=== PATIENT | female | born 1970 | race Caucasian/White ===

== ENCOUNTER → 2018-02-14 11:34 | Outpatient (POV) | payer MEDICAID, SELFPAY | PROVIDERS: Visit Provider Dentist | DX: Z00.00 Encounter for general adult medical examination without abnormal findings (principal) ==

== ENCOUNTER → 2018-12-02 14:27 | Outpatient (CLI) | payer MEDICAID, SELFPAY ==
--- NOTE | 2018-12-02 14:38 | XR_ITS ---
XR knee RT 3V HISTORY: ITS.REASON: BUZZ KNEE PAIN ORDERING PHYSICIAN: Giselle Hawkins MD PATIENT AGE: 48 years COMPARISON: None FINDINGS: No fracture or dislocation. No lytic or blastic change. Normal mineralization. No significant arthritic changes evident. No other significant findings IMPRESSION: Negative right Knee
--- NOTE | 2018-12-02 14:38 | XR_ITS ---
XR knee LT 3V HISTORY: ITS.REASON: BUZZ KNEE PAIN ORDERING PHYSICIAN: Giselle Hawkins MD PATIENT AGE: 48 years COMPARISON: None FINDINGS: No fracture or dislocation. No lytic change. Normal mineralization. No significant arthritic changes evident. There is focal cortical thickening involving the distal shaft of the femur laterally. No overlying periosteal reaction or soft tissue calcification. This area measures approximately 2.3 x 0.8 cm. IMPRESSION: 1. No acute finding. 2. Focal cortical thickening of the distal femur laterally. This has a benign appearance. Recommend 3 month follow-up to confirm short-term stability
== END ==
PROVIDERS: PCP Family Medicine; Visit Provider Emergency Medicine
DX: M25.561 Pain in right knee (principal); M25.562 Pain in left knee
CPT/HCPCS: 73562

== ENCOUNTER → 2019-03-11 14:16 | Outpatient (CLI) | payer MEDICAID, SELFPAY ==
--- NOTE | 2019-03-11 14:25 | MR_ITS ---
MR knee RT wo con HISTORY: ITS.REASON: RIGHT ANTERIOR KNEE PAIN ORDERING PHYSICIAN: Giselle Bucio MD PATIENT AGE: 48 years Comparison: 12/02/2018 TECHNIQUE: Standard multiplanar multiecho sequences are performed without contrast. FINDINGS: The cruciate ligaments, collateral ligaments, patellar tendon, quadriceps tendon, and menisci have an unremarkable appearance. There is a small cluster of cysts along the anterior aspect of the knee joint measuring 2.1 x 1.8 cm. The largest cyst is approximately 9 mm. Within the central aspect of the lateral tibial plateau at the lateral tibial spine region there is a defect within the bony cortex of the proximal tibia with some increased T2 signal in this area and may represent developing subchondral cyst. There is minimal irregularity of the patellar cartilage posteriorly with increased T2 signal and some minimal increased T2 signal in the posterior patella laterally consistent with mild chondromalacia patella. IMPRESSION: 1. No evidence of internal derangement 2. Mild chondromalacia patella. 3. Cluster of small cysts in the anterior aspect of the knee joint suggesting prior sinus with increased T2 signal along the proximal tibia at the interspinous region which may represent subchondral cystic changes developing. Follow-up suggested to confirm stability
== END ==
PROVIDERS: PCP Emergency Medicine; Visit Provider Emergency Medicine
DX: M25.561 Pain in right knee (principal)
CPT/HCPCS: 73721

== ENCOUNTER → 2019-08-04 09:45 | Outpatient (CLI) | payer MEDICAID, SELFPAY ==
--- NOTE | 2019-08-04 09:57 | US_ITS ---
PROCEDURE: US BREAST RT COMPLETE CLINICAL INDICATION: AXILLA MASS COMPARISON: BB US BREAST-BUZZ from 09/10/2014 FINDINGS: No cyst or mass evident in the right axillary region. IMPRESSION: Negative ultrasound of the right axilla. Consider CT for more thorough evaluation if clinically desired Dictated by: Robinson Salinas MD 08/15/2019 17:39 Electronically signed by Robinson Salinas MD in [place] 08/15/2019 17:39
--- NOTE | 2019-08-04 09:57 | US_ITS ---
PROCEDURE: US BREAST LT COMPLETE CLINICAL INDICATION: AXILLA MASS COMPARISON: DMDB DIG MAMM-DX BUZZ from 09/10/2014 US BREAST RT COMPLETE from 08/04/2019 FINDINGS: Ultrasound performed of the left breast including a palpable area in the axilla. The axillary region has an unremarkable appearance aside from a few small nodes. At 12 o'clock near the nipple there is an oval isoechoic area measuring 13 x 6 mm. This is nonspecific and may be due to underlying fibroglandular tissue. Recommend bilateral mammogram for further evaluation. Negative ultrasound does not exclude the possibility of malignancy. CT of the axilla may be of further value. IMPRESSION: Small nodes in the axilla. There is a questionable isoechoic nodule at 12 o'clock. Consider mammography for further evaluation. Also consider CT for possible adenopathy if that is a clinical concern Dictated by: Robinson Salinas MD 08/15/2019 17:42 Electronically signed by Robinson Salinas MD in [place] 08/15/2019 17:42
== END ==
PROVIDERS: PCP Family Medicine; Visit Provider Physician Assistant
DX: R22.33 Localized swelling, mass and lump, upper limb, bilateral (principal)
CPT/HCPCS: 76641

== ENCOUNTER → 2019-09-26 14:53 | Outpatient (CLI) | payer OTHER, SELFPAY ==
--- NOTE | 2019-09-26 15:01 | MM_ITS ---
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 There are scattered asymmetry is which appear to compress out is fibroglandular tissue. No malignant appearing mass or malignant-appearing microcalcification is evident. There is an asymmetric density in the deep medial aspect of the right breast not significantly changed. There is a lobular density in the inferior aspect of the right breast probably related overlying fibroglandular tissue. Asymmetric area of density noted in the inferior left breast which may also be due to overlying fibroglandular tissue with no sonographic correlate. IMPRESSION: BI-RAD Category: 3 Probably Benign Finding Short Term Follow-up FOLLOW-UP: 6M 6Month Follow-up (A letter has been sent to the patient regarding results of the study.) Dictated by: Robinson Salinas MD 10/01/2019 09:57 Electronically signed by Robinson Salinas MD in [place] 10/01/2019 09:57
== END ==
PROVIDERS: PCP Physician Assistant; Visit Provider Physician Assistant
DX: R22.33 Localized swelling, mass and lump, upper limb, bilateral (principal)
CPT/HCPCS: 77066

== ENCOUNTER → 2019-10-03 13:30 | Outpatient (CLI) | payer OTHER, SELFPAY ==
--- NOTE | 2019-10-03 13:33 | CA_ITS ---
APPROVED REPORT Architectural Draftsman: Tiffany Ritchie RVT Laterality: Bilateral Study Quality: Good Indications: TRANSIENT VISION LOSS OF LEFT EYE X 1 MONTH Risk Factors Hypertension: Smoking Doppler Spectral Velocity Analysis ECA (R) 75.80/13.50 cm/s ECA (L) 56.50/12.70 cm/s dICA (R) 71.50/35.80 cm/s dICA (L) 81.70/41.80 cm/s [place]wood (R) 197.30/69.60 cm/s [place] (L) 76.40/29.30 cm/s pICA (R) 476.90/206.40 cm/s pICA (L) 56.90/27.50 cm/s dCCA (R) 66.40/22.00 cm/s dCCA (L) 90.30/43.60 cm/s pCCA (R) 66.70/18.00 cm/s pCCA (L) 85.10/28.00 cm/s Vert (R) 55.00/23.90 cm/s Vert (L) 73.70/34.50 cm/s ICA/CCA 7.18 ICA/CCA 0.90 Findings Study suggests 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 Stuudy suggests normal left internal cartoid artery, no stenosis visualized. Antegrade flow seen bilateral vertebral arteries. Complex nodule seen right thyroid. 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 Critical Notification Critical Value: Yes Physician Notified Date: 10/03/2019 Time: 14:35 Physician Name: Dr Bucio Electronically signed by : Robinson Salinas MD 10/08/2019 16:18:02
--- NOTE | 2019-10-03 13:33 | CA_ITS ---
APPROVED REPORT EXAM: Comprehensive 2D, Doppler, and color-flow Echocardiogram Eligibility Specialist: Tiffany Ritchie RVT Ht: 5 ft 5 in Wt: 137lbs BSA: 1.68 BP: 110/67 mmHg Indications: Vision loss left eye Hypertension,Smoker,Prior ablation r/t arrhythmia 2D Dimensions LVOT 1.79 cm (M/F) 1.5-2.5 M-Mode Dimensions RVDd 1.75 cm (0.9-2.6) LA Diam 2.80 cm (1.9-4.0) LVDd 3.86 cm (3.5-5.7) Ao Diam 1.90 cm (2.0-3.7) LVDs 2.43 cm (3.5-5.7) AV Cusp 1.60 cm (1.5-2.6) IVSd 0.93 cm (0.6-1.1) PWd 1.25 cm (0.6-1.1) EF (Teich) 67.70% FS 37.00% EDV (Teich) 64.30 mL ESV (Teich) 20.80 mL LV Diastology E/A Ratio 1.20 Mitral Valve MV A Velocity 47.00 (40-130 cm/s) Left Ventricle Left atrium is normal size, left ventricle is normal size, there is no concentric left ventricular hypertrophy, visually estimated ejection fraction 55% with no regional wall motion abnormality. Diastolic parameters are within normal range. Right Ventricle Right atrium and right ventricular normal size and contractility. Aortic Valve Aortic valve is grossly normal, there is no aortic stenosis or aortic insufficiency. Mitral Valve Mitral valve is grossly normal, there is no mitral stenosis, there is mild mitral regurgitation. Tricuspid Valve Tricuspid valve is grossly normal, there is mild tricuspid regurgitation, tricuspid regurgitation jet velocity is inadequate for calculation of the right ventricular systolic pressure. Pulmonic Valve Pulmonic valve is poorly visualized. Great Vessels Aortic root is normal size. Pericardium No significant pericardial effusion noted. Conclusion 1. Normal left ventricular size, preserved left ventricular systolic function, visually estimated ejection fraction 55% with no regional wall motion abnormality, diastolic parameters are within normal range. 2. Mild mitral and tricuspid regurgitation. 3. No significant pericardial effusion noted. Electronically signed by : Garry Rosen, 10/05/2019 11:07:37
== END ==
PROVIDERS: PCP Physician Assistant; Visit Provider Physician Assistant
DX: H53.122 Transient visual loss, left eye (principal)
CPT/HCPCS: 93306; 93880

== ENCOUNTER → 2020-06-14 12:34 | Outpatient (CLI) | payer OTHER, SELFPAY ==
[2020-06-14 13:31] LABS: Basophils # 0.1 K/mm3 (0-0.2); Basophils % 0.5 % (0.1-2.0); Eosinophils # 0.3 K/mm3 (0.0-0.4); Eosinophils % 2.7 % (0.1-12.0); Hematocrit 43.4 % (37.0-47.0); Hemoglobin 15.3 g/dL (12.2-16.2); Lymphocytes # 3.9 K/mm3 (0.7-4.5); Lymphocytes % 33.5 % (10-50); Mean Corpuscular HGB Conc 35.3 g/dL (31.8-35.4); Mean Corpuscular Hemoglobin 33.2 pg (27.0-31.2); Mean Platelet Volume 7.9 fl (7.4-10.4); Monocytes # 0.3 K/mm3 (0.1-1.0); Monocytes % 2.9 % (1.7-9.3); Neutrophils % 60.4 % (37.0-80.0); Platelet Count 176 K/mm3 (142-424); Red Blood Count 4.61 M/mm3 (4.20-5.40); Red Cell Distribution Width 12.8 % (11.5-17.5); White Blood Count 11.5 K/mm3 (4.8-10.8)
== END ==
PROVIDERS: PCP Family Medicine; Referring Provider Nurse Practitioner Family; Visit Provider Nurse Practitioner Family
DX: Z03.818 Encounter for observation for suspected exposure to other biological agents ruled out (principal)
CPT/HCPCS: 36415; 85025; U0003

== ENCOUNTER 2020-06-21 14:11 | Emergency (ER) | payer OTHER, SELFPAY ==
[2020-06-21 14:30] LABS: Apearance,Urine Clear (Clear); Color,Urine Yellow (Yellow)
[2020-06-21 14:31] LABS: Protein,Urine Negative (Negative); Specific Gravity, Urine >= 1.030 (1.005-1.030)
[2020-06-21 14:32] LABS: Blood, Urine Negative (Negative); Glucose,Urine (UA) Negative (Negative); Ketones,Urine Negative (Negative)
[2020-06-21 14:33] LABS: Bilirubin,Urine 2+ (Negative); UTC Leukocyte Esterase,Urine Negative (Negative); UTC Nitrate,Urine Negative (Negative); Urobilinogen,Urine 1 EU/dl (0.2)
[2020-06-21 14:43] VITALS: BP 139/81; PULSE 75; RESP 14; TEMP 36.8; O2SAT 96; BMI 20.5
--- NOTE | 2020-06-21 14:50 | HMH.EDUTC ---
[facility] [place]ression: Burning with urination Disposition: Home, Self-Care Condition on Discharge: Good Additional Instructions: Make sure that you are drinking plenty of fluids to help flush kidneys out Watch for worsening of symptoms and return if no improvement or immediately if any worsening of symptoms Follow up with Family Doctor if no improvement or any worsening of symptoms Straight to ER if any life threatening symptoms Referrals: Odilon Alejandro MD [Primary Care Provider] - As needed Forms: Work/School Release Time of Disposition: 14:56 Medical Decision Making - Pb Inquiry Pt receiving controlled substance: No Pb was queried for this patient: No Vital Signs: 06/21/20 14:43 Temperature 98.3 F Temperature Source Oral Pulse Rate [Right Brachial] 75 Respiratory Rate 14 Blood Pressure [Right Arm] 139/81 Blood Pressure Mean [Right Arm] 100 Blood Pressure Source [Right Arm] Automatic Cuff Blood Pressure Position [Right Arm] Sitting 02 Sat by Pulse Oximetry 96 Oxygen Delivery Method Room Air - Lab Data Lab results reviewed: Yes: I reviewed the patient's lab results. [facility] [place] - General Stated complaint: urinating often and aiken Time Seen by Provider: 06/21/20 14:50 Mode of Arrival: Ambulatory Source of Information: Patient Limitations: No Limitations Description of Symptoms (Recalled from Triage Doc. by RN): PATIENT C/O POSSIBLE UTI HEENT Symptoms (Recalled from RN notes): No Resp Symptoms (Recalled from RN notes): No Skin Symptoms (Recalled from RN notes): No MS Symptoms (Recalled from RN notes): No Functional Status (Recalled from RN notes): WNL - History of Present Illness Provider Complaint: Patient states that she came in to get checked to see if she may have a UTI States that she has been having periods of feeling like she is urinating more than normal with burning at times Denies fever denies chills States that she feels like she is urinating more than normal and having some burning at times - Related Data Home Medications Medication Instructions Recorded Confirmed Topiramate 50 mg PO DAILY 11/01/19 06/21/20 atenoloL [Atenolol 25mg Tab] 25 mg PO DAILY 11/01/19 06/21/20 Allergies Allergy/AdvReac Type Severity Reaction Status Date / Time codeine [CODEINE] Allergy Mild Verified 04/07/19 11:09 morphine [MORPHINE] Allergy Mild Verified 04/07/19 11:09 sumatriptan [SUMATRIPTAN] Allergy Mild Verified 04/07/19 11:09 - Worker's Comp Is this a Worker's Comp case?: No [facility] History - Hepatitis A Screen Drug use history?: No High risk sexual behaviors?: No History of sexually transmitted infection?: No Currently employed?: No Childcare worker?: No Do you have indoor plumbing?: Yes Do you have electricity?: Yes Attestation statement:: This patient has been screened for Hepatitis A risk factors. I have reviewed the patient's past medical history: Yes Medical History: Reports:: Arrhythmia, Hypertension, Migraine Denies:: Cancer, Diabetes Mellitus Type 1, Diabetes Mellitus Type 2, MRSA Other Surgeries: Yes: Cholecystectomy, Other Amputation: No Fractures: No - Social History Smoking Status: Current every day smoker Tobacco Type: cigarettes # Packs/Day (cigarettes): 1 Alcohol Intake: never Occupational Status: other ROS Obtained: Yes All systems reviewed & no additional complaints, Yes Systems reviewed as appropriate & no additional complaints - Genitourinary Female Genitourinary: Reports urinary frequency, Reports urinary urgency, Reports other (Reports burning at times over the last couple of days with urination) Physical Exam - General General appearance: alert, in no apparent distress - Respiratory Respiratory exam: Present: normal lung sounds bilaterally. Absent: respiratory distress - Cardiovascular Cardiovascular exam: Present: regular rate, normal rhythm. Absent: JVD - Abdominal Exam Abdominal exam: Present: soft, normal
[2020-06-21 14:58] VITALS: BP 139/81; PULSE 75; RESP 14; TEMP 36.8; O2SAT 96
== END 2020-06-21 15:00 | disposition home or self-care (01) ==
PROVIDERS: Emergency Provider Nurse Practitioner; PCP Family Medicine
DX: R30.0 Dysuria (principal); I10 Essential (primary) hypertension; G43.709 Chronic migraine without aura, not intractable, without status migrainosus; Z88.5 Allergy status to narcotic agent; Z79.899 Other long term (current) drug therapy
CPT/HCPCS: 81003; 99201

== ENCOUNTER 2020-11-10 18:10 | Emergency (ER) | payer OTHER, SELFPAY ==
[2020-11-10 18:10] VITALS: BP 121/72; PULSE 76; RESP 16; TEMP 36.4; O2SAT 100; BMI 20.1
[2020-11-10 18:36] LABS: Apearance,Urine Slightly Cloudy (Clear); Color,Urine Yellow (Yellow)
[2020-11-10 18:37] LABS: Bilirubin,Urine Negative (Negative); Blood, Urine Negative (Negative); Glucose,Urine (UA) Negative (Negative); Ketones,Urine Negative (Negative); Protein,Urine Negative (Negative); UTC Leukocyte Esterase,Urine Negative (Negative); UTC Nitrate,Urine Negative (Negative); Urobilinogen,Urine 0.2 EU/dl (0.2)
--- NOTE | 2020-11-10 18:45 | HMH.EDUTC ---
[facility] [place] Clinical Impression: RLQ abdominal pain Disposition: Home, Self-Care Condition on Discharge: Good Instructions: DI for Acute Abdominal Pain Additional Instructions: call pcp for follow up and testing Prescriptions: Dicyclomine HCl [Bentyl 10mg capsule] 10 mg PO TID #21 cap Transmission Status: Received by [id number] Referrals: Odilon Alejandro MD [Primary Care Provider] - Medical Decision Making - Medical Records Medical records reviewed: No: I reviewed the patient's medical records. - Pb Inquiry Pt receiving controlled substance: No Vital Signs: 11/10/20 18:10 11/10/20 19:00 11/10/20 19:30 Temperature 97.5 F L 97.7 F Temperature Source Oral Oral Pulse Rate Pulse Rate [Right] 76 70 60 Respiratory Rate 16 17 17 Blood Pressure Blood Pressure [Right Arm] 121/72 128/82 123/74 Blood Pressure Mean [Right Arm] 88 97 90 Blood Pressure Source Blood Pressure Source [Right Arm] Automatic Cuff Automatic Cuff Blood Pressure Position Blood Pressure Position [Right Arm] Supine Supine 02 Sat by Pulse Oximetry 100 100 99 Oxygen Delivery Method Room Air Room Air 11/10/20 20:44 Temperature 98.1 F Temperature Source Oral Pulse Rate 61 Pulse Rate [Right] Respiratory Rate 16 Blood Pressure 116/77 Blood Pressure [Right Arm] Blood Pressure Mean [Right Arm] Blood Pressure Source Automatic Cuff Blood Pressure Source [Right Arm] Blood Pressure Position Sitting Blood Pressure Position [Right Arm] 02 Sat by Pulse Oximetry Oxygen Delivery Method Room Air - Lab Data Lab results reviewed: Yes: I reviewed the patient's lab results. Lab Results 11/10/20 18:35: Urine Color Yellow, Urine Appearance Slightly cloudy, Urine pH 7.0, Ur Specific [place] 1.020, Urine Protein Negative, Urine Glucose (UA) Negative, Urine Ketones Negative, Urine Blood Negative, Urine Nitrate Negative, Urine Bilirubin Negative, Urine Urobilinogen 0.2, Ur Leukocyte Esterase Negative 11/10/20 19:20: WBC 11.4 H, RBC 4.25, Hgb 13.6, Hct 39.9, MCV 93.8, MCH 31.9 H, MCHC 34.0, RDW 15.0, Plt Count 259, MPV 11.1 H, Neut % (Auto) 51.7, Lymph % (Auto) 39.4, [place] % (Auto) 3.6, Eos % (Auto) 2.4, Baso % (Auto) 2.9 H, Neut # (Auto) 5.9, Lymph # (Auto) 4.5, [place] # (Auto) 0.4, Eos # (Auto) 0.3, Baso # (Auto) 0.3 H 11/10/20 19:20: Sodium 142, Potassium 3.8, Chloride 112 H, Carbon Dioxide 24, Anion Gap 9.8, BUN 23 H, Creatinine 1.00, Estimated Creat Clear 58, Estimated GFR 58 L, Est GFR ( Amer) 71, Glucose 91, Calcium 9.4, Total Bilirubin 0.4, AST 28, ALT 17, Alkaline Phosphatase 46, Total Protein 6.9, Albumin 4.0, Globulin 2.9, Albumin/Globulin Ratio 1.4 11/10/20 19:20: ESR 15 11/10/20 19:20: C-Reactive Protein < 0.3, Amylase 51, Lipase 178, Procalcitonin 0.043 11/10/20 19:20: SARS-CoV-2 IgG Ab (Rapid) Negative, SARS-CoV-2 IgM Ab (Rapid) Negative 11/10/20 19:20: TSH 1.12, Thyroxine (T4) 6.7 Result diagrams: 11/10/20 19:20 11/10/20 19:20 Orders (Tests/Meds): ED MEDICATIONS Discontinued Medications Generic Name Dose Route Start Last Admin Trade Name Freq PRN Reason Stop Dose Admin Dicyclomine HCl 10 mg 11/10/20 20:31 11/10/20 20:34 Dicyclomine 10mg Capsule PO 11/10/20 20:32 10 mg ONCE ONE Administration Sodium Chloride 1,000 mls @ 999 mls/hr 11/10/20 19:00 11/10/20 19:37 Sod Chlor 0.9% 1000ml Bag IV 11/10/20 20:00 999 mls/hr .Q1H1M JORDAN Administration Iopamidol 70 ml 11/10/20 20:01 11/10/20 20:02 Iopamidol-370 (76%);100ml Bottle IV 11/10/20 20:02 70 ml ONCE ONE Administration Ketorolac Tromethamine 30 mg 11/10/20 19:40 11/10/20 19:42 Ketorolac 30mg/Ml Vial IV 11/10/20 19:41 30 mg ONCE ONE Administration Ondansetron HCl 4 mg 11/10/20 19:00 11/10/20 19:36 Ondansetron 4mg/2ml Vial IV 11/10/20 19:01 4 mg ONCE ONE Administration Sodium Chloride 10 ml 11/10/20 20:01 11/10/20 20:02 Sodium Chloride 0.9% 10ml Syr (Rad Only) IV 11/10/20
--- NOTE | 2020-11-10 18:59 | CT_ITS ---
PROCEDURE: CT ABDOMEN PELVIS W CON CLINICAL INDICATION: RLQ pain Right lower quadrant pain with nausea COMPARISON: No exams were available for comparison TECHNIQUE: IV Contrast: 75ML Isovue 370 Oral Contrast None Axial images obtained with sagittal and coronal reformats. All CT scans at the facility use one or more dose reduction, viz: automated exposure control, ma/kV adjustment per patient size (including targeted exams where dose is matched to indication, i.e. head), or iterative reconstruction technique. FINDINGS: LOWER THORAX: No acute finding ABDOMEN & PELVIS: Prior cholecystectomy. The liver, spleen, adrenal glands, and pancreas have an unremarkable appearance. No renal or ureteral calculi. No hydronephrosis. No intestinal obstruction or free air. No evidence of appendicitis Prior hysterectomy. There is a small sclerotic focus involving the right ilium in the super acetabular region which may be due to small bone island. IMPRESSION: No acute finding Dictated by: Robinson Salinas MD 11/11/2020 09:15 Robinson Salinas MD in [place] 11/11/2020 09:15
[2020-11-10 19:00] VITALS: BP 114/80; BP 128/82; PULSE 70; PULSE 72; RESP 16; RESP 17; TEMP 36.5; O2SAT 100; BMI 20.1
--- NOTE | 2020-11-10 19:10 | HMH.EDGENADL ---
ED Disposition Clinical Impression: RLQ abdominal pain Disposition: Still a Patient Condition on Discharge: Fair Referrals: Odilon Alejandro MD [Primary Care Provider] - - Critical Care Critical Care Time: No Attestation: On 11/10/20, the high probability of a clinically significant, sudden or life threatening deterioration of the following system(s) required my full and direct attention, intervention and personal management. The time I documented below is in addition to time spent performing reported procedures but includes the following listed in this critical care notation. Medical Decision Making - Medical Records Medical records reviewed: Yes: I reviewed the patient's medical records. - Pb Inquiry Pt receiving controlled substance: No Vital Signs: 11/10/20 18:10 11/10/20 19:00 11/10/20 19:30 Temperature 97.5 F L 97.7 F Temperature Source Oral Oral Pulse Rate [Right] 76 70 60 Respiratory Rate 16 17 17 Blood Pressure [Right Arm] 121/72 128/82 123/74 Blood Pressure Mean [Right Arm] 88 97 90 Blood Pressure Source [Right Arm] Automatic Cuff Automatic Cuff Blood Pressure Position [Right Arm] Supine Supine 02 Sat by Pulse Oximetry 100 100 99 Oxygen Delivery Method Room Air Room Air - Lab Data Lab Results 11/10/20 18:35: Urine Color Yellow, Urine Appearance Slightly cloudy, Urine pH 7.0, Ur Specific [place] 1.020, Urine Protein Negative, Urine Glucose (UA) Negative, Urine Ketones Negative, Urine Blood Negative, Urine Nitrate Negative, Urine Bilirubin Negative, Urine Urobilinogen 0.2, Ur Leukocyte Esterase Negative 11/10/20 19:20: WBC 11.4 H, RBC 4.25, Hgb 13.6, Hct 39.9, MCV 93.8, MCH 31.9 H, MCHC 34.0, RDW 15.0, Plt Count 259, MPV 11.1 H, Neut % (Auto) 51.7, Lymph % (Auto) 39.4, [place] % (Auto) 3.6, Eos % (Auto) 2.4, Baso % (Auto) 2.9 H, Neut # (Auto) 5.9, Lymph # (Auto) 4.5, [place] # (Auto) 0.4, Eos # (Auto) 0.3, Baso # (Auto) 0.3 H 11/10/20 19:20: Sodium 142, Potassium 3.8, Chloride 112 H, Carbon Dioxide 24, Anion Gap 9.8, BUN 23 H, Creatinine 1.00, Estimated Creat Clear 58, Estimated GFR 58 L, Est GFR ( Amer) 71, Glucose 91, Calcium 9.4, Total Bilirubin 0.4, AST 28, ALT 17, Alkaline Phosphatase 46, Total Protein 6.9, Albumin 4.0, Globulin 2.9, Albumin/Globulin Ratio 1.4 11/10/20 19:20: C-Reactive Protein < 0.3, Amylase 51, Lipase 178 Result diagrams: 11/10/20 19:20 11/10/20 19:20 Orders (Tests/Meds): ED MEDICATIONS Generic Name Dose Route Start Last Admin Trade Name Freq PRN Reason Stop Dose Admin Sodium Chloride 1,000 mls @ 999 mls/hr 11/10/20 19:00 11/10/20 19:37 Sod Chlor 0.9% 1000ml Bag IV 11/10/20 20:00 999 mls/hr .Q1H1M JORDAN Administration Discontinued Medications Generic Name Dose Route Start Last Admin Trade Name Freq PRN Reason Stop Dose Admin Iopamidol 70 ml 11/10/20 20:01 11/10/20 20:02 Iopamidol-370 (76%);100ml Bottle IV 11/10/20 20:02 70 ml ONCE ONE Administration Ketorolac Tromethamine 30 mg 11/10/20 19:40 11/10/20 19:42 Ketorolac 30mg/Ml Vial IV 11/10/20 19:41 30 mg ONCE ONE Administration Ondansetron HCl 4 mg 11/10/20 19:00 11/10/20 19:36 Ondansetron 4mg/2ml Vial IV 11/10/20 19:01 4 mg ONCE ONE Administration Sodium Chloride 10 ml 11/10/20 20:01 11/10/20 20:02 Sodium Chloride 0.9% 10ml Syr (Rad Only) IV 11/10/20 20:02 10 ml ONCE ONE Administration ORDERS Category Date Time Status CT abdomen pelvis w con Stat Cat Scan 11/10/20 18:59 Taken Amylase Stat Lab 11/10/20 19:20 Results C-Reactive Protein Stat Lab 11/10/20 19:20 Results Covid-19 IgG/IgM ([facility]) Stat Lab 01/06/21 19:20 Received Erythrocyte Sedimentation Rate Stat Lab 11/10/20 19:20 Received Lipase Stat Lab 11/10/20 19:20 Results Procalcitonin Stat Lab 11/10/20 19:20 Results Urinalysis and Microscopic Stat Lab 11/10/20 19:31 Ordered Medical Decision Narrative: In summary this is a 50-year-old female presenting to the em
[2020-11-10 19:30] VITALS: BP 123/74; PULSE 60; RESP 17; O2SAT 99
[2020-11-10 19:36] LABS: Basophils # 0.3 K/mm3 (0-0.2); Basophils % 2.9 % (0.1-2.0); Eosinophils # 0.3 K/mm3 (0.0-0.4); Eosinophils % 2.4 % (0.1-12.0); Hematocrit 39.9 % (37.0-47.0); Hemoglobin 13.6 g/dL (12.2-16.2); Lymphocytes # 4.5 K/mm3 (0.7-4.5); Lymphocytes % 39.4 % (10-50); Mean Corpuscular Hemoglobin 31.9 pg (27.0-31.2); Mean Corpuscular Volume 93.8 fl (81-99); Mean Platelet Volume 11.1 fl (7.4-10.4); Monocytes # 0.4 K/mm3 (0.1-1.0); Monocytes % 3.6 % (1.7-9.3); Neutrophils # 5.9 K/mm3 (1.8-7.8); Neutrophils % 51.7 % (37.0-80.0); Platelet Count 259 K/mm3 (142-424); Red Blood Count 4.25 M/mm3 (4.20-5.40); White Blood Count 11.4 K/mm3 (4.8-10.8)
[2020-11-10 19:46] LABS: Amylase 51 U/L (30-110); Lipase 178 U/L (23-300)
[2020-11-10 19:47] LABS: Alanine Aminotransferase 17 U/L (12-78); Albumin/Globulin Ratio 1.4 (1.1-1.8); Alkaline Phosphatase 46 U/L (38-126); Anion Gap 9.8 mEq/L (5-15); Aspartate Amino Transferase 28 U/L (14-36); Bilirubin,Total 0.4 mg/dl (0.2-1.3); Blood Urea Nitrogen 23 mg/dl (7-17); Calcium 9.4 mg/dl (8.4-10.2); Carbon Dioxide 24 mmol/L (22.0-30.0); Chloride 112 mmol/L (98-107); Creatinine Clearance Estimated 58 mL/min (50-200); Estimated Glomerular Filt Rate 58 ml/min (>60); GFR (African American) 71 ML/MIN (>60); Globulin 2.9 g/dL (1.3-3.2); Glucose 91 mg/dl (74-100); Potassium 3.8 mmoL/L (3.5-5.1); Sodium 142 mmol/L (136-145); Total Protein,Serum 6.9 g/dl (6.3-8.2)
[2020-11-10 19:54] LABS: C-Reactive Protein < 0.3 mg/L (0-4)
[2020-11-10 20:06] LABS: Procalcitonin 0.043 ng/mL (0.0-2.0)
[2020-11-10 20:12] LABS: Coronavirus 19 IgG Antibody Negative (Negative); Coronavirus 19 IgM Antibody Negative (Negative)
[2020-11-10 20:17] LABS: Erythrocyte Sedimentation Rate 15 mm/hr (0-30)
[2020-11-10 20:44] VITALS: BP 116/77; PULSE 61; RESP 16; TEMP 36.7; O2SAT 100
[2020-11-10 21:04] LABS: T4 (Thyroxine) 6.7 ug/dl (5.53-11.0)
[2020-11-10 21:17] LABS: Thyroid Stimulating Hormone 1.12 uIU/mL (0.465-4.68)
== END 2020-11-10 20:45 | disposition home or self-care (01) ==
LOC: UTC 18:14 → ER 18:54
PROVIDERS: Emergency Medicine; Nurse Practitioner Family; Emergency Provider Emergency Medicine; PCP Family Medicine
DX: R10.31 Right lower quadrant pain (principal); I10 Essential (primary) hypertension; G43.709 Chronic migraine without aura, not intractable, without status migrainosus; Z01.84 Encounter for antibody response examination; Z88.5 Allergy status to narcotic agent; Z79.899 Other long term (current) drug therapy; Z90.49 Acquired absence of other specified parts of digestive tract; Z90.710 Acquired absence of both cervix and uterus
CPT/HCPCS: 74177; 80053; 81003; 82150; 83690; 84145; 84436; 84443; 85025; 85651; 86140; 86328; 96365; 96375; 99283; J2405; Q9967

== ENCOUNTER 2020-11-12 15:40 | Emergency (ER) | payer OTHER, SELFPAY ==
[2020-11-12 15:42] VITALS: BP 125/88; PULSE 67; RESP 16; TEMP 36.6; O2SAT 98; BMI 20.7
--- NOTE | 2020-11-12 15:48 | HMH.EDGENADL ---
ED Disposition Clinical Impression: Right sided abdominal pain Disposition: Home, Self-Care Condition on Discharge: Good Additional Instructions: Please continue using ice, ibuprofen with food, and heating pads on affected area. Use muscle relaxer for muscle spasms. Do not operate heavy machinery or drink alcohol while taking this medicine. Please follow-up with your doctor within several days for recheck. If any changes prior to that time including change in quality/character pain, fever/chills, intractable nausea/vomiting, other GI symptoms, generalized malaise, or any other questions/concerns please immediately report back to our emergency department for a recheck. Prescriptions: Cyclobenzaprine HCl [Cyclobenzaprine 5mg Tab*] 5 mg PO BIDP PRN #12 tab PRN Reason: Muscle Spasm Transmission Status: Pending to [facility] Referrals: Odilon Alejandro MD [Primary Care Provider] - - Critical Care Critical Care Time: No Attestation: On 11/12/20, the high probability of a clinically significant, sudden or life threatening deterioration of the following system(s) required my full and direct attention, intervention and personal management. The time I documented below is in addition to time spent performing reported procedures but includes the following listed in this critical care notation. Medical Decision Making - Medical Records Medical records reviewed: Yes: I reviewed the patient's medical records. - Pb Inquiry Pt receiving controlled substance: No Vital Signs: 11/12/20 15:42 Temperature 98 F Temperature Source Oral Pulse Rate [Radial] 67 Respiratory Rate 16 Blood Pressure [Right Arm] 125/88 Blood Pressure Mean [Right Arm] 100 Blood Pressure Position [Right Arm] Sitting 02 Sat by Pulse Oximetry 98 Oxygen Delivery Method Room Air - Lab Data Lab Results 11/12/20 17:09: WBC 10.8, RBC 4.22, Hgb 13.5, Hct 41.0, MCV 97.1, MCH 32.0 H, MCHC 33.0, RDW 13.4, Plt Count 273, MPV 7.8, Neut % (Auto) 53.2, Lymph % (Auto) 41.8, [place] % (Auto) 3.2, Eos % (Auto) 1.3, Baso % (Auto) 0.4, Neut # (Auto) 5.8, Lymph # (Auto) 4.5, [place] # (Auto) 0.4, Eos # (Auto) 0.2, Baso # (Auto) 0.0 11/12/20 17:09: Sodium 142, Potassium 3.6, Chloride 112 H, Carbon Dioxide 23, Anion Gap 10.6, BUN 13 D, Creatinine 1.10 H, Estimated Creat Clear 54, Estimated GFR 52 L, Est GFR ( Amer) 63, Glucose 82, Calcium 9.7, Total Bilirubin 0.4, AST 29, ALT 22 D, Alkaline Phosphatase 68, Total Protein 7.7, Albumin 4.6, Globulin 3.1, Albumin/Globulin Ratio 1.5 11/12/20 17:09: C-Reactive Protein 0.4 D 11/12/20 18:15: Urine Color Yellow, Urine Appearance Clear, Urine pH 6.5, Ur Specific [place] 1.010, Urine Protein Negative, Urine Glucose (UA) Negative, Urine Ketones Negative, Urine Blood Negative, Urine Nitrate Negative, Urine Bilirubin Negative, Urine Urobilinogen 0.2, Ur Leukocyte Esterase Negative, Ur Squamous Epith Cells 10-20 Result diagrams: 11/12/20 17:09 11/12/20 17:09 Orders (Tests/Meds): ED MEDICATIONS Discontinued Medications Generic Name Dose Route Start Last Admin Trade Name Freq PRN Reason Stop Dose Admin Lactated Ringer's 1,000 mls @ 999 mls/hr 11/12/20 16:15 11/12/20 16:48 Lactated Ringer's 1000 Ml Bag IV 11/12/20 17:15 999 mls/hr .Q1H1M JORDAN Administration Ibuprofen 600 mg 11/12/20 18:24 11/12/20 18:26 Ibuprofen 600 Mg Tablet PO 11/12/20 18:25 600 mg ONCE ONE Administration Medical Decision Narrative: Patient 50-year-old female presenting with right flank/upper quadrant abdominal pain. At this time, I did review her chart and she did have a CT done 2 days ago which was relatively unremarkable. She no longer has a gallbladder. Her pancreas was not inflamed. Also full lab work-up was unremarkable at that time. Patient's PCP concern due to still unclear etiology of her pain so redirected back to the ER for possible advanced imaging repeat. At this time, repeat lab work will be init
[2020-11-12 17:16] LABS: Basophils % 0.4 % (0.1-2.0); Eosinophils # 0.2 K/mm3 (0.0-0.4); Eosinophils % 1.3 % (0.1-12.0); Hemoglobin 13.5 g/dL (12.2-16.2); Lymphocytes # 4.5 K/mm3 (0.7-4.5); Lymphocytes % 41.8 % (10-50); Mean Corpuscular Volume 97.1 fl (81-99); Mean Platelet Volume 7.8 fl (7.4-10.4); Monocytes # 0.4 K/mm3 (0.1-1.0); Monocytes % 3.2 % (1.7-9.3); Neutrophils # 5.8 K/mm3 (1.8-7.8); Neutrophils % 53.2 % (37.0-80.0); Platelet Count 273 K/mm3 (142-424); Red Blood Count 4.22 M/mm3 (4.20-5.40); Red Cell Distribution Width 13.4 % (11.5-17.5); White Blood Count 10.8 K/mm3 (4.8-10.8)
[2020-11-12 17:26] LABS: Alanine Aminotransferase 22 U/L (12-78); Albumin Level 4.6 g/dl (3.5-5.0); Albumin/Globulin Ratio 1.5 (1.1-1.8); Alkaline Phosphatase 68 U/L (38-126); Anion Gap 10.6 mEq/L (5-15); Aspartate Amino Transferase 29 U/L (14-36); Bilirubin,Total 0.4 mg/dl (0.2-1.3); Blood Urea Nitrogen 13 mg/dl (7-17); Calcium 9.7 mg/dl (8.4-10.2); Carbon Dioxide 23 mmol/L (22.0-30.0); Chloride 112 mmol/L (98-107); Creatinine Clearance Estimated 54 mL/min (50-200); Estimated Glomerular Filt Rate 52 ml/min (>60); GFR (African American) 63 ML/MIN (>60); Globulin 3.1 g/dL (1.3-3.2); Glucose 82 mg/dl (74-100); Potassium 3.6 mmoL/L (3.5-5.1); Sodium 142 mmol/L (136-145); Total Protein,Serum 7.7 g/dl (6.3-8.2)
[2020-11-12 18:07] LABS: C-Reactive Protein 0.4 mg/L (0-4)
[2020-11-12 18:28] LABS: Microscopic, Urine URINE MICROSCOPIC (MICROSCOPIC)
[2020-11-12 18:30] LABS: Appearance,Urine CLEAR (Clear); Bilirubin,Urine Negative (Negative); Blood, Urine Negative (Negative); Color,Urine YELLOW (Yellow); Glucose,Urine (UA) Negative (Negative); Ketones,Urine Negative (Negative); Leukocyte Esterase,Urine Negative (Negative); Nitrate,Urine Negative (Negative); PH,Urine 6.5 (5.0-8.5); Protein,Urine Negative (Negative); Urobilinogen,Urine 0.2 EU/dl (0.2)
[2020-11-12 18:49] VITALS: BP 133/74; PULSE 74; RESP 16; TEMP 36.6; O2SAT 98
== END 2020-11-12 18:51 | disposition home or self-care (01) ==
PROVIDERS: Emergency Provider Emergency Medicine; PCP Family Medicine
DX: R10.11 Right upper quadrant pain (principal); R10.31 Right lower quadrant pain; I10 Essential (primary) hypertension; Z79.899 Other long term (current) drug therapy; G43.709 Chronic migraine without aura, not intractable, without status migrainosus
CPT/HCPCS: 80053; 81001; 85025; 86140; 96365; 99282

== ENCOUNTER 2021-08-25 03:58 | Emergency (ER) | payer OTHER, SELFPAY ==
[2021-08-25 04:00] VITALS: BP 162/91; PULSE 94; RESP 16; TEMP 36.4; O2SAT 99; BMI 21.2
--- NOTE | 2021-08-25 04:12 | XR_ITS ---
PROCEDURE INFORMATION: Exam: XR Lumbosacral Spine Exam date and time: 08/25/2021 4:12 AM Age: 51 years old Clinical indication: Low back pain; Patient HX: Lower back pain after moving PT at work; Additional info: A/o TECHNIQUE: Imaging protocol: XR of the lumbosacral spine. Views: 4 or 5 views. COMPARISON: CT ABDOMEN PELVIS W CON 11/10/2020 7:55 PM FINDINGS: Bones/joints: No acute fracture. Normal alignment. Soft tissues: Unremarkable. Intraperitoneal space: Surgical clips within RIGHT upper quadrant. IMPRESSION: No fracture. If back pain persists, consider MRI for further evaluation.
--- NOTE | 2021-08-25 05:15 | PC.NURSE ---
radiology contacting [facility] for update on xr reports. Thereis a high volume and not in line to read yet.
--- NOTE | 2021-08-25 05:43 | PC.NURSE ---
updated pt on poc. gave warm blanket to act as a heating pads to lower back. Pt refuses ice at this time at she is stiff. 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 Contacted radiology for [facility] update. They are still not reading films yet. Will continue to chat with them periodically.
--- NOTE | 2021-08-25 05:52 | HMH.EDBACK ---
ED Disposition Clinical Impression: Lumbar radiculopathy Disposition: Home, Self-Care Condition on Discharge: Fair Instructions: DI for Back Pain With Sciatica Additional Instructions: call pcp for follow up Prescriptions: Cyclobenzaprine HCl [Flexeril 10mg tablet] 10 mg PO BID PRN 5 Days #10 tab PRN Reason: Muscle Spasm Transmission Status: Pending to [facility] # predniSONE [Prednisone 20mg Tab] 20 mg PO BID #10 tab Transmission Status: Pending to [facility] # Ketorolac Tromethamine [Toradol 10mg tablet] 10 mg PO Q6HP PRN #10 tab MDD 40mg/day PRN Reason: Moderate To Severe Pain Transmission Status: Pending to [facility] # Referrals: Odilon Alejandro MD [Primary Care Provider] - - Critical Care Critical Care Time: No Attestation: On 08/25/21, the high probability of a clinically significant, sudden or life threatening deterioration of the following system(s) required my full and direct attention, intervention and personal management. The time I documented below is in addition to time spent performing reported procedures but includes the following listed in this critical care notation. Medical Decision Making - Medical Records Medical records reviewed: Yes: I reviewed the patient's medical records. - Pb Inquiry Pt receiving controlled substance: No Vital Signs: 08/25/21 04:00 Temperature 97.5 F L Temperature Source Oral Pulse Rate [Right] 94 H Respiratory Rate 16 Blood Pressure [Right Arm] 162/91 H Blood Pressure Mean [Right Arm] 114 02 Sat by Pulse Oximetry 99 - Lab Data Lab results reviewed: Yes: I reviewed the patient's lab results. Orders (Tests/Meds): ED MEDICATIONS Discontinued Medications Generic Name Dose Route Start Last Admin Trade Name Freq PRN Reason Stop Dose Admin Ketorolac Tromethamine 60 mg 08/25/21 04:13 08/25/21 04:44 Ketorolac 60mg/2ml Vial IM 08/25/21 04:14 60 mg ONCE ONE Administration Methylprednisolone Sodium Succinate 60 mg 08/25/21 04:13 08/25/21 04:19 Methylprednisolone Sod Succ 125mg Vial IM 08/25/21 04:14 Not Given ONCE ONE Methylprednisolone Sodium Succinate 125 mg 08/25/21 04:19 08/25/21 04:44 Methylprednisolone Sod Succ 125mg Vial IV 08/25/21 04:20 125 mg ONCE ONE Administration - Radiology Data #1 Image(s): L-Spine Image Reviewed: Yes I have reviewed radiologist's interpretation Preliminary Findings: No Fracture Seen Medical Decision Narrative: has lumbar radicular pain in context acute lifting - neg plain xrays but will need follow up and treatment - workman comp forms completed Back Pain HPI - General Chief Complaint: Back Pain/Injury Stated Complaint: WC Injury to lower back and down right leg Time Seen by Provider: 08/25/21 05:30 Mode of Arrival: Ambulatory Source of Information: Patient, Medical Record Limitations: No Limitations Description of Symptoms (Recalled from ER Triage Doc. 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 pt c/o lumbar pain radiating down rt leg - History of Present Illness HPI Narrative: pt with acute lifting injury with back pain with rad to rt lower leg - no cauda equina sx and no prev back injury MD Complaint: back injury Onset (ago): hour(s) Duration: constant Similar Symptoms Previously: No Location: lumbar spine Severity: moderate Quality: sharp Radiation: right leg Relieving factors: none Exacerbating factors: movement Context: while lifting Associated symptoms: denies other symptoms - Related Data Home Medications Medication Instructions Recorded Confirmed Topiramate 50 mg PO DAILY 11/01/19 11/10/20 atenoloL [Atenolol 25mg Tab] 25 mg PO DAILY 11/01/19 11/10/20 aspirin 81 mg tablet,delayed 81 mg PO DAILY 09/03/20 11/10/20 release atorvastatin 20 mg tablet 20 mg PO DAILY 09/03/20 11/10/20 clopidogrel 75 mg tablet 75 mg PO DAILY 09/03/20 11/10/20 p
[2021-08-25 06:16] VITALS: BP 134/85; PULSE 80; RESP 16; TEMP 36.4; O2SAT 99
== END 2021-08-25 06:17 | disposition home or self-care (01) ==
PROVIDERS: Emergency Provider Emergency Medicine; PCP Family Medicine
DX: M54.16 Radiculopathy, lumbar region (principal); X50.0XXA Overexertion from strenuous movement or load, initial encounter; Y93.F2 Activity, caregiving, lifting; Y92.69 Other specified industrial and construction area as the place of occurrence of the external cause; Y99.0 Civilian activity done for income or pay
CPT/HCPCS: 72110; 96372; 99282

== ENCOUNTER 2021-09-13 11:51 | Emergency (ER) | payer OTHER, SELFPAY ==
[2021-09-13 11:52] VITALS: BP 144/91; PULSE 78; RESP 21; TEMP 37; O2SAT 99; BMI 21.6
[2021-09-13 12:47] LABS: Adenovirus,PCR Not Detected (NotDetected); Bordetella Pertussis Not Detected (NotDetected); Chlamydophila Pneumoniae, PCR Not Detected (NotDetected); Coronavirus 19, PCR Not Detected (NotDetected); Coronavirus 229E Not Detected (NotDetected); Coronavirus NL63 Not Detected (NotDetected); Coronavirus OC43 Not Detected (NotDetected); Coronovirus HKU1,PCR Not Detected (NotDetected); Human Metapneumovirus Not Detected (NotDetected); Influenza A, PCR Not Detected (NotDetected); Influenza AH1, 2009 Not Detected (NotDetected); Influenza AH1, PCR Not Detected (NotDetected); Influenza AH3,PCR Not Detected (NotDetected); Influenza B, PCR Not Detected (NotDetected); Mycoplasma Pneumoniae, PCR Not Detected (NotDetected); Parainfluenza 1, PCR Not Detected (NotDetected); Parainfluenza 2, PCR Not Detected (NotDetected); Parainfluenza 3, PCR Not Detected (NotDetected); Parainfluenza 4, PCR Not Detected (NotDetected); Respiratory Syncytial Virus Not Detected (NotDetected); Rhinovirus/Enterovirus Not Detected (NotDetected)
--- NOTE | 2021-09-13 12:50 | HMH.EDUTC ---
[facility] [place] Disposition Clinical Impression: Bronchitis Sinusitis Qualifiers: Sinusitis location: unspecified location Chronicity: unspecified Qualified Code(s): J32.9 - Chronic sinusitis, unspecified Disposition: Home, Self-Care Condition on Discharge: Good Instructions: Sinusitis, DI for Sinusitis, Acute Bronchitis, DI for Acute Bronchitis Additional Instructions: ? Start antibiotic today. Be sure to complete entire prescription even if feeling better ? Monitor temp. Tylenol every 4 hours as needed and / or ibuprofen every 6 hours as needed ( As long as your primary care physician has told you that it ok to take both. For fever/aches/pains ER if no less than 101 despite Tylenol or Motrin ? Humidifier/vaporizer or hot steamy shower *Tessalon Perles will not cause drowsiness but use at bedtime to help stop cough so that you may get some rest. *Start steroid today. Helps with inflammation therefore, cough and wheezing. Follow directions on the package. Reviewed side effects. Patient reports taking them before. Follow up IMMEDIATELY for new or worsening of symptoms OR no noticeable improvement over the next 48-72 hours. 911 immediately for any life threatening symptoms such as chest pain or difficulty breathing Prescriptions: Benzonatate [Benzonatate 100mg cap] 100 mg PO TID PRN #15 cap PRN Reason: Cough Transmission Status: [facility] predniSONE [Deltasone 10mg tablet] 10 mg PO BID 5 Days #10 tab Transmission Status: [facility] Cefdinir [Omnicef 300mg Capsule] 300 mg PO BID #20 cap Transmission Status: [facility] Referrals: Odilon Alejandro MD [Primary Care Provider] - As needed Time of Disposition: 13:45 Medical Decision Making - Pb Inquiry Pt receiving controlled substance: No Pb was queried for this patient: No Vital Signs: 09/13/21 11:52 Temperature 98.6 F Temperature Source Oral Pulse Rate [Left Radial] 78 Respiratory Rate 21 Blood Pressure [Right Arm] 144/91 H Blood Pressure Mean [Right Arm] 108 Blood Pressure Source [Right Arm] Automatic Cuff Blood Pressure Position [Right Arm] Sitting 02 Sat by Pulse Oximetry 99 Oxygen Delivery Method Room Air - Lab Data Lab results reviewed: Yes: I reviewed the patient's lab results. Lab Results 09/13/21 13:06: Strep Scn Rapid Clinic Negative Orders (Tests/Meds): ORDERS Category Date Time Status Full Resp Panel w/COVID ([facility]) Routine Lab 09/13/21 12:40 Received Strep Screen Confirmation Stat Micro 09/13/21 13:06 [facility] - General Stated complaint: covid symptoms since 1103 Time Seen by Provider: 09/13/21 12:50 Mode of Arrival: Ambulatory Source of Information: Patient Limitations: No Limitations Description of Symptoms (Recalled from Triage Doc. by RN): c/o cough, fever, runny nose and body aches for one week HEENT Symptoms (Recalled from RN notes): Yes Resp Symptoms (Recalled from RN notes): Yes (cough) Skin Symptoms (Recalled from RN notes): No MS Symptoms (Recalled from RN notes): No Functional Status (Recalled from RN notes): na - History of Present Illness Provider Complaint: Patient states that she hasnt felt well for close to a week having body aches, chills, fever, sinus congestion and pressure along with coughing up mucous at times States that she was tested for COVID on Sunday and it was negative States that she has continued to feel worse so she came in to get checked - Related Data Home Medications Medication Instructions Recorded Confirmed Topiramate 50 mg PO DAILY 11/01/19 09/13/21 atenoloL [Atenolol 25mg Tab] 25 mg PO DAILY 11/01/19 09/13/21 aspirin 81 mg tablet,delayed 81 mg PO DAILY 09/03/20 09/13/21 release atorvastatin 20 mg tablet 20 mg PO DAILY 09/03/20 09/13/21 clopidogrel 75 mg tablet 75 mg PO DAILY 09/03/20 09/13/21 promethazine 12.5 mg tablet 12.5 mg PO Q6H PRN 09/03/20 09/13/21 Previous Rx's Medication Instruct
[2021-09-13 13:07] LABS: UTC Strep Screen (Rapid) Negative (Negative)
[2021-09-13 13:57] VITALS: BP 144/91; PULSE 78; RESP 21; TEMP 37; O2SAT 99
== END 2021-09-13 14:01 | disposition home or self-care (01) ==
PROVIDERS: Emergency Provider Nurse Practitioner; PCP Family Medicine
DX: J32.9 Chronic sinusitis, unspecified (principal); I10 Essential (primary) hypertension
CPT/HCPCS: 87581; 87632; 87798; 87880; 99203; C9803; G0463; U0003; U0005

== ENCOUNTER → 2021-11-14 12:05 | Outpatient (CLI) | payer OTHER, SELFPAY ==
[2021-11-14 12:33] LABS: Adenovirus,PCR Not Detected (NotDetected); Bordetella Pertussis Not Detected (NotDetected); Chlamydophila Pneumoniae, PCR Not Detected (NotDetected); Coronavirus 19, PCR Not Detected (NotDetected); Coronavirus 229E Not Detected (NotDetected); Coronavirus NL63 Not Detected (NotDetected); Coronavirus OC43 Not Detected (NotDetected); Coronovirus HKU1,PCR Not Detected (NotDetected); Influenza A, PCR Not Detected (NotDetected); Influenza AH1, 2009 Not Detected (NotDetected); Influenza AH1, PCR Not Detected (NotDetected); Influenza AH3,PCR Not Detected (NotDetected); Influenza B, PCR Not Detected (NotDetected); Mycoplasma Pneumoniae, PCR Not Detected (NotDetected); Parainfluenza 1, PCR Not Detected (NotDetected); Parainfluenza 2, PCR Not Detected (NotDetected); Parainfluenza 3, PCR Not Detected (NotDetected); Parainfluenza 4, PCR Not Detected (NotDetected); Respiratory Syncytial Virus Not Detected (NotDetected); Rhinovirus/Enterovirus Not Detected (NotDetected)
[2021-11-14 12:41] LABS: Basophils # 0.1 K/mm3 (0-0.2); Basophils % 1.1 % (0.1-2.0); Eosinophils # 0.3 K/mm3 (0.0-0.4); Eosinophils % 2.7 % (0.1-12.0); Hematocrit 47.1 % (37.0-47.0); Hemoglobin 15.4 g/dL (12.2-16.2); Lymphocytes # 4.1 K/mm3 (0.7-4.5); Mean Corpuscular HGB Conc 32.7 g/dL (31.8-35.4); Mean Corpuscular Hemoglobin 32.9 pg (27.0-31.2); Mean Corpuscular Volume 100.7 fl (81-99); Mean Platelet Volume 8.5 fl (7.4-10.4); Monocytes # 0.5 K/mm3 (0.1-1.0); Monocytes % 4.4 % (1.7-9.3); Neutrophils # 6.3 K/mm3 (1.8-7.8); Neutrophils % 55.9 % (37.0-80.0); Platelet Count 224 K/mm3 (142-424); Red Blood Count 4.68 M/mm3 (4.20-5.40); White Blood Count 11.3 K/mm3 (4.8-10.8)
[2021-11-14 21:26] LABS: Human Metapneumovirus Detected (NotDetected)
== END ==
PROVIDERS: PCP Family Medicine; Visit Provider Nurse Practitioner Family
DX: Z20.822 Contact with and (suspected) exposure to COVID-19 (principal); B97.81 Human metapneumovirus as the cause of diseases classified elsewhere
CPT/HCPCS: 36415; 85025; 87581; 87632; 87798; C9803; U0003; U0005

== ENCOUNTER → 2022-01-17 10:14 | Outpatient (CLI) | payer OTHER, SELFPAY ==
--- NOTE | 2022-01-17 10:21 | US_ITS ---
FINAL REPORT CLINICAL HISTORY: LT UPPER ARM ST MASS-- palp area FINDINGS: ULTRASOUND LEFT UPPER EXTREMITY, NONVASCULAR LIMITED Sonographic images of the soft tissues of the left upper extremity were obtained. There is a heterogeneous appearing mass in the upper arm measuring 1.7 x 1.1 x 0.7 cm. The mass appearance is nonspecific and appears centered in the subcutaneous tissues. IMPRESSION: Nonspecific mass in the upper arm, complex fluid collection versus neoplasm. Reviewed, Interpreted and Dictated by Ricardo Delacruz III, MD Transcribed by Bruna Corona Authenticated by Ricardo Delacruz III, MD on 01/17/2022 01:41:25 PM [facility]
== END ==
PROVIDERS: PCP Family Medicine; Visit Provider Physician Assistant
DX: R22.32 Localized swelling, mass and lump, left upper limb (principal)
CPT/HCPCS: 76882

== ENCOUNTER → 2022-02-07 08:31 | Outpatient (CLI) | payer OTHER, SELFPAY ==
--- NOTE | 2022-02-07 08:38 | MR_ITS ---
FINAL REPORT CLINICAL HISTORY: rule out sarcoma. found lump e5mceuh ago. put marker on spot. 12ml prohance given. FINDINGS: Multiplanar MR imaging of the left shoulder was performed without and with contrast. The tendons of the rotator cuff are intact without evidence of rotator cuff tear. There is mild a.c. joint arthrosis. A small amount fluid is seen in the subacromial/subdeltoid bursa. The glenoid labrum is intact. The long head of the biceps tendon is intact. No significant glenohumeral joint effusion is seen. There is no evidence of fracture or dislocation. The musculature is intact. There is a 12 mm focus of abnormal signal in the anterior subcutaneous tissues beneath the level of the marker. This focus shows contrast enhancement which is nonspecific. Findings are favored to represent localized inflammation over neoplasm. IMPRESSION: Abnormal signal at the area of interest which is nonspecific but favored to represent localized inflammation over neoplasm. Reviewed, Interpreted and Dictated by Ricardo Delacruz III, MD Transcribed by Ange Gray Authenticated by Ricardo Delacruz III, MD on 02/07/2022 11:29:53 AM [facility]
== END ==
PROVIDERS: PCP Family Medicine; Visit Provider Surgery
DX: C49.9 Malignant neoplasm of connective and soft tissue, unspecified (principal); M25.512 Pain in left shoulder
CPT/HCPCS: 73223; A9576

== ENCOUNTER → 2022-02-18 06:10 | Outpatient (CLI) | payer OTHER, SELFPAY | PROVIDERS: PCP Family Medicine; Visit Provider Surgery | DX: Z01.812 Encounter for preprocedural laboratory examination (principal); Z11.52 Encounter for screening for COVID-19 | CPT/HCPCS: C9803; U0003; U0005 ==

== ENCOUNTER 2022-02-20 06:08 | Day surgery (SDC) | payer OTHER, SELFPAY ==
[2022-02-17 15:54] VITALS: BMI 21.6
[2022-02-20 06:25] VITALS: BP 145/85; PULSE 74; RESP 18; TEMP 36.2; O2SAT 100
[2022-02-20 06:47] LABS: Basophils # 0.2 K/mm3 (0-0.2); Basophils % 1.6 % (0.1-2.0); Eosinophils # 0.3 K/mm3 (0.0-0.4); Eosinophils % 2.7 % (0.1-12.0); Hematocrit 44.7 % (37.0-47.0); Hemoglobin 14.7 g/dL (12.2-16.2); Mean Corpuscular HGB Conc 32.9 g/dL (31.8-35.4); Mean Corpuscular Hemoglobin 32.6 pg (27.0-31.2); Mean Corpuscular Volume 99.1 fl (81-99); Mean Platelet Volume 8.5 fl (7.4-10.4); Monocytes # 0.4 K/mm3 (0.1-1.0); Monocytes % 3.9 % (1.7-9.3); Neutrophils # 5.6 K/mm3 (1.8-7.8); Neutrophils % 53.8 % (37.0-80.0); Platelet Count 251 K/mm3 (142-424); Red Blood Count 4.51 M/mm3 (4.20-5.40); Red Cell Distribution Width 13.3 % (11.5-17.5); White Blood Count 10.4 K/mm3 (4.8-10.8)
[2022-02-20 06:57] LABS: Chloride 111 mmol/L (98-107); Potassium 3.6 mmoL/L (3.5-5.1); Sodium 141 mmol/L (136-145)
[2022-02-20 07:00] LABS: Anion Gap 9.6 mEq/L (5-15); Blood Urea Nitrogen 20 mg/dl (7-17); Calcium 8.8 mg/dl (8.4-10.2); Carbon Dioxide 24 mmol/L (22.0-30.0); Creatinine Clearance Estimated 68 mL/min (50-200); Estimated Glomerular Filt Rate 66 ml/min (>60); GFR (African American) 80 ML/MIN (>60); Glucose 78 mg/dl (74-100)
--- NOTE | 2022-02-20 07:08 | HMH.ANESCL ---
[facility] Anesthesia Checklist - Patient Identification Patient Identification: Arm Band - Structural Data Admitted From: Home Planned Operative Procedure/s: Excision of arm lesion Consent for Planned Operative Procedure(s) Verified: Yes - NPO Status Verified Time NPO: 00:00 - Additional verifications Anesthesia Reactions: Yes (NAUSEA) Hx Blood Transfusions: No Blood Transfusion Reaction: No - Airway Assessment C-Spine Mobility Assessed: Yes TMJ Mobility Assessed: No Dentition: Edentulous - Neurological Assessment Level of Consciousness: Awake Hx Seizures: No Numbness or tingling in extremities: No - Anesthesia Plan Anesthesia Risk discussed: Yes Anesthesia Plan: Verified ASA Class: II Anesthesia Type: MAC [facility] History I have reviewed the patient's past medical history: Yes Medical History: Reports:: Cancer (basal cell carcinoma), Cerebrovascular Accident, Hypertension, Migraine Denies:: Diabetes Mellitus Type 1, Diabetes Mellitus Type 2, MRSA, Seizures *Have you ever received a pneumonia vaccine?: No *Have you received a flu vaccine this season?: Yes Other Medical History: Denies: Blood Transfusion Reaction Anesthesia experience/problems:: None Other Surgeries: Yes: Cholecystectomy, Colonoscopy, Other Amputation: No Fractures: No - *Social History Last grade of school completed: Advanced degree Smoking Status: Current every day smoker Tobacco Type: cigarettes # Packs/Day (cigarettes): 1 Alcohol Intake: never Substance Use Type: denies use *Occupational Status:: employed Housing: house Household Members: none *Travel in the last 8 weeks: None Family Hx:: No significant family history
[2022-02-20 08:16] VITALS: BP 92/65; PULSE 88; RESP 16; TEMP 36.1; O2SAT 96
--- NOTE | 2022-02-20 08:18 | HMH.OPNOTE ---
Date of procedure: 02/20/22 Pre-op Diagnosis:: Left upper extremity mass/lesion Post-op Diagnosis:: Same Procedure performed:: Excision of left upper subcutaneous extremity mass/lesion (excisional length 2.0 cm) with intermediate complex closure Surgeon:: Ricardo D eLuna MD FULFILLMENT REPRESENTATIVE:: Cristal Redding Anesthesia: MAC, local Estimated blood loss (mL): 2 Clinical Note:: Patient presents for excision of left upper extremity lesion. She is a pleasant 51-year-old female referred by Angela Gonzalez for mass and left upper arm.? She states that she noticed a nodule on the proximal left upper extremity several weeks ago.? She denies any pain.? She underwent ultrasound of the area which reveals heterogeneous appearing mass measuring 1.7 cm.? This is nonspecific.? Based on the ultrasound it states this could be complex fluid collection versus neoplasm. The tissues of the left upper extremity near the brachial deltoid junction. Given the inconclusive nature of the ultrasound and unusual presentation I ordered an MRI. This reveals abnormal signal at the area of interest which is nonspecific but favored to represent localized inflammation over neoplasm. Of note, she is on Plavix. She had only discontinued this 48 hours prior to surgery. The options were discussed with her. It was explained to her that she could have some additional bleeding and bruising due to the short duration of stopping the Plavix. She wished to proceed. Operative findings:: Subcutaneous nodule, with possibly fat necrosis Operative note:: Patient was taken the operating room. She was positioned supine position. Adequate intravenous sedation was achieved. The area was prepped and draped in the standard surgical fashion. Local anesthetic was infiltrated. Longitudinal approximately 2 cm incision was made. Dissection was carried down through superficial subcutaneous tissues using electrocautery. There was a firm nodule in subcutaneous tissues which was somewhat ill-defined. This was likely consistent with fat necrosis. With careful meticulous sharp dissection was dissected free from the surrounding subcutaneous tissues and sent off as a specimen. Hemostasis was achieved with electrocautery. Subdermal tissues were closed with interrupted 3-0 Vicryl. Skin was closed with 4-0 Monocryl in a subcuticular fashion. Steri-Strips and dressings were applied. Condition: stable Disposition: PACU Specimens:: Left upper extremity lesion Complications:: None immediately apparent
[2022-02-20 08:30] VITALS: BP 108/45; PULSE 87; RESP 18; TEMP 36.1; O2SAT 96
[2022-02-20 08:48] VITALS: BP 103/68; PULSE 80; RESP 18; TEMP 36.1; O2SAT 98
== END 2022-02-20 08:48 | disposition home or self-care (01) ==
LOC: OR 06:11
PROVIDERS: PCP Family Medicine; Visit Provider Surgery
PROC: (CPT 11402; principal; 2022-02-20 07:30)
DX: R22.32 Localized swelling, mass and lump, left upper limb (principal); Z85.828 Personal history of other malignant neoplasm of skin; I10 Essential (primary) hypertension; G43.909 Migraine, unspecified, not intractable, without status migrainosus; Z86.73 Personal history of transient ischemic attack (TIA), and cerebral infarction without residual deficits; Z72.0 Tobacco use
CPT/HCPCS: 11402; 12031; 80048; 85025; 96374

== ENCOUNTER → 2022-03-31 11:20 | Outpatient (CLI) | payer OTHER, SELFPAY ==
--- NOTE | 2022-03-31 11:24 | XR_ITS ---
FINAL REPORT CLINICAL HISTORY: RIGHT HIP PAIN FINDINGS: An AP view of the pelvis and a frog leg views of the right hip were obtained. There is no prior exam for comparison. There is no acute fracture or dislocation. There is a subchondral lucency in the right femoral head could represent a subchondral cyst. There is mild degenerative disease bilaterally. Remaining osseous pelvis is within normal limits. Soft tissues are within normal limits. IMPRESSION: No acute osseous abnormality of the right hip. Mild degenerative disease. If pain persists, consider MR. Reviewed, Interpreted and Dictated by Marita Jerome MD Transcribed by Alonso Byers Authenticated by Marita Jerome MD on 03/31/2022 12:55:[address] [facility]
== END ==
PROVIDERS: PCP Family Medicine; Visit Provider Family Medicine
DX: M25.551 Pain in right hip (principal)
CPT/HCPCS: 73502

== ENCOUNTER 2022-04-29 14:03 | Emergency (ER) | payer OTHER, SELFPAY ==
[2022-04-29 14:10] VITALS: BP 134/113; PULSE 89; RESP 18; TEMP 36.9; O2SAT 95; BMI 21.8
--- NOTE | 2022-04-29 14:27 | HMH.EDUTC ---
[facility] [place] Disposition Clinical Impression: Sinusitis Qualifiers: Sinusitis location: maxillary Chronicity: acute Recurrence: non-recurrent Qualified Code(s): J01.00 - Acute maxillary sinusitis, unspecified Disposition: Home, Self-Care Condition on Discharge: Good Instructions: DI for Sinusitis Additional Instructions: Start antibiotic patient to take as ordered for a full length of time even if you feel better. Sinus infections do not get better overnight. It may take 2-3 days to notice much improvement so be sure to use conservative measures as discussed for symptoms. Flonase 1 spray each nostril daily to help with nasal congestion, sinus and ear pressure/information Increase fluids Humidifier/vaporizer as needed Tylenol and ibuprofen as needed for fever or pain. If symptoms do not improve or get worse return or be seen in the ER Follow-up with primary care this week Prescriptions: predniSONE [Prednisone 20mg Tab] 20 mg PO BID #10 tab Transmission Status: Pending to [facility] Azithromycin [Zithromax 250mg tab] 250 mg PO DIRECTED #6 tab Transmission Status: Pending to [facility] Referrals: Odilon Alejandro MD [Primary Care Provider] - Time of Disposition: 14:30 Medical Decision Making - Pb Inquiry Pt receiving controlled substance: No Vital Signs: 04/29/22 14:10 Temperature 98.4 F Temperature Source Oral Pulse Rate [Right Brachial] 89 Respiratory Rate 18 Blood Pressure [Right Arm] 134/113 H Blood Pressure Mean [Right Arm] 120 Blood Pressure Source [Right Arm] Automatic Cuff Blood Pressure Position [Right Arm] Sitting 02 Sat by Pulse Oximetry 95 Oxygen Delivery Method Room Air [facility] [place] HPI - General Chief complaint: Urgent Treatment Center Stated complaint: headache,drainage Time Seen by Provider: 04/29/22 14:27 Mode of Arrival: Ambulatory Source of Information: Patient Limitations: No Limitations Description of Symptoms (Recalled from Triage Doc. by RN): PATIENT C/O COUGH, LOW-GRADE FEVER, AND HEADACHE X 2 DAYS HEENT Symptoms (Recalled from RN notes): Yes Resp Symptoms (Recalled from RN notes): Yes Skin Symptoms (Recalled from RN notes): No MS Symptoms (Recalled from RN notes): No Functional Status (Recalled from RN notes): WNL - History of Present Illness Provider Complaint: 51 yr old female presents for sinus pressure, dark green nasal congestion,murillo and horseness for 3 days. pt states she tested positive for covid 2 weeks ago. - Related Data Home Medications Medication Instructions Recorded Confirmed Topiramate 50 mg PO DAILY 11/01/19 02/20/22 atenoloL [Atenolol 25mg Tab] 25 mg PO DAILY 11/01/19 02/20/22 atorvastatin 20 mg tablet 20 mg PO DAILY 09/03/20 02/20/22 clopidogrel 75 mg tablet 75 mg PO DAILY 09/03/20 02/20/22 hydroxyzine HCl 25 mg tablet 25 mg PO QIDP PRN tab 01/31/22 02/20/22 ropinirole 0.25 mg tablet 0.25 mg PO DAILY tab 01/31/22 02/20/22 Dihydroergotamine Mesylate 1 ml NS [id number] PRN 02/17/22 02/20/22 Previous Rx's Medication Instructions Recorded Azithromycin [Zithromax 250mg 250 mg PO DIRECTED #6 tab 04/29/22 tab] predniSONE [Prednisone 20mg 20 mg PO BID #10 tab 04/29/22 Tab] Allergies Allergy/AdvReac Type Severity Reaction Status Date / Time codeine [CODEINE] Allergy Mild Verified 02/20/22 06:21 morphine [MORPHINE] Allergy Mild Verified 02/20/22 06:21 sumatriptan [SUMATRIPTAN] Allergy Mild Verified 02/20/22 06:21 - Worker's Comp Is this a Worker's Comp case?: No [facility] History - Hepatitis A Screen Attestation statement:: This patient has been screened for Hepatitis A risk factors. I have reviewed the patient's past medical history: Yes Medical History: Reports:: Arrhythmia, Cancer (basal cell carcinoma), Cerebrovascular Accident, Hypertension, Migraine Denies:: Diabetes Mellitus Type 1, Diabetes Mellitus Type 2, MRSA, Seizures Other Medical History: Denies: Blood Transfusion Reaction Other
[2022-04-29 14:29] VITALS: BP 134/113; PULSE 89; RESP 18; TEMP 36.9; O2SAT 95
== END 2022-04-29 14:34 | disposition home or self-care (01) ==
PROVIDERS: Emergency Provider Nurse Practitioner Family; PCP Family Medicine
DX: J01.00 Acute maxillary sinusitis, unspecified (principal); F17.210 Nicotine dependence, cigarettes, uncomplicated; Z86.16 Personal history of COVID-19
CPT/HCPCS: 99212; G0463

== ENCOUNTER 2022-05-01 06:23 | Emergency (ER) | payer OTHER, SELFPAY ==
[2022-05-01 06:25] VITALS: BP 151/99; PULSE 75; RESP 17; TEMP 36.9; O2SAT 97; BMI 21.1
--- NOTE | 2022-05-01 06:28 | XR_ITS ---
FINAL REPORT CLINICAL HISTORY: work injury, ulneral sided wrist/hand pain. FINDINGS: RIGHT WRIST Three views demonstrate no acute fracture or dislocation. The visualized joint spaces are normally aligned. There is a chronic calcification distal to the ulnar styloid process. IMPRESSION: No acute bony abnormality. Reviewed, Interpreted and Dictated by Ricardo Delacruz III, MD Transcribed by Alonso Byers Authenticated and [facility]
--- NOTE | 2022-05-01 06:28 | XR_ITS ---
FINAL REPORT CLINICAL HISTORY: work injury, ulnar sided wrist/hand pain. FINDINGS: 3 views of the right hand were obtained. There is no acute fracture or dislocation. The joint spaces are intact. There is no soft tissue abnormality. IMPRESSION: No acute process. Reviewed, Interpreted and Dictated by Ricardo Delacruz III, MD Transcribed by Alonso Byers Authenticated and [facility]
[2022-05-01 06:30] VITALS: BMI 28.3
--- NOTE | 2022-05-01 07:24 | HMH.EDUPEXT ---
ED Disposition Clinical Impression: Hand sprain Qualifiers: Encounter type: initial encounter Laterality: right Qualified Code(s): S63.91XA - Sprain of unspecified part of right wrist and hand, initial encounter Disposition: Home, Self-Care Condition on Discharge: Good Instructions: DI for Hand Injury Additional Instructions: ice and advil and tyenol and see pcp as needed Referrals: Odilon Alejandro MD [Primary Care Provider] - - Critical Care Critical Care Time: No Attestation: On 05/01/22, the high probability of a clinically significant, sudden or life threatening deterioration of the following system(s) required my full and direct attention, intervention and personal management. The time I documented below is in addition to time spent performing reported procedures but includes the following listed in this critical care notation. Medical Decision Making - Medical Records Medical records reviewed: Yes: I reviewed the patient's medical records. - Pb Inquiry Pt receiving controlled substance: No Vital Signs: 05/01/22 06:25 05/01/22 07:30 Temperature 98.4 F Temperature Source Oral Pulse Rate 67 Pulse Rate [Right] 75 Respiratory Rate 17 16 Blood Pressure 163/94 H Blood Pressure [Right Arm] 151/99 H Blood Pressure Mean 117 Blood Pressure Mean [Right Arm] 116 Blood Pressure Source [Right Arm] Automatic Cuff 02 Sat by Pulse Oximetry 97 99 Oxygen Delivery Method Room Air Room Air - Radiology Data #1 Image(s): Wrist, Hand Image Reviewed: Yes I have reviewed radiologist's interpretation Preliminary Findings: No Fracture Seen Medical Decision Narrative: acute hyperextension injury rt hand with neg xrays - workman comp forms completed Upper Extremity HPI - General Chief Complaint: Extremity Injury, Upper Stated Complaint: Right hand pain WC 0545 Time Seen by Provider: 05/01/22 06:45 Mode of Arrival: Family Vehicle Source of Information: Patient, Medical Record Limitations: No Limitations Description of Symptoms (Recalled from ER Triage Doc. by RN): Pt reports while at work a combative pt grabbed her R hand, squeezed it and pulled her fingers backwards. Pt reports pain to R hand and pain increases moving last 3 fingers. 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 - History of Present Illness HPI narrative: acute injury to rt hand at work complaint: injury to: right, wrist, hand Onset (ago): hour(s) Other Extremity Injury: Right: hand, wrist Handedness: right Place: work Severity: moderate Context: injury Associated symptoms: denies other symptoms - Related Data Home Medications Medication Instructions Recorded Confirmed Topiramate 50 mg PO DAILY 11/01/19 05/01/22 atenoloL [Atenolol 25mg Tab] 25 mg PO DAILY 11/01/19 05/01/22 atorvastatin 20 mg tablet 20 mg PO DAILY 09/03/20 05/01/22 clopidogrel 75 mg tablet 75 mg PO DAILY 09/03/20 05/01/22 hydroxyzine HCl 25 mg tablet 25 mg PO QIDP PRN tab 01/31/22 05/01/22 ropinirole 0.25 mg tablet 0.25 mg PO DAILY tab 01/31/22 05/01/22 Dihydroergotamine Mesylate 1 ml NS [id number] PRN 02/17/22 05/01/22 Allergies Allergy/AdvReac Type Severity Reaction Status Date / Time sumatriptan [SUMATRIPTAN] Allergy Mild Verified 02/20/22 06:21 codeine [CODEINE] AdvReac Mild Nausea Verified 05/01/22 06:33 morphine [MORPHINE] AdvReac Mild Nausea Verified 05/01/22 06:33 [facility] History - Hepatitis A Screen Attestation statement:: This patient has been screened for Hepatitis A risk factors. I have reviewed the patient's past medical history: Yes Medical History: Reports:: Arrhythmia, Cancer (basal cell carcinoma), Cerebrovascular Accident, Hypertension, Migraine Denies:: Diabetes Mellitus Type 1, Diabetes Mellitus Type 2, MRSA, Seizures Other Medical History: Denies: Blood Transfusion Reaction Other Surgeries: Yes: Cholecystectomy, Colonoscopy, Other Amputation: No Fractures: No - Social History Smoking Status: Current every day smoke
[2022-05-01 07:30] VITALS: BP 163/94; PULSE 67; RESP 16; O2SAT 99
--- NOTE | 2022-05-01 07:32 | PC.NURSE ---
checked on pt at this time, pt sitting up in bed, updated pt on POC-waiting on xray reading. States no needs at this time. Will continue to monitor
--- NOTE | 2022-05-01 07:40 | PC.NURSE ---
SURENDRA MANSFIELD at
[2022-05-01 08:04] VITALS: BP 141/84; PULSE 63; RESP 16; TEMP 36.9; O2SAT 97
== END 2022-05-01 08:05 | disposition home or self-care (01) ==
PROVIDERS: Emergency Provider Emergency Medicine; PCP Family Medicine
DX: S63.91XA Sprain of unspecified part of right wrist and hand, initial encounter (principal); Y33.XXXA Other specified events, undetermined intent, initial encounter; Y99.0 Civilian activity done for income or pay; Z88.5 Allergy status to narcotic agent; Z88.8 Allergy status to other drugs, medicaments and biological substances; I49.9 Cardiac arrhythmia, unspecified; I10 Essential (primary) hypertension; G43.909 Migraine, unspecified, not intractable, without status migrainosus; Z86.73 Personal history of transient ischemic attack (TIA), and cerebral infarction without residual deficits; Z85.828 Personal history of other malignant neoplasm of skin; Z72.0 Tobacco use
CPT/HCPCS: 73110; 73130; 80305; 99283

== ENCOUNTER → 2022-07-03 08:02 | Outpatient (CLI) | payer OTHER, SELFPAY ==
--- NOTE | 2022-07-03 08:07 | MR_ITS ---
FINAL REPORT CLINICAL HISTORY: RIGHT HIP PAIN. PAIN FOR 10-11 MONTHS. NO INJURY OR TRAUMA. PAINFUL TO WALK. FINDINGS: Multiplanar MR imaging of the right hip was performed without contrast. There are mild degenerative changes bilaterally. There is no evidence of fracture or dislocation. There is no evidence of avascular necrosis. No bony mass is identified. No labral tear is identified. No significant joint effusion is seen. There is mild soft tissue edema adjacent to the greater trochanters that may represent mild greater trochanteric bursitis. There is a small tear at the origin of the left hamstring tendons. The musculature is intact. No soft tissue mass or cyst is identified. Note is made of a large amount of retained stool in the rectum. IMPRESSION: Small tear at the origin of the left hamstring tendons. Mild soft tissue edema adjacent to the greater trochanters may represent mild bilateral greater trochanteric bursitis. Mild degenerative change. Reviewed, Interpreted and Dictated by Ricardo Delacruz III, MD Transcribed by Alonso Byers Authenticated and [facility]
== END ==
PROVIDERS: PCP Family Medicine; Visit Provider Physician Assistant
DX: M25.551 Pain in right hip (principal)
CPT/HCPCS: 73721

== ENCOUNTER 2022-08-19 09:58 | Emergency (ER) | payer OTHER, SELFPAY ==
[2022-08-19 10:10] VITALS: BP 135/91; PULSE 75; RESP 18; TEMP 36.4; O2SAT 100
--- NOTE | 2022-08-19 10:33 | EXP.UTC ---
Discharge Plan Disposition Patient Disposition: Home, Self-Care Condition: Good Prescriptions Prescriptions: New ondansetron 4 mg tablet,disintegrating 4 mg PO Q8H PRN (Reason: nausea and vomiting) Qty: 10 0RF No Action clopidogrel 75 mg tablet 75 mg PO DAILY atorvastatin 20 mg tablet 20 mg PO DAILY atenolol 25 tablet 25 mg PO DAILY pantoprazole 40 mg tablet,delayed release (DR/EC) 40 mg PO DAILY Label Comments: TAKE 1 TABLET BY MOUTH ONCE DAILY Ubrelvy 50 mg Tablet 50 mg PO DAILY Referrals Follow up/Referrals: Odilon Alejandro MD [Primary Care Provider] - See instructions Activity Restrictions/Add. Instructions Additional Instructions/Restrictions: Go home and try to sleep off remainder of migraine headache Return if needed Straight to ER if worse headache of your life Follow up with your Family Doctor as scheduled Clinical Impressions Clinical Impression: Migraine Discharge ED Provider: Chelle Tolliver [facility] [place] HPI General Stated complaint: vomiting, CONLEY Mode of Arrival: Ambulatory Source of Information: Patient Limitations: No Limitations Time Seen by Provider: 08/19/22 10:34 Description of Symptoms (Recalled from Triage Doc. by RN): PATIENT C/O HEADACHE, VOMITING AND STIFF NECK X 1 WEEK. SHE REPORTS A RECENTLY WEIGHT LOSS OF 17 POUNDS WITHIN LAST FEW WEEKS. SHE IS CURRENTLY SEEING PCP FOR THESE SYMPTOMS HEENT Symptoms (Recalled from RN notes): Yes Resp Symptoms (Recalled from RN notes): No Skin Symptoms (Recalled from RN notes): No MS Symptoms (Recalled from RN notes): No Functional Status (Recalled from RN notes): WNL History of Present Illness Provider Complaint: Patient states that she has history of migraine headaches and she sometimes has to come in and get a shot for it States that this is like her symptoms of headache,N/v and neck tightness that she has with her migraines States that she seen PCP yesterday for migraine treatment and that she had lost 17lbs States that PCP prescribed her Ubrelvy and did some lab tests but they are not back yet and she sees him next week to discuss the results but today she is here because the Ubrelvy didnt help with her headache so she came in to get a shot Related Data Home Medications Medication Instructions Recorded Confirmed atenolol 25 mg tablet 25 mg PO DAILY Hypertension 11/01/19 08/19/22 atorvastatin 20 mg tablet 20 mg PO DAILY Cholesterol 09/03/20 08/19/22 clopidogrel 75 mg tablet 75 mg PO DAILY platelett 09/03/20 08/19/22 pantoprazole 40 mg tablet,delayed 40 mg PO DAILY GERD 08/19/22 08/19/22 release ubrogepant 50 mg tablet (Ubrelvy) 50 mg PO DAILY Headache 08/19/22 08/19/22 Previous Rx's Medication Instructions Recorded ondansetron 4 mg disintegrating 4 mg PO Q8H PRN nausea and 08/19/22 tablet vomiting #10 tabs Allergies Allergy/AdvReac Type Severity Reaction Status Date / Time sumatriptan [SUMATRIPTAN] Allergy Mild Verified 07/21/22 11:16 codeine [CODEINE] AdvReac Mild Nausea Verified 07/21/22 11:16 morphine [MORPHINE] AdvReac Mild Nausea Verified 07/21/22 11:16 Worker's Comp Is this a Worker's Comp case?: No PFSH PFSH Medical History (Updated 08/19/22 @ 10:43 by Chelle Tolliver APRN) Anxiety Cancer History of stroke Hyperlipidemia Hypertension Migraine Surgical History (Updated 08/19/22 @ 10:20 by Sandra Salas RN) History of cholecystectomy History of hysterectomy Social History (Updated 08/19/22 @ 10:20 by Sandra Salas RN) Smoking Status: Current every day smoker tobacco type: cigarettes packs per day: 1 alcohol intake: never substance use type: denies use current occupational status: employed Travel in the last 8 weeks: None household members: none housing: house number of children: 3 current occupation: [employer] ROS Obtained: Yes All systems reviewed & no additional complaints except as documented and Yes Systems reviewed as appr
[2022-08-19 10:44] VITALS: BP 135/91; PULSE 75; RESP 18; TEMP 36.4; O2SAT 100
== END 2022-08-19 11:00 | disposition home or self-care (01) ==
PROVIDERS: Emergency Provider Nurse Practitioner; PCP Family Medicine
DX: G43.909 Migraine, unspecified, not intractable, without status migrainosus (principal)
CPT/HCPCS: 96372; 99212; G0463

== ENCOUNTER 2022-10-02 18:34 | Emergency (ER) | payer OTHER, SELFPAY ==
--- NOTE | 2022-10-02 18:19 | ECG_ITS ---
APPROVED REPORT Exam: Resting ECG HR:67 bpm ECG Measurements Heart Rate 67 AXES TN 154 P 150 QRSd 75 QRS 48 QT 392 T 136 QTc 408 Conclusion ECTOPIC ATRIAL RHYTHM LEFT ATRIAL ENLARGEMENT [-0.15mV P-WAVE IN V1/V2] ABNORMAL ECG UNCONFIRMED REPORT Electronically signed by : Gunnar Amador MD 10/02/2022 21:07:09
[2022-10-02 18:34] VITALS: BP 133/85; PULSE 88; RESP 16; TEMP 37.2; O2SAT 98; BMI 18.8
[2022-10-02 18:56] VITALS: BMI 18.8
--- NOTE | 2022-10-02 18:58 | XR_ITS ---
PROCEDURE INFORMATION: Exam: XR Chest Exam date and time: 10/02/2022 6:57 PM Age: 52 years old Clinical indication: Sternal or substernal pain; Additional info: Chest pain TECHNIQUE: Imaging protocol: Radiologic exam of the chest. Views: 2 views. COMPARISON: CR CXR2V XR chest 2V 10/09/2018 8:54 AM FINDINGS: Lungs: The lungs appear clear. No focal areas of consolidation. Pleural spaces: No pleural effusions or appreciable adenopathy. Negative for pneumothorax. Heart/Mediastinum: Cardiac silhouette and pulmonary vasculature are within range of normal. Bones/joints: There is no evidence of acute fracture. Surgical clips are seen within the right lower neck region. Surgical clips in the right upper quadrant indicate cholecystectomy. IMPRESSION: Negative for an acute cardiopulmonary abnormality.
[2022-10-02 19:18] LABS: Chloride 111 mmol/L (98-107); Potassium 4.4 mmoL/L (3.5-5.1); Sodium 142 mmol/L (136-145)
[2022-10-02 19:21] LABS: Anion Gap 11.4 mEq/L (5-15); Blood Urea Nitrogen 15 mg/dl (7-17); Carbon Dioxide 24 mmol/L (22.0-30.0); Creatinine Clearance Estimated 66 mL/min (50-200); Estimated Glomerular Filt Rate 75 ml/min (>60); GFR (African American) 91 ML/MIN (>60); Glucose 80 mg/dl (74-100)
[2022-10-02 19:30] LABS: Basophils # 0.1 K/mm3 (0-0.2); Basophils % 1.1 % (0.1-2.0); Eosinophils # 0.4 K/mm3 (0.0-0.4); Eosinophils % 3.3 % (0.1-12.0); Hematocrit 44.8 % (37.0-47.0); Hemoglobin 14.4 g/dL (12.2-16.2); Lymphocytes % 37.7 % (10-50); Mean Corpuscular HGB Conc 32.1 g/dL (31.8-35.4); Mean Corpuscular Hemoglobin 32.8 pg (27.0-31.2); Mean Corpuscular Volume 102.3 fl (81-99); Mean Platelet Volume 8.9 fl (7.4-10.4); Monocytes # 0.5 K/mm3 (0.1-1.0); Monocytes % 4.6 % (1.7-9.3); Neutrophils # 5.7 K/mm3 (1.8-7.8); Neutrophils % 53.2 % (37.0-80.0); Platelet Count 255 K/mm3 (142-424); Red Blood Count 4.38 M/mm3 (4.20-5.40); Red Cell Distribution Width 12.9 % (11.5-17.5); White Blood Count 10.7 K/mm3 (4.8-10.8)
[2022-10-02 19:34] LABS: Troponin I < 0.01 ng/ml (0.00-0.034)
--- NOTE | 2022-10-02 21:02 | HMH.EDCP ---
Discharge Plan Disposition Patient Disposition: Home, Self-Care Prescriptions Prescriptions: New dicyclomine 10 mg capsule 10 mg PO TID Qty: 20 0RF No Action clopidogrel 75 mg tablet 75 mg PO DAILY atorvastatin 20 mg tablet 20 mg PO DAILY atenolol 25 tablet 25 mg PO DAILY pantoprazole 40 mg tablet,delayed release (DR/EC) 40 mg PO DAILY Label Comments: TAKE 1 TABLET BY MOUTH ONCE DAILY Ubrelvy 50 mg Tablet 50 mg PO DAILY ondansetron 4 mg tablet,disintegrating 4 mg PO Q8H PRN (Reason: nausea and vomiting) Qty: 10 0RF Referrals Follow up/Referrals: Provider,Referral, MD [Primary Care Provider] - See instructions Clinical Impressions Clinical Impression: Right sided abdominal pain, Atypical chest pain, Dysfunction of sphincter of Oddi Stand Alone Forms Stand Alone Forms: Work/School Release Instructions Patient Instructions: DI for Atypical Chest Pain Discharge ED Provider: Marques Akers Chest Pain HPI General Chief Complaint: Chest Pain Stated Complaint: chest pain Time Seen by Provider: 10/02/22 20:20 Mode of Arrival: Ambulatory Source of Information: Patient and Medical Record Limitations: No Limitations Description of Symptoms (Recalled from ER Triage Doc. by RN): pt advises around 2/3am she started having dull chest pain while she was at work , pt advises she went home and laid down around 6am and when she got up she was still having some dull pain. Denies any radiation or SOA History of Present Illness HPI narrative: pt with lower chest /epigastric pain which started last pm - MD complaint: chest pain Onset (ago): hour(s) Duration: constant Activity at onset: light activity Pain location: epigastric Severity: moderate Quality: dull Pain radiation: none Risk Factors for CAD: Family Hx of CAD and Smoking Treatments prior to or on arrival for Cardiac Chest Pain: none LYNNETTE Score for Non-Stemi Age of Patient: 50-59 years old Heart Rate: 50-69 bpm Systolic Blood Pressure: 140-159 mmHg Serum Creatinine: 0.80-1.19 mg/dl CHF Killip Class: I-No CHF Other Risk Factors: None Non-Stemi Risk Score: 75 Related Data Home Medications Medication Instructions Recorded Confirmed atenolol 25 mg tablet 25 mg PO DAILY Hypertension 11/01/19 08/19/22 atorvastatin 20 mg tablet 20 mg PO DAILY Cholesterol 09/03/20 08/19/22 clopidogrel 75 mg tablet 75 mg PO DAILY platelett 09/03/20 08/19/22 pantoprazole 40 mg tablet,delayed 40 mg PO DAILY GERD 08/19/22 08/19/22 release ubrogepant 50 mg tablet (Ubrelvy) 50 mg PO DAILY Headache 08/19/22 08/19/22 Previous Rx's Medication Instructions Recorded ondansetron 4 mg disintegrating 4 mg PO Q8H PRN nausea and 08/19/22 tablet vomiting #10 tabs dicyclomine 10 mg capsule 10 mg PO TID #20 caps 10/02/22 Allergies Allergy/AdvReac Type Severity Reaction Status Date / Time sumatriptan [SUMATRIPTAN] Allergy Mild Verified 07/21/22 11:16 codeine [CODEINE] AdvReac Mild Nausea Verified 07/21/22 11:16 morphine [MORPHINE] AdvReac Mild Nausea Verified 07/21/22 11:16 PFSH PFSH Medical History (Updated 10/02/22 @ 21:50 by Marques Akers MD) Anxiety Cancer History of stroke Hyperlipidemia Hypertension Migraine Surgical History (Updated 08/19/22 @ 10:20 by Sandra Salas RN) History of cholecystectomy History of hysterectomy Social History (Updated 08/19/22 @ 10:20 by Sandra Salas RN) Smoking Status: Current every day smoker tobacco type: cigarettes packs per day: 1 alcohol intake: never substance use type: denies use current occupational status: employed Travel in the last 8 weeks: None household members: none housing: house number of children: 3 current occupation: [employer] ROS Obtained: Yes All systems reviewed & no additional complaints except as documented Physical Exam General General appearance: alert Head Head exam: normocephalic Eye Eye exam: Present P
[2022-10-02 21:25] LABS: Amylase 63 U/L (30-110); Lipase 171 U/L (23-300)
[2022-10-02 21:59] VITALS: BP 129/74; PULSE 81; RESP 16; TEMP 37.2; O2SAT 98
== END 2022-10-02 22:00 | disposition home or self-care (01) ==
PROVIDERS: Emergency Medicine; Emergency Provider Emergency Medicine
DX: R07.89 Other chest pain (principal); K83.4 Spasm of sphincter of Oddi; R10.84 Generalized abdominal pain; Z86.73 Personal history of transient ischemic attack (TIA), and cerebral infarction without residual deficits; Z85.9 Personal history of malignant neoplasm, unspecified; Z79.899 Other long term (current) drug therapy; Z88.5 Allergy status to narcotic agent; I10 Essential (primary) hypertension; E78.5 Hyperlipidemia, unspecified; G43.909 Migraine, unspecified, not intractable, without status migrainosus; F41.9 Anxiety disorder, unspecified; Z72.0 Tobacco use
CPT/HCPCS: 71046; 80048; 82150; 83690; 84484; 85025; 93005; 96374; 96375; 99284

== ENCOUNTER 2022-11-22 16:33 | Emergency (ER) | payer OTHER, SELFPAY ==
[2022-11-22 16:45] VITALS: BP 133/78; PULSE 94; RESP 20; TEMP 36.8; O2SAT 99; BMI 19.1
--- NOTE | 2022-11-22 16:59 | EXP.UTC ---
Discharge Plan Disposition Patient Disposition: Home, Self-Care Condition: Good Prescriptions Prescriptions: New azithromycin [Zithromax] 250 mg tablet 250 mg PO UD DOSE PK Qty: 6 0RF Rx Instructions: Take two (2) tablets today, then one (1) tablet days #2 thru #5 benzonatate [benzonatate] 100 mg capsule 100 mg PO TIDP PRN (Reason: Cough) Qty: 30 0RF No Action atenolol 25 tablet 25 mg PO DAILY Referrals Follow up/Referrals: Odilon Alejandro MD [Primary Care Provider] - See instructions Activity Restrictions/Add. Instructions Additional Instructions/Restrictions: Drink plenty of fluids. Take tylenol or ibuprofen for pain or fever. Take the medications as directed. Follow up with your regular doctor. GO TO THE ER FOR ANY WORSENING SYMPTOMS Clinical Impressions Clinical Impression: Acute viral syndrome, Sinusitis Stand Alone Forms Stand Alone Forms: Work/School Release Instructions Patient Instructions: DI for Viral Syndrome Discharge ED Provider: Parag Qiu [facility] General Stated complaint: sore throat, cough, CONLEY Mode of Arrival: Ambulatory Source of Information: Patient Limitations: No Limitations Time Seen by Provider: 11/22/22 16:59 Description of Symptoms (Recalled from Triage Doc. by RN): sore throat, coughing, CONLEY, fever, and runn nose. Pt stated that she had COVID 3wks ago. HEENT Symptoms (Recalled from RN notes): Yes Resp Symptoms (Recalled from RN notes): No Skin Symptoms (Recalled from RN notes): No MS Symptoms (Recalled from RN notes): No Functional Status (Recalled from RN notes): n/a History of Present Illness Provider Complaint: She states that for the past 2 days she has had worsening sinus congestion, chills, body aches and malaise. She had covid-19 3 weeks ago. She states that she got completely better from that before her current symptoms began. Related Data Home Medications Medication Instructions Recorded Confirmed atenolol 25 mg tablet 25 mg PO DAILY Hypertension 11/01/19 11/22/22 Previous Rx's Medication Instructions Recorded azithromycin 250 mg tablet 250 mg PO UD DOSE PK #6 tabs 11/22/22 (Zithromax) benzonatate 100 mg capsule 100 mg PO TIDP PRN Cough #30 caps 11/22/22 Allergies Allergy/AdvReac Type Severity Reaction Status Date / Time sumatriptan [SUMATRIPTAN] Allergy Mild Verified 11/22/22 16:50 codeine [CODEINE] AdvReac Mild Nausea Verified 11/22/22 16:50 morphine [MORPHINE] AdvReac Mild Nausea Verified 11/22/22 16:50 Worker's Comp Is this a Worker's Comp case?: No [facility] Disclaimer: The information contained in this section may have been updated after the patient was seen, as this information can be updated by other users. Medical History Anxiety Cancer History of stroke Hyperlipidemia Hypertension Migraine Surgical History History of cholecystectomy History of hysterectomy Social History Smoking Status: Current every day smoker tobacco type: cigarettes packs per day: 1 alcohol intake: never substance use type: denies use current occupational status: employed Travel in the last 8 weeks: None household members: none housing: house number of children: 3 current occupation: [employer] ROS Obtained: Yes All systems reviewed & no additional complaints except as documented Constitutional Constitutional: Reports poor appetite Eyes Eyes: Reports system reviewed and no additional complaints, except as documented ENT Ears, Nose, Mouth, and Throat: Reports as per HPI Cardiovascular Cardiovascular: Reports system reviewed and no additional complaints, except as documented and Denies chest pain Respiratory Respiratory: Denies shortness of breath, Denies chest congestion, Reports cough, Denies stridor and Denies wheezing Gastrointestin
[2022-11-22 17:03] LABS: UTC Strep Screen (Rapid) Negative (Negative)
[2022-11-22 17:15] LABS: UTC Influenza A Antigen Negative (Negative); UTC Influenza B Antigen Negative (Negative)
[2022-11-22 17:30] VITALS: BP 133/78; PULSE 94; RESP 20; TEMP 36.8; O2SAT 99
[2022-11-22 17:43] LABS: Adenovirus,PCR Not Detected (NotDetected); Bordetella Pertussis Not Detected (NotDetected); Chlamydophila Pneumoniae, PCR Not Detected (NotDetected); Coronavirus 229E Not Detected (NotDetected); Coronavirus NL63 Not Detected (NotDetected); Coronavirus OC43 Not Detected (NotDetected); Coronovirus HKU1,PCR Not Detected (NotDetected); Human Metapneumovirus Not Detected (NotDetected); Influenza A, PCR Not Detected (NotDetected); Influenza AH1, 2009 Not Detected (NotDetected); Influenza AH1, PCR Not Detected (NotDetected); Influenza AH3,PCR Not Detected (NotDetected); Influenza B, PCR Not Detected (NotDetected); Mycoplasma Pneumoniae, PCR Not Detected (NotDetected); Parainfluenza 1, PCR Not Detected (NotDetected); Parainfluenza 2, PCR Not Detected (NotDetected); Parainfluenza 3, PCR Not Detected (NotDetected); Parainfluenza 4, PCR Not Detected (NotDetected); Respiratory Syncytial Virus Not Detected (NotDetected); Rhinovirus/Enterovirus Not Detected (NotDetected)
[2022-11-22 19:44] LABS: Coronavirus 19, PCR Detected (NotDetected)
== END 2022-11-22 17:30 | disposition home or self-care (01) ==
PROVIDERS: Emergency Provider Nurse Practitioner Family; PCP Family Medicine
DX: U07.1 COVID-19 (principal); J32.9 Chronic sinusitis, unspecified
CPT/HCPCS: 87581; 87632; 87798; 87804; 87880; 99212; 99213; C9803; G0463; U0003; U0005

== ENCOUNTER 2022-12-21 15:47 | Emergency (ER) | payer OTHER, SELFPAY ==
--- NOTE | 2022-12-21 15:59 | XR_ITS ---
PROCEDURE INFORMATION: Exam: XR Chest Exam date and time: 12/21/2022 4:15 PM Age: 52 years old Clinical indication: Shortness of breath; Additional info: SOB TECHNIQUE: Imaging protocol: Radiologic exam of the chest. Views: 2 views. Total images: 2 COMPARISON: CR XR CHEST 2V 10/02/2022 6:57 PM FINDINGS: Lungs: Unremarkable. No consolidation. Pleural spaces: Unremarkable. No pleural effusion. No pneumothorax. Heart/Mediastinum: Unremarkable. No cardiomegaly. Bones/joints: Unremarkable. IMPRESSION: No acute findings.
--- NOTE | 2022-12-21 15:59 | EXP.UTC ---
Discharge Plan Disposition Patient Disposition: Home, Self-Care Condition: Good Prescriptions Prescriptions: New prednisone 10 mg tablet 10 mg PO DIRECTED 9 Days Qty: 21 0RF Rx Instructions: Take 4 tablets daily for 3 days, then take 2 tablets daily for 3 days, then take 1 tablet daily for 3 days, then stop. benzonatate [benzonatate] 100 mg capsule 100 mg PO TIDP PRN (Reason: Cough) Qty: 30 0RF amoxicillin-pot clavulanate 875-125 mg Tablet 1 tab PO Q12H Qty: 20 0RF No Action atenolol 25 tablet 25 mg PO DAILY azithromycin [Zithromax] 250 mg tablet 250 mg PO UD DOSE PK Qty: 6 0RF Rx Instructions: Take two (2) tablets today, then one (1) tablet days #2 thru #5 benzonatate [benzonatate] 100 mg capsule 100 mg PO TIDP PRN (Reason: Cough) Qty: 30 0RF Referrals Follow up/Referrals: Odilon Alejandro MD [Primary Care Provider] - See instructions Activity Restrictions/Add. Instructions Additional Instructions/Restrictions: Drink plenty of fluids. Take tylenol or ibuprofen for pain or fever. Take the medications as directed. Follow up with your regular doctor. GO TO THE ER FOR ANY WORSENING SYMPTOMS Don't start the oral steroids until tomorrow, since you had the shot here today. Clinical Impressions Clinical Impression: Bronchitis Stand Alone Forms Stand Alone Forms: Work/School Release Instructions Patient Instructions: DI for Acute Bronchitis, Ceftriaxone Injection, Methylprednisolone Injection Discharge ED Provider: Parag Qiu [facility] General Stated complaint: cough, drainage SOA Time Seen by Provider: 12/21/22 15:59 History of Present Illness Provider Complaint: She states that for the past 3 weeks she has had sinus and chest congestion. She was treated with antibiotics and steroids when her symptoms first began. She states that she did get some better then, but after finishing the medication her symptoms returned. Related Data Home Medications Medication Instructions Recorded Confirmed atenolol 25 mg tablet 25 mg PO DAILY Hypertension 11/01/19 11/22/22 Previous Rx's Medication Instructions Recorded azithromycin 250 mg tablet 250 mg PO UD DOSE PK #6 tabs 11/22/22 (Zithromax) benzonatate 100 mg capsule 100 mg PO TIDP PRN Cough #30 caps 11/22/22 amoxicillin 875 mg-potassium 1 tab PO Q12H #20 tabs 12/21/22 clavulanate 125 mg tablet benzonatate 100 mg capsule 100 mg PO TIDP PRN Cough #30 caps 12/21/22 prednisone 10 mg tablet 10 mg PO DIRECTED 9 days #21 12/21/22 tabs Allergies Allergy/AdvReac Type Severity Reaction Status Date / Time sumatriptan [SUMATRIPTAN] Allergy Mild Verified 11/22/22 16:50 codeine [CODEINE] AdvReac Mild Nausea Verified 11/22/22 16:50 morphine [MORPHINE] AdvReac Mild Nausea Verified 11/22/22 16:50 PFSH PFSH Disclaimer: The information contained in this section may have been updated after the patient was seen, as this information can be updated by other users. Medical History Anxiety Cancer History of stroke Hyperlipidemia Hypertension Migraine Surgical History History of cholecystectomy History of hysterectomy Social History Smoking Status: Current every day smoker tobacco type: cigarettes packs per day: 1 alcohol intake: never substance use type: denies use current occupational status: employed Travel in the last 8 weeks: None household members: none housing: house number of children: 3 current occupation: [employer] ROS Obtained: Yes All systems reviewed & no additional complaints except as documented Constitutional Constitutional: Reports poor appetite Eyes Eyes: Reports system reviewed and no additional complaints, except as documented ENT Ears, Nose, Mouth, and Throat: Reports as per HPI Car
[2022-12-21 16:28] VITALS: BP 125/77; PULSE 61; RESP 20; TEMP 37.1; O2SAT 97; BMI 18.1
[2022-12-21 17:31] VITALS: BP 125/77; PULSE 61; RESP 18; TEMP 37.1; O2SAT 97
== END 2022-12-21 17:39 | disposition home or self-care (01) ==
PROVIDERS: Emergency Provider Nurse Practitioner Family; PCP Family Medicine
DX: J40 Bronchitis, not specified as acute or chronic (principal)
CPT/HCPCS: 71046; 96372; 99212; 99213; G0463; J0696

== ENCOUNTER 2023-03-24 17:22 | Emergency (ER) | payer OTHER, SELFPAY ==
[2023-03-24 17:39] VITALS: BP 125/90; PULSE 83; RESP 16; TEMP 36.9; O2SAT 99; BMI 19.1
--- NOTE | 2023-03-24 17:52 | EXP.UTC ---
Discharge Plan Disposition Patient Disposition: Home, Self-Care Condition: Good Prescriptions Prescriptions: New promethazine 25 mg tablet 25 mg PO TID PRN (Reason: nausea and vomiting) Qty: 10 0RF No Action dihydroergotamine 0.5 mg/pump act. (4 mg/mL) spray,non-aerosol 0.5 mg INTRANASAL NEEDED PRN (Reason: migraines) atenolol 25 mg tablet 25 mg PO DAILY Label Comments: TAKE 1 TABLET BY MOUTH ONCE DAILY hydroxyzine HCl 25 mg tablet 25 mg PO DAILY Referrals Follow up/Referrals: Odilon Alejandro MD [Primary Care Provider] - See instructions Clinical Impressions Clinical Impression: Migraine Qualifiers: Migraine type: unspecified Stand Alone Forms Stand Alone Forms: Work/School Release Instructions Patient Instructions: Migraine -- Adult Discharge ED Provider: Melissa Jacobs [facility] General Stated complaint: headache,vomiting Mode of Arrival: Ambulatory Source of Information: Patient Limitations: No Limitations Time Seen by Provider: 03/24/23 17:51 Description of Symptoms (Recalled from Triage Doc. 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 She states that she has taken her migraine nasal spray twice without any relief and is out of her phenergan. Related Data Home Medications Medication Instructions Recorded Confirmed atenolol 25 mg tablet 25 mg PO DAILY Hypertension 03/24/23 03/24/23 dihydroergotamine 0.5 mg/pump act. 0.5 mg intranasal NEEDED PRN 03/24/23 03/24/23 (4 mg/mL) nasal spray migraines hydroxyzine HCl 25 mg tablet 25 mg PO DAILY Anxiety 03/24/23 03/24/23 Previous Rx's Medication Instructions Recorded promethazine 25 mg tablet 25 mg PO TID PRN nausea and 03/24/23 vomiting #10 tabs Allergies Allergy/AdvReac Type Severity Reaction Status Date / Time sumatriptan [SUMATRIPTAN] Allergy Mild Verified 11/22/22 16:50 codeine [CODEINE] AdvReac Mild Nausea Verified 11/22/22 16:50 morphine [MORPHINE] AdvReac Mild Nausea Verified 11/22/22 16:50 Worker's Comp Is this a Worker's Comp case?: No Is this an H Worker's Comp?: No Is this a [place] Worker's Comp?: No [facility] Disclaimer: The information contained in this section may have been updated after the patient was seen, as this information can be updated by other users. Medical History Anxiety Cancer History of stroke Hyperlipidemia Hypertension Migraine Surgical History History of cholecystectomy History of hysterectomy Social History Smoking Status: Current every day smoker tobacco type: cigarettes packs per day: 1 alcohol intake: never substance use type: denies use current occupational status: employed Travel in the last 8 weeks: None household members: none housing: house number of children: 3 current occupation: [employer] ROS Obtained: Yes All systems reviewed & no additional complaints except as documented Constitutional Constitutional: Reports system reviewed and no additional complaints, except as documented, Reports headache(s) and Reports malaise Eyes Eyes: Reports system reviewed and no additional complaints, except as documented ENT Ears, Nose, Mouth, and Throat: Reports system reviewed and no additional complaints, except as documented and Reports headache(s) Cardiovascular Cardiovascular: Reports
[2023-03-24 18:15] VITALS: BP 123/85; PULSE 80; RESP 16; TEMP 36.8; O2SAT 100
--- NOTE | 2023-03-29 12:25 | PC.NURSE ---
Have been unable to reach patient about a HST. Left voicemails on her phone.
== END 2023-03-24 18:22 | disposition home or self-care (01) ==
PROVIDERS: Emergency Provider Nurse Practitioner Family; PCP Family Medicine
DX: G43.909 Migraine, unspecified, not intractable, without status migrainosus (principal); F17.210 Nicotine dependence, cigarettes, uncomplicated; I10 Essential (primary) hypertension; E78.5 Hyperlipidemia, unspecified; F41.9 Anxiety disorder, unspecified
CPT/HCPCS: 90471; 96372; 99212; 99214; G0463

== ENCOUNTER 2023-04-07 10:34 | Emergency (ER) | payer OTHER, SELFPAY ==
[2023-04-07 10:35] VITALS: BP 132/77; PULSE 81; RESP 18; TEMP 37.1; O2SAT 100; BMI 18.9
--- NOTE | 2023-04-07 11:07 | EXP.UTC ---
Discharge Plan Disposition Patient Disposition: Home, Self-Care Condition: Good Prescriptions Prescriptions: New ciprofloxacin HCl 0.3 % drops See Rx Instructions .ROUTE .COMPLEX Qty: 5 0RF Rx Instructions: put 1 drp in right eye every 2hr x2days; then 4 times/day x5days No Action dihydroergotamine 0.5 mg/pump act. (4 mg/mL) spray,non-aerosol 0.5 mg INTRANASAL NEEDED PRN (Reason: migraines) atenolol 25 mg tablet 25 mg PO DAILY Label Comments: TAKE 1 TABLET BY MOUTH ONCE DAILY hydroxyzine HCl 25 mg tablet 25 mg PO DAILY promethazine 25 mg tablet 25 mg PO TID PRN (Reason: nausea and vomiting) Qty: 10 0RF Referrals Follow up/Referrals: Odilon Alejandro MD [Primary Care Provider] - See instructions Activity Restrictions/Add. Instructions Additional Instructions/Restrictions: Use the eye drops as directed. Strict hand washing in the house hold, because conjunctivitis is very contagious. Follow up with your regular doctor. GO TO THE ER FOR ANY WORSENING SYMPTOMS OR CONCERNS Clinical Impressions Clinical Impression: Conjunctivitis of right eye Instructions Patient Instructions: How to Instill Eye Drops Discharge ED Provider: Parag Qiu [facility] General Stated complaint: eye matting together had shot in it yesterday Mode of Arrival: Ambulatory Source of Information: Patient Limitations: No Limitations Time Seen by Provider: 04/07/23 11:06 Description of Symptoms (Recalled from Triage Doc. by RN): Patient states she woke up this morning with right eye matting this morning. HEENT Symptoms (Recalled from RN notes): Yes Resp Symptoms (Recalled from RN notes): No Skin Symptoms (Recalled from RN notes): No MS Symptoms (Recalled from RN notes): No Functional Status (Recalled from RN notes): wnl History of Present Illness Provider Complaint: Patient states she woke up this morning with right eye matting this morning. Related Data Home Medications Medication Instructions Recorded Confirmed atenolol 25 mg tablet 25 mg PO DAILY Hypertension 03/24/23 03/24/23 dihydroergotamine 0.5 mg/pump act. 0.5 mg intranasal NEEDED PRN 03/24/23 03/24/23 (4 mg/mL) nasal spray migraines hydroxyzine HCl 25 mg tablet 25 mg PO DAILY Anxiety 03/24/23 03/24/23 Previous Rx's Medication Instructions Recorded promethazine 25 mg tablet 25 mg PO TID PRN nausea and 03/24/23 vomiting #10 tabs ciprofloxacin HCl 0.3 % eye drops See Rx Instructions ophthalmic 04/07/23 (eye) .COMPLEX #5 mL Allergies Allergy/AdvReac Type Severity Reaction Status Date / Time sumatriptan [SUMATRIPTAN] Allergy Mild Verified 11/22/22 16:50 codeine [CODEINE] AdvReac Mild Nausea Verified 11/22/22 16:50 morphine [MORPHINE] AdvReac Mild Nausea Verified 11/22/22 16:50 Worker's Comp Is this a Worker's Comp case?: No [facility] Disclaimer: The information contained in this section may have been updated after the patient was seen, as this information can be updated by other users. Medical History Anxiety Cancer History of stroke Hyperlipidemia Hypertension Migraine Surgical History History of cholecystectomy History of hysterectomy Social History Smoking Status: Current every day smoker tobacco type: cigarettes packs per day: 1 alcohol intake: never substance use type: denies use current occupational status: employed Travel in the last 8 weeks: None household members: none housing: house number of children: 3 current occupation: [employer] ROS Obtained: Yes All systems reviewed & no additional complaints except as documented Constitutional Constitutional: Denies chills and Denies fever(s) Eyes Eyes: Denies blurry vision, Denies change in vision and Reports eye discharge ENT Ears, Nose, Mouth, and Throat
[2023-04-07 11:32] VITALS: BP 132/77; PULSE 81; RESP 18; TEMP 37.1; O2SAT 100
== END 2023-04-07 11:32 | disposition home or self-care (01) ==
PROVIDERS: Emergency Provider Nurse Practitioner Family; PCP Family Medicine
DX: H10.31 Unspecified acute conjunctivitis, right eye (principal); F17.210 Nicotine dependence, cigarettes, uncomplicated; I10 Essential (primary) hypertension; E78.5 Hyperlipidemia, unspecified; F41.9 Anxiety disorder, unspecified
CPT/HCPCS: 99212; 99214; G0463

== ENCOUNTER → 2023-04-11 06:48 | Outpatient (CLI) | payer OTHER, SELFPAY | PROVIDERS: PCP Family Medicine; Visit Provider Physician Assistant | DX: G47.30 Sleep apnea, unspecified (principal); R06.83 Snoring; H31.8 Other specified disorders of choroid; I10 Essential (primary) hypertension; Z01.01 Encounter for examination of eyes and vision with abnormal findings | CPT/HCPCS: G0399 ==

== ENCOUNTER 2023-05-11 14:00 | Emergency (ER) | payer OTHER, SELFPAY ==
[2023-05-11] VITALS (10 sets, daily range): BP systolic 126–154; BP diastolic 82–98; PULSE 60–68; RESP 18–20; TEMP 36.8; O2SAT 96–100; BMI 18.8
--- NOTE | 2023-05-11 14:06 | ECG_ITS ---
APPROVED REPORT Exam: Resting ECG HR:63 bpm ECG Measurements Heart Rate 63 AXES SC 120 P 75 QRSd 74 QRS 28 QT 409 T 59 QTc 417 Conclusion SINUS RHYTHM NORMAL ECG UNCONFIRMED REPORT Electronically signed by : Gunnar Amador MD 05/12/2023 09:54:46
--- NOTE | 2023-05-11 14:17 | XR_ITS ---
FINAL REPORT CLINICAL HISTORY: SOA COMPARISON: 12/21/2022 FINDINGS: A single portable view of the chest was obtained. The heart size and pulmonary vascularity are within normal limits. The mediastinum is within normal limits. No acute pulmonary abnormality is identified. The bony thorax is intact. IMPRESSION: No active cardiopulmonary disease. Reviewed, Interpreted and Dictated by Ricardo Delacruz III, MD Transcribed by Bruna Corona Authenticated and [facility]
[2023-05-11 14:39] LABS: Alanine Aminotransferase 18 U/L (12-78); Albumin Level 4.4 g/dl (3.5-5.0); Albumin/Globulin Ratio 1.5 (1.1-1.8); Alkaline Phosphatase 68 U/L (38-126); Anion Gap 10.1 mEq/L (5-15); Aspartate Amino Transferase 27 U/L (14-36); Bilirubin,Total 0.5 mg/dl (0.2-1.3); Blood Urea Nitrogen 13 mg/dl (7-17); Calcium 9.4 mg/dl (8.4-10.2); Carbon Dioxide 26 mmol/L (22.0-30.0); Chloride 108 mmol/L (98-107); Creatinine Clearance Estimated 58 mL/min (50-200); Estimated Glomerular Filt Rate 65 ml/min (>60); GFR (African American) 79 ML/MIN (>60); Globulin 2.9 g/dL (1.3-3.2); Glucose 92 mg/dl (74-100); Potassium 4.1 mmoL/L (3.5-5.1); Sodium 140 mmol/L (136-145); Total Protein,Serum 7.3 g/dl (6.3-8.2)
[2023-05-11 14:42] LABS: Basophils # 0.1 K/mm3 (0-0.2); Basophils % 0.5 % (0.1-2.0); Eosinophils # 0.3 K/mm3 (0.0-0.4); Eosinophils % 2.9 % (0.1-12.0); Hematocrit 50.2 % (37.0-47.0); Hemoglobin 16.6 g/dL (12.2-16.2); Lymphocytes # 3.7 K/mm3 (0.7-4.5); Lymphocytes % 35.2 % (10-50); Mean Corpuscular HGB Conc 33.1 g/dL (31.8-35.4); Mean Corpuscular Hemoglobin 31.5 pg (27.0-31.2); Mean Corpuscular Volume 95.3 fl (81-99); Mean Platelet Volume 8.4 fl (7.4-10.4); Monocytes # 0.4 K/mm3 (0.1-1.0); Monocytes % 3.9 % (1.7-9.3); Neutrophils % 57.5 % (37.0-80.0); Platelet Count 278 K/mm3 (142-424); Red Blood Count 5.27 M/mm3 (4.20-5.40); Red Cell Distribution Width 12.6 % (11.5-17.5); White Blood Count 10.5 K/mm3 (4.8-10.8)
[2023-05-11 14:52] LABS: Troponin I < 0.01 ng/ml (0.00-0.034)
--- NOTE | 2023-05-11 15:21 | HMH.EDSOB ---
Discharge Plan Disposition Patient Disposition: Home, Self-Care Prescriptions Prescriptions: New albuterol sulfate [ProAir HFA] 90 mcg/actuation HFA aerosol inhaler 2 inh inhalation Q4H PRN (Reason: shortness of breath or wheezing) Qty: 6.7 0RF No Action dihydroergotamine 0.5 mg/pump act. (4 mg/mL) spray,non-aerosol 0.5 mg INTRANASAL NEEDED PRN (Reason: migraines) atenolol 25 mg tablet 25 mg PO DAILY Patient Comments: TAKE 1 TABLET BY MOUTH ONCE DAILY hydroxyzine HCl 25 mg tablet 25 mg PO DAILY Referrals Follow up/Referrals: Odilon Alejandro MD [Primary Care Provider] - See instructions Clinical Impressions Clinical Impression: Acute bronchospasm Discharge ED Provider: Cade Donaldson Resp/SOB HPI General Chief Complaint: Shortness of Breath/Dyspnea Stated Complaint: phy ref, soa Time Seen by Provider: 05/11/23 15:20 Mode of Arrival: Ambulatory Source of Information: Patient Limitations: No Limitations Description of Symptoms (Recalled from ER Triage Doc. by RN): pt to ed c/o soa with exertion. pt states on sunday she had a sudden pain under her right breast, adjusted positions with no relief. pt states since then she has had increased soa. pt denies any hx of spontanous pneumothorax. History of Present Illness 53-year-old white female presenting with shortness of breath and tachypnea. This began about 2 days ago sudden onset she has been tachypneic since no previous history of similar symptoms. She is down to about 6 cigarettes a day smoking she has in the past had a TIA and for that she does take Plavix. She has allergies to codeine morphine and sumatriptan and Related Data Home Medications Medication Instructions Recorded Confirmed atenolol 25 mg tablet 25 mg PO DAILY Hypertension 03/24/23 05/11/23 dihydroergotamine 0.5 mg/pump act. 0.5 mg intranasal NEEDED PRN 03/24/23 05/11/23 (4 mg/mL) nasal spray migraines hydroxyzine HCl 25 mg tablet 25 mg PO DAILY Anxiety 03/24/23 05/11/23 Previous Rx's Medication Instructions Recorded albuterol sulfate 90 mcg/actuation 2 inh inhalation Q4H PRN shortness 07/07/23 aerosol inhaler (ProAir HFA) of breath or wheezing #6.7 grams Allergies Allergy/AdvReac Type Severity Reaction Status Date / Time sumatriptan [SUMATRIPTAN] Allergy Mild Verified 11/22/22 16:50 codeine [CODEINE] AdvReac Mild Nausea Verified 11/22/22 16:50 morphine [MORPHINE] AdvReac Mild Nausea Verified 11/22/22 16:50 PFSH PFS Disclaimer: The information contained in this section may have been updated after the patient was seen, as this information can be updated by other users. Medical History Anxiety Cancer History of stroke Hyperlipidemia Hypertension Migraine Surgical History History of cholecystectomy History of hysterectomy Social History Smoking Status: Never smoker alcohol intake: never substance use type: denies use current occupational status: employed Travel in the last 8 weeks: None household members: none housing: house number of children: 3 current occupation: [employer] ROS Obtained: Yes Systems reviewed as appropriate & no additional complaints except as documented Physical Exam General General appearance: alert and in no apparent distress Head Head exam: atraumatic and normocephalic Eye Eye exam: Present normal appearance and PERRL Neck Neck exam: Present normal inspection Chest Chest inspection: Present symmetric chest wall rise Respiratory Respiratory exam: Present normal lung sounds bilaterally and respiratory distress (Patient is tachypneic) Cardiovascular Cardiovascular exam: Present regular rate and normal rhythm Abdominal Exam Abdominal exam: Present soft; Absent tenderness Extremities Exam Extremities exam: Present norm
--- NOTE | 2023-05-11 15:28 | PC.NURSE ---
notified lab of new orders on pt.
[2023-05-11 15:52] LABS: D-Dimer 0.91 ug/mL (0.0-0.5)
--- NOTE | 2023-05-11 16:12 | CT_ITS ---
PROCEDURE INFORMATION: Exam: CTA Chest With Contrast Exam date and time: 05/11/2023 4:50 PM Age: 53 years old Clinical indication: Dyspnea; Additional info: Dyspnea and positive dimer TECHNIQUE: Imaging protocol: Computed tomographic angiography of the chest with contrast. Exam focused on the arteries. 3D rendering (Not supervised by radiologist): MIP and/or 3D reconstructed images were created by the technologist. Radiation optimization: All CT scans at this facility use at least one of these dose optimization techniques: automated exposure control; mA and/or kV adjustment per patient size (includes targeted exams where dose is matched to clinical indication); or iterative reconstruction. Contrast material: ISO 370; Contrast volume: 70 ml; Contrast route: INTRAVENOUS (IV); REPORTING DATA: Count of CT and Cardiac NM exams in prior 12 months: This patient has received 0 known CTs and 0 known cardiac nuclear medicine studies in the 12 months prior to the current study. COMPARISON: CR XR CHEST PORTABLE 05/11/2023 2:21 PM FINDINGS: Pulmonary arteries: Normal. No pulmonary emboli. Aorta: Mild atherosclerotic changes of the thoracic aorta without aneurysmal dilatation. Lungs: 5 mm left upper lobe calcified granuloma. Minimal dependent atelectasis. No focal airspace consolidation. Pleural spaces: Unremarkable. No pneumothorax. No pleural effusion. Heart: Unremarkable. No cardiomegaly. No pericardial effusion. Coronary arteries: Mild coronary artery calcifications. Lymph nodes: Partially calcified prevascular lymph nodes nonpathologic by size criteria. Gallbladder and bile ducts: Postsurgical changes of cholecystectomy. Spleen: Small splenic calcifications. Bones/joints: Mild degenerative changes of the spine. Soft tissues: Unremarkable. IMPRESSION: No acute pulmonary arterial embolism or other acute pulmonary findings.
== END 2023-05-11 19:03 | disposition home or self-care (01) ==
PROVIDERS: Emergency Provider Emergency Medicine; PCP Family Medicine
DX: J98.01 Acute bronchospasm (principal); R06.02 Shortness of breath; F41.9 Anxiety disorder, unspecified; E78.5 Hyperlipidemia, unspecified; I10 Essential (primary) hypertension; G43.909 Migraine, unspecified, not intractable, without status migrainosus; F17.210 Nicotine dependence, cigarettes, uncomplicated; Z86.73 Personal history of transient ischemic attack (TIA), and cerebral infarction without residual deficits
CPT/HCPCS: 71045; 71275; 80053; 84484; 85025; 85378; 93005; 99285; Q9967

== ENCOUNTER 2023-09-05 02:58 | Emergency (ER) | payer OTHER, SELFPAY ==
[2023-09-05 03:08] VITALS: BP 136/93; PULSE 94; RESP 20; TEMP 36.4; O2SAT 100; BMI 18.1
--- NOTE | 2023-09-05 03:34 | HMH.EDGENADL ---
Discharge Plan Disposition Patient Disposition: Home, Self-Care Prescriptions Prescriptions: New methocarbamol 750 mg tablet 1,500 mg PO TID 5 Days Qty: 30 0RF lidocaine 5 % adhesive patch,medicated 1 patch topical DAILY Qty: 15 0RF Rx Instructions: leave on most painful area for up to 12 hrs No Action losartan 50 mg tablet 100 mg PO DAILY Patient Comments: TAKE 1 TABLET BY MOUTH ONCE DAILY atenolol 25 mg tablet 25 mg PO DAILY Patient Comments: TAKE 1 TABLET BY MOUTH ONCE DAILY Referrals Follow up/Referrals: Jose Maurice, PT [Physical Therapist] - See instructions Odilon Alejandro MD [Primary Care Provider] - See instructions Activity Restrictions/Add. Instructions Additional Instructions/Restrictions: Call your family doctor to establish care for this visit to the emergency department and schedule follow-up within 48 hours to ensure improvement. If you have any worsening of your condition or any other concerning signs or symptoms, return to the emergency department or your primary care doctor for further evaluation. Take Tylenol 1000 mg every 6 hours (4 times daily) and ibuprofen 400 mg every 6 hours (4 times daily) as needed with food and water to prevent GI upset and kidney damage. Lidocaine patches sent to your pharmacy. Use these every 24 hours. Robaxin also sent, this may or may not help. Take as prescribed if it does continue to help. Clinical Impressions Clinical Impression: Strain of left rhomboid muscle Instructions Patient Instructions: DI for Low Back Pain Discharge ED Provider: Jono Lane General Adult HPI General Chief complaint: Back Pain/Injury Stated complaint: WC 09/04/23 2100 Upper back injury Time Seen by Provider: 09/05/23 03:10 Mode of Arrival: Ambulatory Limitations: No Limitations Description of Symptoms (Recalled from ER Triage Doc. by RN): pt ambulatory to ED. 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 Pt describes sharp pain on left shoulder blade into neck. History of Present Illness HPI narrative: 53-year-old female history of hypertension on atenolol and losartan presenting with left shoulder pain. 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 During this process, she pulled her left shoulder and has had moderate pain since. Made worse with any movement of the shoulder blade including shrugging, retraction, protraction. Also made worse with general movements of left shoulder. Patient does have range of motion in her left shoulder, but it is limited secondary to pain. No neurovascular deficits. No trauma to the area. No difficulty breathing, chest pain, nausea or vomiting. She took ibuprofen without relief. Related Data Home Medications Medication Instructions Recorded Confirmed atenolol 25 mg tablet 25 mg PO DAILY Hypertension 03/24/23 09/05/23 losartan 50 mg tablet 100 mg PO DAILY 06/07/23 09/05/23 Previous Rx's Medication Instructions Recorded lidocaine 5 % topical patch 1 patch topical DAILY #15 ea 09/05/23 methocarbamol 750 mg tablet 1,500 mg PO TID 5 days #30 tabs 09/05/23 Allergies Allergy/AdvReac Type Severity Reaction Status Date / Time sumatriptan [SUMATRIPTAN] Allergy Mild Verified 09/05/23 03:19 codeine [CODEINE] AdvReac Mild Nausea Verified 09/05/23 03:19 morphine [MORPHINE] AdvReac Mild Nausea Verified 09/05/23 03:19 [facility] Disclaimer: The information contained in this section may have been updated after the patient was seen, as this information can be updated by other users. Medical History Anxiety Cancer Chest pain Dyspnea History of stroke Hyperlipidemia Hypertension Migraine Tobacco use Surgical History (Updated 06/07/23 @ 16:25 by Nelly Alejandro RN) H/O endarterectomy
[2023-09-05 03:47] VITALS: BP 134/81; PULSE 89; RESP 20; TEMP 36.4; O2SAT 100
[2023-09-05 03:54] VITALS: BP 135/94; PULSE 83; RESP 14; TEMP 36.5; O2SAT 99
== END 2023-09-05 04:02 | disposition home or self-care (01) ==
PROVIDERS: Emergency Provider Emergency Medicine; PCP Family Medicine
DX: S29.012A Strain of muscle and tendon of back wall of thorax, initial encounter (principal); I10 Essential (primary) hypertension; E78.5 Hyperlipidemia, unspecified; F17.210 Nicotine dependence, cigarettes, uncomplicated; X50.0XXA Overexertion from strenuous movement or load, initial encounter
CPT/HCPCS: 99283

== ENCOUNTER 2024-03-20 16:59 | Emergency (ER) | payer OTHER, SELFPAY ==
[2024-03-20 17:50] VITALS: BP 167/102; PULSE 68; RESP 20; TEMP 37.1; O2SAT 98; BMI 18.8
--- NOTE | 2024-03-20 18:27 | ED_ITS ---
Discharge Plan Disposition Patient Disposition: Home, Self-Care Condition: Good Prescriptions Prescriptions: New azithromycin [Zithromax Z-Bubba] 250 mg tablet See Rx Instructions .ROUTE .COMPLEX 5 Days Qty: 6 0RF Rx Instructions: For 250 mg dose pack: take 500 mg today (day 1), then 250 mg for 4 days (days 2-5) benzonatate 100 mg capsule 100 mg PO TID PRN (Reason: cough) Qty: 30 0RF methylprednisolone [Medrol (Bubba)] 4 mg tablets,dose pack See Rx Instructions .Route .COMPLEX 6 Days Qty: 21 0RF Rx Instructions: taper pack; No Action losartan 50 mg tablet 100 mg PO DAILY Patient Comments: TAKE 1 TABLET BY MOUTH ONCE DAILY atenolol 25 mg tablet 25 mg PO DAILY Patient Comments: TAKE 1 TABLET BY MOUTH ONCE DAILY hydrochlorothiazide 25 mg Tablet 25 mg PO DAILY Referrals Follow up/Referrals: Odilon Alejandro MD [Primary Care Provider] - See instructions Activity Restrictions/Add. Instructions Additional Instructions/Restrictions: *Monitor Temp, Over the counter Motrin or Tylenol as directed/as needed Tylenol every 4 hours and Motrin every 6 hours (as long as your family doctor has told you that you can take it) for fever or pain. and straight to ER if unable to lower temp less than 101.0 after medication given *Warm salt water gargles may help to soothe the throat *Throat Lozenges? *Warm fluids like tea with honey may help to soothe the throat? *Sleep elevated *Humidifier/Vaporizer Follow up IMMEDIATELY for new or worsening symptoms or no Noticeable improvement over the next 48-72 hours. 911 for difficulty breathing or swallowing Clinical Impressions Clinical Impression: Pharyngitis Stand Alone Forms Stand Alone Forms: Work/School Release Instructions Patient Instructions: Cough, Sore Throat Discharge ED Provider: Chelle Tolliver [facility] [place] General Stated complaint: teresa, SOA, diff to speak Mode of Arrival: Ambulatory Source of Information: Patient Limitations: No Limitations Time Seen by Provider: 03/20/24 18:28 Description of Symptoms (Recalled from Triage Doc. by RN): PATIENT C/O LOSS OF VOICE, BODY ACHES, EAR ACHE AND FEVER X 3 DAYS HEENT Symptoms (Recalled from RN notes): Yes Resp Symptoms (Recalled from RN notes): No Skin Symptoms (Recalled from RN notes): No MS Symptoms (Recalled from RN notes): No Functional Status (Recalled from RN notes): WNL History of Present Illness Provider Complaint: Patient states that her throat has been sore and irritated, drainage in the back of her throat, loss of voice, congsetion and headache for the last few days States today she was still not feeling any better and could barely talk so she came in Related Data Home Medications Medication Instructions Recorded Confirmed atenolol 25 mg tablet 25 mg PO DAILY Hypertension 03/24/23 03/20/24 losartan 50 mg tablet 100 mg PO DAILY 06/07/23 03/20/24 hydrochlorothiazide 25 mg tablet 25 mg PO DAILY 03/20/24 03/20/24 Previous Rx's Medication Instructions Recorded azithromycin 250 mg tablet See Rx Instructions PO .COMPLEX 5 03/20/24 (Zithromax Z-Bubba) days #6 tabs benzonatate 100 mg capsule 100 mg PO TID PRN cough #30 caps 03/20/24 methylprednisolone 4 mg tablets in See Rx Instructions .Route 03/20/24 a dose pack (Medrol (Bubba)) .COMPLEX 6 days #21 tabs Allergies Allergy/AdvReac Type Severity Reaction Status Date / Time sumatriptan [SUMATRIPTAN] Allergy Mild Verified 09/05/23 03:19 codeine [CODEINE] AdvReac Mild Nausea Verified 09/05/23 03:19 morphine [MORPHINE] AdvReac Mild Nausea Verified 09/05/23 03:19 Worker's Comp Is this a Worker's Comp case?: No [facility] Disclaimer: The information contained in this section may have been updated after the patient was seen, as this information can be updated by other users. Medical History (Updated 03/20/24 @ 18:36 by Chelle Tolliver APRN) Tobacco use Dyspnea Chest pain Cancer Anxiety Migraine History of stroke Hyperlipidemia Hypertension Surgical History (Updated 06/07/23 @ 16:25 by Nelly Alejandro, MARIA C) H/O endarterectomy History of hysterectomy History of cholecystectomy Social History Smoking Status: Current every day smoker tobacco type: cigarettes packs per d ay: 1 alcohol intake: never substance use type: denies use current occupational status: employed Travel in the last 8 weeks: None household members: none housing: house number of children: 3 current occupation: [employer] ROS Obtained: Yes All systems reviewed & no additional complaints except as documented and Yes Systems reviewed as appropriate & no additional complaints except as documented Constitutional Constitutional: Reports system reviewed and no additional complaints, except as documented, Reports as per HPI, Reports body ache, Reports fever(s) and Reports headache(s) ENT Ears, Nose, Mouth, and Throat: Reports system reviewed and no additional complaints, except as documented, Reports as per HPI, Reports headache(s), Reports nasal congestion and Reports sore throat Cardiovascular Cardiovascular: Reports system reviewed and no additional complaints, except as documented and Reports as per HPI Respiratory Respiratory: Reports system reviewed and no additional complaints, except as documented, Reports as per HPI, Reports chest congestion and Reports cough Gastrointestinal Gastrointestingal: Reports system reviewed and no additional complaints, except as documented and as per HPI Neurologic Neurologic: Reports headache(s) Physical Exam General General appearance: alert and in no apparent distress ENT ENT exam: Present mucous membranes moist Expanded ENT Exam Comment: Pharyngeal erythema noted with PND Respiratory Respiratory exam: Present normal lung sounds bilaterally; Absent respiratory distress or wheezes Cardiovascular Cardiovascular exam: Present regular rate, normal rhythm and normal heart sounds Neurological Exam Neurological exam: Present alert, oriented X3 and normal gait Medical Decision Making Pb Inquiry Pt receiving controlled substance: No Pb was queried for this patient: No Vital Signs: 03/20/24 17:50 Temperature 98.7 F Temperature Source Oral Pulse Rate [Left Brachial] 68 Respiratory Rate 20 Blood Pressure [Left Arm] 167/102 H Blood Pressure Mean [Left Arm] 123 Blood Pressure Source [Left Arm] Automatic Cuff Blood Pressure Position [Left Arm] Sitting 02 Sat by Pulse Oximetry 98 Oxygen Delivery Method Room Air
[2024-03-20 18:33] VITALS: BP 167/102; PULSE 68; RESP 20; TEMP 37.1; O2SAT 98
== END 2024-03-20 18:40 | disposition home or self-care (01) ==
PROVIDERS: Emergency Provider Nurse Practitioner; PCP Family Medicine
DX: J02.9 Acute pharyngitis, unspecified (principal); R51.9 Headache, unspecified; R09.81 Nasal congestion; R09.82 Postnasal drip
CPT/HCPCS: 99212; 99214; G0463

== ENCOUNTER 2024-05-15 14:21 | Emergency (ER) | payer OTHER, SELFPAY ==
[2024-05-15 14:35] VITALS: BP 199/117; PULSE 76; RESP 20; TEMP 36.4; O2SAT 99; BMI 19.1
--- NOTE | 2024-05-15 15:11 | ED_ITS ---
Discharge Plan Disposition Patient Disposition: Home, Self-Care Condition: Good Prescriptions Prescriptions: New methocarbamol 500 mg tablet 500 mg PO TID PRN (Reason: muscle spasm) Qty: 15 0RF etodolac 200 mg capsule 200 mg PO Q8H PRN (Reason: pain) Qty: 20 0RF No Action losartan 50 mg tablet 100 mg PO DAILY Patient Comments: TAKE 1 TABLET BY MOUTH ONCE DAILY atenolol 25 mg tablet 25 mg PO DAILY Patient Comments: TAKE 1 TABLET BY MOUTH ONCE DAILY Referrals Follow up/Referrals: Odilon Alejandro MD [Primary Care Provider] - See instructions Activity Restrictions/Add. Instructions Additional Instructions/Restrictions: Over the counter Biofreeze may help with muscle soreness and aching Take medication as prescribed Follow up with your Family Doctor if no improvement or any worsening of symptoms *Not additional anti-inflammatory like Ibuprofen, motrin, aleve, advil with the Etodolac. You can still take Tylenol every 4 hours as needed if you need something else for pain *Ice 20 minutes every 2 hours for the first 48 hours after the initial injury followed by moist heat every 20 minutes 3-4 times a day to affected area *Muscle relaxer every 8 hours as needed for muscle spasms but remember, it WILL cause drowsiness You cannot take it and drive, operate machinery or care for small children. *Keep this area active, no movement leads to more stiffness, However take it easy and avoid heavy lifting pushing or pulling *Follow up with you family doctor if no improvement for further treatment Clinical Impressions Clinical Impression: Acute low back pain with sciatica Qualifiers: Back pain laterality: right Sciatica laterality: sciatica of right side Q ualified Code(s): M54.41 - Lumbago with sciatica, right side Stand Alone Forms Stand Alone Forms: Work/School Release Instructions Patient Instructions: DI for Low Back Pain, Methocarbamol, Etodolac Discharge ED Provider: Chelle Tolliver [facility] General Stated complaint: pain in lower back Mode of Arrival: Ambulatory Source of Information: Patient Limitations: No Limitations Time Seen by Provider: 05/15/24 15:12 Description of Symptoms (Recalled from Triage Doc. by RN): PATIENT C/O LOWER BACK PAIN SINCE YESTERDAY. SHE THINKS SHE PULLED A MUSCLE WHILE MOWING THE YARD HEENT Symptoms (Recalled from RN notes): No Resp Symptoms (Recalled from RN notes): No Skin Symptoms (Recalled from RN notes): No MS Symptoms (Recalled from RN notes): Yes Functional Status (Recalled from RN notes): WNL History of Present Illness Provider Complaint: Patient states that yesterday she was pull starting her mower and felt something pull in her right lower back States that pain in her right buttock area and into her right upper leg States that she didnt fall or anything and feels like she may have pulled something Related Data Home Medications Medication Instructions Recorded Confirmed atenolol 25 mg tablet 25 mg PO DAILY Hypertension 03/24/23 05/15/24 losartan 50 mg tablet 100 mg PO DAILY 06/07/23 05/15/24 Previous Rx's Medication Instructions Recorded etodolac 200 mg capsule 200 mg PO Q8H PRN pain #20 caps 05/15/24 methocarbamol 500 mg tablet 500 mg PO TID PRN muscle spasm #15 05/15/24 tabs Allergies Allergy/AdvReac Type Severity Reaction Status Date / Time sumatriptan [SUMATRIPTAN] Allergy Mild Verified 09/05/23 03:19 codeine [CODEINE] AdvReac Mild Vomiting Verified 05/15/24 14:45 morphine [MORPHINE] AdvReac Mild Chest Pain Verified 05/15/24 14:45 Worker's Comp Is this a Worker's Comp case?: No [facility] Disclaimer: The information contained in this section may have been updated after the patient was seen, as this information can be updated by other users. Medical History (Updated 05/15/24 @ 15:22 by Chelle Tolliver APRN) Tobacco use Dyspnea Chest pain Cancer Anxiety Migraine History of stroke Hyperlipidemia Hypertension Surgical History (Updated 06/07/23 @ 16:25 by Nelly Alejandro RN) H/O endarterectomy History of hysterectomy History of cholecystectomy Social History Smoking Status: Current every day smoker tobacco type: cigarettes packs per day: 1 alcohol intake: never substance use type: denies use current occupational status: employed Travel in the last 8 weeks: None household members: none housing: house number of children: 3 current occupation: [employer] ROS Obtained: Yes All systems reviewed & no additional complaints except as documented and Yes Systems reviewed as appropriate & no additional complaints except as documented Constitutional Constitutional: Reports system reviewed and no additional complaints, except as documented and Reports as per HPI ENT Ears, Nose, Mouth, and Throat: Reports system reviewed and no additional complaints, except as documented and Reports as per HPI Cardiovascular Cardiovascular: Reports system reviewed and no additional complaints, except as documented and Reports as per HPI Respiratory Respiratory: Reports system reviewed and no additional complaints, except as documented and Reports as per HPI Gastrointestinal Gastrointestingal: Reports system reviewed and no additional complaints, except as documented and as per HPI Genitourinary Female Genitourinary: Reports system reviewed and no additional complaints, except as documented and Reports as per HPI Musculoskeletal Musculoskeletal: Reports system reviewed and no additional complaints, except as documented, Reports as per HPI, Reports back pain and Reports other (pain in right lower back into buttock and upper leg worse with movement) Physical Exam General General appearance: alert and in no apparent distress ENT ENT exam: Present mucous membranes moist Respiratory Respiratory exam: Present normal lung sounds bilaterally; Absent respiratory distress or wheezes Cardiovascular Cardiovascular exam: Present regular rate, normal rhythm and normal heart sounds Abdominal Exam Abdominal exam: Present soft and normal bowel sounds; Absent distention or tenderness Back Exam Back exam: Present tenderness and sciatic notch tenderness (L) Back 1 view image: 2 1. reports pain/tenderness in right lower back into right buttock area and upper leg like that seen with sciatica Denies loss of control of bowel or bladder Neurological Exam Neurological exam: Present alert, oriented X3 and normal gait Medical Decision Making Pb Inquiry Pt receiving controlled substance: No Pb was queried for this patient: No Vital Signs: 05/15/24 14:35 Temperature 97.6 F Temperature Source Oral Pulse Rate [Left Brachial] 76 Respiratory Rate 20 Blood Pressure [Left Arm] 199/117 H Blood Pressure Mean [Left Arm] 144 Blood Pressure Source [Left Arm] Automatic Cuff Blood Pressure Position [Left Arm] Sitting 02 Sat by Pulse Oximetry 99 Oxygen Delivery Method Room Air Medical Decision Narrative: Discussed xray and patient declined Reports took Ibuprofen approx 2 hours before arrival
[2024-05-15] MEDS: METHYLPREDNISOLONE SOD SUCC 125MG VIAL 125 MG IM (15:21)
[2024-05-15 15:22] VITALS: BP 119/117; PULSE 76; RESP 20; TEMP 36.4; O2SAT 99
== END 2024-05-15 15:35 | disposition home or self-care (01) ==
PROVIDERS: Emergency Provider Nurse Practitioner; PCP Family Medicine
DX: M54.41 Lumbago with sciatica, right side (principal)
CPT/HCPCS: 96372; 99212; 99214; G0463; J2919

== ENCOUNTER 2024-10-14 07:57 | Outpatient (CLI) | payer OTHER, SELFPAY ==
--- NOTE | 2024-10-14 08:01 | MM_ITS ---
PROCEDURE INFORMATION: Exam: MG Bilateral Screening 3D Mammography Exam date and time: 10/14/2024 7:51 AM Age: 54 years old Clinical indication: Screening examination TECHNIQUE: Imaging protocol: Bilateral Screening tomosynthesis and 2D mammography including computer-aided detection (CAD) when performed. COMPARISON: 1. MG MM DIG MAMM BI DX W/CAD 09/26/2019 3:17 PM 2. MG DMDB DIG MAMM-DX BUZZ 09/10/2014 1:23 PM FINDINGS: MAMMOGRAPHY: Breast composition: There are scattered areas of fibroglandular density. Mass: None. Architectural distortion: None. Calcifications: No suspicious calcifications. Asymmetric density: None. Skin thickening: None. Axillary adenopathy: None. IMPRESSION: No mammographic evidence of malignancy. Annual screening is recommended unless otherwise clinically indicated. ASSESSMENT: BI-RADS Category 1: Negative.
== END 2024-10-14 23:59 | disposition home or self-care (01) ==
LOC: RAD 07:58
PROVIDERS: PCP Nurse Practitioner Family; Visit Provider Nurse Practitioner Family
DX: Z12.31 Encounter for screening mammogram for malignant neoplasm of breast (principal)
CPT/HCPCS: 77063; 77067

== ENCOUNTER 2025-04-23 09:22 | Outpatient (CLI) | payer SELFPAY ==
--- OUTSIDE RECORDS SUMMARY | 2024-09-23 05:45 | XMS_ITS ---
Author Organization [facility] Address [address] [facility] [address] [place] [id number] Care Team Providers Care Bender Machine Operator Name Role Phone Sil Alejandro Primary Care Provider [phone] WhiteMakenzieElena Unavailable [phone] Allergies Allergen (clinical drug ingredient) Drug/Non Drug [...] 08:59:51 AM Interpretation:K+ 3.2 Performing Lab: Notes/Report: CLIA: [id number] Miki Fong MD, Logging Operations Inspector [address] [place] [address] [address] Coelho C, [place] [address] Test performed by [employer] Sodium 143 135-145 mmol/L Potassium 3.2 3.5-5.3 [...] 148 Performing Lab: Notes/Report: Test performed by [employer] [address] [place] [address] [address], [place] [address] Miki Fong MD, Logging Operations Inspector CLIA: [id number] Cholesterol 238 <200 mg/dL Triglycerides 125 <150 [...] Interpretation:Normal Performing Lab: Notes/Report: Test performed by [facility], [address] , [address], [place] [address] Miki Fong MD, Logging Operations Inspector CLIA: [id number] TSH 1.47 0.43-5.25 mU/L Mammogram Reviewed date:11/04/2024 09:20:58 AM Interpretation:Negative Performing Lab: Notes/Report: Negative REASON FOR VISIT possible bronchitis and refills Medications Medication SIG (Take, Route, Frequency, Duration) Notes Start Date End Date Status Estradiol 0.5 MG 1 tab(s) orally once a day for 90 Active Atorvastatin Calcium 20 MG 1 tab(s) oral ly once a day for 90 days Active Plavix 75 MG 1 tab(s) orally once a day for 90 days Active Migranal 4 MG/ML 1 spray(s) intranasa lly every 15 minutes Active Aspirin 81 MG 1 tab(s) orally once a day for 30 day(s) Active Atenolol 25 MG 1 tab(s) orally once a day for 90 days Active Losartan Potassium 50 MG 1 tablet Orally Once a day for 90 days Active Zithromax Z-Bubba 250 MG 2 pills first day then one daily for 4 days orally as directed for 5 days 09/23/2024 Active hydroCHLOROthiazide 12.5 MG 1 tablet in the morning Orally Once a day for 90 days Active Vital Signs Blood pressure systolic 136 mm Hg 11/19/20 24 Blood pressure diastolic 76 mm Hg 024 Heart Rate 86 /min 09/23/2024 Height 64 in 09/23/2024 Weight 114.0 lbs 09/23/2024 BMI 19.57 kg/m2 09/23/2024 Encounters Encounter Location Date Provider Diagnosis [facility] [address] [facility] [address] [place] [id number] 09/23/2024 Elena White URI (upper respirato ry [...] 0.5 MG 1 tab(s) orally once a day for 90 Atorvastatin Calcium 20 MG 1 tab(s) oral ly once a day for 90 days Plavix 75 MG 1 tab(s) orally once a day for 90 days Migranal 4 MG/ML 1 spray(s) intranasa lly every 15 minutes Atenolol 25 MG 1 tab(s) orally once a day for 90 days Losartan Potassium 50 MG 1 tablet Orally Once a day for 90 days Zithromax Z-Bubba 250 MG 2 pills first day then one daily for 4 days orally as directed for 5 days 09/23/2024 hydroCHLOROthiazide 12.5 MG 1 tablet in the morning Orally Once a day for 90 days Treatment Notes Assessment Notes URI [...] st results, Reason: Progress Notes * JEAN BADILLODOB: [birth year] (54 yo F)Acc No.[id number]:09/23/2024 Progress Notes Patient: JEAN FALK Provider: IVON Martines :1970 A ge:54 Y S ex:Female Date:09/23/2024 Address:[address] [place] [address] Pcp:Sil Alejandro Subjective: * Chief Complaints: * [...] medications.? * ROS: D ERMATOLOGY: no R maddi. n o H gaston. G ASTROENTEROLOGY: Nausea [...] ER and had a CT scan 05-07-10, [facility] ER- Headache 03/16/2011, [facility] ER- Headache 04/24/2011, [facility] Er--blood clot 06-16-11, [facility] ER-fell down steps 1.1.12, [facility] ER- Headache and numbness 09-15-12, [facility] ER-overdose 12/31/13, [facility] chest pain - to 03-16-14, [facility] ER- spained ankle 05-17-2015, [facility] ER-back pain after cough 05/28/15, [facility] ER - Ear Infection 02/06/16, [facility] ER - Short of breath 10/09/18, [facility] ER - Abdominal Pain 11/11/20. [...] reconciled with the patient * Allergies: C odeine: makes her sick at stomach, Imitrex, Morphine: chest pain. Objective: * Vitals: W t:114.0, Temp:98.2, BP:136/76, HR:86, O2 Sat:100% on RA, Nurse:[facility], Ht: 64, BMI:19.57. * Examination: G eneral Examination: General Appearance: NAD appears healthy alert pleasant; hoarse. HEENT: sclera and conjunctiva clear, PERRLA, TM's normal, translucent. Oral cavity: mucosa moist and WNL no erythema. Neck: supple no lymphadenopathy. Heart: RRR. Lungs: CTAB A&P. Neurologic Exam: alert and oriented Intact. Extremities: no leg edema. Assessment: * Assessment: 1. [...] cancer screening - Z12.11 1 1. B duct cancer screening - Z12.39 1 2. T [...] T riglycerides 125 <150 - mg/dL * Elena White 09/30/2024 8:59:21 AM > , See encounter [...] , Provider reviewed results while patient in office.Elena White 09/24/2024 7:38:35 AM > ?LAB: Glycohemoglobin A1c (in house) (Collection Date & Time - 09/23/2024)? 4.9%* Value Reference Range g lycohemoglobin 4.9% 5 - 6.5 % * Celestina Naylor 09/23/2024 10:4 3:34 AM > , Provider reviewed results while patient in office.Elena White 09/25/2024 2:20:09 PM > 8.?Diabetes mellitus screening?LAB: Glycohemoglobin A1c (in house) (Collection Date & Time - 09/23/2024)? 4.9%* Value Reference Range g lycohemoglobin 4.9% 5 - 6.5 % * Celestina Naylor 09/23/2024 10:4 3:34 AM > , Provider reviewed results while patient in office.Elena White 09/25/2024 2:20:09 PM > 9.?Thyroid disorder screen?LAB: [...] by Creatinine 72 >59 - mL/min/1.73m2 * Makenzie Whiteharine 09/30/2024 8:45:07 AM > , See encounter note ?LAB: P-TSH (Collection Date & Time - 09/23/2024 09:20 AM)?Normal* Value Reference Range T SH 1.47 0.43-5.25 - mU/L * Makenzie Whiteharine 09/26/2024 12:06:07 PM > no answer when phonedHMakenzie adanharine 09/29/2024 8:50:12 AM > , See encounter note 10.?Colon cancer screening?Imaging: colonoscopy* ChristopherElena 09/23/2024 10:18:44 AM > last colonoscopy 2009 with polyps; please schedule with Danita Tracy 09/23/2024 10:34:08 AM > printed and sent to Dr. Mendosa officeTaylorDanita 12/26/2024 9:33:39 AM > Dr. Mendosa office has left 3 voicemails for patient and patient will not return call 11.?Breast cancer screening?Imaging: Mammogram (Performed Date - 10/14/2024)?Negative* Elena White 09/23/2024 10:19:51 AM > needs annualTaylDanita maier 09/23/2024 10:49:59 AM > faxed to [facility] Elena Miller 10/17/2024 9:00:00 AM > please notify pt of neg Luz Maria Lemus 10/23/2024 2:46:00 PM > mailbox is Luz Maria Sotelo 11/04/2024 9:20:25 AM > Left message informing pt 12.?Tobacco abuse counseling? Notes: discussed smoking cessation??13.?Tobacco abuse disorder?Imaging: CT SCAN : CHEST, LUNG CANCER SCREENING LOW DOSE* Elena White 09/23/2024 10:22:18 AM > HX tobacco usageTaDanita boyce 09/23/2024 11:15:14 AM > faxed preauth form to [employer]; awaiting decisionTaylDanita maier 10/01/2024 9:46:03 AM > will not have decision until 12/4/2024Marino Cesarnn 10/08/2024 8:38:30 AM > faxed addt paperwork to Niru NAVARRO with pack historyMarino Cesarnn 10/10/2024 10:05:38 AM > auth denied; sent TE to Marci White * Procedure Codes: 9 4760 [place], [address] CBC WITH AUTO DIFF, 35885 VENIPUNCT, ROUTINE*, 66654 CAPILLARY BLOOD DRAW, 76076 GLYCATED HEMOGLOBIN TEST, Modifiers: QW * Follow Up: w ill notify of test results * Billing Information: * Visit Code: 99416 Office Visit, Est Pt., Level 4. * Procedure Codes: [address] [place]. [address] CBC WITH AUTO DIFF. 33437 VENIPUNCT, ROUTINE*. 83031 CAPILLARY BLOOD DRAW. 54290 GLYCATED HEMOGLOBIN TEST. Modifiers: QW * Electronic signature of Rocio White , HOLA on 04/27/2025 at 09:32 AM EDT Sign off status: Pending * Provider: IVON Martines Date: 1 11/23/2023 Generated for Jacky solares/Marisela/eTransmitting on: 0 04/27/2025 09:32 AM EDT History and Physical Notes * HPI (History [...]
--- OUTSIDE RECORDS SUMMARY | 2024-12-02 06:45 | XMS_ITS ---
Author Organization [facility] Address [address] [place] [id number] Care Team Providers Care Equities Analyst Name Role Phone Sil Alejandro Primary Care Provider Elena White Unavailable [phone] Allergies Allergen (clinical drug ingredient) Drug/Non Drug [...] 4 TIMES DAILY NEEDED FOR ANXIETY ATTACKS for 30 Active Cyclobenzaprine HCl 5 MG 1 tablet at bed time as needed Orally q8h prn 12/02/2024 Active Medrol 4 MG as directed orally daily for 6 days 12/02/2024 Active Zithromax Z-Bubba 250 MG 2 pills first day then one daily for 4 days orally as directed for 5 days 12/02/2024 Active Dihydroergotamine Mesylate 4 MG/ML USE 1 SPRAY(S) IN THE NOSE EVERY 15 MINUTES DIRECTED for 30 Active hydroCHLOROthiazide 12.5 MG 1 tablet in the morning Orally Once a day for 90 days Active Losartan Potassium 50 MG 1 tablet Orally Once a day for 90 days Active Atenolol 25 MG 1 tab(s) orally once a day for 90 days Active Potassium Chloride ER 10 MEQ 1 tablet wi th food Orally Once a day for 90 day(s) 09/30/2024 Active Plavix 75 MG 1 tab(s) orally once a day for 90 days Active Aspirin 81 MG 1 tab(s) orally once a day for 30 day(s) Active Atorvastatin Calcium 20 MG 1 tab(s) oral ly once a day for 90 days Active Estradiol 0.5 MG 1 tab(s) orally once a day for 90 Active Benzonatate 200 MG 1 capsule as needed Orally Three times a day prn 12/02/2024 Active Problems Problem Type SNOMED Code ICD Code Onset Dates Problem Status W/U Status Risk Notes Problem Back pain of lumbar region with sciatica (M54.40) Active confirmed Vital Signs Blood pressure systolic 110 mm Hg 12/02/19 25 Blood pressure diastolic 70 mm Hg 025 Heart Rate 63 /min 12/02/2024 Height 64 in 12/02/2024 Weight 109.4 lbs 12/02/2024 BMI 18.78 kg/m2 12/02/2024 Encounters Encounter Location Date Provider Diagnosis [facility] [address] [facility] [address] [place] [address], [place] [id number] 12/02/2024 Elena White Back pain of lumbar [...] Medrol 4 MG as directed orally d aily for 6 days 12/02/2024 Zithromax Z-Bubba 250 MG 2 pills first day then one daily for 4 days orally as directed for 5 days 12/02/2024 Benzonatate 200 MG 1 [...] Reason: Progress Notes * JEAN TINSLEYDOB: [birth year] (54 yo F)Acc No.[id number]:12/02/2024 Progress Notes Patient: JEAN FALK Provider: IVON Martines :1970 A ge:54 Y S ex:Female Date:12/02/2024 Address:[address] [place] [address] Pcp:Sil Alejandro Subjective: * Chief Complaints: * [...] 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 * Hospitalization/Major Diagno stic Procedure: [facility] 05-07-10, [facility] ER- Headache 03/16/2011, [facility] ER- Headache 04/24/2011, [facility] Er--blood clot 06-16-11, [facility] ER-fell down steps 1.1.12, [facility] ER- Headache and numbness 09-15-12, [facility] ER-overdose 12/31/13, [facility] chest pain - to 03-16-14, [facility] ER- spained ankle 05-17-2015, [facility] ER-back pain after cough 05/28/15, [facility] ER - Ear Infection 02/06/16, [facility] ER - Short of breath 10/09/18, [facility] ER - Abdominal Pain 11/11/20. * Family [...] Appearance: NAD, alert; appears not to feel well.? Eyes: sclera and conjunctiva clear. Ears: auditory canals normal bilaterally, tympanic membranes normal bilaterally. Nose : nares patent. Sinuses : non tender bilaterally. Oral cavity : no erythema or exudate seen on pharynx.? Neck : supple, no cervical lymphadenopathy. Heart : RRR. Lungs: CTAB A&P. L ower back: Inspection: normal curvature of spine, significant muscle spasm. Palpation: paraspinal spasm on the right. Gait: slow and careful. Range of motion: minimnal due to discomfort. ? Assessment: * Assessment: 1. B ack pain [...] * Procedure Codes: [address] [place], [address] CAPILLARY BLOOD DRAW, 83315 CBC WITH AUTO DIFF * Follow Up: p rn * Billing Information: * Visit Code: 23944 Office Visit, Est Pt., Level 4. * Procedure Codes: [address] [place]. [address] CAPILLARY BLOOD DRAW. 36265 CBC WITH AUTO DIFF. * Electronic signature of Rocio White APRN on 04/27/2025 at 09:33 AM EDT Sign off status: Pending * Provider: IVON Martines Date: 0 12/02/2024 Generated for Jacky solares/Marisela/eTransmitting on: 0 04/27/2025 09:33 AM EDT History and Physical Notes * HPI (History of Present Illness) Category Sub-Category Detail Notes Category Not es ENT/respiratory sore throat Pt complains of a cough and congestion in her chest. Pt sts her symptoms started Sunday morning. 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
--- OUTSIDE RECORDS SUMMARY | 2025-04-27 09:33 | XMS_ITS | Encounter Summary ---
Author Organization [email or web address] Address [address] [place] [address] Care Team Providers Care Consulting Practice Director Name Role Phone Unavailable Primary Care Provider Unavailabl e Encounter Details Date Type Department Care Team (Late st Contact Info) Description 10/23/2019 Transcribed Document [facility] [place] Family Medicine [address] [place] [address] ProviderBrianda MD [address] [place] [address] Social History Tobacco Use Types [...] - Historical ProviderMD - 10/23/2019 12:38 PM BUCKLE STRAP DRUM OPERATOR Nursing Discharge Summary Entered On: 10/23/2019 12:39 [...] 10/23/2019 12:38 EST Electronically signed by Krishan [facility] Conversion Level Vial Inspector Cerner at 02/21/2023 9:37 PM CDT documented in this encounter Plan of Treatment Not on file documented as of this encounter Visit Diagnoses Not on filedocumented in this encounter
--- OUTSIDE RECORDS SUMMARY | 2025-04-27 09:33 | XMS_ITS | Encounter Summary ---
Author Organization [facility] [employer] Address [address] [place] [address] Care Team Providers Care Regional Forester Name Role Phone Unavailable Primary Care Provider Unavailabl e Encounter Details Date Type Department Care Team (Late st Contact Info) Description 10/23/2019 Transcribed Document [facility] [place] Family Medicine [address] [place] [address] ProviderBrianda MD [address] [place] [address] Social History Tobacco Use Types [...] - Historical ProviderMD - 10/23/2019 5:00 AM CHORAL TEACHER Chart Check - Review Order Profile Entered [...]
--- OUTSIDE RECORDS SUMMARY | 2025-04-27 09:33 | XMS_ITS | Encounter Summary ---
Author Organization [employer] Address [address] [place] [address] Care Team Providers Care Physician Primary Care Sports Medicine Name Role Phone Unavailable Primary Care Provider Unavailabl e Encounter Details Date Type Department Care Team (Late st Contact Info) Description 10/20/2019 Transcribed Document [facility] [place] Family Medicine [address] [place] [address] ProviderBrianda MD [address] [place] [address] Social History Tobacco Use Types [...] - Historical ProviderMD - 10/20/2019 1:04 PM SUPERVISOR ROLLER PRINTING PAT Adult Entered On: 10/20/2019 13:04 EST [...] Source : Measured Height Entry Format : [place] Height, Feet : 0 ft(Converted to: 0 cm, 0 Inch) Height, Inches : 65 Inch(Converted to: 5 ft 5 Inch, 165.10 cm) Clinical Height : 165.1 cm Weight Source : Standing scale Weight Entry Format : [place] Clinical Dosing Weight : 59.8 kg Weight, Pounds : 131 lb Weight, Ounces : 9 oz Body Surface Area (BSA) : 1.66 m2 Body Mass Index : 21.9 kg/m2 [place] Body Weight : 57 kg GLADYS OGDEN [...] GLADYS OGDEN RN - 10/20/2019 13:10 EST [place] Suicide Severity Rating Scale (C-SSRS) CSSRS Past [...] 10/20/2019 13:10 EST General Info Support Person/Patient Slice Cutting Machine Operator Helper : Yes Support Person/Pt Rep Name : Chiqui Coronado Support Person/Pt Rep Contact Information : Want Family/Rep/Phys Notified of Admit : No Emergency Contact #1 : Chiqui Nevesmirobert Emergency Contact #1 Emergency Contact #1 Relationship : daughter Emergency Contact #2 : n Emergency Contact #2 Phone Number : n Emergency Contact #2 Relationship : n Information Obtained From : Patient Primary Language : Nigerien Preferred Communication Mode : Verbal Communication Barrier [...] 10/20/2019 13:04 EST Electronically signed by Krishan [facility] Conversion Open Pit Quarry Supervisor Cerner at 02/21/2023 9:28 PM CDT documented in this encounter Plan of Treatment Not on file documented as of this encounter Visit Diagnoses Not on filedocumented in this encounter
--- OUTSIDE RECORDS SUMMARY | 2025-04-27 09:33 | XMS_ITS | Encounter Summary ---
Author Organization [employer] Address [address] [place] [address] Care Team Providers Care Packing And Final Assembly Supervisor Name Role Phone Unavailable Primary Care Provider Unavailabl e Encounter Details Date Type Department Care Team (Late st Contact Info) Description 10/23/2019 Transcribed Document [facility] [place] Family Medicine [facility] [place] [address] ProviderBrianda MD [address] [place] [address] Social History Tobacco Use Types [...] - Historical ProviderMD - 10/23/2019 2:25 PM DEPARTMENTAL BUYER Patient: JEAN TINSLEY Age: 49 Years Sex: [...] Daily dihydroergotamine 4 mg/mL nasal spray 1 [place], PRN, Nasal, Q15Min hydroCHLOROthiazide 12.5 mg oral tablet 12.5 mg = 1 Tab, Oral, Daily hydrOXYzine hydrochloride 25 mg oral tablet 25 mg = 1 Tab, PRN, Oral, QID [place] 7.5 mg-325 mg oral tablet 1 Tab, [...]
--- OUTSIDE RECORDS SUMMARY | 2025-04-27 09:33 | XMS_ITS | Encounter Summary ---
Author Organization [employer] Address [address] [place] [address] Care Team Providers Care System Specialist Name Role Phone Unavailable Primary Care Provider Unavailabl e Encounter Details Date Type Department Care Team (Late st Contact Info) Description 10/23/2019 Transcribed Document [facility] [place] [address] [place] [address] ProviderBrianda MD [address] [place] [address] Social History Tobacco Use Types [...] - Historical ProviderMD - 10/23/2019 2:00 AM FINANCIAL RECRUITER Paraprofessional Aide Teacher Details Entered On: 10/23/2019 4:29 EST Performed [...] SUJEY COREA RN - 10/23/2019 4:29 EST documented in this encounter Plan of Treatment Not on file documented as of this encounter Visit Diagnoses Not on filedocumented in this encounter
--- OUTSIDE RECORDS SUMMARY | 2025-04-27 09:33 | XMS_ITS | Encounter Summary ---
Author Organization [employer] Address [address] [place] [address] Care Team Providers Care Stemmer Machine Name Role Phone Unavailable Primary Care Provider Unavailabl e Encounter Details Date Type Department Care Team (Late st Contact Info) Description 10/23/2019 Transcribed Document [facility] [place] Medicine [address] [place] [address] ProviderBrianda MD [address] [place] [address] Social History Tobacco Use Types [...] - Historical ProviderMD - 10/23/2019 9:20 AM WINDMILL TECHNICIAN Patient: JEAN BADILLO Age: 49 Years Sex: [...] Daily dihydroergotamine 4 mg/mL nasal spray, 1 [place], Nasal, Q15Min, PRN hydroCHLOROthiazide 12.5 mg oral tablet, 12.5 mg= 1 Tab, Oral, Daily hydrOXYzine hydrochloride 25 mg oral tablet, 25 mg= 1 Tab, Oral, QID, PRN [place] 7.5 mg-325 mg oral tablet, 1 Tab, [...] 8.3 mg/dL Low Electronically signed by Interface, [facility] Conversion Pharmacy Helper Cerner at 02/21/2023 9:35 PM CDT documented in this encounter Plan of Treatment Not on file documented as of this encounter Visit Diagnoses Not on filedocumented in this encounter
--- OUTSIDE RECORDS SUMMARY | 2025-04-27 09:33 | XMS_ITS | Encounter Summary ---
Author Organization [employer] iatives Address [address] [place] [address] Care Team Providers Care Coal Pipeline Operator Name Role Phone Unavailable Primary Care Provider Unavailabl e Encounter Details Date Type Department Care Team (Late st Contact Info) Description 10/23/2019 Transcribed Document [facility] [place] Family Medicine [address] [place] [address] ProviderBrianda MD [address] [place] [address] Social History Tobacco Use Types [...] - Brianda ProviderMD - 10/23/2019 12:10 PM AGENCY OPERATOR [facility] [place] [address] MAHI TINSLEY :1970 Visit Time:10/22/2019 Your [...] EST Where: [address] [place] [address]- Business (1) Follow Up with IAM Bocanegra When Within 2 to 3 days Comments Call for follow up appointment Where: [place], [place] [phone] Medications What How Much When Instructions Next Dose atenolol (atenolol 25 mg oral tablet) 1 Tablet(s) Oral Every Day atorvastatin (atorvastatin 20 mg oral tablet) 1 Tablet(s) Oral At Bedtime tonight clopidogrel (clopidogrel 75 mg oral tablet) 1 Tablet(s) Oral Every Day conjugated estrogens (Premarin 0.45 mg oral tablet) 1 Tablet(s) Oral Every Day dihydroergotamine (dihydroergotamine 4 mg/ mL nasal spray) 1 Marion(s) Nasal Interval Every 15 Minutes as needed [...] Follow these instructions at home: ??? Take uzum-vfc-xwjloed and prescription medicines only as told by [...] warning stroke (transient ischemic attack). ??? Take peji-ezj-rnbhoox and prescription medicines only as told by [...] 04/22/2014 Elsevier Interactive Patient Education ?? 2019 [employer] Carotid Endarterectomy, Care After This sheet [...] and water are not available, use hand sand miller. ? Change your dressing as told by [...] you can take showers. Medicines ??? Take yfqw-uot-heqadqb and prescription medicines only as told by [...] 09/10/2017 Elsevier Interactive Patient Education ?? 2019 [employer] Emergency Awareness and Preventative Care STROKE [...] Assistance with quitting is available by contacting 1-026-FRSQNOW. This is a free resource providing counseling, support, and referral. Or you may contact your personal physician. [place] Suicide Prevention Lifeline: The National Suicide Prevention [...] range between ( 0.0 and 7.0 ) [place] #: 0.41 K/uL -- Normal range between ( 0.16 and 1.00 ) Eos #: 0.27 x10(3)/uL -- Normal range between ( 0.00 and 0.80 ) [place] %: 3.9 % -- Normal range between [...] was given the opportunity to ask questions. Patient/Visual Specialist Name: Patient/Visual Specialist Signature: Relationship to Patient: Clinician/Hospital Visual Specialist Signature: Date: Electronically signed by Interface, [facility] Conversion Project Landscape Architect Marian at 02/21/2023 9:27 PM CDT documented in this encounter Plan of Treatment Not on file documented as of this encounter Visit Diagnoses Not on filedocumented in this encounter
--- OUTSIDE RECORDS SUMMARY | 2025-04-27 09:33 | XMS_ITS | Encounter Summary ---
Author Organization [employer] i[employer] Address [address] [place] [address] Care Team Providers Care Principal Solutions Architect Name Role Phone Unavailable Primary Care Provider Unavailabl e Encounter Details Date Type Department Care Team (Late st Contact Info) Description 10/23/2019 Transcribed Document [facility] [place] Family Medicine [address] [place] [address] ProviderBrianda MD [address] [place] [address] Social History Tobacco Use Types [...] - Historical ProviderMD - 10/23/2019 9:38 AM OIL BURNER SERVICER AND INSTALLER UM Authorization Entered On: 10/23/2019 9:39 EST Performed On: 10/23/2019 9:38 EST by MIN MCMAHON Rn-Utilization Review Primary Insurance Authorization Authorization and Policy Numbers : Insurance 1 Health Plan: [facility] Policy Number: [id number] Authorization Number: Insurance Primary Name : [facility] Policy Number: [id number] Authorization Status-Primary : Awaiting callback Authorized Service Begin Date-Primary : 10/22/2019 EST Authorization Comments-Primary : Inpt Procedure Precert approved for [id number]; submitted clinicals for Inpt admission auth. Historical Authorization Comments-Primary : No Authorization Comments Found MIN MCMAHON Rn-Utilization Review - 10/23/2019 9:38 EST documented in this encounter Plan of Treatment Not on file documented as of this encounter Visit Diagnoses Not on filedocumented in this encounter
--- OUTSIDE RECORDS SUMMARY | 2025-04-27 09:33 | XMS_ITS | Encounter Summary ---
Author Organization [employer] Address [address] [place] [address] Care Team Providers Care Croze Cutter Helper Name Role Phone Unavailable Primary Care Provider Unavailabl e Encounter Details Date Type Department Care Team (Late st Contact Info) Description 10/23/2019 Transcribed Document [facility] [place] Family Medicine [address] [place] [address] ProviderBrianda MD [address] [place] [address] Social History Tobacco Use Types [...] - Brianda ProviderMD - 10/23/2019 11:58 AM CHANNEL WORKER Stroke/Warfarin Instructions Entered On: 10/23/2019 11:58 EST [...] Ricardo Tran RN - 10/23/2019 11:58 EST documented in this encounter Plan of Treatment Not on file documented as of this encounter Visit Diagnoses Not on filedocumented in this encounter
--- OUTSIDE RECORDS SUMMARY | 2025-04-27 09:33 | XMS_ITS | Encounter Summary ---
Author Organization [employer] i[employer] Address [address] [place] [address] Care Team Providers Care Labor Custodian Name Role Phone Unavailable Primary Care Provider Unavailabl e Encounter Details Date Type Department Care Team (Late st Contact Info) Description 10/23/2019 Transcribed Document [facility] [place] Family Medicine [address] [place] [address] ProviderBrianda MD [address] [place] [address] Social History Tobacco Use Types [...] - Historical ProviderMD - 10/23/2019 12:43 PM CELL BIOLOGIST UM Authorization Entered On: 10/23/2019 12:43 EST Performed On: 10/23/2019 12:43 EST by Nasreen Mathew, Tank Worker Primary Insurance Authorization Authorization and Policy Numbers : Insurance 1 Health Plan: [facility] Policy Number: [id number] Authorization Number: Insurance Primary Name : [facility] Policy Number: [id number] Authorization Status-Primary : Awaiting callback Auth/Referral Contact Name-Primary : [place] Authorized Service Begin Date-Primary : 10/22/2019 EST Authorization Comments-Primary : Discharge date and summary faxed. Historical Authorization Comments-Primary : Comment 1: Inpt Procedure Precert approved for [id number]; submitted clinicals for Inpt admission auth. (MIN MCMAHON, Rn-Utilization Review 10/23/2019 09:38) Nasreen Mathew, Tank Worker - 10/23/2019 12:43 EST Electronically signed by [facility], [facility] Conversion Waterproofer Cerner at 02/21/2023 9:43 PM CDT documented in this encounter Plan of Treatment Not on file documented as of this encounter Visit Diagnoses Not on filedocumented in this encounter
--- OUTSIDE RECORDS SUMMARY | 2025-04-27 09:33 | XMS_ITS | Encounter Summary ---
Author Organization [employer] Address [address] [place] [address] Care Team Providers Care Bonding Supervisor Name Role Phone Unavailable Primary Care Provider Unavailabl e Encounter Details Date Type Department Care Team (Late st Contact Info) Description 10/23/2019 Transcribed Document [facility] [place] Family Medicine [address] [place] [address] ProviderBrianda MD [address] [place] [address] Social History Tobacco Use Types [...] - Historical ProviderMD - 10/23/2019 9:15 AM NARROW FABRIC LOOM FIXER UM Authorization Entered On: 10/23/2019 9:15 EST Performed On: 10/23/2019 9:15 EST by MIN MCMAHON Rn-Utilization Review Primary Insurance Authorization Authorization and Policy Numbers : Insurance 1 Health Plan: [facility] Policy Number: [id number] Authorization Number: Insurance Primary Name : [facility] Policy Number: [id number] Historical Authorization Comments-Primary : No Authorization Comments Found MIN MCMAHON Rn-Utilization Review - 10/23/2019 9:15 EST Electronically signed by Krishan [facility] Conversion Ferry Terminal Supervisor Cerner at 02/21/2023 9:30 PM CDT documented in this encounter Plan of Treatment Not on file documented as of this encounter Visit Diagnoses Not on filedocumented in this encounter
--- OUTSIDE RECORDS SUMMARY | 2025-04-27 09:33 | XMS_ITS | Encounter Summary ---
Author Organization [employer] Address [address] [place] [address] Care Team Providers Care Batcher Operator Name Role Phone Unavailable Primary Care Provider Unavailabl e Encounter Details Date Type Department Care Team (Late st Contact Info) Description 10/23/2019 Transcribed Document [facility] [place] [address] [place] [address] ProviderBrianda MD [address] [place] [address] Social History Tobacco Use Types [...] - Historical ProviderMD - 10/23/2019 9:48 AM CARE ASST Initial Discharge Planning Entered On: 10/23/2019 9:52 EST Performed On: 10/23/2019 9:48 EST by BRENNAN DOVE Rn-Rubber Block Layer Initial Assessment I Previously Documented Living Environment : No qualifying data available. BRENNAN DOVE Rn-Rubber Block Layer - 10/23/2019 13:34 EST Living Situation : [...] Listed? : Yes Medical Durable Power of Office Analyst Name : None Legal Guardian : No Is Guardianship Needed : No DOVE, BRENNAN, Rn-Rubber Block Layer - 10/23/2019 9:48 EST Initial Assessment II Sensory and Motor Deficits : None Current Home Treatments and Equipment : None BRENNAN DOVE Rn-Rubber Block Layer - 10/23/2019 9:48 EST Discharge Needs I Anticipated Discharge Date : 10/23/2019 EST Anticipated Discharge To, CM : Home with family care Current Home Treatment/Equipment : Current Home Treatment/Equipment No qualifying data available. Post Acute/Home Treatments : None Documentation Status Complete : Yes BRENNAN DOVE Rn-Rubber Block Layer - 10/23/2019 9:48 EST Discharge Needs II Professional Skilled Services : Professional Skilled Services No qualifying data available. Needs Assistance with Transportation : No Discharge Options Discussed with Patient : Discharge transportation, DME, Home Health BRENNAN DOVE Rn-Rubber Block Layer - 10/23/2019 9:48 EST Narrative Note Narrative [...] to appt with Vascular surgeon. BRENNAN DOVE Rn-Rubber Block Layer - 10/23/2019 13:34 EST documented in this encounter Plan of Treatment Not on file documented as of this encounter Visit Diagnoses Not on filedocumented in this encounter
--- OUTSIDE RECORDS SUMMARY | 2025-04-27 09:33 | XMS_ITS | Encounter Summary ---
Author Organization [employer] Address [address] [place] [address] Care Team Providers Care Junior Estimator Name Role Phone Unavailable Primary Care Provider Unavailabl e Encounter Details Date Type Department Care Team (Late st Contact Info) Description 10/20/2019 Transcribed Document [facility] [place] Medicine [address] [place] [address] ProviderBrianda MD [address] [place] [address] Social History Tobacco Use Types [...] - Historical ProviderMD - 10/20/2019 1:15 PM DEVELOPMENT ENG Education-Smoking Cessation Entered On: 10/23/2019 4:28 EST [...] Tobacco Cues : Verbalizes understanding Activities to [place] With Smoking Urges : Verbalizes understanding Basic [...]
--- OUTSIDE RECORDS SUMMARY | 2025-04-27 09:33 | XMS_ITS | Encounter Summary ---
Author Organization [employer] Address [address] [place] [address] Care Team Providers Care Drier Operator Name Role Phone Unavailable Primary Care Provider Unavailabl e Encounter Details Date Type Department Care Team (Late st Contact Info) Description 10/23/2019 Transcribed Document [facility] Family Medicine [address] [place] [address] ProviderBrianda MD [address] [place] [address] Social History Tobacco Use Types [...] - Historical ProviderMD - 10/23/2019 5:05 AM SENIOR MEDICAL TRANSCRIPTIONIST Education-Wound Care Entered On: 10/23/2019 6:43 EST Performed On: 10/23/2019 5:05 EST by SUJEY COREA RN Teaching/Learning Assessment Barriers To Learning : None evident Individuals Taught : Patient Readiness to Learn : Cooperative Highest Level of Education : High school Readiness to Learn : Explanation SUJEY COREA RN - 10/23/2019 6:43 EST Electronically signed by Shira Nickerson Conversion Tool Maintenance Technician Cerner at 02/21/2023 9:42 PM CDT documented in this encounter Plan of Treatment Not on file documented as of this encounter Visit Diagnoses Not on filedocumented in this encounter
--- OUTSIDE RECORDS SUMMARY | 2025-04-27 09:34 | XMS_ITS | Encounter Summary ---
Author Organization [employer] iatives Address [address] [place] [address] Care Team Providers Care Vibrating Screed Operator Name Role Phone Unavailable Primary Care Provider Unavailabl e Encounter Details Date Type Department Care Team (Late st Contact Info) Description 10/22/2019 Transcribed Document [facility] [place] [facility] [place] [address] ProviderBrianda MD [address] [place] [address] Social History Tobacco Use Types [...] - Historical ProviderMD - 10/22/2019 9:52 AM REORDERING CLERK Patient: JEAN TINSLEY Age: 49 years Sex: [...] Refill(s) dihydroergotamine 4 mg/mL nasal spray: 1 Kellogg, Nasal, Q15Min, PRN: as needed for migraine [...] Daily dihydroergotamine 4 mg/mL nasal spray 1 Kellogg, PRN, Nasal, Q15Min hydroCHLOROthiazide 12.5 mg, Oral, [...] list: All Problems Migraine / SNOMED CT 30695403 / Confirmed Irregular heart beat / SNOMED CT 088322634 / Confirmed High blood pressure / SNOMED CT 81068384 / Confirmed Right-sided carotid artery disease / SNOMED CT 8044625822 / Confirmed >70% blockage Deep vein thrombosis (bilateral legs) / SNOMED CT 5693531141 / Confirmed At risk for sleep apnea / IMO 59596621 / Confirmed, Active Problems (6) At risk for sleep apnea Deep vein thrombosis (bilateral legs) High blood pressure Irregular heart beat Migraine Right-sided carotid artery disease Histories Past Medical History: Resolved Peptic ulcer disease (hx of) (9135339426): Onset in 2013 at 44 years. Resolved. [...] of motion, Normal strength. Integumentary: Warm, Dry, [place]. Neurologic: Alert, Oriented. Psychiatric: Cooperative, Appropriate mood & affect. Review / Management Results review: No qualifying data available. Impression and Plan Condition: Stable. documented in this encounter Plan of Treatment Not on file documented as of this encounter Visit Diagnoses Not on filedocumented in this encounter
--- OUTSIDE RECORDS SUMMARY | 2025-04-27 09:34 | XMS_ITS | Encounter Summary ---
Author Organization [employer] Address [address] [place] [address] Care Team Providers Care Electromechanic Name Role Phone Unavailable Primary Care Provider Unavailabl e Encounter Details Date Type Department Care Team (Late st Contact Info) Description 10/24/2019 Transcribed Document [facility] [place] Family Medicine [address] [place] [address] ProviderBrianda MD [address] [place] [address] Social History Tobacco Use Types [...] - Historical ProviderMD - 10/24/2019 9:41 AM DISTILLERY WORKER GENERAL UM Authorization Entered On: 10/24/2019 9:41 EST Performed On: 10/24/2019 9:41 EST by LINDA FITCH RN Primary Insurance Authorization Authorization and Policy Numbers : Insurance 1 Health Plan: [facility] Policy Number: [id number] Authorization Number: Insurance Primary Name : [facility] Policy Number: [id number] Authorization Status-Primary : Admit approved Auth/Referral Contact Name-Primary : [place] Reference Number-Primary : [id number] Number of Days Authorized-Primary : 0 Day(s) Authorized Service Begin Date-Primary : 10/22/2019 EST Authorized Service End Date-Primary : 10/22/2019 EST Authorization Comments-Primary : Per VM from Abby with [facility] approved IP. Historical Authorization Comments-Primary : Comment 1: Discharge date and summary faxed. (Nasreen Mathew, Radial Arm Saw Operator 10/23/2019 12:43) Comment 2: Inpt Procedure Precert approved for [id number]; submitted clinicals for Inpt admission auth. (MIN MCMAHON, Rn-Utilization Review 10/23/2019 09:38) LINDA FITCH RN - 10/24/2019 9:41 EST Electronically signed by Krishan [facility] Conversion Behavioral Health Rn Cerner at 02/21/2023 9:42 PM CDT documented in this encounter Plan of Treatment Not on file documented as of this encounter Visit Diagnoses Not on filedocumented in this encounter
--- OUTSIDE RECORDS SUMMARY | 2025-04-27 09:34 | XMS_ITS | Encounter Summary ---
Author Organization [email or web address] Address [address] [place] [address] Care Team Providers Care Wind Tunnel Engineer Name Role Phone Unavailable Primary Care Provider Unavailabl e Encounter Details Date Type Department Care Team (Late st Contact Info) Description 10/22/2019 Transcribed Document [facility] [place] Family Medicine [address] [place] [address] ProviderBrianda MD [address] [place] [address] Social History Tobacco Use Types [...] - Historical ProviderMD - 10/22/2019 2:29 PM TEMPLATE CUTTER Pain Assessment Entered On: 10/23/2019 3:43 EST [...] the text rendition version of the form. documented in this encounter Plan of Treatment Not on file documented as of this encounter Visit Diagnoses Not on filedocumented in this encounter
--- OUTSIDE RECORDS SUMMARY | 2025-04-27 09:34 | XMS_ITS | Encounter Summary ---
Author Organization [employer] Address [address] [place] [address] Care Team Providers Care Piping Manager Name Role Phone Unavailable Primary Care Provider Unavailabl e Encounter Details Date Type Department Care Team (Late st Contact Info) Description 10/22/2019 Transcribed Document [facility] [place] [address] [place] [address] ProviderBrianda MD [address] [place] [address] Social History Tobacco Use Types [...] - Historical Provider, - 10/22/2019 2:26 PM TROUT FARMER Admission History, Adult Entered On: 10/22/2019 16:42 [...] 10/22/2019 16:37 EST General Info Support Person/Patient Concaver : Yes Support Person/Pt Rep Name : Chiqui Garciakimberly Support Person/Pt Rep Contact Information : Want Family/Rep/Phys Notified of Admit : No Emergency Contact #1 : Chiqui Colmire Emergency Contact #1 Emergency Contact #1 Relationship : daughter Emergency Contact #2 : n Emergency Contact #2 Phone Number : n Emergency Contact #2 Relationship : n Information Obtained From : Patient Primary Language : Fijian Preferred Communication Mode : Verbal Communication Barrier [...] Scale Risk Level : 25-45 Medium Risk [place] Fall Interventions : Assistive devices within reach, [...] Source : Measured Height Entry Format : [place] Height, Feet : 0 ft(Converted to: 0 cm, 0 Inch) Height, Inches : 65 Inch(Converted to: 5 ft 5 Inch, 165.10 cm) Clinical Height : 165.1 cm Weight Source : Standing scale Weight Entry Format : [place] Clinical Dosing Weight : 59.8 kg Weight, Pounds : 131 lb Weight, Ounces : 9 oz Body Surface Area (BSA) : 1.66 m2 Body Mass Index : 21.9 kg/m2 [place] Body Weight : 57 kg Nina Martínez [...] Nina Martínez RN - 10/22/2019 16:[address] Suicide Severity Rating Scale (C-SSRS) CSSRS Past [...] and Belongings : No personal items Nina Martíenz RN - 10/22/2019 16:37 EST documented in this encounter Plan of Treatment Not on file documented as of this encounter Visit Diagnoses Not on filedocumented in this encounter
--- OUTSIDE RECORDS SUMMARY | 2025-04-27 09:34 | XMS_ITS | Referral Summary ---
Author Organization [employer] Address [address] [place] [address] Care Team Providers Care Paper Cone Machine Operator Name Role Phone Unavailable Primary Care [...]
--- OUTSIDE RECORDS SUMMARY | 2025-04-27 09:34 | XMS_ITS | Encounter Summary ---
Author Organization [employer] Address [address] [place] [address] Care Team Providers Care Office Machine Servicer Apprentice Name Role Phone Unavailable Primary Care Provider Unavailabl e Encounter Details Date Type Department Care Team (Late st Contact Info) Description 11/02/2019 Transcribed Document [facility] [place] [facility] [place] [address] ProviderBrianda MD [address] [place] [address] Social History Tobacco Use Types [...] - Historical ProviderMD - 11/02/2019 5:23 PM LABEL CUTTER HISTORY AND PHYSICAL UPDATE Update Required: The [...]
--- OUTSIDE RECORDS SUMMARY | 2025-04-27 09:34 | XMS_ITS | Encounter Summary ---
Author Organization [employer] Address [address] [place] [address] Care Team Providers Care Test Lab Technician Name Role Phone Unavailable Primary Care Provider Unavailabl e Encounter Details Date Type Department Care Team (Late st Contact Info) Description 10/22/2019 Transcribed Document [facility] [place] [address] [place] [address] ProviderBrianda MD [address] [place] [address] Social History Tobacco Use Types [...] - Brianda ProviderMD - 10/22/2019 1:01 PM METAL ROLLING MILL OPERATOR [facility]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 Name: JEAN BADILLOE /Sex: 1970 Female Med Rec #: [id number] Physician: BREE AGEE MD Financial #: [id number] Pt. Type: I Room/Bed: [facility] Admit/Disch: 10/22/19 14:28:00 - Institution: [facility] IntraOp Case Attendance Entry 1 Entry 2 Entry 3 Case Attendee BREE AGEE MD [place], Hazel, Fara Israel ST Role Performed Surgeon/Proceduralist, Mellowing Machine Operator, First Scrub, First First Time In 10/22/19 [...] BORGES, FERN MANSFIELD-ANS Role Performed Physician assistant professor of anthropology SEMICONDUCTOR PACKAGES PLATEMAKER/Nurse Prosthetic Assistant Anesthesiologist of Record Time In 10/22/19 12:22:00 [...] Attendee Teresa Hidalgo, KORI KRAUSE Role Performed Mellowing Machine Operator, [employer] Counterperson Time In 10/22/19 13:30:00 10/22/19 13:51:00 Time Out 10/22/19 13:47:00 10/22/19 14:04:00 Procedure Carotid Artery Carotid Artery Endarterectomy(Right) Endarterectomy(Right) Other Attendee BREAK RELIEF Superficial Wound Closed By: Last Modified By: Radha Coe RN [place], Hazel, MARIA C 10/22/19 14:32:52 10/22/19 14:32:52 [facility] IntraOp Case Attendance Audit 10/22/19 14:32:52 Supervisor Painting: LAFAVEHM Modifier: LAFAVEHM 1 <+> Time Out [...] <*> Procedure Carotid Artery Endarterectomy(Right) 10/22/19 14:04:52 Supervisor Painting: LAFAVEHM Modifier: LAFAVEHM 8 <+> Time Out 8 <*> Procedure Carotid Artery Endarterectomy(Right) 10/22/19 13:51:56 Supervisor Painting: LAFAVEHM Modifier: LAFAVEHM <+> 8 Case Attendee <+> 8 Role Performed <+> 8 Time In <+> 8 Procedure 10/22/19 13:47:21 Supervisor Painting: LAFAVEHM Modifier: LAFAVEHM 7 <+> Time Out 7 <*> Procedure Carotid Artery Endarterectomy(Right) 10/22/19 13:30:47 Supervisor Painting: LAFAVEHM Modifier: LAFAVEHM <+> 7 Case Attendee <+> 7 Role Performed <+> 7 Time In <+> 7 Procedure <+> 7 Other Attendee 10/22/19 13:18:51 Supervisor Painting: LAFAVEHM Modifier: LAFAVEHM 1 <*> Procedure Carotid Artery Endarterectomy(Right) 2 <+> Time In 2 <*> Procedure Carotid Artery Endarterectomy(Right) 3 <+> Time In 3 <*> Procedure Carotid Artery Endarterectomy(Right) 4 <+> Time In 4 <*> Procedure Carotid Artery Endarterectomy(Right) 5 <+> Time In 5 <*> Procedure Carotid Artery Endarterectomy(Right) 6 <+> Time In 6 <*> Procedure Carotid Artery Endarterectomy(Right) [facility] IntraOp Case Times Entry 1 Patient In Room Time 10/22/19 12:22:00 Out Room Time 10/22/19 14:32:00 Anesthesia Start Time 10/22/19 12:22:00 Stop Time 10/22/19 14:32:00 Surgery / Procedure Times Start Time 10/22/19 13:01:00 Stop Time 10/22/19 14:19:00 Last Modified By: Radha Coe RN 10/22/19 14:32:46 [facility] IntraOp Case Times Audit 10/22/19 14:32:46 Supervisor Painting: LAFAVEHM Modifier: LAFAVEHM <+> 1 Out Room Time <+> 1 Stop Time 10/22/19 14:20:42 Supervisor Painting: LAFAVEHM Modifier: LAFAVEHM <+> 1 Stop Time [facility] IntraOp Cautery Entry 1 ESU Identification Cautery Type Monopolar ESU ID Number [id number] ID Type Hospital Number Cautery Settings Cut Setting 30 Coag Setting 30 ESU Grounding Pad Ground Pad Type Adult Grounding Pad Site Left thigh Grounding Pad Radha Coe, RN Applied By Grounding Pad Site Intact, Warm, Dry Skin Condition Before Cautery Grounding Pad Site Unchanged Skin Condition After Cautery Last Modified By: Radha Coe, MARIA C 10/22/19 13:07:29 [facility] IntraOp Communication Entry 1 Entry 2 Entry 3 Communication To Family/Significant other Family/Significant other Family/Significant other Comment Communication By Radha Coe, Radha Erwin, RN Radha Coe, MARIA C Date and Time 10/22/19 13:04:00 10/22/19 13:58:00 10/22/19 14:14:00 Last Modified By: Radha Coe, Radha Erwin, RN Radha Coe, MARIA C 10/22/19 13:07:40 10/22/19 14:02:26 10/22/19 14:19:23 [facility] IntraOp Communication Audit 10/22/19 14:19:23 Supervisor Painting: LAFAVEMONTEZ Modifier: LAFAVEHM <+> 3 Communication By <+> 3 Date and Time <+> 3 Communication To 10/22/19 14:02:26 Supervisor Painting: LAFAVEHM Modifier: LAFAVEHM <+> 2 Communication By <+> 2 Date and Time <+> 2 Communication To [facility] IntraOp Counts Verification Entry 1 [...] [place], Hazel, RN 10/22/19 13:08:03 10/22/19 14:11:31 [facility] IntraOp Counts Verification Audit 10/22/19 14:11:31 Supervisor Painting: KAI Modifier: KAI 2 <*> Procedure Carotid Artery Endarterectomy(Right) 2 <+> Count Performed By (Scrub) 2 <+> Count Performed By (RN) [facility] IntraOp Counts Final Entry 1 Procedure Carotid Artery Endarterectomy(Right) Final Count Info Count Type Sponge, Sharps, Miscellaneous Counts Verification Skin Closure/end of Sequence procedure Count Results Correct, surgeon notified Counts Performed By Count Performed By Fara Campos ST (Scrub) Count Performed By Radha Coe RN (RN) Last Modified By: Radha Coe RN 10/22/19 14:14:44 [facility] IntraOp Counts Final Audit 10/22/19 14:14:44 Supervisor Painting: KAI Modifier: LAFAVEHM 1 <*> Procedure Carotid Artery Endarterectomy(Right) 1 <+> Count Performed By (Scrub) 1 <+> Count Performed By (RN) [facility] IntraOp Cultures and Spec Summary Entry 1 Cultrures and Specimens Specimen Ordered: Yes Test(s) Routine/Path-Lab Requested/Final Disposition Last Modified By: Radha Coe RN 10/22/19 13:08:30 [facility] IntraOp Departure from OR Entry 1 Integumentary Assessment Transfer/Handoff Transfer to PACU Phase I Handoff Method Bedside/Face to face, Phone call, Online nursing summary Post-op Transport Bed (including Via specialty) Patient Transport SUZANNE RICK Accompanied by FERN QUACH WILSON, ANNIE, PA Transfer/Handoff ICU BED REQUESTED Comments Last Modified By: Radha Coe RN 10/22/19 13:52:29 [facility] IntraOp Departure from OR Audit 10/22/19 13:52:29 Supervisor Painting: LAFAVEMONTEZ Modifier: LAFAVEHM <+> 1 Post-op Transport Via [facility] IntraOp Dressing and Packing Entry 1 Type Dressing Location NECK (OPERATIVE SIDE) Wound Dressing Item Skin Closure Glue Applied By DEE RAMESH PA Last Modified By: Radha Coe RN 10/22/19 14:19:37 [facility] IntraOp Dressing and Packing Audit 10/22/19 14:19:37 Supervisor Painting: KAI Modifier: LAFAVEHM 1 <*> Wound Dressing Item Steristrip, Occlusive dressing 1 <-> Other Comments coverderm [facility] IntraOp Fire Risk Assessment Entry [...] Modified By: Radha Coe RN 10/22/19 13:08:51 [facility] IntraOp General Case Grade Foreman 1 Case Information OR OR [facility] Case Level 1 Room Verified Yes Wound Class I - Clean Specialty SN Anesthesia Anesthesia Type General ASA Class 3 Diagnosis Preop Diagnosis RIGHT CAROTID STENOSIS Postop Same As Preop No Postop Diagnosis SEE MD POST OP NOTES Last Modified By: Radha Coe RN 10/22/19 13:09:21 [facility] IntraOp Implant Log Entry 1 Type Tissue Implant (Biologic) Implant Log Implant [facility] BIOLOGIC Identification [id number] Description Implant Quantity 1 Implant Site RIGHT CAROTID Implant [facility] Identification Rn Charge Name: Implant [id number] Identification Catalog Number Implant Size .8CM X 8CM Implant Expiration 04/01/25 Date Tissue Implant Graft Prep Per Yes Rn Charge Instructions: Rn Charge Yes Paperwork Completed Last Modified By: Radha Coe RN 10/22/19 13:21:16 [facility] IntraOp Intraoperative Assessment Entry 1 Valid History / Yes Physical in Chart Preoperative Yes Checklist Reviewed/Evaluated Allergies Reviewed Yes Patient is Latex No Sensitive Isolation Not applicable Precautions Noted Level of WDL Consciousness (WDL = Alert, Oriented to Person, Place, and Time) Skin Assessment No Verified Present Upon IVs Arrival to OR Last Modified By: Radha Coe RN 10/22/19 13:09:33 [facility] IntraOp Intraoperative Equipment Entry 1 Type Monitoring Equipment Equipment Jessica Suction System Intraop Monitoring Antiembolic Devices Antiembolic Devices Sequential compression device, knee high Antiembolic Device Bilateral Location Antiembolic Device [id number] ID Number Antiembolic Device SCD'S ON AND WORKING Setting PRIOR TO INDUCTION Scopes Photo/Video Documentation Last Modified By: Radha Coe RN 10/22/19 13:10:11 [facility] IntraOp Medication Admin Entry 1 Entry 2 Entry 3 Medication/Irrigant [id number] UNITS Marcaine 0.25% w/ lidocaine 1% 50ml vial 1ML/.9%NaCl 100ML epinephrine 1:200,000 - [id number] 30ml vial - [id number] Combo Med List Time Administered Route of [...] 14:07:18 Entry 4 Medication/Irrigant HEMOSTAT SURGICEL SNOW [id number] Combo Med List Time Administered Route of TOPICAL Administration Dose Dose 1 Unit of Measure pkt Volume Administered By BREE AGEE MD Procedure Irrigation Irrigant Volume In Irrigant Volume Out Last Modified By: Radha Coe RN 10/22/19 14:07:18 [facility] IntraOp Medication Admin Audit 10/22/19 14:07:18 Supervisor Painting: KAI Modifier: LAFAVEHM <+> 2 Medication/Irrigant <+> 2 Route of Administration <+> 2 Administered By <+> 2 Dose <+> 2 Unit of Measure <+> 3 Medication/Irrigant <+> 3 Route of Administration <+> 3 Administered By <+> 3 Dose <+> 3 Unit of Measure <+> 4 Medication/Irrigant <+> 4 Route of Administration <+> 4 Administered By <+> 4 Dose <+> 4 Unit of Measure [facility] IntraOp Patient Positioning Entry 1 [...] Modified By: Radha Coe RN 10/22/19 13:18:08 [facility] IntraOp Sign In Entry 1 [...] Modified By: Radha Coe RN 10/22/19 13:18:47 [facility] IntraOp Sign Out Entry 1 [...] Modified By: Radha Coe RN 10/22/19 14:32:38 [facility] IntraOp Sign Out Audit 10/22/19 14:32:38 Supervisor Painting: LAFAVEHM Modifier: LAFAVEHM <+> 1 RN Sign Out Signature Date/Time [facility] IntraOp Skin Prep Entry 1 Procedure Carotid Artery Endarterectomy(Right) Prescribed Yes Pre-Surgical Prep Completed Prep Area CHIN THROUGH CHEST INCLUDE RIGHT SHOULDER Intraop Prep Integumentary WDL Assessment WDL Prep Agents Chloraprep Prep by Radha Coe RN Hair Removal Methods No hair removal performed Last Modified By: Radha Coe RN 10/22/19 13:19:30 [facility] IntraOp Surgical Procedures Entry 1 Procedure Carotid Artery Endarterectomy Modifiers Right Additional (RT CAROTID Procedure ENDARTERECTOMY WITH Description INTRA OP ULTRA SOUND Primary Procedure Yes Primary Surgeon BREE AGEE MD Start 10/22/19 13:01:00 Stop 10/22/19 14:19:00 Anesthesia Type General Specialty SN Vascular Wound Class I - Clean Last Modified By: Radha Coe RN 10/22/19 14:20:47 [facility] IntraOp Surgical Procedures Audit 10/22/19 14:20:47 Supervisor Painting: LAFAVEHM Modifier: LAFAVEHM 1 <*> Procedure Carotid Artery Endarterectomy 1 <+> Stop 10/22/19 13:52:13 Supervisor Painting: LAFAVEHM Modifier: LAFAVEHM 1 <*> Procedure Carotid Artery Endarterectomy 1 <*> Additional Procedure Description (RT CAROTID ENDARTERECTOMY) [facility] IntraOp Temp Regulation Devices Entry 1 Temp Regulation Temperature Forced Air Warming Regulation Device device Temperature 63376 Regulation Device Serial/Unit Number Temperature Lower body Regulation Site Temperature Device SET AND MONITORED BY Setting ANESTHESIA Temperature VON SUZANNE RUELAS Regulation Device FERN QUACH Applied by Last Modified By: Radha Coe RN 10/22/19 13:20:15 [facility] IntraOP Time Out Entry 1 [...] Modified By: Radha Coe RN 10/22/19 13:06:08 [facility] IntraOp X-Ray and Images Entry 1 X-Ray/Imaging Type Ultrasound Fluoroscopy Type Other Site OPSITE English Professor Name IQBALKORI PARRY Last Modified By: Radha Coe RN 10/22/19 14:03:06 Case Comments <None> Finalized By: JEFF SNOW Document Signatures Signed By: Radha Coe RN 10/22/19 14:33 JEFF SNOW 10/23/19 11:00 Unfinalized History Date/Time Username Reason for Unfinalizing Freetext Reason for Unfinalizing 10/23/19 10:59 WATTSDR Correct Billing Electronically signed by Krishan [facility] Conversion Health And Fitness Professor Cerner at 02/21/2023 9:41 PM CDT documented in this encounter Plan of Treatment Not on file documented as of this encounter Visit Diagnoses Not on filedocumented in this encounter
--- OUTSIDE RECORDS SUMMARY | 2025-04-27 09:34 | XMS_ITS | Encounter Summary ---
Author Organization [employer] Address [address] [place] [address] Care Team Providers Care Construction Inspector Name Role Phone Unavailable Primary Care Provider Unavailabl e Encounter Details Date Type Department Care Team (Late st Contact Info) Description 10/23/2019 Transcribed Document [facility] [place] [address] [place] [address] ProviderBrianda MD [address] [place] [address] Social History Tobacco Use Types [...] - Historical ProviderMD - 10/23/2019 1:37 PM CLINICAL RESEARCH COORDINATOR Final Discharge Planning Entered On: 10/23/2019 13:37 EST Performed On: 10/23/2019 13:37 EST by BRENNAN DOVE Rn-Police Sergeant Final Discharge Planning Discharge Arrangements : Patient Post-Acute Information Patient Name: MAHI BADILLO Gender: Female : [birth year] Age: 49 Years No Post-Acute Placement(s) Listed No Post-Acute Service(s) Listed No Curaspan Referral(s) Listed Discharge To Care Management : Home/Residential/Intermediate or Self Care -01 BRENNAN DOVE Rn-Police Sergeant - 10/23/2019 13:37 EST Final Narrative Note Final Narrative Note : Pt d/c home with transport by her father. DOVE, BRENNAN, Rn-Police Sergeant - 10/23/2019 13:37 EST Electronically signed by Krishan, [facility] Conversion Senior Hardware Design Engineer Cerner at 02/21/2023 9:43 PM CDT documented in this encounter Plan of Treatment Not on file documented as of this encounter Visit Diagnoses Not on filedocumented in this encounter
--- OUTSIDE RECORDS SUMMARY | 2025-04-27 09:34 | XMS_ITS | Clinical Summary ---
Author Organization [employer] Address [address] [place] [address] Care Team Providers Care Corporate Sales Representative Name Role Phone Unavailable Primary Care Provider [...]
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
--- OUTSIDE RECORDS SUMMARY | 2025-04-27 09:34 | XMS_ITS | Encounter Summary ---
Author Organization [employer] Address [address] [place] [address] Care Team Providers Care Fire Technology Instructor Name Role Phone Unavailable Primary Care Provider Unavailabl e Encounter Details Date Type Department Care Team (Late st Contact Info) Description 10/22/2019 Transcribed Document [facility] [place] Family Medicine [address] [place] [address] ProviderBrianda MD [address] [place] [address] Social History Tobacco Use Types [...] - Brianda ProviderMD - 10/22/2019 1:01 PM PAYROLL TECHNICIAN [facility] Main OR PACU Summary Primary Physician: BREE AGEE MD Finalized Date/Time: 10/22/19 16:06:36 Pt. Name: MAHI TINSLEY LAURENCE BrayB./Sex: 1970 Female Med Rec #: [id number] Physician: BREE AGEE MD Financial #: [id number] Pt. Type: I Room/Bed: [facility]/ Admit/Disch: 10/22/19 14:28:00 - Institution: [facility] Main OR PACU I Case Times Entry 1 In PACU I 10/22/19 14:32:00 Ready for PACU 10/22/19 15:05:00 Discharge Discharge from PACU 10/22/19 16:04:00 I Last Modified By: Renu Douglas RN 10/22/19 16:05:11 [facility] Main OR PACU I Case Times Audit 10/22/19 16:05:11 Occasional Caregiver: [id number] Modifier: [id number] <+> 1 Discharge from PACU I [facility] Main OR PACU Acuity Entry 1 Start Time 10/22/19 15:05:00 Stop Time 10/22/19 16:04:00 Acuity Level [facility] PACU Acuity I Last Modified By: Renu Douglas RN 10/22/19 16:06:30 Finalized By: Renu Douglas RN Document Signatures Signed By: Renu Douglas RN 10/22/19 16:06 Electronically signed by Krishan [facility] Conversion Power Transformer Assembler Cerner at 02/21/2023 9:29 PM CDT documented in this encounter Plan of Treatment Not on file documented as of this encounter Visit Diagnoses Not on filedocumented in this encounter
--- OUTSIDE RECORDS SUMMARY | 2025-04-27 09:34 | XMS_ITS | Encounter Summary ---
Author Organization [employer] Address [address] [place] [address] Care Team Providers Care Sulfur Chloride Operator Name Role Phone Unavailable Primary Care Provider Unavailabl e Encounter Details Date Type Department Care Team (Late st Contact Info) Description 10/22/2019 Transcribed Document [facility] Family Medicine [address] [place] [address] ProviderBrianda MD [address] [place] [address] Social History Tobacco Use Types [...] - Brianda ProviderMD - 10/22/2019 11:45 AM FUR FINISHER TAILOR [facility] Main OR Preop Summary Primary Physician: BREE AGEE MD Finalized Date/Time: 10/22/19 12:21:47 Pt. Name: MAHI TINSLEY LAURENCE BrayB./Sex: 1970 Female Med Rec #: [id number] Physician: BREE AGEE MD Financial #: [id number] Pt. Type: P Room/Bed: / Admit/Disch: 10/17/19 12:00:00 - Institution: [facility] PreOp Case Times Entry 1 In Preop 10/22/19 09:15:00 Ready for Holding n/a Room Patient Ready for 10/22/19 10:45:00 Surgery Patient Out of Preop 10/22/19 12:20:00 Patient Out of n/a Holding Room Last Modified By: ALO CARRERA RN 10/22/19 12:21:46 Finalized By: ALO CARRERA RN Document Signatures Signed By: ALO CARRERA RN 10/22/19 12:21 Electronically signed by Krishan [facility] Conversion Derivatives Trader Cerner at 02/21/2023 9:24 PM CDT documented in this encounter Plan of Treatment Not on file documented as of this encounter Visit Diagnoses Not on filedocumented in this encounter
--- OUTSIDE RECORDS SUMMARY | 2025-04-27 09:34 | XMS_ITS | Encounter Summary ---
Author Organization [employer] Address [address] [place] [address] Care Team Providers Care Permanent Mold Supervisor Name Role Phone Unavailable Primary Care Provider Unavailabl e Encounter Details Date Type Department Care Team (Late st Contact Info) Description 10/22/2019 Transcribed Document [facility] [place] Family Medicine [facility] [place] [address] ProviderBrianda MD [address] [place] [address] Social History Tobacco Use Types [...] - Brianda ProviderMD - 10/22/2019 2:33 PM STEAM CLEANER Patient: JEAN TINSLEY Age: 49 years Sex: Female : 1970 Associated Diagnoses: None Author: BREE LEMUS MD VASCULAR SURGERY OPERATIVE REPORT DATE OF PROCEDURE: October 22, 2019 PRE-OP DIAGNOSIS: Symptomatic right internal carotid artery stenosis POST-OP DIAGNOSIS: Symptomatic right internal carotid artery stenosis PROCEDURE: 1. Right carotid endarterectomy with bovine patch angioplasty 2. Completion intraoperative duplex SURGEON: Dr. Bree Lemus M.D. HEALTH ECONOMIST: Erika Mejia PA-C ANESTHESIA: Gen. anesthesia EBL: [...]
--- OUTSIDE RECORDS SUMMARY | 2025-04-27 09:34 | XMS_ITS | Encounter Summary ---
Author Organization [employer] Address [address] [place] [address] Care Team Providers Care Senior Electrical Engineer Name Role Phone Unavailable Primary Care Provider Unavailabl e Encounter Details Date Type Department Care Team (Late st Contact Info) Description 10/23/2019 Transcribed Document [facility] [place] [address] [place] [address] ProviderBrianda MD [address] [place] [address] Social History Tobacco Use Types [...] - Brianda ProviderMD - 10/23/2019 12:07 PM ENTRY LEVEL AUTOMOTIVE TECHNICIAN [facility] [place] [address] MAHI TINSLEY :1970 Visit Time:10/22/2019 Your [...] EST Where: [address] [place] [address]- Business (1) Follow Up with IAM Bocanegra When Within 2 to 3 days Comments Call for follow up appointment Where: [place], [place] [phone] Medications What How Much When Instructions Next Dose atenolol (atenolol 25 mg oral tablet) 1 Tablet(s) Oral Every Day atorvastatin (atorvastatin 20 mg oral tablet) 1 Tablet(s) Oral At Bedtime clopidogrel (clopidogrel 75 mg oral tablet) 1 Tablet(s) Oral Every Day conjugated estrogens (Premarin 0.45 mg oral tablet) 1 Tablet(s) Oral Every Day dihydroergotamine (dihydroergotamine 4 mg/ mL nasal spray) 1 Dresser(s) Nasal Interval Every 15 Minutes as needed [...] Follow these instructions at home: ??? Take lpqu-qui-omvhslm and prescription medicines only as told by [...] warning stroke (transient ischemic attack). ??? Take fiel-qrm-qjntigq and prescription medicines only as told by your doctor. ??? Keep all follow-up visits as told by your doctor. This is important. This information is not intended to replace advice given to you by your health care provider. Make sure you discuss any questions you have with your health care provider. Document Released: 10/08/2013 Document Revised: 01/18/2018 Document Reviewed: 04/22/2014 ElseView[employer] Interactive Patient Education ?? 2019 Elsevier Inc. [...] and water are not available, use hand foreign service officer. ? Change your dressing as told by [...] you can take showers. Medicines ??? Take tmsh-gqi-yttflyb and prescription medicines only as told by [...] 05/11/2006 Document Revised: 09/10/2017 Document Reviewed: 09/10/2017 ElseView[employer]le Interactive Patient Education ?? 2019 [employer] Inc. Emergency Awareness and Preventative Care STROKE [...] Assistance with quitting is available by contacting 9-684-MUJWNOW. This is a free resource providing counseling, support, and referral. Or you may contact your personal physician. [place] Suicide Prevention Lifeline: The National Suicide Prevention [...] range between ( 0.0 and 7.0 ) Dickens #: 0.41 K/uL -- Normal range between ( 0.16 and 1.00 ) Eos #: 0.27 x10(3)/uL -- Normal range between ( 0.00 and 0.80 ) Dickens %: 3.9 % -- Normal range between [...] was given the opportunity to ask questions. Patient/Retrieval Specialist Name: Patient/Retrieval Specialist Signature: Relationship to Patient: Clinician/Hospital Retrieval Specialist Signature: Date: Electronically signed by Krishan, [facility] Conversion Boiling House Hand Marian at 02/21/2023 9:45 PM CDT documented in this encounter Plan of Treatment Not on file documented as of this encounter Visit Diagnoses Not on filedocumented in this encounter
--- OUTSIDE RECORDS SUMMARY | 2025-04-27 09:34 | XMS_ITS | Encounter Summary ---
Author Organization [employer] Address [address] [place] [address] Care Team Providers Care Welfare Supervisor Name Role Phone Unavailable Primary Care Provider Unavailabl e Encounter Details Date Type Department Care Team (Late st Contact Info) Description 10/23/2019 Transcribed Document [facility] [place] [address] [place] [address] ProviderBrianda MD [address] [place] [address] Social History Tobacco Use Types [...] - Brianda ProviderMD - 10/23/2019 11:57 AM MANAGER TECHNICAL TRAINING Patient Education Materials Follows: Carotid Artery Disease [...] Follow these instructions at home: ??? Take dckt-lpp-kebtnbx and prescription medicines only as told by [...] warning stroke (transient ischemic attack). ??? Take fvxc-fof-iemunyo and prescription medicines only as told by your doctor. ??? Keep all follow-up visits as told by your doctor. This is important. This information is not intended to replace advice given to you by your health care provider. Make sure you discuss any questions you have with your health care provider. Document Released: 10/08/2013 Document Revised: 01/18/2018 Document Reviewed: 04/22/2014 [employer] Company Interactive Patient Education ? 2019 [employer] Inc. Surgery Carotid Endarterectomy, Care After This [...] and water are not available, use hand alum operator. ? Change your dressing as told [...] you can take showers. Medicines ??? Take aqsa-hqn-snjjcwt and prescription medicines only as told by [...] 09/10/2017 Elsevier Interactive Patient Education ? 2019 [employer] Inc[employer] documented in this encounter Plan of Treatment Not on file documented as of this encounter Visit Diagnoses Not on filedocumented in this encounter
--- OUTSIDE RECORDS SUMMARY | 2025-04-27 09:34 | XMS_ITS | Encounter Summary ---
Author Organization [employer] Address [address] [place] [address] Care Team Providers Care Clinical Training Specialist Name Role Phone Unavailable Primary Care Provider Unavailabl e Encounter Details Date Type Department Care Team (Late st Contact Info) Description 10/22/2019 Transcribed Document [facility] [place] [facility] [place] [address] ProviderBrianda MD [address] [place] [address] Social History Tobacco Use Types [...] - Brianda ProviderMD - 10/22/2019 9:55 AM COMMERCIAL PARTS PROFESSIONAL Procedural Documentation Entered On: 10/22/2019 10:00 EST [...] Anesthesiologist Procedure Case Attendee Role 2 : refrigeration tech Case Attendee 2 : ALO CARRERA RN Procedure Case Attendee Role 3 : refrigeration tech Case Attendee 3 : JERAMY STILL RN [...]
== END 2025-04-23 23:59 | disposition home or self-care (01) ==
LOC: LAB.DROPOF 04-27 09:23
PROVIDERS: PCP Nurse Practitioner Family; Visit Provider Student in an Organized Health Care Education/Training Program
DX: N39.0 Urinary tract infection, site not specified (principal)
CPT/HCPCS: 87086

== ENCOUNTER 2025-04-24 21:28 | Observation (INO) | payer SELFPAY ==
--- NOTE | 2025-04-24 21:37 | CT_ITS ---
PROCEDURE INFORMATION: Exam: CT Abdomen And Pelvis With Contrast Exam date and time: 04/24/2025 10:54 PM Age: 54 years old Clinical indication: Abdominal pain; Additional info: R sided pain / R CVA TECHNIQUE: Imaging protocol: Computed tomography of the abdomen and pelvis with contrast. Radiation optimization: All CT scans at this facility use at least one of these dose optimization techniques: automated exposure control; mA and/or kV adjustment per patient size (includes targeted exams where dose is matched to clinical indication); or iterative reconstruction. Contrast material: ISOVUE; Contrast volume: 75 ml; Contrast route: IV; COMPARISON: CT ABDOMEN PELVIS W CON 11/10/2020 7:55 PM FINDINGS: Liver: No mass. Gallbladder and biliary ducts: Surgically absent gallbladder. Stable mild probable post cholecystectomy biliary ductal dilatation. Pancreas: Normal. No ductal dilation. Spleen: Normal. No splenomegaly. Adrenal glands: Normal. No mass. Kidneys and ureters: Right perinephric fat stranding. No nephroureterolithiasis. No hydroureter. Too small to characterize hypodensities in both kidneys likely representing cysts. Stomach and bowel: Nonobstructive pattern. Appendix: No evidence of appendicitis. Intraperitoneal space: Unremarkable. No free air. No significant fluid collection. Vasculature: Atherosclerotic calcification of aortoiliac arteries without aneurysm. Lymph nodes: Unremarkable. No enlarged lymph nodes. Urinary bladder: Unremarkable as visualized. Reproductive: Unremarkable as visualized. Bones/joints: Unremarkable. No acute fracture. Soft tissues: Unremarkable. IMPRESSION: Mild right pyelonephritis without abscess. COMMENTS: Consistent with the [employer]'s Incidental Findings Committee white paper (J Am Nadia Radiol 2018): Any incidental renal lesion less than 1 cm or classified as too small to characterize, or any incidental cystic renal lesion characterized as simple-appearing, is likely benign. No follow-up imaging is recommended for these lesions per consensus recommendations based on imaging criteria.
[2025-04-24 21:38] VITALS: BP 197/121; PULSE 127; RESP 16; TEMP 37.5; O2SAT 98; BMI 23.0
--- NOTE | 2025-04-24 21:40 | HMH.EDGENADL ---
Discharge Plan Disposition Patient Disposition: Admitted Condition: Good Clinical Impressions Clinical Impression: Pyelonephritis, Sepsis Discharge ED Provider: Ceasar Simms General Adult HPI <Najma García APRN - Last Filed: 04/24/25 22:00> General Chief complaint: Abdominal Pain Stated complaint: Poss kidney stone rt side or poss uti, fever Time Seen by Provider: 04/24/25 21:45 History of Present Illness HPI narrative: patient is a 54-year-old female PMHx HTN (losartan) who presents to the ED with complaints of right sided CVA tenderness, diagnosed with UTI last night urgent care. Patient states over the past several days she has had dysuria, right flank pain, right lower quadrant abdominal pain associated with fever and chills. Related Data Home Medications ?Medication ?Instructions ?Recorded ?Confirmed atenolol 25 mg tablet 25 mg PO DAILY Hypertension 03/24/23 04/25/25 losartan 50 mg tablet 50 mg PO DAILY 06/07/23 04/25/25 atorvastatin 40 mg tablet 40 mg PO DAILY 04/25/25 04/25/25 estradiol 0.5 mg tablet 0.5 mg PO DAILY 04/25/25 04/25/25 Allergies Allergy/AdvReac Type Severity Reaction Status Date / Time sumatriptan (SUMATRIPTAN) Allergy Mild Hives Verified 04/23/25 18:30 codeine (CODEINE) AdvReac Mild Vomiting Verified 04/23/25 18:30 morphine (MORPHINE) AdvReac Mild Chest Pain Verified 04/23/25 18:30 PFSH <Najma García APRN - Last Filed: 04/24/25 22:00> PFS Disclaimer: The information contained in this section may have been updated after the patient was seen, as this information can be updated by other users. Medical History (Updated 04/25/25 @ 02:23 by Ceasar Simms MD) Skin cancer Tobacco use Dyspnea Chest pain Anxiety Migraine History of stroke Hyperlipidemia Hypertension Surgical History H/O endarterectomy History of hysterectomy History of cholecystectomy Social History Smoking Status: Current some day smoker tobacco type: cigarettes packs per day: 1 alcohol intake: never substance use type: denies use current occupational status: employed Travel in the last 8 weeks?: None household members: none housing: house number of children: 3 current occupation: [employer] Have you lived/traveled outside [place] in past 30 days?: No Contact w/someone who lives/traveled outside US past 30 days?: No Exposure to someone with infectious disease in past 14 days?: No Do you have a fever (greater than 100.4 F or 38 C)?: No Have you tested positive for COVID-19?: No Exposed to someone with COVID-19 in past 14 days?: No Do you have a sore throat?: No Do you have a cough?: No Do you have any weakness?: No Do you have any diarrhea?: No Are you experiencing any unusual bleeding?: No Do you have any muscle aches/pain?: No Do you have any abdominal pain?: No Are you experiencing loss of taste or smell?: No Other Medical History Have you received the Flu Vaccine for this season: Yes Have you received the Pneumonia Vaccine: No <Najma García APRN - Last Filed: 04/24/25 22:00> ROS Obtained: Yes Systems reviewed as appropriate & no additional complaints except as documented Physical Exam <Najma García APRN - Last Filed: 04/24/25 22:00> General General appearance: alert and in no apparent distress Head Head exam: atraumatic and normocephalic Eye Eye exam: Present normal appearance and PERRL ENT ENT exam: Present normal exam Neck Neck exam: Present normal inspection Chest Chest inspection: Present normal inspection and symmetric chest wall rise; Absent tenderness Respiratory Respiratory exam: Present normal lung sounds bilaterally Cardiovascular Cardiovascular exam: Present tachycardia Abdominal Exam Abdominal exam: Present soft, tenderness (r side) and normal bowel sounds Extremities Exam Extremities exam: Present normal inspection and full ROM Back Exam Back exam: Present normal inspection, full ROM and CVA tenderness (R) Neurological Exam Neurological exam: Present alert and oriented X3 Psychiatric Psychiatric exam: Present normal affect and normal mood Skin Skin exam: Present warm and dry Medical Decision Making <Najma García APRN - Last Filed: 04/24/25 22:00> Medical Records Screening: Per USPSTF and CDC recommendations, given the prevalence of disease in our region, it is our hospital?s policy to screen for HIV and viral Hepatitis for all patients aged 18 and over and those with ongoing risk factors. Pb Inquiry Pt receiving controlled substance: No Vital Signs: 04/24/25 21:38 04/24/25 22:31 04/24/25 23:00 Temperature 99.5 F Temperature Source Oral Pulse Rate 105 H 96 H Pulse Rate [Right Radial] 127 H Respiratory Rate 16 Blood Pressure 144/91 H Blood Pressure [Right Arm] 197/121 H Blood Pressure Mean 101 Blood Pressure Mean [Right Arm] 146 Blood Pressure Position Blood Pressure Position [Right Arm] Supine 02 Sat by Pulse Oximetry 98 98 95 Oxygen Delivery Method Room Air 04/24/25 23:51 04/25/25 00:00 04/25/25 00:30 Temperature 98.6 F Temperature Source Oral Pulse Rate 85 Pulse Rate [Right Radial] Respiratory Rate 16 Blood Pressure 127/88 133/80 125/78 Blood Pressure [Right Arm] Blood Pressure Mean 95 91 90 Blood Pressure Mean [Right Arm] Blood Pressure Position Blood Pressure Position [Right Arm] 02 Sat by Pulse Oximetry 97 Oxygen Delivery Method 04/25/25 00:31 04/25/25 00:50 Temperature 98.6 F Temperature Source Oral Pulse Rate 68 Pulse Rate [Right Radial] Respiratory Rate 16 Blood Pressure 125/78 Blood Pressure [Right Arm] Blood Pressure Mean Blood Pressure Mean [Right Arm] Blood Pressure Position Sitting Blood Pressure Position [Right Arm] 02 Sat by Pulse Oximetry Oxygen Delivery Method Room Air Room Air Lab Data Lab Results 04/24/25 22:15: WBC 12.1 H, RBC 4.09 L, Hgb 13.6, Hct 39.9, MCV 97.6, MCH 33.3 H, MCHC 34.1, RDW 12.3, Plt Count 219, MPV 9.2, Neut % (Auto) 80.7 H, Lymph % (Auto) 10.1, [place] % (Auto) 7.9, Eos % (Auto) 0.6, Baso % (Auto) 0.3, Neut # (Auto) 9.7 H, Lymph # (Auto) 1.2, [place] # (Auto) 1.0, Eos # (Auto) 0.1, Baso # (Auto) 0.0, Sodium 136, Potassium 3.6, Chloride 107, Carbon Dioxide 21 L, Anion Gap 11.6, BUN 14, Creatinine 0.90, Estimated Creat Clear 60, Estimated GFR 65, Est GFR ( Amer) 79, Glucose 79, Calcium 9.0, Total Bilirubin 0.7, AST 31, ALT 33, Alkaline Phosphatase 122, Total Protein 7.3, Albumin 3.8, Globulin 3.5 H, Albumin/Globulin Ratio 1.1, HCV Ab SAHRA w/Rflx PCR Qn Negative, HIV Ag/Ab Combo Qual Negative 04/24/25 23:20: Urine Color Yellow, Urine Appearance Cloudy, Urine pH 6.0, Ur Specific [place] 1.010, Urine Protein Trace, Urine Glucose (UA) Negative, Urine Ketones 2+, Urine Blood Negative, Urine Nitrate Negative, Urine Bilirubin 2+ A, Urine Urobilinogen 0.2, Ur Leukocyte Esterase Negative, Urine RBC None, Urine WBC 5-10, Ur Squamous Epith Cells 20-50, Urine Bacteria Trace 04/24/25 22:15 04/24/25 22:15 Orders (Tests/Meds): ED MEDICATIONS Generic Name Dose Route Start Last Admin Trade Name Freq PRN Reason Stop Dose Admin Acetaminophen 650 mg 04/24/25 23:59 Acetaminophen 325mg Tab PO 05/24/25 23:58 Q4HP PRN Fever or Mild Pain (1-3) Piperacillin Sod/Tazobactam 50 mls @ 100 mls/hr 04/25/25 08:00 Sod 3.375 gm/ Sodium Chloride IV 05/05/25 07:59 Q8H JORDAN Sodium Chloride 1,000 mls @ 75 mls/hr 04/24/25 23:45 04/25/25 01:37 Sod Chlor 0.9% 1000ml Bag IV 05/24/25 23:44 75 mls/hr .[id number] JORDAN Administration Ketorolac Tromethamine 30 mg 04/24/25 23:59 Ketorolac 30mg/Ml Vial IV 04/29/25 23:58 Q6HP PRN Moderate Pain (4-6) Potassium Chloride 40 meq 04/25/25 01:00 04/25/25 01:12 Potassium Chloride 20meq Tab PO 04/25/25 05:01 40 meq Q4H JORDAN Administration Sodium Chloride 10 ml 04/24/25 21:37 Sodium Chloride 0.9% 10ml Flush Syringe IV 05/24/25 21:36 NEEDED PRN Maintain IV Site Discontinued Medications Generic Name Dose Route Start Last Admin Trade Name Freq PRN Reason Stop Dose Admin Acetaminophen 1,000 mg 04/24/25 21:40 04/24/25 21:46 Acetaminophen 1,000mg/100ml Vial IV 04/24/25 21:41 1,000 mg ONCE ONE Administration Sodium Chloride 1,000 mls @ 999 mls/hr 04/24/25 21:37 04/24/25 21:46 Sod Chlor 0.9% 1000ml Bag IV 04/24/25 22:37 999 mls/hr .Q1H1M ONE Administration Ceftriaxone Sodium 1 gm/ 50 mls @ 100 mls/hr 04/24/25 21:40 04/24/25 22:21 Sodium Chloride IV 04/24/25 22:09 100 mls/hr Q24H ONE Administration Sodium Chloride 1,000 mls @ 999 mls/hr 04/24/25 23:14 04/24/25 23:35 Sod Chlor 0.9% 1000ml Bag IV 04/25/25 00:14 999 mls/hr .Q1H1M ONE Administration Piperacillin Sod/Tazobactam 100 mls @ 200 mls/hr 04/24/25 23:45 04/24/25 23:49 Sod 4.5 gm/ Sodium Chloride IV 04/25/25 00:14 200 mls/hr ONCE ONE Administration Iopamidol 75 ml 04/24/25 22:56 04/24/25 23:00 Iopamidol-370 (76%);100ml Bottle IV 04/24/25 22:57 75 ml ONCE ONE Administration Sodium Chloride 10 ml 04/24/25 22:56 04/24/25 23:00 Sodium Chloride 0.9% 10ml Syr (Rad Only) IV 04/24/25 22:57 10 ml ONCE ONE Administration ORDERS Category Date Time Status CT abdomen pelvis w con Stat Cat Scan 04/24/25 21:37 Completed Basic Metabolic Panel AMLAB Lab 04/25/25 06:00 Ordered CBC w/Auto Diff [Complete Blood Count Auto Diff] Stat Lab 04/24/25 22:15 Completed CMP [Comprehensive Metabolic Panel] Stat Lab 04/24/25 22:15 Completed Complete Blood Count Auto Diff AMLAB Lab 04/25/25 06:00 Ordered HIV Combo Stat Lab 04/24/25 22:15 Completed Hepatitis C Ab Qual. W/ RFX Stat Lab 04/24/25 22:15 Completed Magnesium AMLAB Lab 04/25/25 06:00 Ordered Urinalysis and Microscopic Stat Lab 04/24/25 23:20 Completed Blood Culture Stat Micro 04/24/25 22:15 Received Medical Decision Narrative: In summary, patient is a 54-year-old female PMHx HTN (losartan) who presents to the ED with complaints of right sided CVA tenderness, diagnosed with UTI last night urgent care. Patient states over the past several days she has had dysuria, right flank pain, right lower quadrant abdominal pain associated with fever and chills. 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 Patient states she is taking acetaminophen and ibuprofen [id number] with minimal relief, states it has helped control her fever which has been 101.7 max. Denies headache, posterior neck pain, chest pain, shortness of breath. Upon initial evaluation patient is alert, oriented and cooperative. She is tachycardic. Physical exam remarkable for CVA tenderness, right sided abdominal guarding. Last dose of acetaminophen was 1500 today. Differential diagnosis include pyelonephritis, renal calculi, UTI, sepsis, among others. Discussed with patient we will proceed with labs, blood culture and CT scan. Will symptomatically manage with IV Tylenol and begin Rocephin after blood cultures obtained. Care transferred to Dr. Marr pending workup <Chiqui Marr, DO - Last Filed: 04/24/25 23:15> Vital Signs: 04/24/25 21:38 04/24/25 22:31 04/24/25 23:00 Temperature 99.5 F Temperature Source Oral Pulse Rate 105 H 96 H Pulse Rate [Right Radial] 127 H Respiratory Rate 16 Blood Pressure 144/91 H Blood Pressure [Right Arm] 197/121 H Blood Pressure Mean 101 Blood Pressure Mean [Right Arm] 146 Blood Pressure Position Blood Pressure Position [Right Arm] Supine 02 Sat by Pulse Oximetry 98 98 95 Oxygen Delivery Method Room Air 04/24/25 23:51 04/25/25 00:00 04/25/25 00:30 Temperature 98.6 F Temperature Source Oral Pulse Rate 85 Pulse Rate [Right Radial] Respiratory Rate 16 Blood Pressure 127/88 133/80 125/78 Blood Pressure [Right Arm] Blood Pressure Mean 95 91 90 Blood Pressure Mean [Right Arm] Blood Pressure Position Blood Pressure Position [Right Arm] 02 Sat by Pulse Oximetry 97 Oxygen Delivery Method 04/25/25 00:31 04/25/25 00:50 Temperature 98.6 F Temperature Source Oral Pulse Rate 68 Pulse Rate [Right Radial] Respiratory Rate 16 Blood Pressure 125/78 Blood Pressure [Right Arm] Blood Pressure Mean Blood Pressure Mean [Right Arm] Blood Pressure Position Sitting Blood Pressure Position [Right Arm] 02 Sat by Pulse Oximetry Oxygen Delivery Method Room Air Room Air Lab Data Lab Results 04/24/25 22:15: WBC 12.1 H, RBC 4.09 L, Hgb 13.6, Hct 39.9, MCV 97.6, MCH 33.3 H, MCHC 34.1, RDW 12.3, Plt Count 219, MPV 9.2, Neut % (Auto) 80.7 H, Lymph % (Auto) 10.1, [place] % (Auto) 7.9, Eos % (Auto) 0.6, Baso % (Auto) 0.3, Neut # (Auto) 9.7 H, Lymph # (Auto) 1.2, [place] # (Auto) 1.0, Eos # (Auto) 0.1, Baso # (Auto) 0.0, Sodium 136, Potassium 3.6, Chloride 107, Carbon Dioxide 21 L, Anion Gap 11.6, BUN 14, Creatinine 0.90, Estimated Creat Clear 60, Estimated GFR 65, Est GFR ( Amer) 79, Glucose 79, Calcium 9.0, Total Bilirubin 0.7, AST 31, ALT 33, Alkaline Phosphatase 122, Total Protein 7.3, Albumin 3.8, Globulin 3.5 H, Albumin/Globulin Ratio 1.1, HCV Ab SAHRA w/Rflx PCR Qn Negative, HIV Ag/Ab Combo Qual Negative 04/24/25 23:20: Urine Color Yellow, Urine Appearance Cloudy, Urine pH 6.0, Ur Specific [place] 1.010, Urine Protein Trace, Urine Glucose (UA) Negative, Urine Ketones 2+, Urine Blood Negative, Urine Nitrate Negative, Urine Bilirubin 2+ A, Urine Urobilinogen 0.2, Ur Leukocyte Esterase Negative, Urine RBC None, Urine WBC 5-10, Ur Squamous Epith Cells 20-50, Urine Bacteria Trace Orders (Tests/Meds): ED MEDICATIONS Generic Name Dose Route Start Last Admin Trade Name Freq PRN Reason Stop Dose Admin Acetaminophen 650 mg 04/24/25 23:59 Acetaminophen 325mg Tab PO 05/24/25 23:58 Q4HP PRN Fever or Mild Pain (1-3) Piperacillin Sod/Tazobactam 50 mls @ 100 mls/hr 04/25/25 08:00 Sod 3.375 gm/ Sodium Chloride IV 05/05/25 07:59 Q8H JORDAN Sodium Chloride 1,000 mls @ 75 mls/hr 04/24/25 23:45 04/25/25 01:37 Sod Chlor 0.9% 1000ml Bag IV 05/24/25 23:44 75 mls/hr .[id number] JORDAN Administration Ketorolac Tromethamine 30 mg 04/24/25 23:59 Ketorolac 30mg/Ml Vial IV 04/29/25 23:58 Q6HP PRN Moderate Pain (4-6) Potassium Chloride 40 meq 04/25/25 01:00 04/25/25 01:12 Potassium Chloride 20meq Tab PO 04/25/25 05:01 40 meq Q4H JORDAN Administration Sodium Chloride 10 ml 04/24/25 21:37 Sodium Chloride 0.9% 10ml Flush Syringe IV 05/24/25 21:36 NEEDED PRN Maintain IV Site Discontinued Medications Generic Name Dose Route Start Last Admin Trade Name Katalina PRN Reason Stop Dose Admin Acetaminophen 1,000 mg 04/24/25 21:40 04/24/25 21:46 Acetaminophen 1,000mg/100ml Vial IV 04/24/25 21:41 1,000 mg ONCE ONE Administration Sodium Chloride 1,000 mls @ 999 mls/hr 04/24/25 21:37 04/24/25 21:46 Sod Chlor 0.9% 1000ml Bag IV 04/24/25 22:37 999 mls/hr .Q1H1M ONE Administration Ceftriaxone Sodium 1 gm/ 50 mls @ 100 mls/hr 04/24/25 21:40 04/24/25 22:21 Sodium Chloride IV 04/24/25 22:09 100 mls/hr Q24H ONE Administration Sodium Chloride 1,000 mls @ 999 mls/hr 04/24/25 23:14 04/24/25 23:35 Sod Chlor 0.9% 1000ml Bag IV 04/25/25 00:14 999 mls/hr .Q1H1M ONE Administration Piperacillin Sod/Tazobactam 100 mls @ 200 mls/hr 04/24/25 23:45 04/24/25 23:49 Sod 4.5 gm/ Sodium Chloride IV 04/25/25 00:14 200 mls/hr ONCE ONE Administration Iopamidol 75 ml 04/24/25 22:56 04/24/25 23:00 Iopamidol-370 (76%);100ml Bottle IV 04/24/25 22:57 75 ml ONCE ONE Administration Sodium Chloride 10 ml 04/24/25 22:56 04/24/25 23:00 Sodium Chloride 0.9% 10ml Syr (Rad Only) IV 04/24/25 22:57 10 ml ONCE ONE Administration ORDERS Category Date Time Status CT abdomen pelvis w con Stat Cat Scan 04/24/25 21:37 Completed Basic Metabolic Panel AMLAB Lab 04/25/25 06:00 Ordered CBC w/Auto Diff [Complete Blood Count Auto Diff] Stat Lab 04/24/25 22:15 Completed CMP [Comprehensive Metabolic Panel] Stat Lab 04/24/25 22:15 Completed Complete Blood Count Auto Diff AMLAB Lab 04/25/25 06:00 Ordered HIV Combo Stat Lab 04/24/25 22:15 Completed Hepatitis C Ab Qual. W/ RFX Stat Lab 04/24/25 22:15 Completed Magnesium AMLAB Lab 04/25/25 06:00 Ordered Urinalysis and Microscopic Stat Lab 04/24/25 23:20 Completed Blood Culture Stat Micro 04/24/25 22:15 Received Medical Decision Narrative: In summary, patient is a 54-year-old female PMHx HTN (losartan) who presents to the ED with complaints of right sided CVA tenderness, diagnosed with UTI last night urgent care. Patient states over the past several days she has had dysuria, right flank pain, right lower quadrant abdominal pain associated with fever and chills. 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 Patient states she is taking acetaminophen and ibuprofen [id number] with minimal relief, states it has helped control her fever which has been 101.7 max. Denies headache, posterior neck pain, chest pain, shortness of breath. Upon initial evaluation patient is alert, oriented and cooperative. She is tachycardic. Physical exam remarkable for CVA tenderness, right sided abdominal guarding. Last dose of acetaminophen was 1500 today. Differential diagnosis include pyelonephritis, renal calculi, UTI, sepsis, among others. Discussed with patient we will proceed with labs, blood culture and CT scan. Will symptomatically manage with IV Tylenol and begin Rocephin after blood cultures obtained. Care transferred to Dr. Marr pending workup DO Tejinder: I was consulted by the MELITA, and we discussed the complexity of the problems being addressed. I approved the treatment and management plan for this patient's care in the emergency department, thus performing a substantive portion of the medical decision making. CT scan read pending at time of signout to oncoming provider, Dr. Simms. Labs significant for leukocytosis. Chemistry reassuring with normal kidney function. Urinalysis pending as well. Patient was given equivalent of sepsis bolus for concern for sepsis without shock. She is also treated with IV antibiotics. Chiqui Marr DO <Ceasar Simms MD - Last Filed: 04/25/25 02:23> Vital Signs: 04/24/25 21:38 04/24/25 22:31 04/24/25 23:00 Temperature 99.5 F Temperature Source Oral Pulse Rate 105 H 96 H Pulse Rate [Right Radial] 127 H Respiratory Rate 16 Blood Pressure 144/91 H Blood Pressure [Right Arm] 197/121 H Blood Pressure Mean 101 Blood Pressure Mean [Right Arm] 146 Blood Pressure Position Blood Pressure Position [Right Arm] Supine 02 Sat by Pulse Oximetry 98 98 95 Oxygen Delivery Method Room Air 04/24/25 23:51 04/25/25 00:00 04/25/25 00:30 Temperature 98.6 F Temperature Source Oral Pulse Rate 85 Pulse Rate [Right Radial] Respiratory Rate 16 Blood Pressure 127/88 133/80 125/78 Blood Pressure [Right Arm] Blood Pressure Mean 95 91 90 Blood Pressure Mean [Right Arm] Blood Pressure Position Blood Pressure Position [Right Arm] 02 Sat by Pulse Oximetry 97 Oxygen Delivery Method 04/25/25 00:31 04/25/25 00:50 Temperature 98.6 F Temperature Source Oral Pulse Rate 68 Pulse Rate [Right Radial] Respiratory Rate 16 Blood Pressure 125/78 Blood Pressure [Right Arm] Blood Pressure Mean Blood Pressure Mean [Right Arm] Blood Pressure Position Sitting Blood Pressure Position [Right Arm] 02 Sat by Pulse Oximetry Oxygen Delivery Method Room Air Room Air Lab Data Lab Results 04/24/25 22:15: WBC 12.1 H, RBC 4.09 L, Hgb 13.6, Hct 39.9, MCV 97.6, MCH 33.3 H, MCHC 34.1, RDW 12.3, Plt Count 219, MPV 9.2, Neut % (Auto) 80.7 H, Lymph % (Auto) 10.1, [place] % (Auto) 7.9, Eos % (Auto) 0.6, Baso % (Auto) 0.3, Neut # (Auto) 9.7 H, Lymph # (Auto) 1.2, [place] # (Auto) 1.0, Eos # (Auto) 0.1, Baso # (Auto) 0.0, Sodium 136, Potassium 3.6, Chloride 107, Carbon Dioxide 21 L, Anion Gap 11.6, BUN 14, Creatinine 0.90, Estimated Creat Clear 60, Estimated GFR 65, Est GFR ( Amer) 79, Glucose 79, Calcium 9.0, Total Bilirubin 0.7, AST 31, ALT 33, Alkaline Phosphatase 122, Total Protein 7.3, Albumin 3.8, Globulin 3.5 H, Albumin/Globulin Ratio 1.1, HCV Ab SAHRA w/Rflx PCR Qn Negative, HIV Ag/Ab Combo Qual Negative 04/24/25 23:20: Urine Color Yellow, Urine Appearance Cloudy, Urine pH 6.0, Ur Specific [place] 1.010, Urine Protein Trace, Urine Glucose (UA) Negative, Urine Ketones 2+, Urine Blood Negative, Urine Nitrate Negative, Urine Bilirubin 2+ A, Urine Urobilinogen 0.2, Ur Leukocyte Esterase Negative, Urine RBC None, Urine WBC 5-10, Ur Squamous Epith Cells 20-50, Urine Bacteria Trace Orders (Tests/Meds): ED MEDICATIONS Generic Name Dose Route Start Last Admin Trade Name Freq PRN Reason Stop Dose Admin Acetaminophen 650 mg 04/24/25 23:59 Acetaminophen 325mg Tab PO 05/24/25 23:58 Q4HP PRN Fever or Mild Pain (1-3) Piperacillin Sod/Tazobactam 50 mls @ 100 mls/hr 04/25/25 08:00 Sod 3.375 gm/ Sodium Chloride IV 05/05/25 07:59 Q8H JORDAN Sodium Chloride 1,000 mls @ 75 mls/hr 04/24/25 23:45 04/25/25 01:37 Sod Chlor 0.9% 1000ml Bag IV 05/24/25 23:44 75 mls/hr .[id number] JORDAN Administration Ketorolac Tromethamine 30 mg 04/24/25 23:59 Ketorolac 30mg/Ml Vial IV 04/29/25 23:58 Q6HP PRN Moderate Pain (4-6) Potassium Chloride 40 meq 04/25/25 01:00 04/25/25 01:12 Potassium Chloride 20meq Tab PO 04/25/25 05:01 40 meq Q4H JORDAN Administration Sodium Chloride 10 ml 04/24/25 21:37 Sodium Chloride 0.9% 10ml Flush Syringe IV 05/24/25 21:36 NEEDED PRN Maintain IV Site Discontinued Medications Generic Name Dose Route Start Last Admin Trade Name Freq PRN Reason Stop Dose Admin Acetaminophen 1,000 mg 04/24/25 21:40 04/24/25 21:46 Acetaminophen 1,000mg/100ml Vial IV 04/24/25 21:41 1,000 mg ONCE ONE Administration Sodium Chloride 1,000 mls @ 999 mls/hr 04/24/25 21:37 04/24/25 21:46 Sod Chlor 0.9% 1000ml Bag IV 04/24/25 22:37 999 mls/hr .Q1H1M ONE Administration Ceftriaxone Sodium 1 gm/ 50 mls @ 100 mls/hr 04/24/25 21:40 04/24/25 22:21 Sodium Chloride IV 04/24/25 22:09 100 mls/hr Q24H ONE Administration Sodium Chloride 1,000 mls @ 999 mls/hr 04/24/25 23:14 04/24/25 23:35 Sod Chlor 0.9% 1000ml Bag IV 04/25/25 00:14 999 mls/hr .Q1H1M ONE Administration Piperacillin Sod/Tazobactam 100 mls @ 200 mls/hr 04/24/25 23:45 04/24/25 23:49 Sod 4.5 gm/ Sodium Chloride IV 04/25/25 00:14 200 mls/hr ONCE ONE Administration Iopamidol 75 ml 04/24/25 22:56 04/24/25 23:00 Iopamidol-370 (76%);100ml Bottle IV 04/24/25 22:57 75 ml ONCE ONE Administration Sodium Chloride 10 ml 04/24/25 22:56 04/24/25 23:00 Sodium Chloride 0.9% 10ml Syr (Rad Only) IV 04/24/25 22:57 10 ml ONCE ONE Administration ORDERS Category Date Time Status CT abdomen pelvis w con Stat Cat Scan 04/24/25 21:37 Completed Basic Metabolic Panel AMLAB Lab 04/25/25 06:00 Ordered CBC w/Auto Diff [Complete Blood Count Auto Diff] Stat Lab 04/24/25 22:15 Completed CMP [Comprehensive Metabolic Panel] Stat Lab 04/24/25 22:15 Completed Complete Blood Count Auto Diff AMLAB Lab 04/25/25 06:00 Ordered HIV Combo Stat Lab 04/24/25 22:15 Completed Hepatitis C Ab Qual. W/ RFX Stat Lab 04/24/25 22:15 Completed Magnesium AMLAB Lab 04/25/25 06:00 Ordered Urinalysis and Microscopic Stat Lab 04/24/25 23:20 Completed Blood Culture Stat Micro 04/24/25 22:15 Received Tissue Perfus/Sepsis Re-Eval Sepsis Re-Evaluation Performed: Yes Date Performed: 04/24/25 Time Performed: 23:00 Medical Decision Narrative: In summary, patient is a 54-year-old female PMHx HTN (losartan) who presents to the ED with complaints of right sided CVA tenderness, diagnosed with UTI last night urgent care. Patient states over the past several days she has had dysuria, right flank pain, right lower quadrant abdominal pain associated with fever and chills. 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 Patient states she is taking acetaminophen and ibuprofen [id number] with minimal relief, states it has helped control her fever which has been 101.7 max. Denies headache, posterior neck pain, chest pain, shortness of breath. Upon initial evaluation patient is alert, oriented and cooperative. She is tachycardic. Physical exam remarkable for CVA tenderness, right sided abdominal guarding. Last dose of acetaminophen was 1500 today. Differential diagnosis include pyelonephritis, renal calculi, UTI, sepsis, among others. Discussed with patient we will proceed with labs, blood culture and CT scan. Will symptomatically manage with IV Tylenol and begin Rocephin after blood cultures obtained. Care transferred to Dr. Marr pending workup DO Tejinder: I was consulted by the MELITA, and we discussed the complexity of the problems being addressed. I approved the treatment and management plan for this patient's care in the emergency department, thus performing a substantive portion of the medical decision making. CT scan read pending at time of signout to oncoming provider, Dr. Simms. Labs significant for leukocytosis. Chemistry reassuring with normal kidney function. Urinalysis pending as well. Patient was given equivalent of sepsis bolus for concern for sepsis without shock. She is also treated with IV antibiotics. DO Mendez Carey MD: I assumed care of the patient at the time of handoff from the prior provider. CT imaging shows no evidence of obstruction, does show pyelonephritis without abscess. Interactive discussion was had with patient regarding her presentation. Recommend admission for IV antibiotics given continued worsening despite ceftriaxone less than 24 hours ago. She is agreeable to plan. Interactive discussion was had with hospitalist on-call for admission. Was initiated on Zosyn for empiric coverage given worsening despite ceftriaxone yesterday. Critical Care <Najma García APRN - Last Filed: 04/24/25 22:00> Critical Care Time Critical Care Time: No
--- OUTSIDE RECORDS SUMMARY | 2025-04-24 21:41 | XMS_ITS | Encounter Summary ---
Author Organization [employer] Address [address] [place] [address] Care Team Providers Care Saw Setter Name Role Phone Unavailable Primary Care Provider Unavailabl e Encounter Details Date Type Department Care Team (Late st Contact Info) Description 10/23/2019 Transcribed Document [facility] [place] [facility] [place] [address] ProviderBrianda MD [address] [place] [address] Social History Tobacco Use Types Packs/Day Years Used Date Smoking Tobacco: Never Assessed Comments Unknown Sex and Gender Information Value Date Recorded Sex Assigned at Female 05/02/2022 8:38 PM CDT Legal Sex Female 8:38 PM CDT Gender Identity Female 05/02/2022 8:38 PM CDT Sexual Orientation Not on file documented as of this encounter Miscellaneous Notes * Cerner Conversion Note - Historical ProviderMD - 10/23/2019 2:25 PM TELEPHONE EXCHANGE OPERATOR Patient: JEAN TINSLEY Age: 49 Years Sex: Female : 1970 Admit Date 10/22/2019 14:28 Discharge Date 10/23/2019 12:35 Primary Care Provider Discharge Diagnosis Occlusion and stenosis of unspecified carotid artery 10/22/2019 I65.29 ICD-10-CM Procedures SN - Proc - Procedure: Carotid Artery Endarterectomy (10/22/19 14:20:47) PROCEDURE: 1. Right carotid endarterectomy with bovine patch angioplasty 2. Completion intraoperative duplex [1] FINDINGS: Soft friable plaque with signs of rupture. There was excellent backbleeding from the right distal ICA. There was no signs of flow-limiting dissection, or flap on completion intraoperative duplex. [2] Reason for Hospitalization INDICATION FOR PROCEDURE: Mrs. Tinsley is very pleasant 49-year-old female with history of smoking and hypertension who presents with right amaurosis fugax 2 months ago. Her ventral workup determined that she had a severe right ICA stenosis from a focal soft plaque and intracranial disease. I offered the patient right carotid endarterectomy for stroke risk reduction. I explained the risks the procedure including , myocardial infarction, pneumonia, bleeding, patch infection, wound infection, kidney injury, stroke and nerve injury. She understood the risks and agreed to proceed. [3] Hospital Course The patient was admitted electively for the above stated procedure. She tolerated the procedure well and was transferred to CTVU in stable condition. She had an uneventful post operative night. On the date of discharge the patient had no neurologic or any other complaints. She was deemed ready for discharge Vital Signs T: 36.9 ??C TMIN: 36.6 ??C TMAX: 36.9 ??C HR: 60(Monitored) RR: 29 BP: 111/67 BP: 92/80(Line) SpO2: 100% HT: 165.1 cm WT: 59.8 kg BMI: 21.9 Oxygen Settings (Last) Oxygen Therapy Mode: Room air (10/23/19 12:00:00) Oxygen Flow Rate: 2 Liter/Min (10/22/19 14:40:00) Physical Exam GEN: A&Ox3 CARD: RRR PULM: clear NECK: incision c/d/i, no hematoma, trachea is midline NEURO: CN II-XII intact, no deficit appreciated [4] Discharge Disposition Home Discharge Follow Up IAM Bocanegra - Within 2 to 3 days BREE AGEE - In 2 weeks 11/06/2019 Discharge Medications (10) Active atenolol 25 mg oral tablet 25 mg = 1 Tab, Oral, Daily atorvastatin 20 mg oral tablet 20 mg = 1 Tab, Oral, At Bedtime Chantix Starter Pack 0.5 mg-1 mg oral tablet 1 Tab, Oral, BID clopidogrel 75 mg oral tablet 75 mg = 1 Tab, Oral, Daily dihydroergotamine 4 mg/mL nasal spray 1 [place], PRN, Nasal, Q15Min hydroCHLOROthiazide 12.5 mg oral tablet 12.5 mg = 1 Tab, Oral, Daily hydrOXYzine hydrochloride 25 mg oral tablet 25 mg = 1 Tab, PRN, Oral, QID [place] 7.5 mg-325 mg oral tablet 1 Tab, PRN, Oral, Q4H Premarin 0.45 mg oral tablet 0.45 mg = 1 Tab, Oral, Daily topiramate 50 mg oral tablet 50 mg = 1 Tab, Oral, BID Condition on Discharge [employer] BELL RAMESH MD-ANS Current Diet Order Diet, Adult - Ordered -- Start: 10/22/19 18:07:00 EST, Cardiac Diet, Isolation: Standard Precautions Patient Discharge Summary Orders Discharge Activity: Discharge Activity: Activity as tolerated Diet: Discharge Diet: Resume usual diet as tolerated Wound/Incision Care Instructions: Keep operative site/wound clean and dry Showering/Bathing Instructions: May shower [1] Vascular Operative Report; BREE AGEE MD 10/22/2019 14:33 EST [2] Vascular Operative Report; BREE AGEE MD 10/22/2019 14:33 EST [3] Vascular Operative Report; BREE AGEE MD 10/22/2019 14:33 EST [4] Vascular Surgical Progress Note; JERROD FRAUSTO PA 10/23/2019 09:20 EST documented in this encounter Plan of Treatment Not on file documented as of this encounter Visit Diagnoses Not on filedocumented in this encounter
--- OUTSIDE RECORDS SUMMARY | 2025-04-24 21:41 | XMS_ITS | Encounter Summary ---
Author Organization [employer] Address [address] [place] [address] Care Team Providers Care Marketing Analyst Name Role Phone Unavailable Primary Care Provider Unavailabl e Encounter Details Date Type Department Care Team (Late st Contact Info) Description 10/22/2019 Transcribed Document [facility] [place] [facility] [place] [address] ProviderBrianda MD [address] [place] [address] Social History Tobacco Use Types Packs/Day Years Used Date Smoking Tobacco: Never Assessed Comments Unknown Sex and Gender Information Value Date Recorded Sex Assigned at Female 05/02/2022 8:38 PM CDT Legal Sex Female 8:38 PM CDT Gender Identity Female 05/02/2022 8:38 PM CDT Sexual Orientation Not on file documented as of this encounter Miscellaneous Notes * Cerner Conversion Note - Brianda ProviderMD - 10/22/2019 2:33 PM DEVIL TENDER Patient: JEAN TINSLEY Age: 49 years Sex: Female : 1970 Associated Diagnoses: None Author: BREE LEMUS MD VASCULAR SURGERY OPERATIVE REPORT DATE OF PROCEDURE: October 22, 2019 PRE-OP DIAGNOSIS: Symptomatic right internal carotid artery stenosis POST-OP DIAGNOSIS: Symptomatic right internal carotid artery stenosis PROCEDURE: 1. Right carotid endarterectomy with bovine patch angioplasty 2. Completion intraoperative duplex SURGEON: Dr. Bree Lemus M.D. RESISTANCE WELDING MACHINE OPERATOR: Erika Mejia PA-C ANESTHESIA: Gen. anesthesia EBL: 100 mL FLUIDS: 1 L crystalloid UOP: None SPECIMEN: Right carotid plaque COMPLICATIONS: None DISPOSITION: Stable to PACU INDICATION FOR PROCEDURE: Mrs. Tinsley is very [...] understood the risks and agreed to proceed. FINDINGS: Soft friable plaque with signs of rupture. There was excellent backbleeding from the right distal ICA. There was no signs of flow-limiting dissection, or flap on completion intraoperative duplex. DESCRIPTION OF PROCEDURE: The patient was brought to the operating room and placed supine on the operating room table. General anesthesia was induced and an arterial line was inserted. The patient's right neck was then prepped and draped in sterile fashion. Timeout was performed and antibiotics were given. The procedure was begun by first making a oblique incision along the right sternocleidomastoid muscle. The dissection was continued and the SCM was retracted laterally to expose the carotid sheath. Branches of the facial vein was then ligated using 2-0 silk suture ligature. The internal jugular vein was then retracted laterally to expose the common carotid artery which was controlled proximally. The vagus nerve was identified and preserved throughout this procedure. Dissection was continued superiorly and a lymph node bundle was then identified and retracted medially. The external carotid artery was identified and controlled. The internal carotid artery was then dissected out and control was achieved in the mid aspect. The hypoglossal nerve was identified at this point. The patient was then given systemic heparin. The common and external carotid arteries were then clamped. The right ICA was then clamped. A longitudinal arteriotomy was made from the distal common carotid artery to the proximal internal carotid artery. A Weber shunt was then inserted from the CCA to the ICA. It was first placed into the ICA, backbled, then into the CCA and clamped. There was a good doppler signal within the shunt. Endarterectomy was then performed to a good endpoint in the proximal ICA. The plaque was noted to be very soft, friable and ulcerated. The remaining surface was meticulously inspected for any debris which were removed. The Endpoint of the ICA was tacked with two interrupted prolene sutures. Patch angioplasty was then performed with a 0.8 x 8 cm bovine patch fashioned to length of the endarterectomy site. The anastomosis was completed with a running 6-0 prolene suture. The shunt was removed prior to completion of the patch. The external, internal and common carotid arteries were then backbled and the patch which was also vigorously flushed with heparinized saline. The common carotid artery was then opened to the external carotid artery. The internal carotid artery was then unclamped. The suture line was hemostastic. Completion duplex was then performed and there was no debri, mobile elements or stenosis noted in the CCA, ICA or ECA. The remaining wound bed was then vigorously inspected for hemostasis which was achieved. The sternocleidomastoid muscle was then tacked medially with interrupted 2-0 Prolene sutures. The platysma and subcutaneous areas were closed with interrupted 3-0 Prolene sutures and 4-0 Monocryl for the skin. The skin was then dressed with Dermabond. The patient was then recovered from general anesthesia and transferred to the postanesthesia care unit in stable condition. documented in this encounter Plan of Treatment Not on file documented as of this encounter Visit Diagnoses Not on filedocumented in this encounter
--- OUTSIDE RECORDS SUMMARY | 2025-04-24 21:41 | XMS_ITS | Referral Summary ---
Author Organization [employer] Address [address] [place] [address] Care Team Providers Care Master Pilot Name Role Phone Unavailable Primary Care Provider Unavailabl e Social History Tobacco Use Types Packs/Day Years Used Date Smoking Tobacco: Never Assessed Comments Unknown Sex and Gender Information Value Date Recorded Sex Assigned at Female 05/02/2022 8:38 PM CDT Legal Sex Female 8:38 PM CDT Gender Identity Female 05/02/2022 8:38 PM CDT Sexual Orientation Not on file Plan of Treatment Not on file
--- OUTSIDE RECORDS SUMMARY | 2025-04-24 21:41 | XMS_ITS | Encounter Summary ---
Author Organization [employer] Address [address] [place] [address] Care Team Providers Care Certified Bench Jeweler Technician Name Role Phone Unavailable Primary Care Provider Unavailabl e Encounter Details Date Type Department Care Team (Late st Contact Info) Description 10/23/2019 Transcribed Document [facility] [place] Family Medicine [address] [place] [address] ProviderBrianda MD [address] [place] [address] Social History Tobacco Use Types [...] Conversion Note - Historical ProviderMD - 10/23/2019 9:20 AM GROUP INSURANCE SPECIAL AGENT Patient: JEAN BADILLO Age: 49 Years Sex: Female : 1970 Subjective Doing well No neurologic complaints no other major complaints no acute events noted Vital Signs T: 36.9 ??C TMIN: 36.6 ??C TMAX: 36.9 ??C HR: 60(Monitored) RR: 29 BP: 111/67 BP: 92/80(Line) SpO2: 100% HT: 165.1 cm WT: 59.8 kg BMI: 21.9 Physical Exam GEN: A&Ox3 CARD: RRR PULM: clear NECK: incision c/d/i, no hematoma, trachea is midline NEURO: CN II-XII intact, no deficit appreciated Assessment/Plan Symptomatic right internal carotid artery stenosis PROCEDURE 10/22/19: 1. Right carotid endarterectomy with bovine patch angioplasty 2. Completion intraoperative duplex Neurologically intact Hemodynamically stable d/c to home >Dr Lemus has seen and examined this patient. He has started Chantix for smoking cessation. Medications Inpatient acetaminophen-HYDROcodone 325 mg-5 mg oral tablet, 1 Tab, Oral, Q4H, PRN aspirin, 81 mg= 1 Tab, Oral, Daily atenolol, 25 mg= 1 Tab, Oral, Daily atorvastatin, 20 mg= 1 Tab, Oral, At Bedtime clopidogrel, 75 mg= 1 Tab, Oral, Daily Colace, 100 mg= 1 Cap, Oral, BID Dilaudid, 0.5 mg= 0.5 mL, IV Push, Q4H, PRN hydroCHLOROthiazide, 12.5 mg= 0.5 Tab, Oral, Daily labetalol, 10 mg= 2 mL, IV Push, Q10Min, PRN nicotine 14 mg/24 hr transdermal film, extended release, 1 Patch, TransDermal, Daily Phenergan, 25 mg= 1 mL, IV Push, Q6H, PRN varenicline, 0.5 mg= 1 Tab, Oral, Daily varenicline, 0.5 mg= 1 Tab, Oral, BID varenicline, 1 mg= 2 Tab, Oral, BID Zofran, 4 mg= 2 mL, IV Push, Q6H, PRN Zofran, 4 mg= 2 mL, IV Push, Q6H, PRN Home atenolol 25 mg oral tablet, 25 mg= 1 Tab, Oral, Daily atorvastatin 20 mg oral tablet, 20 mg= 1 Tab, Oral, At Bedtime Chantix Starter Pack 0.5 mg-1 mg oral tablet, 1 Tab, Oral, BID clopidogrel 75 mg oral tablet, 75 mg= 1 Tab, Oral, Daily dihydroergotamine 4 mg/mL nasal spray, 1 Pierre Part, Nasal, Q15Min, PRN hydroCHLOROthiazide 12.5 mg oral tablet, 12.5 mg= 1 Tab, Oral, Daily hydrOXYzine hydrochloride 25 mg oral tablet, 25 mg= 1 Tab, Oral, QID, PRN [place] 7.5 mg-325 mg oral tablet, 1 Tab, Oral, Q4H, PRN Premarin 0.45 mg oral tablet, 0.45 mg= 1 Tab, Oral, Daily topiramate 50 mg oral tablet, 50 mg= 1 Tab, Oral, BID Labs Results OCT 23 04:12 141 H 113 16 / H 112 3.8 25 0.90 \ OCT 23 04:12 \ 12.7 / H 17.4 255 / 36.8 \ Anion Gap: 7 Low Calcium Level: 8.3 mg/dL Low Electronically signed by Interface, [facility] Conversion Brusher Warp Cerner at 02/21/2023 9:35 PM CDT documented in this encounter Plan of Treatment Not on file documented as of this encounter Visit Diagnoses Not on filedocumented in this encounter
--- OUTSIDE RECORDS SUMMARY | 2025-04-24 21:41 | XMS_ITS | Encounter Summary ---
Author Organization [employer] Address [address] [place] [address] Care Team Providers Care Business Performance Manager Name Role Phone Unavailable Primary Care Provider Unavailabl e Encounter Details Date Type Department Care Team (Late st Contact Info) Description 10/23/2019 Transcribed Document [facility] [place] [address] [place] [address] ProviderBrianda MD [address] [place] [address] Social History Tobacco Use Types [...] Conversion Note - Historical ProviderMD - 10/23/2019 9:38 AM RECEIVING MANAGER UM Authorization Entered On: 10/23/2019 9:39 EST Performed On: 10/23/2019 9:38 EST by MIN MCMAHON Rn-Utilization Review Primary Insurance Authorization Authorization and Policy Numbers : Insurance 1 Health Plan: [facility] Policy Number: [id number] Authorization Number: Insurance Primary Name : [facility] Policy Number: [id number] Authorization Status-Primary : Awaiting callback Authorized Service Begin Date-Primary : 10/22/2019 EST Authorization Comments-Primary : Inpt Procedure Precert approved for [id number]; submitted clinicals for Inpt admission auth. Historical Authorization Comments-Primary : No Authorization Comments Found MIN MCMAHON Rn-Utilization Review - 10/23/2019 9:38 EST documented in this encounter Plan of Treatment Not on file documented as of this encounter Visit Diagnoses Not on filedocumented in this encounter
--- OUTSIDE RECORDS SUMMARY | 2025-04-24 21:41 | XMS_ITS | Encounter Summary ---
Author Organization [employer] Address [address] [place] [address] Care Team Providers Care Sewing Machine Assembler Name Role Phone Unavailable Primary Care Provider Unavailabl e Encounter Details Date Type Department Care Team (Late st Contact Info) Description 10/23/2019 Transcribed Document [facility] [place] [address] [place] [address] ProviderBrianda MD [address] [place] [address] Social History Tobacco Use Types [...] Conversion Note - Historical ProviderMD - 10/23/2019 12:43 PM [employer] REP UM Authorization Entered On: 10/23/2019 12:43 EST Performed On: 10/23/2019 12:43 EST by Nasreen Mathew, Polysomnographic Tech Primary Insurance Authorization Authorization and Policy Numbers : Insurance 1 Health Plan: [facility] Policy Number: [id number] Authorization Number: Insurance Primary Name : [facility] Policy Number: [id number] Authorization Status-Primary : Awaiting callback Auth/Referral Contact Name-Primary : DC Authorized Service Begin Date-Primary : 10/22/2019 EST Authorization Comments-Primary : Discharge date and summary faxed. Historical Authorization Comments-Primary : Comment 1: Inpt Procedure Precert approved for [id number]; submitted clinicals for Inpt admission auth. (MIN MCMAHON, Rn-Utilization Review 10/23/2019 09:38) Nasreen Mathew, Polysomnographic Tech - 10/23/2019 12:43 EST Electronically signed by [facility], [facility] Conversion Braille Typist Cerner at 02/21/2023 9:43 PM CDT documented in this encounter Plan of Treatment Not on file documented as of this encounter Visit Diagnoses Not on filedocumented in this encounter
--- OUTSIDE RECORDS SUMMARY | 2025-04-24 21:41 | XMS_ITS | Encounter Summary ---
Author Organization [employer] Address [address] [place] [address] Care Team Providers Care Monotype Mechanic Name Role Phone Unavailable Primary Care Provider Unavailabl e Encounter Details Date Type Department Care Team (Late st Contact Info) Description 10/23/2019 Transcribed Document [facility] Family Medicine [address] [place] [address] ProviderBrianda MD [address] [place] [address] Social History Tobacco Use Types [...] Conversion Note - Historical ProviderMD - 10/23/2019 9:15 AM FOOD SANITARIAN UM Authorization Entered On: 10/23/2019 9:15 EST Performed On: 10/23/2019 9:15 EST by MIN MCMAHON Rn-Utilization Review Primary Insurance Authorization Authorization and Policy Numbers : Insurance 1 Health Plan: [facility] Policy Number: [id number] Authorization Number: Insurance Primary Name : [facility] Policy Number: [id number] Historical Authorization Comments-Primary : No Authorization Comments Found MIN MCMAHON Rn-Utilization Review - 10/23/2019 9:15 EST Electronically signed by Krishan [facility] Conversion Retirement Plan Specialist Cerner at 02/21/2023 9:30 PM CDT documented in this encounter Plan of Treatment Not on file documented as of this encounter Visit Diagnoses Not on filedocumented in this encounter
--- OUTSIDE RECORDS SUMMARY | 2025-04-24 21:41 | XMS_ITS | Encounter Summary ---
Author Organization [facility] [employer] Address [address] [place] [address] Care Team Providers Care Jewel Hole Cornerer Name Role Phone Unavailable Primary Care Provider Unavailabl e Encounter Details Date Type Department Care Team (Late st Contact Info) Description 10/20/2019 Transcribed Document [facility] [place] Family Medicine [address] [place] [address] ProviderBrianda MD [address] [place] [address] Social History Tobacco Use Types [...] Cerner Conversion Note - Historical ProviderMD - 10/20/2019 1:15 PM DEPARTMENT OPERATIONS MANAGER Education-Smoking Cessation Entered On: 10/23/2019 4:28 EST Performed On: 10/23/2019 2:00 EST by SUJEY COREA RN Teaching/Learning Assessment Barriers To Learning : None evident Individuals Taught : Patient Readiness to Learn : Cooperative Highest Level of Education : High school Baseline Knowledge of Topic : Good Readiness to Learn : Explanation SUJEY COREA RN - 10/23/2019 4:27 EST Education: Smoking/Tobacco Cessation Topics Smoking Cess Educatin Grid Advice Given to Stop Smoking : Verbalizes understanding Risks/Benefits of Smoking : Verbalizes understanding Second Hand Smoke : Verbalizes understanding Ed-Smoking Cessation Programs : Verbalizes understanding Ed-Smoking Cessation, Other : Verbalizes understanding SUJEY COREA RN - 10/23/2019 4:28 EST Tobacco Cessation Counseling Grid Recognizing Danger Situations : Verbalizes understanding Negative Moods and/or Stress : Verbalizes understanding Being Around Other Tobacco Users : Verbalizes understanding Drinking Alcohol : Verbalizes understanding Experiencing Urges : Verbalizes understanding Tobacco Cues and Availability : Verbalizes understanding Developing Coping Skills : Verbalizes understanding Anticipate/Avoid Temptation/Triggers : Verbalizes understanding Strategies to Reduce Negative Moods : Verbalizes understanding Reduce Stress/Exposure to Tobacco Cues : Verbalizes understanding Activities to [place] With Smoking Urges : Verbalizes understanding Basic Information About Quitting : Verbalizes understanding Tobacco Use Increases Chance of Relapse : Verbalizes understanding Withdrawal Symptoms Peak After Quitting : Verbalizes understanding Addictive Nature of Tobacco : Verbalizes understanding SUJEY COREA RN - 10/23/2019 4:28 EST documented in this encounter Plan of Treatment Not on file documented as of this encounter Visit Diagnoses Not on filedocumented in this encounter
--- OUTSIDE RECORDS SUMMARY | 2025-04-24 21:41 | XMS_ITS | Encounter Summary ---
Author Organization [employer] Address [address] [place] [id number] Care Team Providers Care Campaign Advisor Name Role Phone Unavailable Primary Care Provider Unavailabl e Encounter Details Date Type Department Care Team (Late st Contact Info) Description 10/23/[address] [facility] [place] Family Medicine [address] [place] [address] ProviderBrianda MD [address] [place] [address] Social History Tobacco Use Types [...] Cerner Conversion Note - Brianda ProviderMD - 10/23/2019 11:58 AM FINGERPRINT TECHNICIAN Stroke/Warfarin Instructions Entered On: 10/23/2019 11:58 EST Performed On: 10/23/2019 11:58 EST by Ricardo Tran RN Stroke/Warfarin Instructions Stroke/TIA Discharge Ins : Open Warfarin Discharge Ins : N/A Ricardo Tran RN - 10/23/2019 11:58 EST Stroke/TIA Discharge Instructions Individualized Stroke Risk Factors *Q : Carotid stenosis Stroke Education Handouts Given *Q : Yes Ricardo Tran RN - 10/23/2019 11:58 EST Stroke Education Materials Given-Grid Activation of EMS *Q : Verbalizes understanding Follow-up Care After Discharge *Q : Verbalizes understanding Medications prescribed at DC *Q : Verbalizes understanding Risk Factors for Stroke *Q : Verbalizes understanding Warning S&S of Stroke *Q : Verbalizes understanding Ricardo Tran RN - 10/23/2019 11:58 EST Stroke/TIA Signs/Symptoms to Report Immediately : Sudden onset difficulty speaking, Sudden onset difficulty understanding speech, Sudden onset change in vision, Sudden onset weakness particulary on one side of the body, Sudden onset numbness/tingling, Sudden severe headache, Sudden dizziness or trouble with gait, Call : EMS activation is crucial My LDL Level: : LDL Level No qualifying data available. Ricardo Tran RN - 10/23/2019 11:58 EST Electronically signed by Shira Nickerson Conversion Fitness And Wellness Coordinator Cerner at 02/21/2023 9:36 PM CDT documented in this encounter Plan of Treatment Not on file documented as of this encounter Visit Diagnoses Not on filedocumented in this encounter
--- OUTSIDE RECORDS SUMMARY | 2025-04-24 21:41 | XMS_ITS | Encounter Summary ---
Author Organization [employer] Address [address] [place] [address] Care Team Providers Care Arresting Gear Operator Name Role Phone Unavailable Primary Care Provider Unavailabl e Encounter Details Date Type Department Care Team (Late st Contact Info) Description 11/02/2019 Transcribed Document [facility] [place] Family Medicine [facility] [place] [address] ProviderBrianda MD [address] [place] [address] Social History Tobacco Use Types [...] Cerner Conversion Note - Historical ProviderMD - 11/02/2019 5:23 PM MARKET 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 __X___UPDATE: The History and Physical performed by Dr. Lemus on 10/17 has been reviewed, patient was examined, and no change has occurred since the History and Physical was completed. OR UPDATE: The History and Physical performed by on has been reviewed and patient examined. The only significant change(s) in the patient's history or condition since the History and Physical was completed are indicated below: Significant Changes: documented in this encounter Plan of Treatment Not on file documented as of this encounter Visit Diagnoses Not on filedocumented in this encounter
--- OUTSIDE RECORDS SUMMARY | 2025-04-24 21:41 | XMS_ITS | Encounter Summary ---
Author Organization [employer] Address [address] [place] [address] Care Team Providers Care Customer Service And Sales Consultant Name Role Phone Unavailable Primary Care Provider Unavailabl e Encounter Details Date Type Department Care Team (Late st Contact Info) Description 10/23/2019 Transcribed Document [facility] [place] [place] Family Medicine [address] [place] [address] ProviderBrianda MD [address] [place] [address] Social History Tobacco Use Types [...] Conversion Note - Historical ProviderMD - 10/23/2019 2:00 AM FIREARMS MODEL MAKER Dispersion Mixer Details Entered On: 10/23/2019 4:29 EST Performed On: 10/23/2019 2:00 EST by SUJEY COREA RN Order Details Transport Mode Order Detail : Bed (including specialty) Isolation Precautions Order Detail : Standard Precautions Order Detail : 0 IV Order Detail : 1 Oxygen Order Detail : 0 Nurse Collect Order Detail : 1 Lift/Transfer : Moderate assist Central Line Order Detail : No Room Service : Appropriate Arterial Line : No SUJEY COREA RN - 10/23/2019 4:29 EST Electronically signed by Shira Nickerson Conversion Sweatband Decorating Machine Operator Cerner at 02/21/2023 9:23 PM CDT documented in this encounter Plan of Treatment Not on file documented as of this encounter Visit Diagnoses Not on filedocumented in this encounter
--- OUTSIDE RECORDS SUMMARY | 2025-04-24 21:41 | XMS_ITS | Encounter Summary ---
Author Organization [employer] Address [address] [place] [id number] Care Team Providers Care Ux Consultant Name Role Phone Unavailable Primary Care Provider Unavailabl e Encounter Details Date Type Department Care Team (Late st Contact Info) Description 10/23/2019 Transcribed Document [facility] Family Medicine [address] [place] [address] ProviderBrianda MD [address] [place] [address] Social History Tobacco Use [...] Conversion Note - Brianda ProviderMD - 10/23/2019 12:10 PM CONSULTANT TECHNOLOGY [facility] [place] [address] MAHI TINSLEY :1970 Visit Time:10/22/2019 Your Visit Summary Your Care Team Admitting Physician - BREE AGEE MD Attending Physician - BREE AGEE MD Primary Care Physician - BREE AGEE MD Referring Physician - EMILIO, ARIANA Your Diagnosis Occlusion and stenosis of unspecified carotid artery, Occlusion and stenosis of unspecified carotid artery Discharge Vitals Temperature 36.7 ??C Heart Rate (Monitored) 62 Respiratory Rate 36 Blood Pressure 93/60 What to do next Instructions From Your Care Team Discharge Activity: Discharge Activity: Activity as tolerated Diet: Discharge Diet: Resume usual diet as tolerated Wound/Incision Care Instructions: Keep operative site/wound clean and dry Showering/Bathing Instructions: May shower Follow-Up Appointments Follow Up with BREE AGEE When In 2 weeks 11/06/2019 EST Where: [address] [place] [address]- Business (1) Follow Up with IAM Bocanegra When Within 2 to 3 days Comments Call for follow up appointment Where: [place], [place] [phone] Medications What How Much When Instructions Next Dose atenolol (atenolol 25 mg oral tablet) 1 Tablet(s) Oral Every Day atorvastatin (atorvastatin 20 mg oral tablet) 1 Tablet(s) Oral At Bedtime tonight clopidogrel (clopidogrel 75 mg oral tablet) 1 Tablet(s) Oral Every Day conjugated estrogens (Premarin 0.45 mg oral tablet) 1 Tablet(s) Oral Every Day dihydroergotamine (dihydroergotamine 4 mg/ mL nasal spray) 1 [place](s) Nasal Interval Every 15 Minutes as needed for for migraine headache max of 2 doses hydrOXYzine (hydrOXYzine hydrochloride 25 mg oral tablet) 1 Tablet(s) Oral Four Times A Day as needed for for anxiety hydroCHLOROthiazide (hydroCHLOROthiazide 12.5 mg oral tablet) 1 Tablet(s) Oral Every Day topiramate (topiramate 50 mg oral tablet) 1 Tablet(s) Oral Two Times A Day tonight Take your medications faithfully. Do NOT skip medication. Do NOT stop taking medications without the direction of a physician. Carry a list of your medications with you at all times, and take this medication list with you to your first follow up visit. Report any side effects. Avoid herbal remedies unless discussed with your physician. As part of your treatment plan, your physician may have prescribed a limited course of a controlled substance. This medication may be given to help people with moderate or severe pain or for other medical conditions, but there are risks involved with treatment. Common side effects may include nausea, constipation, drowsiness, sweating, itching, dry mouth, and rash. More serious side effects may include cognitive and motor impairment, like problems with thinking, concentrating, alertness, and movement (e.g. slowed reflexes), and driving and operating heavy machinery can be dangerous. It is important for you to talk to your physician if you have these side effects or questions. These controlled substances can produce physical dependence and be habit-forming if taken for an extended period of time, which means that the body has gotten used to them and may experience withdrawal symptoms if they are abruptly stopped. Withdrawal symptoms can include runny nose, sweating, goose bumps, diarrhea, abdominal cramping, rapid heartbeat, difficulty sleeping, and nervousness. Please dispose of unused and medications per your retail pharmacy guidance. Allergies Compazine (jittery) codeine (Vomiting) morphine (stomach spasms) Immunizations This Visit No Immunizations Found Stroke/TIA Instructions Individualized Stroke Risk Factors Individualized Stroke Risk Factors *Q: Carotid stenosis Stroke/TIA Signs/Symptoms to Report Immediately: Sudden onset difficulty speaking, Sudden onset difficulty understanding speech, Sudden onset change in vision, Sudden onset weakness particulary on one side of the body, Sudden onset numbness/tingling, Sudden severe headache, Sudden dizziness or trouble with gait, Call : EMS activation is crucial Mutually Agreed Upon Goals My LDL Level: My LDL Level: [employer] Carotid Artery Disease The carotid arteries are arteries on both sides of the neck. They carry blood to the brain, face, and neck. Carotid artery disease happens when these arteries become smaller (narrow) or get blocked. If these arteries become smaller or get blocked, you are more likely to have a stroke or a warning stroke (transient ischemic attack). Follow these instructions at home: ??? Take hata-iax-zdjrhbq and prescription medicines only as told by your doctor. ??? Make sure you understand all instructions about your medicines. Do not stop taking your medicines without talking to your doctor first. ??? Follow your doctor's diet instructions. It is important to follow a healthy diet. ? Eat foods that include plenty of: ? Fresh fruits. ? Vegetables. ? Lean meats. ? Avoid these foods: ? Foods that are high in fat. ? Foods that are high in salt (sodium). ? Foods that are fried. ? Foods that are processed. ? Foods that have few good nutrients (poor nutritional value). ??? Keep a healthy weight. ??? Stay active. Get at least 30 minutes of activity every day. ??? Do not smoke. ??? Limit alcohol use to: ? No more than 2 drinks a day for men. ? No more than 1 drink a day for women who are not . ??? Do not use illegal drugs. ??? Keep all follow-up visits as told by your doctor. This is important. Contact a doctor if: Get help right away if: ??? You have any symptoms of stroke or TIA. The acronym BEFAST is an easy way to remember the main warning signs of stroke. ? B = Balance problems. Signs include dizziness, sudden trouble walking, or loss of balance ? E = Eye problems. This includes trouble seeing or a sudden change in vision. ? F = Face changes. This includes sudden weakness or numbness of the face, or the face or eyelid drooping to one side. ? A = Arm weakness or numbness. This happens suddenly and usually on one side of the body. ? S = Speech problems. This includes trouble speaking or trouble understanding. ? T = Time. Time to call 911 or seek emergency care. Do not wait to see if symptoms go away. Make note of the time your symptoms started. ??? Other signs of stroke may include: ? A sudden, severe headache with no known cause. ? Feeling sick to your stomach (nauseous) or throwing up (vomiting). ? Seizure. Call your local emergency services (911 in [place] Do not drive yourself to the clinic or hospital. Summary ??? The carotid arteries are arteries on both sides of the neck. ??? If these arteries get smaller or get blocked, you are more likely to have a stroke or a warning stroke (transient ischemic attack). ??? Take blnj-tsa-onsdywl and prescription medicines only as told by your doctor. ??? Keep all follow-up visits as told by your doctor. This is important. This information is not intended to replace advice given to you by your health care provider. Make sure you discuss any questions you have with your health care provider. Document Released: 10/08/2013 Document Revised: 01/18/2018 Document Reviewed: 04/22/2014 Elsevier Interactive Patient Education ?? 2019 [employer] Carotid Endarterectomy, Care After This sheet gives you information about how to care for yourself after your procedure. Your health care provider may also give you more specific instructions. If you have problems or questions, contact your health care provider. What can I expect after the procedure? After the procedure, it is common to have some pain or an ache in your neck for up to 2 weeks. This is normal. Follow these instructions at home: Incision care ??? Follow instructions from your health care provider about how to take care of your incision. Make sure you: ? Wash your hands with soap and water before you change your bandage (dressing). If soap and water are not available, use hand jewelry sales associate. ? Change your dressing as told by your health care provider. ? Leave stitches (sutures), skin glue, or adhesive strips in place. These skin closures may need to stay in place for 2 weeks or longer. If adhesive strip edges start to loosen and curl up, you may trim the loose edges. Do not remove adhesive strips completely unless your health care provider tells you to do that. ??? Check your incision area every day for signs of infection. Check for: ? Redness, swelling, or pain. ? Fluid or blood. ? Warmth. ? Pus or a bad smell. ??? Do not take baths, swim, or use a hot tub until your health care provider approves. Ask your health care provider if you can take showers. Medicines ??? Take qgyn-fum-nocdzqn and prescription medicines only as told by your health care provider. ??? If you get a blood thinner (anticoagulant) medicine after surgery, take it exactly as directed. ??? Do not drive for 24 hours if you were given a sedative. ??? Do not drive or use heavy machinery while taking prescription pain medicine. Activity ??? Do not lift anything that is heavier than 10 lb (4.5 kg), or the limit that your health care provider tells you, until he or she says that it is safe. ??? Exercise regularly or as told by your health care provider. ??? Return to your normal activities as told by your health care provider. Ask your health care provider what activities are safe for you. ? Recovery time varies depending on your age, general health, and other factors. You will likely be able to return to a normal lifestyle within a few weeks. While you recover, you may need help with some activities such as cleaning the house or shopping. General instructions ??? Do not use any products that contain nicotine or tobacco, such as cigarettes and e-cigarettes. If you need help quitting, ask your health care provider. ??? Drink enough fluid to keep your urine clear or pale yellow. ??? Take steps to control your blood pressure. ??? Work to reach and maintain a healthy body weight. ??? Eat a heart-healthy diet. Talk with your health care provider about how to lower blood lipids (cholesterol and triglycerides). ??? Avoid wearing tight clothing around your neck and your stitches. ??? Keep all follow-up visits as told by your health care provider. This is important. Contact a health care provider if: ??? You have signs of infection, such as: ? Redness, swelling, or pain around your incision. ? Fluid or blood coming from your incision. ? Your incision feeling warm to the touch. ? Pus or a bad smell coming from your incision. ? A fever. ??? You develop a rash. ??? You have difficulty speaking or you have changes in your voice. Get help right away if: ??? You have difficulty breathing. ??? You have chest pain or shortness of breath. ??? You suddenly develop any of these symptoms: ? Weakness or numbness in your face, arm, or leg, especially on one side of your body. ? Confusion. ? Trouble speaking, understanding, or both. ? Trouble seeing with one or both eyes. ? A severe headache with no known cause. ??? You have a seizure. Summary ??? After the procedure, it is common to have some pain or an ache in your neck for up to 2 weeks. ??? Follow instructions from your health care provider about how to take care of your incision. ??? Keep all follow-up visits as told by your health care provider. This is important. This information is not intended to replace advice given to you by your health care provider. Make sure you discuss any questions you have with your health care provider. Document Released: 05/11/2006 Document Revised: 09/10/2017 Document Reviewed: 09/10/2017 Elsevier Interactive Patient Education ?? 2019 [employer] Emergency Awareness and Preventative Care STROKE is an EMERGENCY Every Minute Counts Act FAST and Check for these signs: FACE Does the face look uneven? ARM Does one arm drift down? SPEECH Does their speech sound strange? TIME Call at any sign of stroke Stroke Risk Factors Atrial Fibrillation (irregular heartbeat) Diabetes Family history of stroke Heart Disease Heavy alcohol use High Blood Pressure High Cholesterol Physical inactivity and obesity Smoking Cigarette Smoking The facts are clear, cigarette smoking will shorten your life. Smoking can cause many illnesses along the way. As a healthcare provider, we recommend that you stop smoking. Assistance with quitting is available by contacting 3-896-GDYTNOW. This is a free resource providing counseling, support, and referral. Or you may contact your personal physician. [place] Suicide Prevention Lifeline: The National Suicide Prevention Lifeline is a national network of local crisis centers that provides free and confidential emotional support to people in suicidal crisis or emotional distress 24 hours a day, 7 days a week. Don't Wait! Stop a Heart Attack Before it Starts What is a heart attack? A heart attack is damage or to a part of the heart from severely decreased or lack of blood flow to the heart. Over time, arteries can become narrow from the buildup of fat and cholesterol, which is called plaque. The plaque can rupture causing a blood clot to form. When the blood clot forms, the artery can become severely narrowed or completely blocked, causing a heart attack. Heart attack is the leading cause of in the [place]. 85% of muscle damage occurs within the first 2 hours. Delay in the recognition of heart attack symptoms increases the chances of . Know the early symptoms of a heart attack: Nausea Feeling of fullness in chest Jaw Pain Pain that travels down one or both arms Fatigue/being tired Anxiety Back Pain Chest pressure, squeezing, or discomfort Shortness of breath Sweating, or a cold sweat Feeling of impending doom There are unusual signs of a heart attack, too! Women, the elderly, and diabetics may present with atypical symptoms: Fainting/dizziness Weakness Confusion Risk Factors for a Heart Attack Some heart disease risk factors, such as age and family history, cannot be changed. Others, like smoking and lack of exercise, can be changed. Smoking High Cholesterol High Blood Pressure Family History Obesity Age Gender (Males are at higher risk) Lack of Exercise Diabetes Diet Stress Excessive Alcohol Intake If you or someone you know is experiencing the signs and symptoms of a heart attack, DON???T DELAY. Call immediately and seek help. If someone collapses, perform CPR! Do not attempt to drive if you are having symptoms of heart attack. Hands-Only CPR Why Hands-Only CPR? Hands-Only CPR has been shown to be as effective as conventional CPR for cardiac arrests that occur outside of a hospital. Survival depends on immediately receiving CPR from someone nearby. How do you perform Hands-Only CPR? There are two easy steps: Call 9-1-1 if you see a teen or adult collapse Push hard and fast in the center of the chest at a beat of 100 beats per minute. Save a life! 4 WAYS TO GET AHEAD OF SEPSIS SEPSIS is a MEDICAL EMERGENCY. Time matters! Infections put you and your family at risk for a life-threatening condition called sepsis. Sepsis is the body's extreme response to an infection. It is life-threatening, and without timely treatment, sepsis can rapidly lead to tissue damage, organ failure, and . Sepsis happens when an infection you already have-in your skin, lungs, urinary tract or somewhere else-triggers a chain reaction throughout your body. 1 PREVENT INFECTIONS Take good care of chronic conditions. Talk to your doctor about getting the recommended vaccines. 2 PRACTICE GOOD HYGIENE Wash your hands frequently. Keep cuts or open sores clean and covered until they are healed. 3 KNOW THE SYMPTOMS Confusion or disorientation Shortness of breath High heart rate Fever, shivering, or feeling very cold Extreme pain or discomfort Clammy or sweaty skin 4 ACT FAST Get medical care IMMEDIATELY if you suspect sepsis or if you have an infection that is not getting better or is getting worse. To learn more about sepsis and how to prevent infections, visit www.cdc.gov/sepsis. Test Results Laboratory or Other Results This Visit (last charted value for your 10/22/2019 visit) Hematology 10/23/2019 4:12 AM WBC: 17.4 K/uL -- Normal range between ( 4.5 and 10.5 ) RBC: 3.87 Million/uL -- Normal range between ( 3.93 and 5.22 ) Hct: 36.8 % -- Normal range between ( 34.1 and 44.9 ) Hgb: 12.7 g/dL -- Normal range between ( 11.2 and 15.7 ) Platelet Count: 255 K/uL -- Normal range between ( 163 and 369 ) MCH: 32.8 pg -- Normal range between ( 25.6 and 32.2 ) MCHC: 34.5 Gram/dL -- Normal range between ( 32.2 and 36.5 ) MCV: 95.1 fL -- Normal range between ( 79.0 and 94.8 ) Slide Review: No RDW: 12.3 % -- Normal range between ( 11.7 and 14.9 ) MPV: 10.2 fL -- Normal range between ( 9.4 and 12.4 ) 10/20/2019 1:25 PM Eos %: 2.6 % -- Normal range between ( 0.0 and 7.0 ) Weld #: 0.41 K/uL -- Normal range between ( 0.16 and 1.00 ) Eos #: 0.27 x10(3)/uL -- Normal range between ( 0.00 and 0.80 ) Weld %: 3.9 % -- Normal range between ( 3.0 and 9.0 ) Baso %: 0.6 % -- Normal range between ( 0.0 and 1.5 ) Baso #: 0.06 x10(3)/uL -- Normal range between ( 0.00 and 0.20 ) Neut %: 47.5 % -- Normal range between ( 34.0 and 71.0 ) Neut #: 4.97 K/uL -- Normal range between ( 1.56 and 6.13 ) Lymph %: 45.0 % -- Normal range between ( 19.3 and 53.1 ) Lymph #: 4.71 x10(3)/uL -- Normal range between ( 1.00 and 3.90 ) IG#: 0.04 x10(3)/uL -- Normal range between ( 0.00 and 0.05 ) IG%: 0.40 % -- Normal range between ( 0.00 and 0.60 ) Blood Bank 10/22/2019 9:29 AM ABO/Rh Repeat: A POS 10/20/2019 1:25 PM ABO/Rh (ECHO): A POS Antibody Screen: Negative ABSC General Chemistry 10/23/2019 4:12 AM Creatinine Level: 0.90 mg/dL -- Normal range between ( 0.55 and 1.02 ) Sodium Level: 141 mmol/L -- Normal range between ( 136 and 146 ) Potassium Level: 3.8 mmol/L -- Normal range between ( 3.5 and 5.1 ) Chloride Level: 113 mmol/L -- Normal range between ( 102 and 112 ) Carbon Dioxide Level: 25 mmol/L -- Normal range between ( 21 and 32 ) Anion Gap: 7 -- Normal range between ( 9 and 20 ) Bun/Creatinine: 17.8 -- Normal range between ( 8.0 and 20.0 ) Calcium Level: 8.3 mg/dL -- Normal range between ( 8.4 and 10.1 ) eGFR : >60 mL/min/1.73m2 eGFR NonAfrican: >60 mL/min/1.73m2 Glucose Level: 112 mg/dL -- Normal range between ( 74 and 106 ) Blood Urea Nitrogen: 16 mg/dL -- Normal range between ( 7 and 22 ) 10/20/2019 1:25 PM Calcium Ionized: 1.21 mmol/L -- Normal range between ( 1.12 and 1.32 ) Magnesium Level: 2.1 mg/dL -- Normal range between ( 1.5 and 2.4 ) Phosphorus: 2.9 mg/dL -- Normal range between ( 2.5 and 4.9 ) Coagulation 10/20/2019 1:25 PM INR: 1.0 -- Normal range between ( 0.9 and 1.1 ) PT: 10.1 Second(s) -- Normal range between ( 9.6 and 12.0 ) Protein & Immunoglobulin Studies 10/20/2019 1:25 PM Prealbumin: 24.2 mg/dL -- Normal range between ( 20.0 and 40.0 ) Patient Name:MAHI TINSLEY I have received and understand this information and was given the opportunity to ask questions. Patient/Blanket Winder Helper Name: Patient/Blanket Winder Helper Signature: Relationship to Patient: Clinician/Hospital Blanket Winder Helper Signature: Date: Electronically signed by Interface, [facility] Conversion Flooring Machine Feeder Marian at 02/21/2023 9:27 PM CDT documented in this encounter Plan of Treatment Not on file documented as of this encounter Visit Diagnoses Not on filedocumented in this encounter
--- OUTSIDE RECORDS SUMMARY | 2025-04-24 21:41 | XMS_ITS | Encounter Summary ---
Author Organization [employer] Address [address] [place] [address] Care Team Providers Care Lead Php Developer Name Role Phone Unavailable Primary Care Provider Unavailabl e Encounter Details Date Type Department Care Team (Late st Contact Info) Description 10/20/2019 Transcribed Document [facility] [place] Family Medicine [address] [place] [address] ProviderBrianda MD [address] [place] [address] Social History Tobacco Use Types [...] Conversion Note - Historical ProviderMD - 10/20/2019 1:04 PM POWER CRANE OPERATOR PAT Adult Entered On: 10/20/2019 13:04 EST Performed On: 10/20/2019 13:04 EST by GLADYS OGDEN RN Vital Measurements Temperature Source : Temporal artery scanning Temperature Mode : Fahrenheit Temperature, Fahrenheit : 98.7 Deg F Clinical Temperature, C : 37.1 Deg C Pulse Method : Pulse Oximetry Peripheral Pulse Rate : 70 bpm Respiratory Rate : 16 Breaths/Min Blood Pressure Location : Arm, right upper Blood Pressure Source : Non-Invasive BP Device Blood Pressure Position : Sitting Systolic Blood Pressure : 120 mmHg Diastolic Blood Pressure : 81 mmHg Oxygen Saturation : 100 % Oxygen Therapy Mode : Room air GLADYS OGDEN RN - 10/20/2019 13:55 EST Pain Assessment Pain Assessment : Initial assessment Pain Location Comment : denies pain ALO CARRERA RN - 10/22/2019 9:23 EST Height and Weight, Clinical Dosing Height Source : Measured Height Entry Format : Blanco Height, Feet : 0 ft(Converted to: 0 cm, 0 Inch) Height, Inches : 65 Inch(Converted to: 5 ft 5 Inch, 165.10 cm) Clinical Height : 165.1 cm Weight Source : Standing scale Weight Entry Format : Blanco Clinical Dosing Weight : 59.8 kg Weight, Pounds : 131 lb Weight, Ounces : 9 oz Body Surface Area (BSA) : 1.66 m2 Body Mass Index : 21.9 kg/m2 Stanford Body Weight : 57 kg GLADYS OGDEN RN - 10/20/2019 13:04 EST Health Histories Smoking Status : 10 or more cigarettes (1/2 pack or more)/day in last 30 days Smokeless Tobacco Status : Never Desires Tobacco Cessation Medication : Yes GLADYS OGDEN RN - 10/20/2019 13:10 EST Social History (As Of: 10/20/2019 13:15:06 EST) Tobacco: 10 or more cigarettes (1/2 pack or more)/day in last 30 days Smoking Status. Never Smokeless Tobacco Status. None Smokeless Tobacco Use History. Years of Use: 30. Packs/Tins Daily: 1. (Last Updated: 10/20/2019 13:11:23 EST by GLADYS OGDEN RN) Alcohol: Alcohol Use History No. Use in Last 12 Months: No. (Last Updated: 10/20/2019 13:11:36 EST by GLADYS OGDEN RN) Substance Abuse: Drug Use Hx: No. Use in Last 12 Months: No. (Last Updated: 10/20/2019 13:11:42 EST by GLADYS OGDEN RN) Infectious Disease History Infectious Disease History : None Fever/Chills Last 48 Hours : No Travel To Regions with Travel Advisories : No Travel Outside [place] Within Last 30 Days : No Contact With Traveler to Advisory Region : No Tuberculosis Symptoms : None ALO CARRERA RN - 10/22/2019 9:23 EST Anesthesia/Transfusion History Family History of Anesthesia Reaction : No prior transfusion(s) Blood Transfusion Acceptable to Patient : Yes Transfusion History : Prior anesthesia without reaction Family History of Anesthesia Reaction : None GLADYS OGDEN RN - 10/20/2019 13:04 EST Advance Directive Patient has Advance Directive *Q : No, patient requests information about Advance Directive GLADYS OGDEN RN - 10/20/2019 13:10 EST Spiritual/Cultural Needs Any Spiritual/Cultural Needs or Requests : No GLADYS OGDEN RN - 10/20/2019 13:10 EST [place] Suicide Severity Rating Scale (C-SSRS) CSSRS Past Month Wish to be : No CSSRS Past Month Suicidal Thoughts : No CSSRS Lifetime Suicide Behavior : No Suicide Severity Rating Score : 0 Suicide Severity Rating : No Additional Care Required at this time GLADYS OGDEN RN - 10/20/2019 13:10 EST Psychosocial History Do You Have a History of the Following? : Anxiety Currently in Unsafe Situation : No GLADYS OGDEN RN - 10/20/2019 13:10 EST Teaching/Learning Assessment Barriers To Learning : None evident Individuals Taught : Patient Readiness to Learn : Cooperative GLADYS OGDEN RN - 10/20/2019 13:10 EST Education Topics, Periop Preadmission Perioperative Education Grid Arrival Time/Place : Verbalizes understanding Infection Control : Verbalizes understanding IV's : Verbalizes understanding NPO Status/Directions : Verbalizes understanding Preprocedure Preparations : Verbalizes understanding Preprocedure Tests/Labs : Verbalizes understanding Remove Body Piercings : Verbalizes understanding Take/Hold Medications Pre-Procedure : Verbalizes understanding GLADYS OGDEN RN - 10/20/2019 13:10 EST General Info Support Person/Patient Highway Technician : Yes Support Person/Pt Rep Name : Chiqui Coronado Support Person/Pt Rep Contact Information : Want Family/Rep/Phys Notified of Admit : No Emergency Contact #1 : Chiqui Nevesmirobert Emergency Contact #1 Emergency Contact #1 Relationship : daughter Emergency Contact #2 : n Emergency Contact #2 Phone Number : n Emergency Contact #2 Relationship : n Information Obtained From : Patient Primary Language : [place] Citizen Preferred Communication Mode : Verbal Communication Barrier : None Objects to Sharing Info w Family : No Status : Hysterectomy GLADYS OGDEN RN - 10/20/2019 13:10 EST Larry Scale Larry Sensory Perception : No impairment Larry Moisture : Rarely moist Larry Activity : Walks frequently Larry Mobility : No limitation Larry Nutrition : Adequate Larry Friction and Shear : No apparent problem Larry Score : 22 GLADYS OGDEN RN - 10/20/2019 13:10 EST Sleep Apnea Risk Assmt Hx of Obstructive Sleep Apnea Diagnosis : No Snore Loudly : No Tired, Fatigued, or Sleepy During Day : No Observed Stopping Breathing During Sleep : No Have/Are Being Treated for Hypertension : Yes BMI Greater Than 35 kg/m2 : No Age over 50 Years Old : Yes Neck Circumference Greater Than 40 cm : No Gender Male : No STOP-BANG Sleep Apnea Risk Level Score : 2 GLADYS OGDEN RN - 10/20/2019 13:04 EST Electronically signed by Krishan [facility] Conversion Retina Subspecialist Cerner at 02/21/2023 9:28 PM CDT documented in this encounter Plan of Treatment Not on file documented as of this encounter Visit Diagnoses Not on filedocumented in this encounter
--- OUTSIDE RECORDS SUMMARY | 2025-04-24 21:41 | XMS_ITS | Encounter Summary ---
Author Organization [employer] Address [address] [place] [address] Care Team Providers Care Hydrochloric Manufacturing Supervisor Name Role Phone Unavailable Primary Care Provider Unavailabl e Encounter Details Date Type Department Care Team (Late st Contact Info) Description 10/23/2019 Transcribed Document [facility] [place] Family Medicine [address] [place] [address] ProviderBrianda MD [address] [place] [address] Social History Tobacco Use Types [...] Conversion Note - Historical ProviderMD - 10/23/2019 5:05 AM LOCK TECHNICIAN Education-Wound Care Entered On: 10/23/2019 6:43 EST Performed On: 10/23/2019 5:05 EST by SUJEY COREA RN Teaching/Learning Assessment Barriers To Learning : None evident Individuals Taught : Patient Readiness to Learn : Cooperative Highest Level of Education : High school Readiness to Learn : Explanation SUJEY COREA RN - 10/23/2019 6:43 EST Electronically signed by Shira Nickerson Conversion Adult Remedial Education Instructor Cerner at 02/21/2023 9:42 PM CDT documented in this encounter Plan of Treatment Not on file documented as of this encounter Visit Diagnoses Not on filedocumented in this encounter
--- OUTSIDE RECORDS SUMMARY | 2025-04-24 21:41 | XMS_ITS | Clinical Summary ---
Author Organization [employer] Address [address] [place] [address] Care Team Providers Care Consulting Application Engineer Name Role Phone Unavailable Primary Care Provider [...]
--- OUTSIDE RECORDS SUMMARY | 2025-04-24 21:41 | XMS_ITS | Encounter Summary ---
Author Organization [employer] Address [address] [place] [address] Care Team Providers Care Pipe Maker Name Role Phone Unavailable Primary Care Provider Unavailabl e Encounter Details Date Type Department Care Team (Late st Contact Info) Description 10/23/2019 Transcribed Document [facility] [place] [address] [place] [address] ProviderBrianda MD [address] [place] [address] Social History Tobacco Use Types [...] Conversion Note - Historical ProviderMD - 10/23/2019 12:38 PM BEAD INSPECTOR Nursing Discharge Summary Entered On: 10/23/2019 12:39 EST Performed On: 10/23/2019 12:38 EST by Ricardo Tran RN Discharge Documentation Discharge Date/Time : 10/23/2019 12:34 EST Transporter Signature : Ricardo Tran RN Patient Disposition, General : Discharge Discharge To : Home with ambulatory/outpatient follow-up Mode Of Departure, General Discharge : Ambulatory Accompanied By, Discharge : Care provider, Daughter IV Discontinued : Yes Personal Belongings With Patient : Yes Prescriptions Given to Patient : Yes Patient Education Completed : Yes Number of Prescriptions Given : 2 Teaching Method : Demonstration Teaching Evaluation : Verbalizes understanding Ricardo Tran RN - 10/23/2019 12:38 EST Electronically signed by Krishan [facility] Conversion Dyed Raw Stock Blower Feeder Cerner at 02/21/2023 9:37 PM CDT documented in this encounter Plan of Treatment Not on file documented as of this encounter Visit Diagnoses Not on filedocumented in this encounter
--- OUTSIDE RECORDS SUMMARY | 2025-04-24 21:41 | XMS_ITS | Encounter Summary ---
Author Organization [employer] Address [address] [place] [address] Care Team Providers Care Insole And Outsole Splitter Name Role Phone Unavailable Primary Care Provider Unavailabl e Encounter Details Date Type Department Care Team (Late st Contact Info) Description 10/23/2019 Transcribed Document [facility] [place] [address] [place] [address] ProviderBrianda MD [address] [place] [address] Social History Tobacco Use Types [...] Conversion Note - Historical ProviderMD - 10/23/2019 5:00 AM THIRD LOADER Chart Check - Review Order Profile Entered On: 10/23/2019 6:44 EST Performed On: 10/23/2019 5:00 EST by SUJEY COREA RN Chart Check Powerplans Initiated/Discontinued as Appropriate : Yes All Active Orders Reviewed : Yes SUJEY COREA RN - 10/23/2019 6:43 EST documented in this encounter Plan of Treatment Not on file documented as of this encounter Visit Diagnoses Not on filedocumented in this encounter
--- OUTSIDE RECORDS SUMMARY | 2025-04-24 21:41 | XMS_ITS | Encounter Summary ---
Author Organization [email or web address] Address [address] [place] [address] Care Team Providers Care Emission Specialist Name Role Phone Unavailable Primary Care Provider Unavailabl e Encounter Details Date Type Department Care Team (Late st Contact Info) Description 10/23/2019 Transcribed Document [facility] [place] [address] [place] [address] ProviderBrianda MD [address] [place] [address] Social History Tobacco Use Types [...] Conversion Note - Historical ProviderMD - 10/23/2019 9:48 AM JUMPBASTING LINING BASTER Initial Discharge Planning Entered On: 10/23/2019 9:52 EST Performed On: 10/23/2019 9:48 EST by BRENNAN DOVE Rn-Coal Feeder Operator Initial Assessment I Previously Documented Living Environment : No qualifying data available. BRENNAN DOVE Rn-Coal Feeder Operator - 10/23/2019 13:34 EST Living Situation : Home Patient Lives With : Significant other(s) Is the Patient a Caregiver at Home? : No Emergency Contact #1 : Chiqui Colmire Emergency Contact #1 Emergency Contact #1 Relationship : daughter Emergency Contact #2 : n Emergency Contact #2 Phone Number : n Emergency Contact #2 Relationship : n Enter Doctors Name : IAM Bocanegra Does Patient have PCP Listed? : Yes Medical Durable Power of High School Guidance Counselor Name : None Legal Guardian : No Is Guardianship Needed : No DOVE, BRENNAN, Rn-Coal Feeder Operator - 10/23/2019 9:48 EST Initial Assessment II Sensory and Motor Deficits : None Current Home Treatments and Equipment : None BRENNAN DOVE Rn-Coal Feeder Operator - 10/23/2019 9:48 EST Discharge Needs I Anticipated Discharge Date : 10/23/2019 EST Anticipated Discharge To, CM : Home with family care Current Home Treatment/Equipment : Current Home Treatment/Equipment No qualifying data available. Post Acute/Home Treatments : None Documentation Status Complete : Yes BRENNAN DOVE Rn-Coal Feeder Operator - 10/23/2019 9:48 EST Discharge Needs II Professional Skilled Services : Professional Skilled Services No qualifying data available. Needs Assistance with Transportation : No Discharge Options Discussed with Patient : Discharge transportation, DME, Home Health BRENNAN DOVE Rn-Coal Feeder Operator - 10/23/2019 9:48 EST Narrative Note Narrative Note : Day 1/POD 1 Carotid Endarterectomy Hx R Carotid Stenosis, Hawk LE DVT, Htn, Migraines Vascular Low Readmission Risk IAM Vallejo tells CM to provide pt with Chantix coupon Pt with d/c orders; states she lives with S.O. who is current admitted to with gallstones; states her father will come to transport her home; pt's car in parking lot. Pt PLOF independent, drives, no dme, hhc or STR. Provided with good rx coupon for Chantix to pt per vascular request. Encouraged pt to f/u with her PCP in addition to appt with Vascular surgeon. BRENNAN DOVE Rn-Coal Feeder Operator - 10/23/2019 13:34 EST documented in this encounter Plan of Treatment Not on file documented as of this encounter Visit Diagnoses Not on filedocumented in this encounter
--- OUTSIDE RECORDS SUMMARY | 2025-04-24 21:42 | XMS_ITS | Encounter Summary ---
Author Organization [employer] Address [address] [place] [address] Care Team Providers Care Domain Architect Name Role Phone Unavailable Primary Care Provider Unavailabl e Encounter Details Date Type Department Care Team (Late st Contact Info) Description 10/23/2019 Transcribed Document [facility] [place] Family Medicine [address] [place] [address] ProviderBrianda MD [address] [place] [address] Social History Tobacco Use Types [...] Conversion Note - Brianda ProviderMD - 10/23/2019 11:57 AM PROCESS CHEESE COOKER Patient Education Materials Follows: Carotid Artery Disease The carotid arteries are [...] Follow these instructions at home: ??? Take ssmf-bby-tjrylbx and prescription medicines only as told by [...] local emergency services (911 in [place] Do not?drive yourself to the clinic or hospital. Summary ??? The carotid arteries are arteries on both sides of the neck. ??? If these arteries get smaller or get blocked, you are more likely to have a stroke or a warning stroke (transient ischemic attack). ??? Take yzoz-mie-wonlgbc and prescription medicines only as told by your doctor. ??? Keep all follow-up visits as told by your doctor. This is important. This information is not intended to replace advice given to you by your health care provider. Make sure you discuss any questions you have with your health care provider. Document Released: 10/08/2013 Document Revised: 01/18/2018 Document Reviewed: 04/22/2014 [employer] Interactive Patient Education ? 2019 [employer] Surgery Carotid Endarterectomy, Care After This sheet gives [...] and water are not available, use hand chicken hatchery helper. ? Change your dressing as told by [...] you can take showers. Medicines ??? Take kcpa-fql-xujwsze and prescription medicines only as told by [...] Document Reviewed: 09/10/2017 Elsevier Interactive Patient Education ? 2019 [employer] documented in this encounter Plan of Treatment Not on file documented as of this encounter Visit Diagnoses Not on filedocumented in this encounter
--- OUTSIDE RECORDS SUMMARY | 2025-04-24 21:42 | XMS_ITS | Encounter Summary ---
Author Organization [employer] Address [address] [place] [address] Care Team Providers Care Loading Manager Name Role Phone Unavailable Primary Care Provider Unavailabl e Encounter Details Date Type Department Care Team (Late st Contact Info) Description 10/22/2019 Transcribed Document [facility] [place] Family Medicine [facility] [place] [address] ProviderBrianda MD [address] [place] [address] Social History Tobacco Use Types [...] Cerner Conversion Note - Historical ProviderMD - 10/22/2019 9:52 AM MATERIAL REQUIREMENTS WORKER Patient: JEAN TINSLEY Age: 49 years Sex: Female : 1970 Associated Diagnoses: None Author: TREVOR TYSON APRN Chief Complaint R carotid stenosis Review of Systems ROS reviewed as documented in chart no change since last seen by surgeon Health Status Allergies: Nonallergic Reactions (Selected) Severity Not Documented Codeine- Vomiting. Compazine- Jittery. Morphine- Stomach spasms., Allergies (3) Active Reaction codeine Vomiting Compazine jittery morphine stomach spasms Current medications: (Selected) Inpatient Medications Ordered Ancef: 2 Gram, 50 mL, 100 mL/Hr, IV Piggyback, PREOP Lactated Ringers Injection intravenous solution 1,000 mL: 20 mL/Hr, IntraVENous lidocaine 1% injectable solution: 0.5 mL, IntraDermal, 1-Time, PRN: Other (See Comment) midazolam: 2 mg, IV Push, Q10Min, PRN: Anxiety petrolatum topical ointment: 1 Application, Topical, 1-Time Documented Medications Documented Premarin: 0.45 mg, Oral, Daily, 0 Refill(s) atenolol: 25 mg, Oral, Daily, 0 Refill(s) atorvastatin: 20 mg, Oral, At Bedtime, 0 Refill(s) clopidogrel: 75 mg, Oral, Daily, 0 Refill(s) dihydroergotamine 4 mg/mL nasal spray: 1 [place], Nasal, Q15Min, PRN: as needed for migraine headache, 0 Refill(s) hydrOXYzine hydrochloride: 25 mg, Oral, QID, PRN: as needed for anxiety, 0 Refill(s) hydroCHLOROthiazide: 12.5 mg, Oral, Daily, 0 Refill(s) promethazine: 25 mg, Oral, Q6H, PRN: as needed for nausea/vomiting, 0 Refill(s) topiramate: 50 mg, Oral, BID, 0 Refill(s), Home Medications (9) Active atenolol 25 mg, Oral, Daily atorvastatin 20 mg, Oral, At Bedtime clopidogrel 75 mg, Oral, Daily dihydroergotamine 4 mg/mL nasal spray 1 [place], PRN, Nasal, Q15Min hydroCHLOROthiazide 12.5 mg, Oral, Daily hydrOXYzine hydrochloride 25 mg, PRN, Oral, QID Premarin 0.45 mg, Oral, Daily promethazine 25 mg, PRN, Oral, Q6H topiramate 50 mg, Oral, BID , Medications (2) Active Scheduled: (1) petrolatum 100% oint 28 g 1 Application, Topical, 1-Time Continuous: (0) PRN: (1) midazolam 2 mg, IV Push, Q10Min Problem list: All Problems Migraine / SNOMED CT 10391111 / Confirmed Irregular heart beat / SNOMED CT 785560590 / Confirmed High blood pressure / SNOMED CT 42070826 / Confirmed Right-sided carotid artery disease / SNOMED CT 4259137956 / Confirmed >70% blockage Deep vein thrombosis (bilateral legs) / SNOMED CT 7921576602 / Confirmed At risk for sleep apnea / IMO [id number] / Confirmed, Active Problems (6) At risk for sleep apnea Deep vein thrombosis (bilateral legs) High blood pressure Irregular heart beat Migraine Right-sided carotid artery disease Histories Past Medical History: Resolved Peptic ulcer disease (hx of) (1966330108): Onset in 2013 at 44 years. Resolved. Family History: No family history items have been selected or recorded. Procedure history: heart ablation in 2004 at 35 Years. total hysterectomy. D&C. tumor removed from ovary. lap aby. Social History Social & Psychosocial Habits Alcohol 10/20/2019 Alcohol Use History, Social Habits No Alcohol Use in Last Twelve Months No Substance Abuse 10/20/2019 Recreational Drug Use History No Recreational Drug Use Last 12 Months No Tobacco 10/20/2019 Smoking Status 10 or more cigarettes (1/ Smokeless Tobacco Status Never Smokeless Tobacco Use History None Years of Tobacco Use 30 Packs/Tins Daily 1 . Physical Examination VS/Measurements Vital Signs/Vital Measures 10/22/2019 9:00 EST Systolic Blood Pressure 108 mmHg Diastolic Blood Pressure 65 mmHg Temperature Source Temporal artery scanning Temperature Mode Fahrenheit Temperature, Fahrenheit 98.1 Deg F Heart Rate Monitored 65 bpm Respiratory Rate 20 Breaths/Min Oxygen Saturation 99 % Oxygen Therapy Mode Room air , No qualifying data available General: Alert and oriented, No acute distress. Eye: Pupils are equal, round and reactive to light, Extraocular movements are intact, glasses. HENT: Normocephalic, Normal hearing. Neck: Supple, Non-tender. Carotid pulse: On the right, Bruit grade 1 /6. Respiratory: Lungs are clear to auscultation, Respirations are non-labored. Cardiovascular: Normal rate, Regular rhythm, No murmur, No gallop, No edema. Gastrointestinal: Soft, Non-tender. Genitourinary: No costovertebral angle tenderness. Lymphatics: No lymphadenopathy neck, axilla, groin. Musculoskeletal: Normal range of motion, Normal strength. Integumentary: Warm, Dry, Liv[place]ood. Neurologic: Alert, Oriented. Psychiatric: Cooperative, Appropriate mood & affect. Review / Management Results review: No qualifying data available. Impression and Plan Condition: Stable. documented in this encounter Plan of Treatment Not on file documented as of this encounter Visit Diagnoses Not on filedocumented in this encounter
--- OUTSIDE RECORDS SUMMARY | 2025-04-24 21:42 | XMS_ITS | Encounter Summary ---
Author Organization [employer] Address [address] [place] [address] Care Team Providers Care Software Development Manager Name Role Phone Unavailable Primary Care Provider Unavailabl e Encounter Details Date Type Department Care Team (Late st Contact Info) Description 10/23/2019 Transcribed Document [facility] [place] [address] [place] [address] ProviderBrianda MD [address] [place] [address] Social History Tobacco Use Types [...] Conversion Note - Historical ProviderMD - 10/23/2019 1:37 PM AP OPERATOR Final Discharge Planning Entered On: 10/23/2019 13:37 EST Performed On: 10/23/2019 13:37 EST by BRENNAN DOVE Rn-Audit Consultant Final Discharge Planning Discharge Arrangements : Patient Post-Acute Information Patient Name: MAHI BADILLO Gender: Female : [birth year] Age: 49 Years No Post-Acute Placement(s) Listed No Post-Acute Service(s) Listed No [place] Referral(s) Listed Discharge To Care Management : Home/Residential/Retirement or Self Care -01 BRENNAN DOVE Rn-Audit Consultant - 10/23/2019 13:37 EST Final Narrative Note Final Narrative Note : Pt d/c home with transport by her father. DOVE, BRENNAN, Rn-Audit Consultant - 10/23/2019 13:37 EST Electronically signed by Krishan, [facility] Conversion Engineer System Administrator Cerner at 02/21/2023 9:43 PM CDT documented in this encounter Plan of Treatment Not on file documented as of this encounter Visit Diagnoses Not on filedocumented in this encounter
--- OUTSIDE RECORDS SUMMARY | 2025-04-24 21:42 | XMS_ITS | Encounter Summary ---
Author Organization [employer] Address [address] [place] [address] Care Team Providers Care Trailer Body Assembler Name Role Phone Unavailable Primary Care Provider Unavailabl e Encounter Details Date Type Department Care Team (Late st Contact Info) Description 10/22/2019 Transcribed Document [facility] [facility] [place] [address] ProviderBrianda MD [address] [place] [address] Social History Tobacco Use Types [...] Conversion Note - Brianda ProviderMD - 10/22/2019 9:55 AM TELETRAY OPERATOR Procedural Documentation Entered On: 10/22/2019 10:00 EST Performed On: 10/22/2019 9:55 EST by ALO CARRERA RN Procedure Documentation Procedure to be Performed : arterial line Time Out Pause Time : 10/22/2019 9:58 EST All Activity Suspended : Yes Team Verbally Confirms Information : Correct patient identity, Correct side and site are marked, Consent form is present and accurate, Agreement on the procedure to be done, Correct patient position, Relevant images/results properly labeled/appropriately displayed, Confirm the skin prep has dried, Confirm prosthesis/implant/device is present, Reconcile problems if responses among team members differ Procedure Performed : arterial line Proper Use of Sterile Apparel per Policy : Yes Procedure Case Attendee : OSCAR BURNETT MD-ANS Procedure Case Attendee Role : Anesthesiologist Procedure Case Attendee Role 2 : building certifier Case Attendee 2 : ALO CARRERA RN Procedure Case Attendee Role 3 : building certifier Case Attendee 3 : JERAMY STILL RN DEMARCUS, HEATHER, RN - 10/22/2019 9:55 EST Jenny Level I Post Anesthesia Assessment Jenny I Activity Status : Moves 4 extremities voluntarily or on command Jenny l Respiratory Component : Able to deep breathe and cough freely Jenny I Circulation Component : BP 20% of preanesthetic level Jenny I Consciousness : Arouses on calling Jenny l Oxygen Saturation : Needs oxygen to maintain > 92% Jenny l Score : 8 ALO CARRERA RN - 10/22/2019 9:55 EST Jenny Level II Assessment Jenny ll Dressing : Dry and clean ALO CARRERA RN - 10/22/2019 9:55 EST Vital Measurements Pulse Method : Arterial line Pulse Source : Arterial Peripheral Pulse Rate : 62 bpm Blood Pressure Location : Arm, left upper Blood Pressure Source : Arterial Pressure Line Blood Pressure Position : Side, Left ALO CARRERA RN - 10/22/2019 9:55 EST Oxygen Therapy Oxygen Titrated : No Oxygen Therapy Mode : Nasal cannula Oxygen Flow Rate : 2 Liter/Min Pulse Oximeter Probe Site : Hand, left O2 Saturation Monitoring Frequency : Continuous Oxygen Saturation : 99 % ALO CARRERA RN - 10/22/2019 9:55 EST documented in this encounter Plan of Treatment Not on file documented as of this encounter Visit Diagnoses Not on filedocumented in this encounter
--- OUTSIDE RECORDS SUMMARY | 2025-04-24 21:42 | XMS_ITS | Encounter Summary ---
Author Organization [employer] Address [address] [place] [address] Care Team Providers Care Bait Maker Name Role Phone Unavailable Primary Care Provider Unavailabl e Encounter Details Date Type Department Care Team (Late st Contact Info) Description 10/22/2019 Transcribed Document [facility] [place] Family Medicine [address] [place] [address] ProviderBrianda MD [address] [place] [address] Social History Tobacco Use Types [...] Conversion Note - Historical ProviderMD - 10/22/2019 2:29 PM CELL ASSEMBLY PINNER Pain Assessment Entered On: 10/23/2019 3:43 EST Performed On: 10/23/2019 1:00 EST by SUJEY COREA RN Intervention Information: HYDROmorphone Performed by SUJEY COREA RN on 10/23/2019 00:30:00 EST HYDROmorphone,0.5mg IV Push,Forearm Right,Pain (Severe 7-10) Pain Assessment Pain Assessment : Follow-up assessment Pain Scale Goal : 4 Pain Scale Used : 0-10 Scale SUJEY COREA RN - 10/23/2019 3:43 EST Pain Scale Intensity : 2 SUJEY COREA RN - 10/23/2019 3:43 EST Image 4 - Images currently included in the form version of this document have not been included in the text rendition version of the form. Electronically signed by Shira Nickerson Conversion Veterinary Laboratory Diagnostician Cerner at 02/25/2023 4:18 PM CDT documented in this encounter Plan of Treatment Not on file documented as of this encounter Visit Diagnoses Not on filedocumented in this encounter
--- OUTSIDE RECORDS SUMMARY | 2025-04-24 21:42 | XMS_ITS | Encounter Summary ---
Author Organization [employer] Address [address] [place] [address] Care Team Providers Care Brilliandeer Lopper Name Role Phone Unavailable Primary Care Provider Unavailabl e Encounter Details Date Type Department Care Team (Late st Contact Info) Description 10/22/2019 Transcribed Document [facility] [place] [address] [place] [address] ProviderBrianda MD [address] [place] [address] Social History Tobacco Use Types [...] Conversion Note - Brianda ProviderMD - 10/22/2019 11:45 AM CUSTOMER ADVISOR SPECIALIST [facility] Main OR Preop Summary Primary Physician: BREE AGEE MD Finalized Date/Time: 10/22/19 12:21:47 Pt. Name: MAHI TINSLEY LAURENCE /Sex: 1970 Female Med Rec #: [id number] Physician: BREE AGEE MD Financial #: [id number] Pt. Type: P Room/Bed: / Admit/Disch: 10/17/19 12:00:00 - Institution: [facility] PreOp Case Times Entry 1 In Preop 10/22/19 09:15:00 Ready for Holding n/a Room Patient Ready for 10/22/19 10:45:00 Surgery Patient Out of Preop 10/22/19 12:20:00 Patient Out of n/a Holding Room Last Modified By: ALO CARRERA RN 10/22/19 12:21:46 Finalized By: ALO CARRERA RN Document Signatures Signed By: ALO CARRERA RN 10/22/19 12:21 documented in this encounter Plan of Treatment Not on file documented as of this encounter Visit Diagnoses Not on filedocumented in this encounter
--- OUTSIDE RECORDS SUMMARY | 2025-04-24 21:42 | XMS_ITS | Encounter Summary ---
Author Organization [email or web address] Address [address] [place] [address] Care Team Providers Care Employee Placement Specialist Name Role Phone Unavailable Primary Care Provider Unavailabl e Encounter Details Date Type Department Care Team (Late st Contact Info) Description 10/24/2019 Transcribed Document [facility] [place] [address] [place] [address] ProviderBrianda MD [address] [place] [address] Social History Tobacco Use Types [...] Cerner Conversion Note - Historical ProviderMD - 10/24/2019 9:41 AM AMBULANCE ASSISTANT [facility] Authorization Entered On: 10/24/2019 9:41 EST Performed On: 10/24/2019 9:41 EST by LINDA FITCH RN Primary Insurance Authorization Authorization and Policy Numbers : Insurance 1 Health Plan: [facility] Policy Number: [id number] Authorization Number: Insurance Primary Name : [facility] Policy Number: [id number] Authorization Status-Primary : Admit approved Auth/Referral Contact Name-Primary : DC Reference Number-Primary : [id number] Number of Days Authorized-Primary : 0 Day(s) Authorized Service Begin Date-Primary : 10/22/2019 EST Authorized Service End Date-Primary : 10/22/2019 EST Authorization Comments-Primary : Per VM from Abby with [facility] approved IP. Historical Authorization Comments-Primary : Comment 1: Discharge date and summary faxed. (Nasreen Mathew, Special Education Teaching Assistant 10/23/2019 12:43) Comment 2: Inpt Procedure Precert approved for [id number]; submitted clinicals for Inpt admission auth. (MIN MCMAHON, Rn-Utilization Review 10/23/2019 09:38) LINDA FITCH RN - 10/24/2019 9:41 EST Electronically signed by Krishan [facility] Conversion Foam Charger Cerner at 02/21/2023 9:42 PM CDT documented in this encounter Plan of Treatment Not on file documented as of this encounter Visit Diagnoses Not on filedocumented in this encounter
--- OUTSIDE RECORDS SUMMARY | 2025-04-24 21:42 | XMS_ITS | Encounter Summary ---
Author Organization [employer] Address [address] [place] [address] Care Team Providers Care Steam Flattener Name Role Phone Unavailable Primary Care Provider Unavailabl e Encounter Details Date Type Department Care Team (Late st Contact Info) Description 10/22/2019 Transcribed Document [facility] [place] Family Medicine [address] [place] [address] ProviderBrianda MD [address] [place] [address] Social History Tobacco Use Types Packs/Day Years Used Date Smoking Tobacco: Never Assessed Comments Unknown Sex and Gender Information Value Date Recorded Sex Assigned at Female 05/02/2022 8:38 PM CDT Legal Sex Female 8:38 PM CDT Gender Identity Female 05/02/2022 8:38 PM CDT Sexual Orientation Not on file documented as of this encounter Miscellaneous Notes * Cerner Conversion Note - Historical Provider, - 10/22/2019 2:26 PM DRAFTER COMMERCIAL Admission History, Adult Entered On: 10/22/2019 16:42 EST Performed On: 10/22/2019 14:26 EST by Nina Martínez RN Advance Directive Patient has Advance Directive *Q : No, patient requests information about Advance Directive Nina Martínez RN - 10/22/2019 16:37 EST Anesthesia/Transfusion History Family History of Anesthesia Reaction : No prior transfusion(s) Blood Transfusion Acceptable to Patient : Yes Transfusion History : Prior anesthesia without reaction Family History of Anesthesia Reaction : None Nina Martínez RN - 10/22/2019 16:37 EST Functional Assessment Living Situation : Home Patient Lives With : Significant other(s) Current Home Treatments : None Nina Martínez RN - 10/22/2019 16:37 EST General Info Support Person/Patient Interior Block Wirer : Yes Support Person/Pt Rep Name : Chiqui Garciakimberly Support Person/Pt Rep Contact Information : Want Family/Rep/Phys Notified of Admit : No Emergency Contact #1 : Chiqui Colmire Emergency Contact #1 Emergency Contact #1 Relationship : daughter Emergency Contact #2 : n Emergency Contact #2 Phone Number : n Emergency Contact #2 Relationship : n Information Obtained From : Patient Primary Language : Niuean Preferred Communication Mode : Verbal Communication Barrier : None Objects to Sharing Info w Family : No Status : Hysterectomy Nina Martínez RN - 10/22/2019 16:37 EST Fall Risk Scales ABCs Fall Injury Risk Identification : Coagulation, Surgery ABC Fall Injury Risk : Moderate to high injury risk Injury Moderate to High Risk Interventions : Patient room close to nurses station, Specialty low bed, Transport methods appropriate to patient, Visual cues in place TERESA Hx Falls Immediate/Within 3 Months : No Teresa Secondary Diagnosis : Yes TERESA Use of Ambulatory Aid : Bed rest/Nurse assist TERESA IV Therapy or IV Access : Yes Teresa Gait/Transferring : Normal, bedrest, immobile Teresa Mental Status : Oriented to own ability Teresa Fall Risk Score : 35 TERESA Fall Scale Risk Level : 25-45 Medium Risk Edwards Fall Interventions : Assistive devices within reach, Bed in low position, Call device within reach, Personal items within reach, Reinforced to call for assistance before getting out of bed, Room free of clutter/spills, Upper side-rails up, Wheels locked, Wires/Cords secured Barriers to Learning : None evident Fall Risk Scale Calc Temp : 0 Nina Martínez RN - 10/22/2019 16:37 EST Health Histories Smoking Status : 10 or more cigarettes (1/2 pack or more)/day in last 30 days Smokeless Tobacco Status : Never Desires Tobacco Cessation Medication : Yes Nina Martínez RN - 10/22/2019 16:37 EST Social History (As Of: 10/22/2019 16:42:46 EST) Tobacco: 10 or more cigarettes (1/2 [...] 10/20/2019 13:11:42 EST by GLADYS OGDEN RN) Height and Weight, Clinical Dosing Height Source : Measured Height Entry Format : [place] Height, Feet : 0 ft(Converted to: 0 cm, 0 Inch) Height, Inches : 65 Inch(Converted to: 5 ft 5 Inch, 165.10 cm) Clinical Height : 165.1 cm Weight Source : Standing scale Weight Entry Format : Alger Clinical Dosing Weight : 59.8 kg Weight, Pounds : 131 lb Weight, Ounces : 9 oz Body Surface Area (BSA) : 1.66 m2 Body Mass Index : 21.9 kg/m2 [place] Body Weight : 57 kg Nina Martínez RN - 10/22/2019 16:37 EST Infectious Disease History Infectious Disease History : None Fever/Chills Last 48 Hours : No Travel To Regions with Travel Advisories : No Travel Outside [place] Within Last 30 Days : No Contact With Traveler to Advisory Region : No Tuberculosis Symptoms : None Nina Martínez RN - 10/22/2019 16:37 EST Influenza Vaccine Asmt, Adult Previous Vaccines from Immunization Schedule : No qualifying data available. Influenza Immunization, Current Season : Yes Nina Martínez RN - 10/22/2019 16:37 EST Pneumococcal Vaccine Previous Vaccines from Immunization Schedule : No qualifying data available. Pneumonia Immunization Received : No Pneumococcal Risk Assessment < Age 65 : None Nina Martínez RN - 10/22/2019 16:37 EST Order Details Transport Mode Order Detail : Bed (including specialty) Isolation Precautions Order Detail : Standard Precautions Order Detail : 0 IV Order Detail : 1 Nurse Collect Order Detail : 1 Lift/Transfer : Moderate assist Central Line Order Detail : No Room Service : Appropriate Arterial Line : Yes Nina Martínez RN - 10/22/2019 16:37 EST Nutrition History Feeding Ability : Independent Adaptive Feeding Equipment : Regular Eating Poorly Due to Decreased Appetite : No Unplanned Weight Loss in Past 3-6 Months : No Malnutrition Screening Tool Total(mal) : 0 Malnutrition Screening Tool Risk Level : Patient not at risk Nina Martínez RN - 10/22/2019 16:37 EST [place] Suicide Severity Rating Scale (C-SSRS) CSSRS Past Month Wish to be : No CSSRS Past Month Suicidal Thoughts : No CSSRS Lifetime Suicide Behavior : No Suicide Severity Rating Score : 0 Suicide Severity Rating : No Additional Care Required at this time Nina Martínez RN - 10/22/2019 16:37 EST Psychosocial History Do You Have a History of the Following? : Anxiety Currently in Unsafe Situation : No Nina Martínez RN - 10/22/2019 16:37 EST Sleep Apnea Risk Assmt Hx of [...] Sleep Apnea Risk Level Score : 2 Nina Martínez RN - 10/22/2019 16:37 EST Spiritual/Cultural Needs Any Spiritual/Cultural Needs or Requests : No Nina Martínez RN - 10/22/2019 16:37 EST Valuables and Belongings Valuables and Belongings : No personal items Nina Martínez RN - 10/22/2019 16:37 EST documented in this encounter Plan of Treatment Not on file documented as of this encounter Visit Diagnoses Not on filedocumented in this encounter
--- OUTSIDE RECORDS SUMMARY | 2025-04-24 21:42 | XMS_ITS | Encounter Summary ---
Author Organization [employer] Address [address] [place] [address] Care Team Providers Care Technical Applications Specialist Name Role Phone Unavailable Primary Care Provider Unavailabl e Encounter Details Date Type Department Care Team (Late st Contact Info) Description 10/23/2019 Transcribed Document [facility] Family Medicine [address] [place] [address] ProviderBrianda MD [address] [place] [address] Social History Tobacco Use Types [...] Conversion Note - Brianda ProviderMD - 10/23/2019 12:07 PM BRIM STITCHER [facility] [place] [address] MAHI TINSLEY :1970 Visit Time:10/22/2019 Your [...] EST Where: [address] [place] [address]- Business (1) Follow Up with IAM Bocanegra When Within 2 to 3 days Comments Call for follow up appointment Where: [place], [place] [phone] Medications What How Much When Instructions Next Dose atenolol (atenolol 25 mg oral tablet) 1 Tablet(s) Oral Every Day atorvastatin (atorvastatin 20 mg oral tablet) 1 Tablet(s) Oral At Bedtime clopidogrel (clopidogrel 75 mg oral tablet) 1 Tablet(s) Oral Every Day conjugated estrogens (Premarin 0.45 mg oral tablet) 1 Tablet(s) Oral Every Day dihydroergotamine (dihydroergotamine 4 mg/ mL nasal spray) 1 [place](s) Nasal Interval Every 15 Minutes as needed for for migraine headache max of 2 doses hydrOXYzine (hydrOXYzine hydrochloride 25 mg oral tablet) 1 Tablet(s) Oral Four Times A Day as needed for for anxiety hydroCHLOROthiazide (hydroCHLOROthiazide 12.5 mg oral tablet) 1 Tablet(s) Oral Every Day topiramate (topiramate 50 mg oral tablet) 1 Tablet(s) Oral Two Times A Day Take your medications faithfully. Do NOT skip [...] Follow these instructions at home: ??? Take dvkb-uyo-dqudncj and prescription medicines only as told by [...] warning stroke (transient ischemic attack). ??? Take lemk-xrv-rdxxsrg and prescription medicines only as told by your doctor. ??? Keep all follow-up visits as told by your doctor. This is important. This information is not intended to replace advice given to you by your health care provider. Make sure you discuss any questions you have with your health care provider. Document Released: 10/08/2013 Document Revised: 01/18/2018 Document Reviewed: 04/22/2014 [employer] Interactive Patient Education ?? 2019 [employer] Inc. Carotid Endarterectomy, Care After This sheet [...] and water are not available, use hand production machine operator. ? Change your dressing as told by [...] you can take showers. Medicines ??? Take ocyb-cgh-pwbfewu and prescription medicines only as told by [...] 05/11/2006 Document Revised: 09/10/2017 Document Reviewed: 09/10/2017 [employer] Interactive Patient Education ?? 2019 [employer] Emergency Awareness and Preventative Care STROKE [...] Assistance with quitting is available by contacting 0-874-OJOENOW. This is a free resource providing counseling, support, and referral. Or you may contact your personal physician. [place] Suicide Prevention Lifeline: The National Suicide Prevention [...] range between ( 0.0 and 7.0 ) Braxton #: 0.41 K/uL -- Normal range between ( 0.16 and 1.00 ) Eos #: 0.27 x10(3)/uL -- Normal range between ( 0.00 and 0.80 ) Braxton %: 3.9 % -- Normal range between [...] was given the opportunity to ask questions. Patient/Gut Cleaner Name: Patient/Gut Cleaner Signature: Relationship to Patient: Clinician/Hospital Gut Cleaner Signature: Date: Electronically signed by Krishan, [facility] Conversion Standard Machine Stitcher Marian at 02/21/2023 9:45 PM CDT documented in this encounter Plan of Treatment Not on file documented as of this encounter Visit Diagnoses Not on filedocumented in this encounter
--- OUTSIDE RECORDS SUMMARY | 2025-04-24 21:42 | XMS_ITS | Encounter Summary ---
Author Organization [employer] Address [address] [place] [address] Care Team Providers Care Sanitation Technician Name Role Phone Unavailable Primary Care Provider Unavailabl e Encounter Details Date Type Department Care Team (Late st Contact Info) Description 10/22/2019 Transcribed Document [facility] [place] Family Medicine [address] [place] [address] ProviderBrianda MD [address] [place] [address] Social History Tobacco Use Types [...] Conversion Note - Brianda ProviderMD - 10/22/2019 1:01 PM POLE PEELING MACHINE OPERATOR [facility] Main OR PACU Summary Primary Physician: BREE AGEE MD Finalized Date/Time: 10/22/19 16:06:36 Pt. Name: MAHI TINSLEY LAURENCE BrayB./Sex: 1970 Female Med Rec #: [id number] Physician: BREE AGEE MD Financial #: [id number] Pt. Type: I Room/Bed: [facility]/ Admit/Disch: 10/22/19 14:28:00 - Institution: [facility] Main OR PACU I Case Times Entry 1 In PACU I 10/22/19 14:32:00 Ready for PACU 10/22/19 15:05:00 Discharge Discharge from PACU 10/22/19 16:04:00 I Last Modified By: Renu Douglas RN 10/22/19 16:05:11 [facility] Main OR PACU I Case Times Audit 10/22/19 16:05:11 Outside Industrial Sales Representative: [id number] Modifier: [id number] <+> 1 Discharge from PACU I [facility] Main OR PACU Acuity Entry 1 Start Time 10/22/19 15:05:00 Stop Time 10/22/19 16:04:00 Acuity Level [facility] PACU Acuity I Last Modified By: Renu Douglas RN 10/22/19 16:06:30 Finalized By: Renu Douglas RN Document Signatures Signed By: Renu Douglas RN 10/22/19 16:06 Electronically signed by Krishan [facility] Conversion Quantitative Research Analyst Cerner at 02/21/2023 9:29 PM CDT documented in this encounter Plan of Treatment Not on file documented as of this encounter Visit Diagnoses Not on filedocumented in this encounter
--- OUTSIDE RECORDS SUMMARY | 2025-04-24 21:42 | XMS_ITS | Encounter Summary ---
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 Name: JEAN BADILLOE /Sex: 1970 Female Med Rec #: [id number] Physician: BREE AGEE MD Financial #: [id number] Pt. Type: I Room/Bed: [facility] Admit/Disch: 10/22/19 14:28:00 - Institution: [facility] IntraOp Case Attendance Entry 1 Entry 2 Entry 3 Case Attendee BREE AGEE MD [place], Hazel, Fara Israel ST Role Performed Surgeon/Proceduralist, Laundry Presser, First Scrub, First First Time In 10/22/19 12:22:00 10/22/19 12:22:00 10/22/19 12:22:00 Time Out 10/22/19 14:32:00 10/22/19 14:32:00 10/22/19 14:32:00 Procedure Carotid Artery Carotid Artery Carotid Artery Endarterectomy(Right) Endarterectomy(Right) Endarterectomy(Right) Other Attendee Superficial Wound Closed By: Last Modified By: Radha Coe RN [place], Hazel, Radha Erwin, MARIA C 10/22/19 14:32:52 10/22/19 14:32:52 10/22/19 14:32:52 Entry 4 Entry 5 Entry 6 Case Attendee DEE RAMESH PA VON KUSTER, SUZANNE CARTWRIGHT, PHILOMENA BORGES, FERN MANSFIELD-ANS Role Performed Physician assistant facility manager SHEEP STICKER/Nurse Interior Specialist Anesthesiologist of Record Time In 10/22/19 12:22:00 10/22/19 12:22:00 10/22/19 12:22:00 Time Out 10/22/19 14:32:00 10/22/19 14:32:00 10/22/19 14:32:00 Procedure Carotid Artery Carotid Artery Carotid Artery Endarterectomy(Right) Endarterectomy(Right) Endarterectomy(Right) Other Attendee Superficial Wound Closed By: Last Modified By: Radha Coe RN [place], Hazel, Radha Erwin, MARIA C 10/22/19 14:32:52 10/22/19 14:32:52 10/22/19 14:32:52 Entry 7 Entry 8 Case Attendee Teresa Hidalgo, KORI KRAUSE Role Performed Laundry Presser, First Supreme Court Judge Time In 10/22/19 13:30:00 10/22/19 13:51:00 Time Out 10/22/19 13:47:00 10/22/19 14:04:00 Procedure Carotid Artery Carotid Artery Endarterectomy(Right) Endarterectomy(Right) Other Attendee BREAK RELIEF Superficial Wound Closed By: Last Modified By: Radha Coe RN [place], Hazel, MARIA C 10/22/19 14:32:52 10/22/19 14:32:52 [facility] IntraOp Case Attendance Audit 10/22/19 14:32:52 Therapeutic Case Manager: LAFAVEHM Modifier: LAFAVEHM 1 <+> Time Out 1 <*> Procedure Carotid Artery Endarterectomy(Right) 2 <+> Time Out 2 <*> Procedure Carotid Artery Endarterectomy(Right) 3 <+> Time Out 3 <*> Procedure Carotid Artery Endarterectomy(Right) 4 <+> Time Out 4 <*> Procedure Carotid Artery Endarterectomy(Right) 5 <+> Time Out 5 <*> Procedure Carotid Artery Endarterectomy(Right) 6 <+> Time Out 6 <*> Procedure Carotid Artery Endarterectomy(Right) 7 <*> Procedure Carotid Artery Endarterectomy(Right) 8 <*> Procedure Carotid Artery Endarterectomy(Right) 10/22/19 14:04:52 Therapeutic Case Manager: LAFAVEHM Modifier: LAFAVEHM 8 <+> Time Out 8 <*> Procedure Carotid Artery Endarterectomy(Right) 10/22/19 13:51:56 Therapeutic Case Manager: LAFAVEHM Modifier: LAFAVEHM <+> 8 Case Attendee <+> 8 Role Performed <+> 8 Time In <+> 8 Procedure 10/22/19 13:47:21 Therapeutic Case Manager: LAFAVEHM Modifier: LAFAVEHM 7 <+> Time Out 7 <*> Procedure Carotid Artery Endarterectomy(Right) 10/22/19 13:30:47 Therapeutic Case Manager: LAFAVEHM Modifier: LAFAVEHM <+> 7 Case Attendee <+> 7 Role Performed <+> 7 Time In <+> 7 Procedure <+> 7 Other Attendee 10/22/19 13:18:51 Therapeutic Case Manager: LAFAVEHM Modifier: LAFAVEHM 1 <*> Procedure Carotid Artery Endarterectomy(Right) 2 <+> Time In 2 <*> Procedure Carotid Artery Endarterectomy(Right) 3 <+> Time In 3 <*> Procedure Carotid Artery Endarterectomy(Right) 4 <+> Time In 4 <*> Procedure Carotid Artery Endarterectomy(Right) 5 <+> Time In 5 <*> Procedure Carotid Artery Endarterectomy(Right) 6 <+> Time In 6 <*> Procedure Carotid Artery Endarterectomy(Right) [facility] IntraOp Case Times Entry 1 Patient In Room Time 10/22/19 12:22:00 Out Room Time 10/22/19 14:32:00 Anesthesia Start Time 10/22/19 12:22:00 Stop Time 10/22/19 14:32:00 Surgery / Procedure Times Start Time 10/22/19 13:01:00 Stop Time 10/22/19 14:19:00 Last Modified By: Radha Coe RN 10/22/19 14:32:46 [facility] IntraOp Case Times Audit 10/22/19 14:32:46 Therapeutic Case Manager: LAFAVEHM Modifier: LAFAVEHM <+> 1 Out Room Time <+> 1 Stop Time 10/22/19 14:20:42 Therapeutic Case Manager: LAFAVEHM Modifier: LAFAVEHM <+> 1 Stop Time [facility] IntraOp Cautery Entry 1 ESU Identification Cautery Type Monopolar ESU ID Number [id number] ID Type Hospital Number Cautery Settings Cut Setting 30 Coag Setting 30 ESU Grounding Pad Ground Pad Type Adult Grounding Pad Site Left thigh Grounding Pad Radha Coe, RN Applied By Grounding Pad Site Intact, Warm, Dry Skin Condition Before Cautery Grounding Pad Site Unchanged Skin Condition After Cautery Last Modified By: Radha Coe, MARIA C 10/22/19 13:07:29 [facility] IntraOp Communication Entry 1 Entry 2 Entry 3 Communication To Family/Significant other Family/Significant other Family/Significant other Comment Communication By Radha Coe, Radha Erwin, RN Radha Coe, MARIA C Date and Time 10/22/19 13:04:00 10/22/19 13:58:00 10/22/19 14:14:00 Last Modified By: Radha Coe, Radha Erwin, RN Radha Coe, MARIA C 10/22/19 13:07:40 10/22/19 14:02:26 10/22/19 14:19:23 [facility] IntraOp Communication Audit 10/22/19 14:19:23 Therapeutic Case Manager: [email or web address] Modifier: LAFAVEHM <+> 3 Communication By <+> 3 Date and Time <+> 3 Communication To 10/22/19 14:02:26 Therapeutic Case Manager: LAFAVEHM Modifier: LAFAVEHM <+> 2 Communication By <+> 2 Date and Time <+> 2 Communication To [facility] IntraOp Counts Verification Entry 1 Entry 2 Procedure Carotid Artery Carotid Artery Endarterectomy(Right) Endarterectomy(Right) Count Info Count Type Sponge, Sharps, Sponge, Sharps, Miscellaneous Miscellaneous Counts Verification Baseline/pre-procedure Before wound closure Sequence Count Results Correct, surgeon notified If Incorrect or Waived complete the Counts Action Taken form: If Intentional Retention, complete the Intential Retention form: Counts Performed By Count Performed By Fara Campos ST Roark, Letitia, ST (Scrub) Count Performed By Radha Coe RN [place], Hazel, RN (RN) Last Modified By: Radha Coe RN [place], Hazel, RN 10/22/19 13:08:03 10/22/19 14:11:31 [facility] IntraOp Counts Verification Audit 10/22/19 14:11:31 Therapeutic Case Manager: KAI Modifier: KAI 2 <*> Procedure Carotid Artery Endarterectomy(Right) 2 <+> Count Performed By (Scrub) 2 <+> Count Performed By (RN) [facility] IntraOp Counts Final Entry 1 Procedure Carotid Artery Endarterectomy(Right) Final Count Info Count Type Sponge, Sharps, Miscellaneous Counts Verification Skin Closure/end of Sequence procedure Count Results Correct, surgeon notified Counts Performed By Count Performed By Fara Campos ST (Scrub) Count Performed By Radha Coe RN (RN) Last Modified By: Radha Coe RN 10/22/19 14:14:44 [facility] IntraOp Counts Final Audit 10/22/19 14:14:44 Therapeutic Case Manager: KAI Modifier: LAFAVEHM 1 <*> Procedure Carotid Artery Endarterectomy(Right) 1 <+> Count Performed By (Scrub) 1 <+> Count Performed By (RN) [facility] IntraOp Cultures and Spec Summary Entry 1 Cultrures and Specimens Specimen Ordered: Yes Test(s) Routine/Path-Lab Requested/Final Disposition Last Modified By: Radha Coe RN 10/22/19 13:08:30 [facility] IntraOp Departure from OR Entry 1 Integumentary Assessment Transfer/Handoff Transfer to PACU Phase I Handoff Method Bedside/Face to face, Phone call, Online nursing summary Post-op Transport Bed (including Via specialty) Patient Transport SUZANNE RICK Accompanied by FERN QUACH WILSON, ANNIE, PA Transfer/Handoff ICU BED REQUESTED Comments Last Modified By: Radha Coe RN 10/22/19 13:52:29 [facility] IntraOp Departure from OR Audit 10/22/19 13:52:29 Therapeutic Case Manager: [email or web address] Modifier: LAFAVEHM <+> 1 Post-op Transport Via [facility] IntraOp Dressing and Packing Entry 1 Type Dressing Location NECK (OPERATIVE SIDE) Wound Dressing Item Skin Closure Glue Applied By DEE RAMESH PA Last Modified By: Radha Coe RN 10/22/19 14:19:37 [facility] IntraOp Dressing and Packing Audit 10/22/19 14:19:37 Therapeutic Case Manager: KAI Modifier: LAFAVEHM 1 <*> Wound Dressing Item Steristrip, Occlusive dressing 1 <-> Other Comments coverderm [facility] IntraOp Fire Risk Assessment Entry 1 Fire Info Surgical Site or 1- Yes Incision Above the Xyphoid Open O2 Source 0- No (Mask or Cannula) Available Ignition 1- Yes (ESU, Laser, Light Source) Fire Risk 2 Assessment Score Fire Score Fire Risk Yes Assessment Complete Fire Risk Radha Coe RN Assessment Verified By Fire Risk 10/22/19 12:22:00 Assessment Verified Date/Time Fire Risk High Risk Protocol Yes Implemented Standard Fire Yes Safety Precautions Followed Last Modified By: Radha Coe RN 10/22/19 13:08:51 [facility] IntraOp General Case Supervising Librarian 1 Case Information OR OR [facility] Case Level 1 Room Verified Yes Wound Class I - Clean Specialty SN Anesthesia Anesthesia Type General ASA Class 3 Diagnosis Preop Diagnosis RIGHT CAROTID STENOSIS Postop Same As Preop No Postop Diagnosis SEE MD POST OP NOTES Last Modified By: Radha Coe RN 10/22/19 13:09:21 [facility] IntraOp Implant Log Entry 1 Type Tissue Implant (Biologic) Implant Log Implant [facility] Identification [id number] Description Implant Quantity 1 Implant Site RIGHT CAROTID Implant [facility] [facility] Identification Network Cabler Name: Implant [id number] Identification Catalog Number Implant Size .8CM X 8CM Implant Expiration 04/01/25 Date Tissue Implant Graft Prep Per Yes Network Cabler Instructions: Network Cabler Yes Paperwork Completed Last Modified By: Radha Coe RN 10/22/19 13:21:16 [facility] IntraOp Intraoperative Assessment Entry 1 Valid History / Yes Physical in Chart Preoperative Yes Checklist Reviewed/Evaluated Allergies Reviewed Yes Patient is Latex No Sensitive Isolation Not applicable Precautions Noted Level of WDL Consciousness (WDL = Alert, Oriented to Person, Place, and Time) Skin Assessment No Verified Present Upon IVs Arrival to OR Last Modified By: Radha Coe RN 10/22/19 13:09:33 [facility] IntraOp Intraoperative Equipment Entry 1 Type Monitoring Equipment Equipment Jessica Suction System Intraop Monitoring Antiembolic Devices Antiembolic Devices Sequential compression device, knee high Antiembolic Device Bilateral Location Antiembolic Device [id number] ID Number Antiembolic Device SCD'S ON AND WORKING Setting PRIOR TO INDUCTION Scopes Photo/Video Documentation Last Modified By: Radha Coe RN 10/22/19 13:10:11 [facility] IntraOp Medication Admin Entry 1 Entry 2 Entry 3 Medication/Irrigant [id number] UNITS Marcaine 0.25% w/ lidocaine 1% 50ml vial 1ML/.9%NaCl 100ML epinephrine 1:200,000 - [id number] 30ml vial - [id number] Combo Med List Time Administered Route of IRRIGATION LOCAL LOCAL Administration Dose Dose 5 5 Unit of Measure ml ml ml Volume Administered By BREE AGEE MD KIM, MOSES, MD KIM, MOSES, MD Procedure Irrigation Irrigant Volume In Irrigant Volume Out Last Modified By: Radha Coe RN [place], Hazel, RN Montgomery, Hazel, RN 10/22/19 13:15:11 10/22/19 14:07:18 10/22/19 14:07:18 Entry 4 Medication/Irrigant HEMOSTAT SURGICEL SNOW [id number] Combo Med List Time Administered Route of TOPICAL Administration Dose Dose 1 Unit of Measure pkt Volume Administered By BREE AGEE MD Procedure Irrigation Irrigant Volume In Irrigant Volume Out Last Modified By: Radha Coe RN 10/22/19 14:07:18 [facility] IntraOp Medication Admin Audit 10/22/19 14:07:18 Therapeutic Case Manager: KAI Modifier: LAFAVEHM <+> 2 Medication/Irrigant <+> 2 Route of Administration <+> 2 Administered By <+> 2 Dose <+> 2 Unit of Measure <+> 3 Medication/Irrigant <+> 3 Route of Administration <+> 3 Administered By <+> 3 Dose <+> 3 Unit of Measure <+> 4 Medication/Irrigant <+> 4 Route of Administration <+> 4 Administered By <+> 4 Dose <+> 4 Unit of Measure [facility] IntraOp Patient Positioning Entry 1 Procedure Carotid Artery Endarterectomy(Right) Body Position Supine Left Arm Position Tucked and padded at side Right Arm Position Tucked and padded at side Left Leg Position Uncrossed, parallel Right Leg Position Uncrossed, parallel Feet Uncrossed Yes Pressure Points Yes Checked Positioning Devices Head Rest, Safety Strap, Thighs, Pad, Elbow, Roll, Shoulder Device Position PILLOW UNDER KNEES FOR PATIENT COMFORT Positioned By Radha Coe, MARIA C, SUZANNE RICK CRNA, BREE AGEE MD, DEE RAMESH PA Position Verified Positioning Yes Verified by Anesthesia Positioning Yes Verified by Surgeon Last Modified By: Radha Coe RN 10/22/19 13:18:08 [facility] IntraOp Sign In Entry 1 Patient, Site, Yes Procedure Identified Surgical Consent Yes Confirmed Relevant Surgical Yes Documents Available Surgical Site Yes Marked by person performing procedure Anesthesia Machine Yes Check Completed Medication Checks Yes Completed Allergies Yes Airway Difficult Yes Airway/Aspiration Risk Difficult Yes Airway/Aspiration Intervention Equipment Available Blood Loss Risk Yes Blood Loss Yes Intervention Equipment Prepared and Ready Blood Identifiers Yes Verified Per Policy Hypothermia Risk Yes Warming Measures Yes Taken Last Modified By: Radha Coe RN 10/22/19 13:18:47 [facility] IntraOp Sign Out Entry 1 RN Confirmation Surgical Yes Procedure(s) Identified Instrument, Sponge Yes and Sharps Counts Correct/Documented Equipment Problems Yes Documented Specimen Labeled Yes Correctly Urinary Catheter N/A Documented in IView Alejandra Patient Yes Recovery Concerns Reviewed with Anesthesia Provider, Surgeon and RN Alejandra Patient Yes Management Concerns Reviewed with Anesthesia Provider, Surgeon and RN Safety Checklist Yes Elements Complete? RN Sign Out Radha Coe RN Signature RN Sign Out 10/22/19 14:31:00 Signature Date/Time Plan of Care Outcome - Fire Risk OUTCOME STATEMENT: Goal met Patient is free from injury related to surgical fire Plan of Care Outcome - Pt Positioning OUTCOME STATEMENT: Goal met Absence of signs and symptoms of positioning injury. Plan of Care Outcome - Skin Prep OUTCOME STATEMENT: Goal met Intraoperative care is consistent with measures to prevent infection Plan of Care Outcome - Xray/Images OUTCOME STATEMENT: Goal met Absence of observable signs or symptoms of radiation injury Plan of Care Outcome - Counts OUTCOME STATEMENT: Goal met Absence of signs and symptoms of injury related to extraneous objects Last Modified By: Radha Coe RN 10/22/19 14:32:38 [facility] IntraOp Sign Out Audit 10/22/19 14:32:38 Therapeutic Case Manager: LAFAVEHM Modifier: LAFAVEHM <+> 1 RN Sign Out Signature Date/Time [facility] IntraOp Skin Prep Entry 1 Procedure Carotid Artery Endarterectomy(Right) Prescribed Yes Pre-Surgical Prep Completed Prep Area CHIN THROUGH CHEST INCLUDE RIGHT SHOULDER Intraop Prep Integumentary WDL Assessment WDL Prep Agents Chloraprep Prep by Radha Coe RN Hair Removal Methods No hair removal performed Last Modified By: Radha Coe RN 10/22/19 13:19:30 [facility] IntraOp Surgical Procedures Entry 1 Procedure Carotid Artery Endarterectomy Modifiers Right Additional (RT CAROTID Procedure ENDARTERECTOMY WITH Description INTRA OP ULTRA SOUND Primary Procedure Yes Primary Surgeon BREE AGEE MD Start 10/22/19 13:01:00 Stop 10/22/19 14:19:00 Anesthesia Type General Specialty SN Vascular Wound Class I - Clean Last Modified By: Radha Coe RN 10/22/19 14:20:47 [facility] IntraOp Surgical Procedures Audit 10/22/19 14:20:47 Therapeutic Case Manager: LAFAVEHM Modifier: LAFAVEHM 1 <*> Procedure Carotid Artery Endarterectomy 1 <+> Stop 10/22/19 13:52:13 Therapeutic Case Manager: LAFAVEHM Modifier: LAFAVEHM 1 <*> Procedure Carotid Artery Endarterectomy 1 <*> Additional Procedure Description (RT CAROTID ENDARTERECTOMY) [facility] IntraOp Temp Regulation Devices Entry 1 Temp Regulation Temperature Forced Air Warming Regulation Device device Temperature 07164 Regulation Device Serial/Unit Number Temperature Lower body Regulation Site Temperature Device SET AND MONITORED BY Setting ANESTHESIA Temperature VON SUZANNE RUELAS Regulation Device FERN QUACH Applied by Last Modified By: Radha Coe RN 10/22/19 13:20:15 [facility] IntraOP Time Out Entry 1 Procedure to be Carotid Artery Performed Endarterectomy(Right) Time Out Time Out Pause Time 10/22/19 12:59:00 All activity Yes suspended (unless life threatening emergency) Team Verbally Correct patient Confirms Information identity, Correct side and site are marked, Consent form is present and accurate, Agreement on the procedure to be done, Correct patient position, Relevant images/results properly labeled/appropriately displayed, Confirm antibiotics have been administered, Confirm the skin prep has dried, Confirm prosthesis/implant/devic e is present, Performed in location of procedure after prepped/draped Antibiotic Yes Prophylaxis Administered Or In Progress Within the Last 60 Minutes Beta Terrell Yes Administered Venous Yes Thromboembolism Prophylaxis Required Anticipated Critical Events Surgeon None expected, Special equipment need Anesthesia Provider None expected Nursing Assures Sterility of instruments, Implant Availability Essential Imaging Yes Labeled and Displayed Last Modified By: Radha Coe RN 10/22/19 13:06:08 [facility] IntraOp X-Ray and Images Entry 1 X-Ray/Imaging Type Ultrasound Fluoroscopy Type Other Site OPSITE Health Advocate Name IQBALKORI PARRY Last Modified By: Radha Coe RN 10/22/19 14:03:06 Case Comments <None> Finalized By: JEFF SNOW Document Signatures Signed By: Radha Coe RN 10/22/19 14:33 JEFF SNOW 10/23/19 11:00 Unfinalized History Date/Time Username Reason for Unfinalizing Freetext Reason for Unfinalizing 10/23/19 10:59 WATTSDR Correct Billing Electronically signed by Krishan [facility] Conversion Inbound Customer Service Representative Cerner at 02/21/2023 9:41 PM CDT documented in this encounter Plan of Treatment Not on file documented as of this encounter Visit Diagnoses Not on filedocumented in this encounter
[2025-04-24] MEDS: ACETAMINOPHEN 1,000MG/100ML VIAL 1000 MG IV (21:46)
[2025-04-24] MEDS: 0.9 % SODIUM CHLORIDE 1000ML 1,000 ML 999 ML IV ×2 (21:46→23:35)
[2025-04-24] MEDS: CEFTRIAXONE SODIUM 1 GM in 0.9 % SODIUM CHLORIDE 50 ML IV (22:21)
[2025-04-24 22:31] VITALS: BP 144/91; PULSE 105; O2SAT 98
[2025-04-24 22:31] LABS: Albumin Level 3.8 g/dl (3.5-5.0); Chloride 107 mmol/L (98-107); Sodium 136 mmol/L (136-145)
[2025-04-24 22:32] LABS: Basophils % 0.3 % (0.1-2.0); Eosinophils # 0.1 Kmm3 (0.0-0.4); Eosinophils % 0.6 % (0.1-12.0); Hematocrit 39.9 % (37.0-47.0); Hemoglobin 13.6 g/dL (12.2-16.2); Immature Granulocytes # 0.05 10^3uL; Immature Granulocytes % 0.4 %; Lymphocytes # 1.2 K/mm3 (0.7-4.5); Lymphocytes % 10.1 % (10-50); Mean Corpuscular HGB Conc 34.1 g/dL (31.8-35.4); Mean Corpuscular Hemoglobin 33.3 pg (27.0-31.2); Mean Corpuscular Volume 97.6 fl (81-99); Mean Platelet Volume 9.2 fl (7.4-10.4); Monocytes % 7.9 % (1.7-9.3); Neutrophils # 9.7 K/mm3 (1.8-7.8); Neutrophils % 80.7 % (37.0-80.0); Nucleated Red Blood Cells # 0 10^3/uL; Nucleated Red Blood Cells % 0 %; Platelet Count 219 K/mm3 (142-424); Potassium 3.6 mmoL/L (3.5-5.1); Red Blood Count 4.09 M/mm3 (4.20-5.40); Red Cell Distribution Width 12.3 % (11.5-17.5); Red Cell Distribution Width-SD 44.3 fL; White Blood Count 12.1 K/mm3 (4.8-10.8)
[2025-04-24 22:34] LABS: Alanine Aminotransferase 33 U/L (12-78); Albumin/Globulin Ratio 1.1 (1.1-1.8); Alkaline Phosphatase 122 U/L (38-126); Anion Gap 11.6 mEq/L (5-15); Aspartate Amino Transferase 31 U/L (14-36); Bilirubin,Total 0.7 mg/dl (0.2-1.3); Blood Urea Nitrogen 14 mg/dl (7-17); Carbon Dioxide 21 mmol/L (22.0-30.0); Creatinine Clearance Estimated 60 mL/min (50-200); Estimated Glomerular Filt Rate 65 ml/min (>60); GFR (African American) 79 ML/MIN (>60); Globulin 3.5 g/dL (1.3-3.2); Glucose 79 mg/dl (74-100); Total Protein,Serum 7.3 g/dl (6.3-8.2)
[2025-04-24 23:00] VITALS: PULSE 96; O2SAT 95
[2025-04-24] MEDS: IOPAMIDOL-370 (76%);100ML BOTTLE 75 ML IV (23:00)
[2025-04-24] MEDS: SODIUM CHLORIDE 0.9% 10ML SYR (RAD ONLY) 10 ML IV (23:00)
[2025-04-24 23:26] LABS: Blood, Urine Negative (Negative); Color,Urine YELLOW (Yellow); Glucose,Urine (UA) Negative (Negative); Ketones,Urine 2+ (Negative); Leukocyte Esterase,Urine Negative (Negative); Microscopic, Urine URINE MICROSCOPIC (MICROSCOPIC); Nitrate,Urine Negative (Negative); Protein,Urine TRACE (Negative); Urobilinogen,Urine 0.2 EU/dl (0.2)
[2025-04-24 23:47] LABS: HIV Combo NEGATIVE (Negative)
[2025-04-24] MEDS: PIPERACILLIN/TAZO 4.5 GM in 0.9 % SODIUM CHLORIDE 100 ML IV (23:49)
[2025-04-24 23:51] VITALS: BP 127/88
[2025-04-24 23:55] LABS: Hepatitis C Ab Qual. W/ RFX NEGATIVE (Negative)
[2025-04-25] VITALS (7 sets, daily range): BP systolic 115–133; BP diastolic 70–80; PULSE 68–90; RESP 16–17; TEMP 36.6–37; O2SAT 96–98; BMI 23.0
[2025-04-25 00:06] LABS: Bilirubin,Urine 2+ (Negative)
[2025-04-25 00:07] LABS: Appearance,Urine Cloudy (Clear)
[2025-04-25 00:08] LABS: Bacteria,Urine Trace /lpf; Squamous Epithelial Cell,Urine 20-50 #/hpf (0-5)
--- NOTE | 2025-04-25 00:16 | P.HP_ITS ---
<Statement entered by Cade Renee MD - 04/29/25 22:26> Evaluated by the patient and agree with plan of care as outlined by the GRASSLAND CONSERVATIONIST. History of Present Illness *Admission Date: 04/25/25 *Reason for visit:: Flank pain *History of present illness: This is a 54-year-old female with past medical history of tobacco abuse, hypertension who presents emergency department today with complaints of right flank pain. She reports dysuria that started 2 days ago. Was seen in the outpatient clinic yesterday and was diagnosed with urinary tract infection. She received Rocephin IM injection and sent home with Macrobid. States that she started to feel worse this evening. Developed fever and flank pain. States that she has had intermittent dysuria since then but that is somewhat better. States that her main symptoms are fever and right flank pain. Denies any hematuria. Denies any nausea vomiting. Emergency department workup notable for right sided pyelonephritis noted on CT imaging. Laboratory evaluation notable for white count of 12. Urinalysis with trace bacteria, 5-10 white cells. She was noted be tachycardic upon arrival. Temperature of 99.5. Given the above-mentioned findings, she is mated for sepsis and pyelonephritis. [facility] Disclaimer: The information contained in this section may have been updated after the patient was seen, as this information can be updated by other users. Medical History Tobacco use Dyspnea Chest pain Cancer Anxiety Migraine History of stroke Hyperlipidemia Hypertension Surgical History H/O endarterectomy History of hysterectomy History of cholecystectomy Social History Smoking Status: Current some day smoker tobacco type: cigarettes packs per day: 1 alcohol intake: never substance use type: denies use current occupational status: employed Travel in the last 8 weeks?: None household members: none housing: house number of children: 3 current occupation: [employer] Have you lived/traveled outside US in past 30 days?: No Contact w/someone who lives/traveled outside US past 30 days?: No Exposure to someone with infectious disease in past 14 days?: No Do you have a fever (greater than 100.4 F or 38 C)?: No Have you tested positive for COVID-19?: No Exposed to someone with COVID-19 in past 14 days?: No Do you have a sore throat?: No Do you have a cough?: No Do you have any weakness?: No Do you have any diarrhea?: No Are you experiencing any unusual bleeding?: No Do you have any muscle aches/pain?: No Do you have any abdominal pain?: No Are you experiencing loss of taste or smell?: No Other Medical History Have you received the Flu Vaccine for this season: Yes Have you received the Pneumonia Vaccine: No Meds Home Medications and Allergies Home Medications ?Medication ?Instructions ?Recorded ?Confirmed ?Type atenolol 25 mg tablet 25 mg PO DAILY Hypertension 03/24/23 04/23/25 History losartan 50 mg tablet 100 mg PO DAILY 06/07/23 History nitrofurantoin 100 mg PO Q12H 7 days #14 ca ps 04/23/25 04/23/25 Rx monohydrate/macrocrystals 100 mg capsule New Prescriptions to Start Prescriptions: Allergies Allergy/AdvReac Type Severity Reaction Status Date / Time sumatriptan (SUMATRIPTAN) Allergy Mild Hives Verified 04/23/25 18:30 codeine (CODEINE) AdvReac Mild Vomiting Verified 04/23/25 18:30 morphine (MORPHINE) AdvReac Mild Chest Pain Verified 04/23/25 18:30 Exam Data for Last 24 hours Vital signs and Labs for Last 24 Hours: Temp Pulse Resp BP Pulse Ox O2 Del Method 99.5 F 96 H 16 144/91 H 95 Room Air 04/24/25 21:38 04/24/25 23:00 04/24/25 21:38 04/24/25 22:31 04/24/25 23:00 04/24/25 21:38 Laboratory Results - last 24 hr 04/24/25 22:15: WBC 12.1 H, RBC 4.09 L, Hgb 13.6, Hct 39.9, MCV 97.6, MCH 33.3 H , MCHC 34.1, RDW 12.3, Plt Count 219, MPV 9.2, Neut % (Auto) 80.7 H, Lymph % (Auto) 10.1, [place] % (Auto) 7.9, Eos % (Auto) 0.6, Baso % (Auto) 0.3, Neut # (Auto) 9.7 H, Lymph # (Auto) 1.2, [place] # (Auto) 1.0, Eos # (Auto) 0.1, Baso # (Auto) 0.0, Sodium 136, Potassium 3.6, Chloride 107, Carbon Dioxide 21 L, Anion Gap 11.6, BUN 14, Creatinine 0.90, Estimated Creat Clear 60, Estimated GFR 65, Est GFR ( Amer) 79, Glucose 79, Calcium 9.0, Total Bilirubin 0.7, AST 31, ALT 33, Alkaline Phosphatase 122, Total Protein 7.3, Albumin 3.8, Globulin 3.5 H , Albumin/Globulin Ratio 1.1, HCV Ab SAHRA w/Rflx PCR Qn Negative, HIV Ag/Ab Combo Qual Negative 04/24/25 23:20: Urine Color Yellow, Urine Appearance Cloudy, Urine pH 6.0, Ur Specific [place] 1.010, Urine Protein Trace, Urine Glucose (UA) Negative, Urine Ketones 2+, Urine Blood Negative, Urine Nitrate Negative, Urine Bilirubin 2+ A, Urine Urobilinogen 0.2, Ur Leukocyte Esterase Negative, Urine RBC None, Urine WBC 5-10, Ur Squamous Epith Cells 20-50, Urine Bacteria Trace I & O for Last 24 hours: Intake & Output 04/22/25 04/23/25 04/24/25 04/25/25 23:59 23:59 23:59 23:59 Weight 53.524 kg Constitutional Constitutional: no acute distress *Routine HEENT Exam Head: Present normocephalic Eye: Present EOMI and PERRL ENT: Present mucous membranes moist *Routine Neck Exam Neck: Present supple; Absent lymphadenopathy *Routine Respiratory Exam Respiratory: Present CTA bilaterally *Routine Cardiovascular Exam Cardiovascular: Present RRR *Routine Abdominal Exam Abdominal: Present soft and normoactive bowel sounds; Absent tenderness *Routine Rectal Exam Rectal:: deferred *Routine Genitalia Exam Genitalia:: deferred *Routine Extremities Exam Extremities: Absent cyanosis, clubbing or edema *Routine Skin Exam Skin: Present warm; Absent rash *Routine Neurological Exam Neurological: Present alert and oriented X3 Assessment and Plan *Assessment and plan (1) Sepsis: Status: Acute Category: Medical Code(s): A41.9 - Sepsis, unspecified organism (2) Pyelonephritis: Status: Acute Category: Medical Code(s): N12 - Tubulo-interstitial nephritis, not specified as acute or chronic (3) Hyperlipidemia: Status: Acute Category: Medical Code(s): E78.5 - Hyperlipidemia, unspecified (4) Hypertension: Status: Acute Category: Medical Code(s): I10 - Essential (primary) hypertension Plan #Sepsis Meets criteria for leukocytosis, tachycardia and urinary source of infection Received 30 mL/kg bolus of IV fluids in emergency department. Lactic stable. Normotensive Continue Zosyn Follow-up urine and blood cultures #Pyelonephritis Right-sided pyelonephritis noted on CT imaging. Positive urinalysis. Continue Zosyn. Received Rocephin and Macrobid yesterday without improvement in symptoms #Hypertension #Hyperlipidemia Continue home medication
--- NOTE | 2025-04-25 00:34 | PC.NURSE ---
Report called to Griselda on 2nd floor
--- NOTE | 2025-04-25 00:56 | PC.NURSE ---
Patient arrived to floor via wheelchair from ED at 00:52.
[2025-04-25] MEDS: POTASSIUM CHLORIDE 20MEQ TAB 40 MEQ PO ×2 (01:12→05:23)
[2025-04-25] MEDS: 0.9 % SODIUM CHLORIDE 1000ML 1,000 ML 75 ML IV (01:37)
--- NOTE | 2025-04-25 02:43 | PC.NURSE ---
Pt AOx4, recently arrived to unit for pyelonephritis and sepsis. Pt reports a small amount of pain in the right flank. Receiving normal saline at 75mL/hr through 20g in the left AC. Currently resting in bed with eyes closed. Respirations even and unlabored. Bed is low, locked, and call light is in reach.
[2025-04-25] MEDS: KETOROLAC 30MG/ML VIAL 30 MG IV (05:26)
[2025-04-25 07:02] LABS: Basophils % 0.2 % (0.1-2.0); Eosinophils # 0.2 Kmm3 (0.0-0.4); Eosinophils % 1.5 % (0.1-12.0); Hematocrit 34.1 % (37.0-47.0); Immature Granulocytes # 0.04 10^3uL; Immature Granulocytes % 0.4 %; Lymphocytes # 1.9 K/mm3 (0.7-4.5); Mean Corpuscular HGB Conc 34.6 g/dL (31.8-35.4); Mean Corpuscular Hemoglobin 33.3 pg (27.0-31.2); Mean Corpuscular Volume 96.3 fl (81-99); Mean Platelet Volume 9.6 fl (7.4-10.4); Monocytes # 1.1 K/mm3 (0.1-1.0); Monocytes % 9.9 % (1.7-9.3); Neutrophils # 7.8 K/mm3 (1.8-7.8); Nucleated Red Blood Cells # 0 10^3/uL; Nucleated Red Blood Cells % 0 %; Platelet Count 207 K/mm3 (142-424); Red Blood Count 3.54 M/mm3 (4.20-5.40); Red Cell Distribution Width 12.2 % (11.5-17.5); Red Cell Distribution Width-SD 42.9 fL
[2025-04-25 08:13] LABS: Hemoglobin 11.8 g/dL (12.2-16.2)
[2025-04-25 08:16] LABS: Chloride 117 mmol/L (98-107); Potassium 4.1 mmoL/L (3.5-5.1); Sodium 138 mmol/L (136-145)
[2025-04-25 08:19] LABS: Anion Gap 8.1 mEq/L (5-15); Blood Urea Nitrogen 11 mg/dl (7-17); Calcium 7.8 mg/dl (8.4-10.2); Carbon Dioxide 17 mmol/L (22.0-30.0); Creatinine Clearance Estimated 67 mL/min (50-200); Estimated Glomerular Filt Rate 74 ml/min (>60); GFR (African American) 90 ML/MIN (>60); Glucose 68 mg/dl (74-100); Magnesium 1.8 mg/dl (1.6-2.3)
[2025-04-25] MEDS: PIPERACILLIN/TAZO 3.375 GM in 0.9 % SODIUM CHLORIDE 50 ML IV (08:56)
--- NOTE | 2025-04-25 12:48 | EXP.DC.SUM ---
General Admission date:: 04/25/25 HPI HPI HPI: This is a 54-year-old female with past medical history of tobacco abuse, hypertension who presents emergency department today with complaints of right flank pain. She reports dysuria that started 2 days ago. Was seen in the outpatient clinic yesterday and was diagnosed with urinary tract infection. She received Rocephin IM injection and sent home with Macrobid. States that she started to feel worse this evening. Developed fever and flank pain. States that she has had intermittent dysuria since then but that is somewhat better. States that her main symptoms are fever and right flank pain. Denies any hematuria. Denies any nausea vomiting. Emergency department workup notable for right sided pyelonephritis noted on CT imaging. Laboratory evaluation notable for white count of 12. Urinalysis with trace bacteria, 5-10 white cells. She was noted be tachycardic upon arrival. Temperature of 99.5. Given the above-mentioned findings, she is mated for sepsis and pyelonephritis. Hospital Course Hospital Course Hospital Course: Mahi Tinsley is a 54-year-old female who presented with progressive right flank pain, nausea, fevers at home and was admitted for acute pyelonephritis. #Acute pyelonephritis #Sepsis ? Presented with right flank pain, nausea, fevers. WBC initially 12.1 with tachycardia. ? UA grossly abnormal. Had been treated by PCP with IM ceftriaxone day prior to admission and was given a prescription for Macrobid which patient was not able to filler picker due to symptoms. ? Clinically improved with IV Zosyn, essentially asymptomatic on day of discharge. No fevers, tolerating diet well, ambulating independently. ? Discharged with levofloxacin for 9 more days. Advised to follow-up with PCP. #Hypertension #Hyperlipidemia ? Continue home losartan, atenolol, atorvastatin. Exam Data for Last 24 hours Vital signs and Labs for Last 24 Hours: Temp Pulse Resp BP Pulse Ox O2 Del Method 98.4 F 82 17 117/77 96 Room Air 04/25/25 08:00 04/25/25 08:00 04/25/25 08:00 04/25/25 08:00 04/25/25 08:00 04/25/25 11:00 Laboratory Results - last 24 hr 04/24/25 22:15: WBC 12.1 H, RBC 4.09 L, Hgb 13.6, Hct 39.9, MCV 97.6, MCH 33.3 H, MCHC 34.1, RDW 12.3, Plt Count 219, MPV 9.2, Neut % (Auto) 80.7 H, Lymph % (Auto) 10.1, [place] % (Auto) 7.9, Eos % (Auto) 0.6, Baso % (Auto) 0.3, Neut # (Auto) 9.7 H, Lymph # (Auto) 1.2, [place] # (Auto) 1.0, Eos # (Auto) 0.1, Baso # (Auto) 0.0, Sodium 136, Potassium 3.6, Chloride 107, Carbon Dioxide 21 L, Anion Gap 11.6, BUN 14, Creatinine 0.90, Estimated Creat Clear 60, Estimated GFR 65, Est GFR ( Amer) 79, Glucose 79, Calcium 9.0, Total Bilirubin 0.7, AST 31, ALT 33, Alkaline Phosphatase 122, Total Protein 7.3, Albumin 3.8, Globulin 3.5 H, Albumin/Globulin Ratio 1.1, HCV Ab SAHRA w/Rflx PCR Qn Negative, HIV Ag/Ab Combo Qual Negative 04/24/25 23:20: Urine Color Yellow, Urine Appearance Cloudy, Urine pH 6.0, Ur Specific [place] 1.010, Urine Protein Trace, Urine Glucose (UA) Negative, Urine Ketones 2+, Urine Blood Negative, Urine Nitrate Negative, Urine Bilirubin 2+ A, Urine Urobilinogen 0.2, Ur Leukocyte Esterase Negative, Urine RBC None, Urine WBC 5-10, Ur Squamous Epith Cells 20-50, Urine Bacteria Trace 04/25/25 06:17: WBC 11.0 H, RBC 3.54 L, Hgb 11.8 L D, Hct 34.1 L, MCV 96.3, MCH 33.3 H, MCHC 34.6, RDW 12.2, Plt Count 207, MPV 9.6, Neut % (Auto) 71.0, Lymph % (Auto) 17.0, [place] % (Auto) 9.9 H, Eos % (Auto) 1.5, Baso % (Auto) 0.2, Neut # (Auto) 7.8, Lymph # (Auto) 1.9, [place] # (Auto) 1.1 H, Eos # (Auto) 0.2, Baso # (Auto) 0.0, Sodium 138, Potassium 4.1, Chloride 117 H, Carbon Dioxide 17 L, Anion Gap 8.1, BUN 11, Creatinine 0.80, Estimated Creat Clear 67, Estimated GFR 74, Est GFR ( Amer) 90, Glucose 68 L, Calcium 7.8 L, Magnesium 1.8 I & O for Last 24 hours: Intake & Output 04/22/25 04/23/25 04/24/25 04/25/25 23:59 23:59 23:59 23:59 Intake Total 480 / 480 Output Total 450 / 450 Balance Weight 53.524 kg 53.206 kg Constitutional Constitutional: no acute distress *Routine HEENT Exam Head: Present normocephalic Eye: Present EOMI and PERRL ENT: Present mucous membranes moist *Routine Neck Exam Neck: Present supple; Absent lymphadenopathy *Routine Respiratory Exam Respiratory: Present CTA bilaterally *Routine Cardiovascular Exam Cardiovascular: Present RRR *Routine Abdominal Exam Abdominal: Present soft and normoactive bowel sounds; Absent tenderness *Routine Extremities Exam Extremities: Absent cyanosis, clubbing or edema *Routine Skin Exam Skin: Present warm; Absent rash *Routine Neurological Exam Neurological: Present alert and oriented X3 Results Data Completed and Pending Labs on day of discharge: Labs from last 24 hours 04/25/25 04/24/25 04/24/25 06:17 23:20 22:15 WBC 11.0 H 12.1 H RBC 3.54 L 4.09 L Hgb 11.8 L D 13.6 Hct 34.1 L 39.9 MCV 96.3 97.6 MCH 33.3 H 33.3 H MCHC 34.6 34.1 RDW 12.2 12.3 Plt Count 207 219 MPV 9.6 9.2 Neut % (Auto) 71.0 80.7 H Lymph % (Auto) 17.0 10.1 [place] % (Auto) 9.9 H 7.9 Eos % (Auto) 1.5 0.6 Baso % (Auto) 0.2 0.3 Neut # (Auto) 7.8 9.7 H Lymph # (Auto) 1.9 1.2 [place] # (Auto) 1.1 H 1.0 Eos # (Auto) 0.2 0.1 Baso # (Auto) 0.0 0.0 Sodium 138 136 Potassium 4.1 3.6 Chloride 117 H 107 Carbon Dioxide 17 L 21 L Anion Gap 8.1 11.6 BUN 11 14 Creatinine 0.80 0.90 Estimated Creat Clear 67 60 Estimated GFR 74 65 Est GFR ( Amer) 90 79 Glucose 68 L 79 Calcium 7.8 L 9.0 Magnesium 1.8 Total Bilirubin 0.7 AST 31 ALT 33 Alkaline Phosphatase 122 Total Protein 7.3 Albumin 3.8 Globulin 3.5 H Albumin/Globulin Ratio 1.1 Urine Color Yellow Urine Appearance Cloudy Urine pH 6.0 Ur Specific [place] 1.010 Urine Protein Trace Urine Glucose (UA) Negative Urine Ketones 2+ Urine Blood Negative Urine Nitrate Negative Urine Bilirubin 2+ A Urine Urobilinogen 0.2 Ur Leukocyte Esterase Negative Urine RBC None Urine WBC 5-10 Ur Squamous Epith Cells 20-50 Urine Bacteria Trace HCV Ab SAHRA w/Rflx PCR Qn Negative HIV Ag/Ab Combo Qual Negative DS: Diagnosis Discharge Diagnosis (1) Sepsis: Status: Acute Code(s): A41.9 - Sepsis, unspecified organism (2) Pyelonephritis: Status: Acute Code(s): N12 - Tubulo-interstitial nephritis, not specified as acute or chronic (3) Hyperlipidemia: Status: Acute Code(s): E78.5 - Hyperlipidemia, unspecified (4) Hypertension: Status: Acute Code(s): I10 - Essential (primary) hypertension Meds Home Medications and Allergies Home Medications ?Medication ?Instructions ?Recorded ?Confirmed ?Type atenolol 25 mg tablet 25 mg PO DAILY Hypertension 03/24/23 04/25/25 History losartan 50 mg tablet 50 mg PO DAILY 06/07/23 04/25/25 History atorvastatin 40 mg tablet 40 mg PO HS 04/25/25 04/25/25 History estradiol 0.5 mg tablet 0.5 mg PO DAILY 04/25/25 04/25/25 History levofloxacin 750 mg tablet 750 mg PO DAILY 9 days #9 tabs 04/25/25 Rx New Prescriptions to Start Prescriptions: levofloxacin Cade Renee Allergies Allergy/AdvReac Type Severity Reaction Status Date / Time sumatriptan (SUMATRIPTAN) Allergy Mild Hives Verified 04/23/25 18:30 codeine (CODEINE) AdvReac Mild Vomiting Verified 04/23/25 18:30 morphine (MORPHINE) AdvReac Mild Chest Pain Verified 04/23/25 18:30 Discharge Plan Disposition Patient Disposition: Home, Self-Care Condition: Fair Follow up Plan Follow up with: Ange White APRN [Primary Care Provider, Medical] - Enter time for follow up Referral Note: please call for appointment Prescriptions/Medication Reconciliation: New levofloxacin 750 mg tablet 750 mg PO DAILY 9 Days Qty: 9 0RF Continued losartan 50 mg tablet 50 mg PO DAILY Patient Comments: TAKE 1 TABLET BY MOUTH ONCE DAILY atenolol 25 mg tablet 25 mg PO DAILY Patient Comments: TAKE 1 TABLET BY MOUTH ONCE DAILY Rx Instructions: Patient states she does not take this every day atorvastatin 40 mg Tablet 40 mg PO HS estradiol 0.5 mg tablet 0.5 mg PO DAILY Patient Comments: TAKE 1 TABLET BY MOUTH ONCE DAILY Problem Reconciliation Problems Reviewed?: Yes Patient Discharge Instructions Stand Alone Forms: [facility] Work Release Patient Instructions: DI for Kidney Infection, Stop Light Infection Print Language: Cuban Providers Primary Care Provider: Ange White Admit Provider: Cade Renee Attending Provider: Cade Renee
--- NOTE | 2025-04-28 10:32 | SW/DCPLANNER ---
Phoned patient x2. Left message with name and call back number. Nia Fritz
== END 2025-04-25 13:50 | disposition home or self-care (01) ==
LOC: ER 23:18 → 2ND 04-25 00:43
PROVIDERS: Emergency Medicine; Nurse Practitioner; Nurse Practitioner Acute Care; Admitting Provider Student in an Organized Health Care Education/Training Program; Emergency Provider Emergency Medicine; PCP Nurse Practitioner Family; Visit Provider Student in an Organized Health Care Education/Training Program
DX: N12 Tubulo-interstitial nephritis, not specified as acute or chronic (principal); A41.9 Sepsis, unspecified organism; E78.5 Hyperlipidemia, unspecified; I10 Essential (primary) hypertension; N39.0 Urinary tract infection, site not specified; G43.909 Migraine, unspecified, not intractable, without status migrainosus; F17.210 Nicotine dependence, cigarettes, uncomplicated; Z85.828 Personal history of other malignant neoplasm of skin; Z86.73 Personal history of transient ischemic attack (TIA), and cerebral infarction without residual deficits; Z88.5 Allergy status to narcotic agent; Z88.8 Allergy status to other drugs, medicaments and biological substances; Z79.899 Other long term (current) drug therapy
CPT/HCPCS: 36415; 74177; 80048; 80053; 81001; 83735; 85025; 86803; 87040; 87389; 96374; 96375; 96376; 99285; G0378; J0131; J0696; J1885; J2543; J7030; Q9967

== ENCOUNTER 2025-05-13 05:02 | Emergency (ER) | payer SELFPAY ==
--- OUTSIDE RECORDS SUMMARY | 2024-09-23 05:45 | XMS_ITS ---
Author Organization [facility] Address [address] [facility] [address] [place], [place] [id number] Care Team Providers Care Special Needs Librarian Name Role Phone Sil Alejandro Primary Care Provider [phone] ChristopherMakenzieElena Unavailable [phone] Allergies Allergen (clinical drug ingredient) Drug/Non Drug [...] 3.2 Performing Lab: Notes/Report: Test performed by [facility] [employer] [address] [place] [address] , [place] [address] Miki Fong MD, Company Laborer CLIA: [id number] Sodium 143 135-145 mmol/L Potassium 3.2 3.5-5.3 [...] 148 Performing Lab: Notes/Report: Test performed by [facility] [address] [place] [address] , [address], [place] [address] Miki Fong MD, Company Laborer CLIA: [id number] Cholesterol 238 <200 mg/dL Triglycerides 125 <150 [...] Interpretation:Normal Performing Lab: Notes/Report: Test performed by [facility] [address] , [address], [place] [address] Miki Fong MD, Company Laborer CLIA: [id number] TSH 1.47 0.43-5.25 mU/L Mammogram Reviewed date:11/04/2024 [address] [place] [id number] 09/23/2024 Elena White URI (upper respirato ry [...] * JEAN TINSLEYDOB: [birth year] (55 yo F)Acc No.[id number]:09/23/2024 Progress Notes Patient: JEAN FALK Provider: IVON Martines :1970 A ge:54 Y S ex:Female Date:09/23/2024 Address:[address] [place] [address] Pcp:Sil Alejandro Subjective: * Chief Complaints: * [...] ER and had a CT scan 05-07-10, [facility] ER- Headache 03/16/2011, [facility] ER- Headache 04/24/2011, [facility] Er--blood clot 06-16-11, [facility] ER-fell down steps 1.1.12, [facility] ER- Headache and numbness 09-15-12, [facility] ER-overdose 12/31/13, [facility] chest pain - to 03-16-14, [facility] ER- spained ankle 05-17-2015, [facility] ER-back pain after cough 05/28/15, [facility] ER - Ear Infection 02/06/16, [facility] ER - Short of breath 10/09/18, [facility] ER - Abdominal Pain 11/11/20. * Family [...] 09/26/2024 12:06:07 PM > no answer when phonedHlocoElena 09/29/2024 8:50:12 AM > , See encounter [...] Cesar 09/23/2024 10:49:59 AM > faxed to [facility] Elena Miller 10/17/2024 9:00:00 AM > please [...] AM > will not have decision until 10/08/2024TaylorDanita 10/08/2024 8:38:30 AM > faxed addt paperwork to Niru MELANIE with pack historyTaylor,Danita 10/10/2024 10:05:38 AM > auth denied; sent TE to Marci White * Procedure Codes: 9 [address] [place], [address] CBC WITH AUTO DIFF, 44688 VENIPUNCT, ROUTINE*, 79086 CAPILLARY BLOOD DRAW, 94158 GLYCATED HEMOGLOBIN TEST, Modifiers: QW * Follow Up: w ill notify of test results * Images: Billing Information: * Visit Code: 89728 Office Visit, Est Pt., Level 4. * Procedure Codes: [address] [place]. [address] CBC WITH AUTO DIFF. 32911 VENIPUNCT, ROUTINE*. 55330 CAPILLARY BLOOD DRAW. 17121 GLYCATED HEMOGLOBIN TEST. Modifiers: QW * Electronic signature of Rocio White APRN on 05/13/2025 at 05:09 AM EDT Sign off status: Pending * Provider: IVON Martines Date: 11/23/2023 Generated for Jacky solares/Marisela/eTransmitting on: 0 05/13/2025 05:09 AM EDT History and Physical Notes * [...]
--- OUTSIDE RECORDS SUMMARY | 2024-12-02 06:45 | XMS_ITS ---
Author Organization [facility] Address [address] [place] [id number] Care Team Providers Care Fill Manager Name Role Phone Sil Alejandro Primary Care Provider [phone] Elena White Unavailable [phone] Allergies Allergen (clinical drug ingredient) Drug/Non Drug [...] 12/02/2024 Encounters Encounter Location Date Provider Diagnosis [facility] [address] [facility] [address] [place], [place] [id number] 12/02/2024 Elena White Back pain of lumbar [...] * JEAN TINSLEYDOB: [birth year] (55 yo F)Acc No.[id number]:12/02/2024 Progress Notes Patient: JEAN FALK Provider: IVON Martines :1970 A ge:54 Y S ex:Female Date:12/02/2024 Address:[address] [place] [address] Pcp:Sil Alejandro Subjective: * Chief Complaints: * [...] 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 * Hospital[facility]/Major Diagno stic [facility]10, [facility] ER- Headache 03/16/2011, [facility] ER- Headache 04/24/2011, [facility] Er--blood clot 06-16-11, [facility] ER-fell down steps 1.1.12, [facility] ER- Headache and numbness 09-15-12, [facility] ER-overdose 12/31/13, [facility] chest pain - to 03-16-14, [facility] ER- spained ankle 05-17-2015, [facility] ER-back pain after cough 05/28/15, [facility] ER - Ear Infection 02/06/16, [facility] ER - Short of breath 10/09/18, [facility] ER - Abdominal Pain 11/11/20. * [...] * Procedure Codes: 9 [address] [place], [address] CAPILLARY BLOOD DRAW, 18046 CBC WITH AUTO DIFF * Follow Up: p rn * Images: Billing Information: * Visit Code: 64911 Office Visit, Est Pt., Level 4. * Procedure Codes: [address] [place]. [address] CAPILLARY BLOOD DRAW. 84063 CBC WITH AUTO DIFF. * Electronic signature of Rocio White , HOLA on 05/13/2025 at 05:09 AM EDT Sign off status: Pending * Provider: IVON Martines Date: 0 12/02/2024 Generated for Jacky solares/Marisela/Vicente on: 0 05/13/2025 05:09 AM EDT History and Physical Notes * HPI (History of Present Illness) Category Sub-Category Detail Notes Category Not es ENT/respiratory sore throat Pt complains of a cough and congestion in her chest. Pt sts her symptoms started Sunday morning. 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
--- OUTSIDE RECORDS SUMMARY | 2025-05-13 05:09 | XMS_ITS | Encounter Summary ---
Author Organization [employer] ([place], [place], [place], [place]) Address [address] [place] [address] Care Team Providers Care Watch Engineer Name Role Phone Unavailable Primary Care Provider Unavailabl e Encounter Details Date Type Department Care Team (Late st Contact Info) Description 10/23/2019 Transcribed Document [facility] [place] Medicine [facility] [place] [address] ProviderBrianda MD [address], [place] [address] Social History Tobacco Use Types Packs/Day Years [...] - Historical ProviderMD - 10/23/2019 9:15 AM WRITER EDITOR UM Authorization Entered On: 10/23/2019 9:15 EST Performed On: 10/23/2019 9:15 EST by MIN MCMAHON Rn-Utilization Review Primary Insurance Authorization Authorization and Policy Numbers : Insurance 1 Health Plan: [facility] Policy Number: [id number] Authorization Number: Insurance Primary Name : [facility] Policy Number: [id number] Historical Authorization Comments-Primary : No Authorization Comments Found MIN MCMAHON Rn-Utilization Review - 10/23/2019 9:15 EST Electronically signed by Krishan [facility] Conversion Regional Operations Manager Cerner at 02/21/2023 9:30 PM CDT documented in this encounter Plan of Treatment Not on file documented as of this encounter Visit Diagnoses Not on filedocumented in this encounter
--- OUTSIDE RECORDS SUMMARY | 2025-05-13 05:09 | XMS_ITS | Encounter Summary ---
Author Organization [facility] ([place], [place], [place], [place]) Address [address] [place] [address] Care Team Providers Care Capsule Machine Operator Name Role Phone Unavailable Primary Care Provider Unavailabl e Encounter Details Date Type Department Care Team (Late st Contact Info) Description 10/23/2019 Transcribed Document [facility] [place] Family Medicine [facility] [place] [address] ProviderBrianda MD [address] [place] [address] Social History Tobacco Use Types [...] - Historical ProviderMD - 10/23/2019 2:25 PM SENIOR LOAN OFFICER Patient: JEAN TINSLEY Age: 49 Years Sex: [...] Daily dihydroergotamine 4 mg/mL nasal spray 1 [place], PRN, Nasal, Q15Min hydroCHLOROthiazide 12.5 mg oral tablet 12.5 mg = 1 Tab, Oral, Daily hydrOXYzine hydrochloride 25 mg oral tablet 25 mg = 1 Tab, PRN, Oral, QID [place] 7.5 mg-325 mg oral tablet 1 Tab, [...]
--- OUTSIDE RECORDS SUMMARY | 2025-05-13 05:09 | XMS_ITS | Encounter Summary ---
Author Organization [employer] ([place], [place], [place], [place]) Address [address] [place] [address] Care Team Providers Care Rf Manager Name Role Phone Unavailable Primary Care Provider Unavailabl e Encounter Details Date Type Department Care Team (Late st Contact Info) Description 10/23/2019 Transcribed Document [facility] [place] [address] [place] [address] ProviderBrianda MD [address] [place] [address] Social History Tobacco Use Types [...] - Brianda ProviderMD - 10/23/2019 11:58 AM MASTER AUTOMOTIVE GLASS TECHNICIAN Stroke/Warfarin Instructions Entered On: 10/23/2019 11:58 [...] Sudden dizziness or trouble with gait, Call 9-: EMS activation is crucial My LDL Level: : LDL Level No qualifying data available. Ricardo Tran RN - 10/23/2019 11:58 EST documented in this encounter Plan of Treatment Not on file documented as of this encounter Visit Diagnoses Not on filedocumented in this encounter
--- OUTSIDE RECORDS SUMMARY | 2025-05-13 05:09 | XMS_ITS | Encounter Summary ---
Author Organization [employer] ([place], [place], [place], [place]) Address [address] [place] [address] Care Team Providers Care Meat Grading Machine Operator Name Role Phone Unavailable Primary Care Provider Unavailabl e Encounter Details Date Type Department Care Team (Late st Contact Info) Description 10/22/2019 Transcribed Document [facility] [place] Family [place] [facility] [place] [address] ProviderBrianda MD [address] [place] [address] Social History Tobacco Use Types [...] - Brianda ProviderMD - 10/22/2019 2:33 PM FREIGHT CHECKER Patient: JEAN TINSLEY Age: 49 years Sex: Female : 1970 Associated Diagnoses: None Author: BREE LEMUS MD VASCULAR SURGERY OPERATIVE REPORT DATE OF PROCEDURE: October 22, 2019 PRE-OP DIAGNOSIS: Symptomatic right internal carotid artery stenosis POST-OP DIAGNOSIS: Symptomatic right internal carotid artery stenosis PROCEDURE: 1. Right carotid endarterectomy with bovine patch angioplasty 2. Completion intraoperative duplex SURGEON: Dr. Bree Lemus M.D. LAUNDRY SUPERVISOR: Erika Mejia PA-C ANESTHESIA: Gen. anesthesia EBL: [...]
--- OUTSIDE RECORDS SUMMARY | 2025-05-13 05:09 | XMS_ITS | Encounter Summary ---
Author Organization [employer] ([place], [place], [place], [place]) Address [address] [place] [address] Care Team Providers Care Director Project Management Name Role Phone Unavailable Primary Care Provider Unavailabl e Encounter Details Date Type Department Care Team (Late st Contact Info) Description 10/23/2019 Transcribed Document [facility] [place] Family Medicine [address] [place] [address] ProviderBrianda MD [address] [place] [address] Social History Tobacco Use Types [...] - Historical ProviderMD - 10/23/2019 5:00 AM NEEDLE LEADER Chart Check - Review Order Profile Entered On: 10/23/2019 6:44 EST Performed On: 10/23/2019 5:00 EST by SUJEY COREA RN Chart Check Powerplans Initiated/Discontinued as Appropriate : Yes All Active Orders Reviewed : Yes SUJEY COREA RN - 10/23/2019 6:43 EST Electronically signed by Shira Nickerson Conversion Systems Architecture Analyst Cerner at 02/21/2023 9:29 PM CDT documented in this encounter Plan of Treatment Not on file documented as of this encounter Visit Diagnoses Not on filedocumented in this encounter
--- OUTSIDE RECORDS SUMMARY | 2025-05-13 05:09 | XMS_ITS | Encounter Summary ---
Author Organization [employer] ([place], [place], [place], [place]) Address [address] [place] [address] Care Team Providers Care Auto Body Repairer Name Role Phone Unavailable Primary Care Provider Unavailabl e Encounter Details Date Type Department Care Team (Late st Contact Info) Description 10/23/2019 Transcribed Document [facility] [place] [facility] [place] [address] ProviderBrianda MD [address] [place] [address] Social History Tobacco Use Types [...] - Historical ProviderMD - 10/23/2019 9:20 AM BEATER OPERATOR Patient: JEAN BADILLO Age: 49 Years Sex: [...] Daily dihydroergotamine 4 mg/mL nasal spray, 1 [place], Nasal, Q15Min, PRN hydroCHLOROthiazide 12.5 mg oral tablet, 12.5 mg= 1 Tab, Oral, Daily hydrOXYzine hydrochloride 25 mg oral tablet, 25 mg= 1 Tab, Oral, QID, PRN [place] 7.5 mg-325 mg oral tablet, 1 Tab, [...] Level: 8.3 mg/dL Low Electronically signed by Krishan, [facility] Conversion Punch Card Operator Cerner at 02/21/2023 9:35 PM CDT documented in this encounter Plan of Treatment Not on file documented as of this encounter Visit Diagnoses Not on filedocumented in this encounter
--- OUTSIDE RECORDS SUMMARY | 2025-05-13 05:09 | XMS_ITS | Encounter Summary ---
Author Organization [employer] ([place], [place], [place], [place]) Address [address] [place] [address] Care Team Providers Care Occupational Ther Name Role Phone Unavailable Primary Care Provider Unavailabl e Encounter Details Date Type Department Care Team (Late st Contact Info) Description 10/23/2019 Transcribed Document [facility] [place] [facility] [place] [address] ProviderBrianda MD [address] [place] [address] Social History Tobacco Use Types Packs/Day Years Used Date Smoking Tobacco: Never Assessed Comments Unknown Sex and Gender Information Value Date Recorded Sex Assigned at Female 05/02/2022 8:38 PM CDT Legal Sex Female 8:38 PM CDT Gender Identity Female 05/02/2022 8:38 PM CDT Sexual Orientation Not on file documented as of this encounter Miscellaneous Notes * Cerner Conversion Note - Brianda Hoskins MD - 10/23/2019 12:38 PM GENERATOR MAN Nursing Discharge Summary Entered On: 10/23/2019 12:39 [...] 10/23/2019 12:38 EST Electronically signed by Krishan [facility] Conversion Endodontics Dentist Cerner at 02/21/2023 9:37 PM CDT documented in this encounter Plan of Treatment Not on file documented as of this encounter Visit Diagnoses Not on filedocumented in this encounter
--- OUTSIDE RECORDS SUMMARY | 2025-05-13 05:09 | XMS_ITS | Clinical Summary ---
Author Organization [employer] ([place], [place], [place], [place]) Address [address] [place] [address] Care Team Providers Care Energy Efficiency Engineer Name Role Phone Unavailable Primary Care [...]
--- OUTSIDE RECORDS SUMMARY | 2025-05-13 05:09 | XMS_ITS | Encounter Summary ---
Author Organization [employer] ([place], [place], [place], [place]) Address [address] [place] [address] Care Team Providers Care White Sugar Pan Tank Operator Name Role Phone Unavailable Primary Care Provider Unavailabl e Encounter Details Date Type Department Care Team (Late st Contact Info) Description 10/20/2019 Transcribed Document [facility] [place] Family Medicine [facility] [place] [address] ProviderBrianda MD [address] [place] [address] Social History Tobacco Use Types [...] Cerner Conversion Note - Brianda ProviderMD - 10/20/2019 1:15 PM INSTITUTION LIBRARIAN Education-Smoking Cessation Entered On: 10/23/2019 4:28 EST [...] Tobacco Cues : Verbalizes understanding Activities to [place] With Smoking Urges : Verbalizes understanding Basic [...]
--- OUTSIDE RECORDS SUMMARY | 2025-05-13 05:09 | XMS_ITS | Encounter Summary ---
Author Organization [employer] ([place], [place], [place], [place]) Address [address] [place] [address] Care Team Providers Care Fireman Helper Name Role Phone Unavailable Primary Care Provider Unavailabl e Encounter Details Date Type Department Care Team (Late st Contact Info) Description 10/23/2019 Transcribed Document [facility] [place] [facility] [place] [address] ProviderBrianda MD [address] [place] [address] Social History Tobacco Use Types [...] - Historical ProviderMD - 10/23/2019 9:38 AM SEED CLEANER OPERATOR UM Authorization Entered On: 10/23/2019 9:39 EST Performed On: 10/23/2019 9:38 EST by MIN MCMAHON Rn-Utilization Review Primary Insurance Authorization Authorization and Policy Numbers : Insurance 1 Health Plan: [facility] Policy Number: [id number] Authorization Number: Insurance Primary Name : [facility] Policy Number: [id number] Authorization Status-Primary : Awaiting callback Authorized Service Begin Date-Primary : 10/22/2019 EST Authorization Comments-Primary : Inpt Procedure Precert approved for [id number]; submitted clinicals for Inpt admission auth. Historical Authorization Comments-Primary : No Authorization Comments Found MIN MCMAHON Rn-Utilization Review - 10/23/2019 9:38 EST Electronically signed by Krishan, [facility] Conversion Regulator Operator Cerner at 02/21/2023 9:31 PM CDT documented in this encounter Plan of Treatment Not on file documented as of this encounter Visit Diagnoses Not on filedocumented in this encounter
--- OUTSIDE RECORDS SUMMARY | 2025-05-13 05:09 | XMS_ITS | Encounter Summary ---
Author Organization [employer] ([place], [place], [place], [place]) Address [address] [place] [address] Care Team Providers Care Small Lot Operator Name Role Phone Unavailable Primary Care Provider Unavailabl e Encounter Details Date Type Department Care Team (Late st Contact Info) Description 10/23/2019 Transcribed Document [facility] [place] Medicine [facility] [place] [address] ProviderBrianda MD [address] [place] [address] Social History Tobacco Use Types [...] - Historical ProviderMD - 10/23/2019 2:00 AM BATTERY TESTER Ink Technician Details Entered On: 10/23/2019 4:29 EST Performed [...]
--- OUTSIDE RECORDS SUMMARY | 2025-05-13 05:09 | XMS_ITS | Referral Summary ---
Author Organization [employer] ([place], [place], [place], [place]) Address [address] [place] [address] Care Team Providers Care Senior Project Architect Name Role Phone Unavailable Primary Care [...]
--- OUTSIDE RECORDS SUMMARY | 2025-05-13 05:09 | XMS_ITS | Encounter Summary ---
Author Organization [employer] ([place], [place], [place], [place]) Address [address] [place] [address] Care Team Providers Care Industrial Diamond Polisher Name Role Phone Unavailable Primary Care Provider Unavailabl e Encounter Details Date Type Department Care Team (Late st Contact Info) Description 10/23/2019 Transcribed Document [facility] [place] [facility] [place] [address] ProviderBrianda MD [address] [place] [address] Social History Tobacco Use Types [...] Conversion Note - Brianda ProviderMD - 10/23/2019 12:43 PM ELECTRICAL ENGINEER UM Authorization Entered On: 10/23/2019 12:43 EST Performed On: 10/23/2019 12:43 EST by Nasreen Mathew, Pipe Liner Primary Insurance Authorization Authorization and Policy Numbers : Insurance 1 Health Plan: [facility] Policy Number: [id number] Authorization Number: Insurance Primary Name : [facility] Policy Number: [id number] Authorization Status-Primary : Awaiting callback Auth/Referral Contact Name-Primary : DC Authorized Service Begin Date-Primary : 10/22/2019 EST Authorization Comments-Primary : Discharge date and summary faxed. Historical Authorization Comments-Primary : Comment 1: Inpt Procedure Precert approved for [id number]; submitted clinicals for Inpt admission auth. (MIN MCMAHON, Rn-Utilization Review 10/23/2019 09:38) Nasreen Mathew, Pipe Liner - 10/23/2019 12:43 EST Electronically signed by [facility] Conversion Senior Geotechnical Engineer Cerner at 02/21/2023 9:43 PM CDT documented in this encounter Plan of Treatment Not on file documented as of this encounter Visit Diagnoses Not on filedocumented in this encounter
--- OUTSIDE RECORDS SUMMARY | 2025-05-13 05:09 | XMS_ITS | Encounter Summary ---
Author Organization [employer] ([place], [place], [place], [place]) Address [address] [place] [address] Care Team Providers Care Pants Presser Name Role Phone Unavailable Primary Care Provider Unavailabl e Encounter Details Date Type Department Care Team (Late st Contact Info) Description 11/02/2019 Transcribed Document [facility] [place] [address] ProviderBrianda MD [address] [place] [address] Social History Tobacco Use Types [...] - Historical ProviderMD - 11/02/2019 5:23 PM WET WASH ASSEMBLER HISTORY AND PHYSICAL UPDATE Update Required: The [...] was completed are indicated below: Significant Changes: Electronically signed by Interface, Sjh Conversion Explosive Ordnance Technician Cerner at 02/21/2023 9:24 PM CDT documented in this encounter Plan of Treatment Not on file documented as of this encounter Visit Diagnoses Not on filedocumented in this encounter
--- OUTSIDE RECORDS SUMMARY | 2025-05-13 05:09 | XMS_ITS | Encounter Summary ---
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 Use in Last 12 Months: No. (Last Updated: 10/20/2019 13:11:36 EST by GLADYS OGDEN, RN) Substance Abuse: Drug Use Hx: No. Use in Last 12 Months: No. 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 Fishing : Yes Support Person/Pt Rep Name : Chiqui Coronado Support Person/Pt Rep Contact Information : Want Family/Rep/Phys Notified of Admit : No Emergency Contact #1 : Chiqui Palma Emergency Contact #1 Emergency Contact #1 Relationship : daughter Emergency Contact #2 : n Emergency Contact #2 Phone Number : n Emergency Contact #2 Relationship : n Information Obtained From : Patient Primary Language : [place] Preferred Communication Mode : Verbal Communication Barrier [...] 10/20/2019 13:04 EST Electronically signed by Krishan [facility] Conversion Cushion Stuffer Cerner at 02/21/2023 9:28 PM CDT documented in this encounter Plan of Treatment Not on file documented as of this encounter Visit Diagnoses Not on filedocumented in this encounter
--- OUTSIDE RECORDS SUMMARY | 2025-05-13 05:09 | XMS_ITS | Encounter Summary ---
Author Organization [employer] ([place], [place], [place], [place]) Address [address] [place] [address] Care Team Providers Care Plant Taxonomist Name Role Phone Unavailable Primary Care Provider Unavailabl e Encounter Details Date Type Department Care Team (Late st Contact Info) Description 10/23/2019 Transcribed Document [facility] [place] [facility] [place] [address] ProviderBrianda MD [address] [place] [address] Social History Tobacco Use Types [...] - Brianda ProviderMD - 10/23/2019 12:10 PM ACUTE CARE OCCUPATIONAL THERAPIST [facility] [place] [address] JEAN BADILLO :1970 Visit Time:10/22/2019 Your Visit Summary Your [...] EST Where: [address] [place] [address]- Business (1) Follow Up with IAM Bocanegra When Within 2 to 3 days Comments Call for follow up appointment Where: [place] [phone] Medications What How Much When Instructions Next Dose atenolol (atenolol 25 mg oral tablet) 1 Tablet(s) Oral Every Day atorvastatin (atorvastatin 20 mg oral tablet) 1 Tablet(s) Oral At Bedtime tonight clopidogrel (clopidogrel 75 mg oral tablet) 1 Tablet(s) Oral Every Day conjugated estrogens (Premarin 0.45 mg oral tablet) 1 Tablet(s) Oral Every Day dihydroergotamine (dihydroergotamine 4 mg/ mL nasal spray) 1 [place]field(s) Nasal Interval Every 15 Minutes as needed [...] Follow these instructions at home: ??? Take fbae-har-kyqzixg and prescription medicines only as told by [...] warning stroke (transient ischemic attack). ??? Take knoa-tdk-ssizpkc and prescription medicines only as told by your doctor. ??? Keep all follow-up visits as told by your doctor. This is important. This information is not intended to replace advice given to you by your health care provider. Make sure you discuss any questions you have with your health care provider. Document Released: 10/08/2013 Document Revised: 01/18/2018 Document Reviewed: 04/22/2014 ElseFOUNDD Interactive Patient Education ?? 2019 ElseFOUNDD Inc. Carotid Endarterectomy, Care After This sheet [...] and water are not available, use hand blemish remover. ? Change your dressing as told by [...] you can take showers. Medicines ??? Take vtry-zek-gfhafoa and prescription medicines only as told by [...] 05/11/2006 Document Revised: 09/10/2017 Document Reviewed: 09/10/2017 ElseFOUNDD Interactive Patient Education ?? 2019 [employer] Inc. Emergency Awareness and Preventative Care STROKE [...] Assistance with quitting is available by contacting 7-546-AZCINOW. This is a free resource providing counseling, support, and referral. Or you may contact your personal physician. [place] [facility]: The National Suicide Prevention Lifeline is a [...] range between ( 0.0 and 7.0 ) [place] #: 0.41 K/uL -- Normal range between ( 0.16 and 1.00 ) Eos #: 0.27 x10(3)/uL -- Normal range between ( 0.00 and 0.80 ) [place] %: 3.9 % -- Normal range between [...] between ( 20.0 and 40.0 ) Patient Name:JEAN BADILLO I have received and understand this information and was given the opportunity to ask questions. Patient/Process Lead Name: Patient/Process Lead Signature: Relationship to Patient: Clinician/Hospital Process Lead Signature: Date: Electronically signed by Krishan, [facility] Conversion Sales Enablement Consultant Marian at 02/21/2023 9:27 PM CDT documented in this encounter Plan of Treatment Not on file documented as of this encounter Visit Diagnoses Not on filedocumented in this encounter
--- OUTSIDE RECORDS SUMMARY | 2025-05-13 05:09 | XMS_ITS | Encounter Summary ---
Author Organization [employer] ([place], [place], [place], [place]) Address [address] [place] [address] Care Team Providers Care Cheesemaker Helper Name Role Phone Unavailable Primary Care Provider Unavailabl e Encounter Details Date Type Department Care Team (Late st Contact Info) Description 10/23/2019 Transcribed Document [facility] [place] [facility] [address] ProviderBrianda MD [address] [place] [address] Social History Tobacco Use Types [...] - Historical ProviderMD - 10/23/2019 5:05 AM HEAD CHOPPER Education-Wound Care Entered On: 10/23/2019 6:43 EST [...]
--- OUTSIDE RECORDS SUMMARY | 2025-05-13 05:09 | XMS_ITS | Encounter Summary ---
Author Organization [employer] ([place], [place], [place], [place]) Address [address] [place] [address] Care Team Providers Care Raw Products Director Name Role Phone Unavailable Primary Care Provider Unavailabl e Encounter Details Date Type Department Care Team (Late st Contact Info) Description 10/23/2019 Transcribed Document [facility] [place] [facility] [place] [address] ProviderBrianda MD [address] [place] [address] Social History Tobacco Use Types [...] Conversion Note - Brianda ProviderMD - 10/23/2019 9:48 AM MAINTENANCE ASSOCIATE Initial Discharge Planning Entered On: 10/23/2019 9:52 EST Performed On: 10/23/2019 9:48 EST by BRENNAN DOVE Rn-Winemaker Initial Assessment I Previously Documented Living Environment : No qualifying data available. BRENNAN DOVE Rn-Winemaker - 10/23/2019 13:34 EST Living Situation : [...] Listed? : Yes Medical Durable Power of Riding Double Name : None Legal Guardian : No Is Guardianship Needed : No BRENNAN DOVE Rn-Winemaker - 10/23/2019 9:48 EST Initial Assessment II Sensory and Motor Deficits : None Current Home Treatments and Equipment : None BRENNAN DOVE Rn-Winemaker - 10/23/2019 9:48 EST Discharge Needs I Anticipated Discharge Date : 10/23/2019 EST Anticipated Discharge To, CM : Home with family care Current Home Treatment/Equipment : Current Home Treatment/Equipment No qualifying data available. Post Acute/Home Treatments : None Documentation Status Complete : Yes BRENNAN DOVE Rn-Winemaker - 10/23/2019 9:48 EST Discharge Needs II Professional Skilled Services : Professional Skilled Services No qualifying data available. Needs Assistance with Transportation : No Discharge Options Discussed with Patient : Discharge transportation, DME, Home Health BRENNAN DOVE Rn-Winemaker - 10/23/2019 9:48 EST Narrative Note Narrative [...] to appt with Vascular surgeon. BRENNAN DOVE Rn-Winemaker - 10/23/2019 13:34 EST documented in this encounter Plan of Treatment Not on file documented as of this encounter Visit Diagnoses Not on filedocumented in this encounter
--- OUTSIDE RECORDS SUMMARY | 2025-05-13 05:10 | XMS_ITS | Encounter Summary ---
Author Organization [employer] ([place], [place], [place], [place]) Address [address] [place] [address] Care Team Providers Care Crisis Mental Health Therapist Name Role Phone Unavailable Primary Care Provider Unavailabl e Encounter Details Date Type Department Care Team (Late st Contact Info) Description 10/22/2019 Transcribed Document [facility] [place] [facility] [place] [address] ProviderBrianda MD [address] [place] [address] Social History Tobacco Use Types [...] Conversion Note - Historical ProviderMD - 10/22/2019 2:[address] Admission History, Adult Entered On: 10/22/2019 16:42 [...] 10/22/2019 16:37 EST General Info Support 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 Support Person/Pt Rep Name : Chiqui Coronado Support Person/Pt Rep Contact Information : Want Family/Rep/Phys Notified of Admit : No Emergency Contact #1 : Chiqui Palma Emergency Contact #1 Emergency Contact #1 Relationship : daughter Emergency Contact #2 : n Emergency Contact #2 Phone Number : n Emergency Contact #2 Relationship : n Information Obtained From : Patient Primary Language : Turkmen Preferred Communication Mode : Verbal Communication Barrier [...] Scale Risk Level : 25-45 Medium Risk [place] Fall Interventions : Assistive devices within reach, [...] Source : Measured Height Entry Format : Wayne Height, Feet : 0 ft(Converted to: 0 cm, 0 Inch) Height, Inches : 65 Inch(Converted to: 5 ft 5 Inch, 165.10 cm) Clinical Height : 165.1 cm Weight Source : Standing scale Weight Entry Format : Wayne Clinical Dosing Weight : 59.8 kg Weight, Pounds : 131 lb Weight, Ounces : 9 oz Body Surface Area (BSA) : 1.66 m2 Body Mass Index : 21.9 kg/m2 [place] Body Weight : 57 kg Nina Martínez [...] Nina Martínez RN - 10/22/2019 16:37 EST [place] Suicide Severity Rating Scale (C-SSRS) CSSRS Past [...] Nina Martínez RN - 10/22/2019 16:37 EST Electronically signed by Shira Nickerson Conversion Ethnographic Materials Conservator Cerner at 02/21/2023 9:24 PM CDT documented in this encounter Plan of Treatment Not on file documented as of this encounter Visit Diagnoses Not on filedocumented in this encounter
--- OUTSIDE RECORDS SUMMARY | 2025-05-13 05:10 | XMS_ITS | Encounter Summary ---
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 [address] JEAN BADILLO :1970 Visit Time:10/22/2019 Your [...] EST Where: [address] [place] [address]- Business (1) Follow Up with IAM Bocanegra When Within 2 to 3 days Comments Call for follow up appointment Where: [place] [phone] Medications What How Much When Instructions Next Dose atenolol (atenolol 25 mg oral tablet) 1 Tablet(s) Oral Every Day atorvastatin (atorvastatin 20 mg oral tablet) 1 Tablet(s) Oral At Bedtime clopidogrel (clopidogrel 75 mg oral tablet) 1 Tablet(s) Oral Every Day conjugated estrogens (Premarin 0.45 mg oral tablet) 1 Tablet(s) Oral Every Day dihydroergotamine (dihydroergotamine 4 mg/ mL nasal spray) 1 [place](s) Nasal Interval Every 15 Minutes as needed [...] Follow these instructions at home: ??? Take cwyq-gxi-uipqfxk and prescription medicines only as told by [...] warning stroke (transient ischemic attack). ??? Take lfsh-kfs-nzbzixr and prescription medicines only as told by your doctor. ??? Keep all follow-up visits as told by your doctor. This is important. This information is not intended to replace advice given to you by your health care provider. Make sure you discuss any questions you have with your health care provider. Document Released: 10/08/2013 Document Revised: 01/18/2018 Document Reviewed: 04/22/2014 Else[employer] Interactive Patient Education ?? 2019 ElseQ Care International Inc. Carotid Endarterectomy, Care After This sheet [...] and water are not available, use hand line up machine operator. ? Change your dressing as [...] you can take showers. Medicines ??? Take jjor-elk-ztmmnoc and prescription medicines only as told by [...] 09/10/2017 Elsevier Interactive Patient Education ?? 2019 [employer] Inc. Emergency Awareness and Preventative Care STROKE [...] Assistance with quitting is available by contacting 5-445-QDXSNOW. This is a free resource providing counseling, support, and referral. Or you may contact your personal physician. [place] [facility]: The National Suicide Prevention Lifeline is a [...] range between ( 0.0 and 7.0 ) [place] #: 0.41 K/uL -- Normal range between ( 0.16 and 1.00 ) Eos #: 0.27 x10(3)/uL -- Normal range between ( 0.00 and 0.80 ) [place] %: 3.9 % -- Normal range between [...] was given the opportunity to ask questions. Patient/Compound Mixer Name: Patient/Compound Mixer Signature: Relationship to Patient: Clinician/Hospital Compound Mixer Signature: Date: Electronically signed by Krishan, [facility] Conversion Business Strategy Manager Marian at 02/21/2023 9:45 PM CDT documented in this encounter Plan of Treatment Not on file documented as of this encounter Visit Diagnoses Not on filedocumented in this encounter
--- OUTSIDE RECORDS SUMMARY | 2025-05-13 05:10 | XMS_ITS | Encounter Summary ---
Author Organization [employer] ([place], [place], [place], [place]) Address [address] [place] [address] Care Team Providers Care Print Production Manager Name Role Phone Unavailable Primary Care Provider Unavailabl e Encounter Details Date Type Department Care Team (Late st Contact Info) Description 10/23/2019 Transcribed Document [facility] [place] [facility] [address] ProviderBrianda MD [address], [place] [id number] Social History Tobacco Use Types Packs/Day Years [...] - Historical ProviderMD - 10/23/2019 1:37 PM INVESTIGATOR FRAUD Final Discharge Planning Entered On: 10/23/2019 13:37 EST Performed On: 10/23/2019 13:37 EST by BRENNAN DOVE Rn-Grinder Set Up Operator Final Discharge Planning Discharge Arrangements : Patient Post-Acute Information Patient Name: JEAN BADILLO Gender: Female : [birth year] Age: 49 Years No Post-Acute Placement(s) Listed No Post-Acute Service(s) Listed No [place] Referral(s) Listed Discharge To Care Management : Home/Residential/[facility]ci or Self Care -01 BRENNAN DOVE Rn-Grinder Set Up Operator - 10/23/2019 13:37 EST Final Narrative Note Final Narrative Note : Pt d/c home with transport by her father. BRENNAN DOVE, Rn-Grinder Set Up Operator - 10/23/2019 13:37 EST documented in this encounter Plan of Treatment Not on file documented as of this encounter Visit Diagnoses Not on filedocumented in this encounter
--- OUTSIDE RECORDS SUMMARY | 2025-05-13 05:10 | XMS_ITS | Encounter Summary ---
Author Organization [employer] ([place], [place], [place], [place]) Address [address] [place] [address] Care Team Providers Care Caddymaster Name Role Phone Unavailable Primary Care Provider Unavailabl e Encounter Details Date Type Department Care Team (Late st Contact Info) Description 10/22/[address] [facility] [place] [facility] [place] [address] ProviderBrianda MD [address] [place] [address] Social History Tobacco Use Types [...] Conversion Note - Brianda Hoskins MD - 10/22/2019 11:45 AM MAINTENANCE SHOP TECHNICIAN [facility] Main OR Preop Summary Primary Physician: BREE AGEE MD Finalized Date/Time: 10/22/19 12:21:47 Pt. Name: MAHI TINSLEYE /Sex: 1970 Female Med Rec #: [id number] Physician: BREE AGEE MD Financial #: [id number] Pt. Type: P Room/Bed: / Admit/Disch: 10/17/19 12:00:00 - Institution: [facility] PreOp Case Times Entry 1 In Preop 10/22/19 09:15:00 Ready for Holding n/a Room Patient Ready for 10/22/19 10:45:00 Surgery Patient Out of Preop 10/22/19 12:20:00 Patient Out of n/a Holding Room Last Modified By: ALO CARRERA RN 10/22/19 12:21:46 Finalized By: ALO CARRERA RN Document Signatures Signed By: ALO CARRERA RN 10/22/19 12:21 Electronically signed by Krishan [facility] Conversion Senior Java Web Application Developer Cerner at 02/21/2023 9:24 PM CDT documented in this encounter Plan of Treatment Not on file documented as of this encounter Visit Diagnoses Not on filedocumented in this encounter
--- OUTSIDE RECORDS SUMMARY | 2025-05-13 05:10 | XMS_ITS | Encounter Summary ---
Author Organization [employer] ([place], [place], [place], [place]) Address [address] [place] [address] Care Team Providers Care Certified Driver Examiner Name Role Phone Unavailable Primary Care Provider Unavailabl e Encounter Details Date Type Department Care Team (Late st Contact Info) Description 10/24/2019 Transcribed Document [facility] [place] On [facility] of [facility] [place] [address] ProviderBrianda MD [address] [place] [address] Social History Tobacco Use Types [...] Cerner Conversion Note - Brianda ProviderMD - 10/24/2019 9:41 AM GAME DESIGN INSTRUCTOR UM Authorization Entered On: 10/24/2019 9:41 EST Performed On: 10/24/2019 9:41 EST by LINDA FITCH RN Primary Insurance Authorization Authorization and Policy Numbers : Insurance 1 Health Plan: [facility] Policy Number: [id number] Authorization Number: Insurance Primary Name : [facility] Policy Number: [id number] Authorization Status-Primary : Admit approved Auth/Referral Contact Name-Primary : [place] Reference Number-Primary : [id number] Number of Days Authorized-Primary : 0 Day(s) Authorized Service Begin Date-Primary : 10/22/2019 EST Authorized Service End Date-Primary : 10/22/2019 EST Authorization Comments-Primary : Per DHARA from Abby with [facility] approved IP. Historical Authorization Comments-Primary : Comment 1: Discharge date and summary faxed. (Nasreen Mathew, Room Service Supervisor 10/23/2019 12:43) Comment 2: Inpt Procedure Precert approved for [id number]; submitted clinicals for Inpt admission auth. (MIN MCMAHON Rn-Utilization Review 10/23/2019 09:38) LINDA FITCH RN - 10/24/2019 9:41 EST Electronically signed by Krishan [facility] Conversion Surgical Services Tech Cerner at 02/21/2023 9:42 PM CDT documented in this encounter Plan of Treatment Not on file documented as of this encounter Visit Diagnoses Not on filedocumented in this encounter
--- OUTSIDE RECORDS SUMMARY | 2025-05-13 05:10 | XMS_ITS | Patient Health Record ---
Author Organization [facility] Address [address] [facility] [address] [place] [phone] Care Team Providers Care International Student Counselor Name Role Phone Sil Alejandro Primary Care Provider Elena White Unavailable [phone] Allergies Allergen (clinical drug ingredient) Drug/Non Drug [...] 3.2 Performing Lab: Notes/Report: Test performed by [facility], [facility] [employer] [address] [place] [address] , [place] [address] Miki Fong MD, Respiratory Care Assistant CLIA: [id number] Sodium 143 135-145 mmol/L Potassium 3.2 3.5-5.3 [...] 148 Performing Lab: Notes/Report: Test performed by [facility], [facility] [employer] [address] [place] [address] , [address], [place] [id number] Miki Fong MD, Respiratory Care Assistant CLIA: [id number] Cholesterol 238 <200 mg/dL Triglycerides 125 <150 [...] Interpretation:Normal Performing Lab: Notes/Report: Test performed by [facility], [facility] [employer] [address] [place] [address] , [place] [address] Miki Fong MD, Respiratory Care Assistant CLIA: [id number] TSH 1.47 0.43-5.25 mU/L Mammogram Reviewed date:11/04/2024 [...] orally once a day; Duration: 90 Active Cyclobenzaprine HCl 5 MG 1 tablet at bed time as needed Orally q8h prn 12/02/2024 Active hydroCHLOROthiazide 12.5 MG 1 tablet in the morning Orally Once a day; Duration: 90 days Active Medrol 4 MG as directed orally daily; Duration: 6 days 12/02/2024 Active Losartan Potassium 50 MG 1 tablet Orally Once a day; Duration: 90 days Active Atenolol 25 MG 1 tab(s) orally once a day; Duration: 90 days Active Zithromax Z-Bubba 250 MG 2 pills first day then one daily for 4 days orally as directed; Duration: 5 days 12/02/2024 Active hydrOXYzine HCl 25 MG TAKE 1 TABLET BY MOUTH 4 TIMES DAILY NEEDED FOR ANXIETY FOR 30 DAYS; Duration: 30 Active Benzonatate 200 MG 1 capsule as needed Orally Three times a day prn 12/02/2024 Active Potassium Chloride ER 10 MEQ 1 tablet wi th food Orally Once a day; Duration: 90 day(s) 09/30/2024 Active Plavix 75 MG 1 tab(s) orally once a day; Duration: 90 days Active Dihydroergotamine Mesylate 4 MG/ML USE 1 SPRAY(S) IN THE NOSE EVERY 15 MINUTES DIRECTED; Duration: 30 Active Immunizations Vaccine Route Administration Date Status Comme nts Morphine 10mg/ml IM Intramuscular 09/03/2006 Administered Morphine 10mg/ml IM Intramuscular 10/02/2006 Administered Twinrix-Hep A and Hep B Unknown 08/05/2018 Administered Twinrix-Hep A and Hep B Unknown 12/26/2018 Administered Tetanus Tdap-Adacel (over 7yrs) IM Intramuscular 05/20/2009 Administered Tetanus Tdap-Adacel (over 7yrs) Unknown 06/30/2013 Administered Fluzone Quad (6months&older) IM Intramuscular 08/14/2015 Administered Fluzone Quad (6months&older) Unknown 08/05/2018 Administered Fluzone PF Quad (6-35 months) Unknown 08/05/2018 Administered Problems Problem Type SNOMED Code ICD Code Onset Dates Problem Status W/U Status Risk Notes Problem Essential hypertension (74303848) Essential (primary) hypertension (I10) Active confirmed Problem Sinusitis (54597859) Sinusitis (J32.9) Active confirmed Problem Hypertension (28978313) HTN (hypertension) (I10) Active confirmed Problem Vitamin D deficiency (95096634) Vitamin D deficiency (E55.9) Active confirmed Problem Sciatica (80966985) Sciatic leg pain (M54.30) Active confirmed Problem Mixed anxiety and depressive disorder (927689221) Depression with anxiety (F41.8) Active confirmed Problem Restless legs syndrome (95396781) Restless leg syndrome (G25.81) Active confirmed Problem Hot flashes (259735689) Hot flashes (N95.1) Active confirmed Problem Basal cell carcinoma of nose (847469497) Basal cell carcinoma of skin of nose (C44.311) Active confirmed Problem Mixed hyperlipidemia (882211765) Mixed hyperlipidemia (E78.2) Active confirmed Problem Chronic pain (85256263) Other chronic pain (G89.29) Active confirmed Problem Chronic migraine (639349164) Chronic migraine (G43.709) Active confirmed Problem Gastroesophageal reflux disease with esophagitis (676755489) Gastroesophageal reflux disease with esophagitis (K21.0) Active confirmed Problem Sleep disorder (51790824) Sleep disorder (G47.9) Active confirmed Problem Tobacco use (347449811) Tobacco use disorder (F17.200) Active confirmed Problem Sciatica (57283615) Back pain of lumbar region with sciatica (M54.40) Active confirmed Problem Punctate inner choroidopathy of right eye (494319297434806) 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 Vital Signs Heart Rate 63 /min 12/02/2024 Blood pressure diastolic 70 mm Hg 12/02/2024 Height 64 in 12/02/2024 Blood pressure systolic 110 mm Hg 12/02/2024 Weight 109.4 lbs 12/02/2024 BMI 18.78 kg/m2 12/02/2024 Encounters Encounter Location Date Provider Diagnosis [facility] [address] [facility] [address] [place], [place] [phone] 09/23/2024 Elena White URI (upper respirato ry [...] counseling Z71.6 and Tobacco abuse disorder Z72.0 [facility] [address] [facility] [address] [place] [phone] 12/02/2024 Elena White Back pain of lumbar region with sciatica M54.40 ; Back pain, lumbosacral M54.50 and URI (upper respiratory infection) J06.9 [facility] [address] [facility] [address] [place] [phone] 09/30/2024 Elena White [facility] [address] [facility] [address] [facility] [address] [place] [phone] 10/10/2024 Elena White Assessments Encounter Date Diagnosis [...] Insured Coverage Start Date Coverage End Date [employer] [facility] [address] [id number] JEAN TINSLEY Self - patient is the [...] ER and had a CT scan 05-07-10 [facility] ER- Headache 03/16/2011 [facility] ER- Headache 04/24/2011 [facility] Er--blood clot 06-16-11 [facility] ER-fell down steps 1.1.12 [facility] ER- Headache and numbness 09-15-12 [facility] ER-overdose 12/31/13 [facility] chest pain 03-15 to 03-16-14 [facility] ER- spained ankle 05-17-2015 [facility] ER-back pain after cough 05/28/15 [facility] ER - Ear Infection 02/06/16 [facility] ER - Short of breath 10/09/18 [facility] ER - Abdominal Pain 11/11/20
--- OUTSIDE RECORDS SUMMARY | 2025-05-13 05:10 | XMS_ITS | Encounter Summary ---
Author Organization [employer] ([place], [place], [place], [place]) Address [address] [place] [address] Care Team Providers Care Truck Rental Service Attendant Name Role Phone Unavailable Primary Care Provider Unavailabl e Encounter Details Date Type Department Care Team (Late st Contact Info) Description 10/23/2019 Transcribed Document [facility] [place] Family Medicine [address] [place] [address] ProviderBrianda MD [address] [place] [address] Social History Tobacco Use Types [...] - Brianda ProviderMD - 10/23/2019 11:57 AM INDUSTRIAL HYGIENIST Patient Education Materials Follows: Carotid Artery Disease [...] Follow these instructions at home: ??? Take tdtq-bez-bbuyfes and prescription medicines only as told by [...] warning stroke (transient ischemic attack). ??? Take qana-poh-bbfdpug and prescription medicines only as told by your doctor. ??? Keep all follow-up visits as told by your doctor. This is important. This information is not intended to replace advice given to you by your health care provider. Make sure you discuss any questions you have with your health care provider. Document Released: 10/08/2013 Document Revised: 01/18/2018 Document Reviewed: 04/22/2014 [employer] Patient Education ? 2019 [employer] Surgery Carotid Endarterectomy, Care After This [...] and water are not available, use hand proposal consultant. ? Change your dressing as told by [...] you can take showers. Medicines ??? Take ykca-bnl-lrztqaa and prescription medicines only as told by [...] 09/10/2017 [employer] Interactive Patient Education ? 2019 [employer] documented in this encounter Plan of Treatment Not on file documented as of this encounter Visit Diagnoses Not on filedocumented in this encounter
--- OUTSIDE RECORDS SUMMARY | 2025-05-13 05:10 | XMS_ITS | Encounter Summary ---
Author Organization [employer] ([place], [place], [place], [place]) Address [address] [place] [address] Care Team Providers Care Aerial Planting And Cultivation Manager Name Role Phone Unavailable Primary Care Provider Unavailabl e Encounter Details Date Type Department Care Team (Late st Contact Info) Description 10/22/2019 Transcribed Document [facility] [place] Family Medicine [facility] [place] [address] ProviderBrianda MD [address] [place] [address] Social History Tobacco Use Types [...] Conversion Note - Brianda ProviderMD - 10/22/2019 2:29 PM HOUSE COORDINATOR Pain Assessment Entered On: 10/23/2019 3:43 EST [...]
--- OUTSIDE RECORDS SUMMARY | 2025-05-13 05:10 | XMS_ITS | Encounter Summary ---
Author Organization [employer] ([place], [place], [place], [place]) Address [address] [place] [address] Care Team Providers Care Electronic Systems Technician Name Role Phone Unavailable Primary Care Provider Unavailabl e Encounter Details Date Type Department Care Team (Late st Contact Info) Description 10/22/2019 Transcribed Document [facility] Family Medicine [facility] [place] [address] ProviderBrianda MD [address] [place] [address] Social History Tobacco Use Types [...] - Historical ProviderMD - 10/22/2019 9:52 AM ENDODONTIC ASSISTANT Patient: JEAN BADILLO Age: 49 years Sex: Female : 1970 Associated Diagnoses: None Author: TREVOR TYSON, HEALTH PROGRAM SPECIALIST Chief Complaint R carotid stenosis Review of [...] Refill(s) dihydroergotamine 4 mg/mL nasal spray: 1 [place], Nasal, Q15Min, PRN: as needed for migraine [...] Daily dihydroergotamine 4 mg/mL nasal spray 1 [place], PRN, Nasal, Q15Min hydroCHLOROthiazide 12.5 mg, Oral, [...] list: All Problems Migraine / SNOMED CT 50734078 / Confirmed Irregular heart beat / SNOMED CT 404390648 / Confirmed High blood pressure / SNOMED CT 74674545 / Confirmed Right-sided carotid artery disease / SNOMED CT 3194274004 / Confirmed >70% blockage Deep vein thrombosis (bilateral legs) / SNOMED CT 8591308919 / Confirmed At risk for sleep apnea / IMO 22041075 / Confirmed, Active Problems (6) At risk for sleep apnea Deep vein thrombosis (bilateral legs) High blood pressure Irregular heart beat Migraine Right-sided carotid artery disease Histories Past Medical History: Resolved Peptic ulcer disease (hx of) (1469928383): Onset in 2013 at 44 years. Resolved. [...] of motion, Normal strength. Integumentary: Warm, Dry, [place]. Neurologic: Alert, Oriented. Psychiatric: Cooperative, Appropriate mood & affect. Review / Management Results review: No qualifying data available. Impression and Plan Condition: Stable. Electronically signed by Shira Nickerson Conversion Interventional Technologist Cerner at 02/21/2023 9:30 PM CDT documented in this encounter Plan of Treatment Not on file documented as of this encounter Visit Diagnoses Not on filedocumented in this encounter
--- OUTSIDE RECORDS SUMMARY | 2025-05-13 05:10 | XMS_ITS | Encounter Summary ---
Author Organization [employer] ([place], [place], [place], [place]) Address [address] [place] [address] Care Team Providers Care Entomology Teacher Name Role Phone Unavailable Primary Care Provider Unavailabl e Encounter Details Date Type Department Care Team (Late st Contact Info) Description 10/22/2019 Transcribed Document [facility] [place] Family Medicine [facility] [place] [address] ProviderBrianda MD [address] [place] [address] Social History Tobacco Use Types [...] - Brianda ProviderMD - 10/22/2019 1:01 PM HUMAN RESOURCES PROFESSIONAL [facility]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 Name: JEAN BADILLO /Sex: 1970 Female Med Rec #: [id number] Physician: BREE AGEE MD Financial #: [id number] Pt. Type: I Room/Bed: [facility]/ Admit/Disch: 10/22/19 14:28:00 - Institution: [facility] IntraOp Case Attendance Entry 1 Entry 2 Entry 3 Case Attendee BREE AGEE MD [place], Hazel, Fara Israel ST Role Performed Surgeon/Proceduralist, Feed Mill Tender, First Scrub, First First Time In 10/22/19 12:22:00 10/22/19 12:22:00 10/22/19 12:22:00 Time Out 10/22/19 14:32:00 10/22/19 14:32:00 10/22/19 14:32:00 Procedure Carotid Artery Carotid Artery Carotid Artery Endarterectomy(Right) Endarterectomy(Right) Endarterectomy(Right) Other Attendee Superficial Wound Closed By: Last Modified By: Radha Coe, Radha Erwin, Radha Erwin, MARIA C 10/22/19 14:32:52 10/22/19 14:32:52 10/22/19 14:32:52 Entry 4 Entry 5 Entry 6 Case Attendee DEE RAMESH PA VON KUSTER, SUZANNE CARTWRIGHT, PHILOMENA BORGES, FERN MANSFIELD-ANS Role Performed Physician criminal legal assistant IMPRESSION PRINTER/Nurse Internet Webmaster Anesthesiologist of Record Time In 10/22/19 12:22:00 10/22/19 12:22:00 10/22/19 12:22:00 Time Out 10/22/19 14:32:00 10/22/19 14:32:00 10/22/19 14:32:00 Procedure Carotid Artery Carotid Artery Carotid Artery Endarterectomy(Right) Endarterectomy(Right) Endarterectomy(Right) Other Attendee Superficial Wound Closed By: Last Modified By: Radha Coe, Radha Erwin, Radha Erwin, MARIA C 10/22/19 14:32:52 10/22/19 14:32:52 10/22/19 14:32:52 Entry 7 Entry 8 Case Attendee Teresa Hidalgo, KORI KRAUSE Role Performed Feed Mill Tender, First Wardrobe Coordinator Time In 10/22/19 13:30:00 10/22/19 13:51:00 Time Out 10/22/19 13:47:00 10/22/19 14:04:00 Procedure Carotid Artery Carotid Artery Endarterectomy(Right) Endarterectomy(Right) Other Attendee BREAK RELIEF Superficial Wound Closed By: Last Modified By: Radha Coe, Radha Erwin, MARIA C 10/22/19 14:32:52 10/22/19 14:32:52 [facility] IntraOp Case Attendance Audit 10/22/19 14:32:52 Sourcing Engineer: LAFAVEHM Modifier: LAFAVEHM 1 <+> Time Out [...] <*> Procedure Carotid Artery Endarterectomy(Right) 10/22/19 14:04:52 Sourcing Engineer: LAFAVEHM Modifier: LAFAVEHM 8 <+> Time Out 8 <*> Procedure Carotid Artery Endarterectomy(Right) 10/22/19 13:51:56 Sourcing Engineer: LAFAVEHM Modifier: LAFAVEHM <+> 8 Case Attendee <+> 8 Role Performed <+> 8 Time In <+> 8 Procedure 10/22/19 13:47:21 Sourcing Engineer: LAFAVEHM Modifier: LAFAVEHM 7 <+> Time Out 7 <*> Procedure Carotid Artery Endarterectomy(Right) 10/22/19 13:30:47 Sourcing Engineer: LAFAVEHM Modifier: LAFAVEHM <+> 7 Case Attendee <+> 7 Role Performed <+> 7 Time In <+> 7 Procedure <+> 7 Other Attendee 10/22/19 13:18:51 Sourcing Engineer: LAFAVEHM Modifier: LAFAVEHM 1 <*> Procedure Carotid Artery Endarterectomy(Right) 2 <+> Time In 2 <*> Procedure Carotid Artery Endarterectomy(Right) 3 <+> Time In 3 <*> Procedure Carotid Artery Endarterectomy(Right) 4 <+> Time In 4 <*> Procedure Carotid Artery Endarterectomy(Right) 5 <+> Time In 5 <*> Procedure Carotid Artery Endarterectomy(Right) 6 <+> Time In 6 <*> Procedure Carotid Artery Endarterectomy(Right) [facility] IntraOp Case Times Entry 1 Patient In Room Time 10/22/19 12:22:00 Out Room Time 10/22/19 14:32:00 Anesthesia Start Time 10/22/19 12:22:00 Stop Time 10/22/19 14:32:00 Surgery / Procedure Times Start Time 10/22/19 13:01:00 Stop Time 10/22/19 14:19:00 Last Modified By: Radha Coe RN 10/22/19 14:32:46 [facility] IntraOp Case Times Audit 10/22/19 14:32:46 Sourcing Engineer: LAFAVEHM Modifier: LAFAVEHM <+> 1 Out Room Time <+> 1 Stop Time 10/22/19 14:20:42 Sourcing Engineer: LAFAVEHM Modifier: LAFAVEHM <+> 1 Stop Time [facility] IntraOp Cautery Entry 1 ESU Identification Cautery Type Monopolar ESU ID Number [id number] ID Type Hospital Number Cautery Settings Cut Setting 30 Coag Setting 30 ESU Grounding Pad Ground Pad Type Adult Grounding Pad Site Left thigh Grounding Pad Radha Coe, MARIA C Applied By Grounding Pad Site Intact, Warm, Dry Skin Condition Before Cautery Grounding Pad Site Unchanged Skin Condition After Cautery Last Modified By: Radha Coe, MARIA C 10/22/19 13:07:29 [facility] IntraOp Communication Entry 1 Entry 2 Entry 3 Communication To Family/Significant other Family/Significant other Family/Significant other Comment Communication By Radha Coe, Radha Erwin, Radha Erwin, MARIA C Date and Time 10/22/19 13:04:00 10/22/19 13:58:00 10/22/19 14:14:00 Last Modified By: Radha Coe, Radha Erwin, Radha Erwin, MARIA C 10/22/19 13:07:40 10/22/19 14:02:26 10/22/19 14:19:23 [facility] IntraOp Communication Audit 10/22/19 14:19:23 Sourcing Engineer: [email or web address] Modifier: LAFAVEHM <+> 3 Communication By <+> 3 Date and Time <+> 3 Communication To 10/22/19 14:02:26 Sourcing Engineer: LAFAVEHM Modifier: LAFAVEHM <+> 2 Communication By <+> 2 Date and Time <+> 2 Communication To [facility] IntraOp Counts Verification Entry 1 Entry 2 [...] [place], Hazel, RN 10/22/19 13:08:03 10/22/19 14:11:31 [facility] IntraOp Counts Verification Audit 10/22/19 14:11:31 Sourcing Engineer: KAI Modifier: AALIYAHHM 2 <*> Procedure Carotid Artery Endarterectomy(Right) 2 <+> Count Performed By (Scrub) 2 <+> Count Performed By (RN) [facility] IntraOp Counts Final Entry 1 Procedure Carotid Artery Endarterectomy(Right) Final Count Info Count Type Sponge, Sharps, Miscellaneous Counts Verification Skin Closure/end of Sequence procedure Count Results Correct, surgeon notified Counts Performed By Count Performed By Fara Campos ST (Scrub) Count Performed By Radha Coe RN (RN) Last Modified By: Radha Coe RN 10/22/19 14:14:44 [facility] IntraOp Counts Final Audit 10/22/19 14:14:44 Sourcing Engineer: KAI Modifier: LAFAVEHM 1 <*> Procedure Carotid Artery Endarterectomy(Right) 1 <+> Count Performed By (Scrub) 1 <+> Count Performed By (RN) [facility] IntraOp Cultures and Spec Summary Entry 1 Cultrures and Specimens Specimen Ordered: Yes Test(s) Routine/Path-Lab Requested/Final Disposition Last Modified By: Radha Coe RN 10/22/19 13:08:30 [facility] IntraOp Departure from OR Entry 1 Integumentary Assessment Transfer/Handoff Transfer to PACU Phase I Handoff Method Bedside/Face to face, Phone call, Online nursing summary Post-op Transport Bed (including Via specialty) Patient Transport LO RUELAS SUZANNE Accompanied by FERN QUACH, DEE RAMESH PA Transfer/Handoff ICU BED REQUESTED Comments Last Modified By: Radha Coe RN 10/22/19 13:52:29 [facility] IntraOp Departure from OR Audit 10/22/19 13:52:29 Sourcing Engineer: LAFAVEHM Modifier: LAFAVEHM <+> 1 Post-op Transport Via [facility] IntraOp Dressing and Packing Entry 1 Type Dressing Location NECK (OPERATIVE SIDE) Wound Dressing Item Skin Closure Glue Applied By DEE RAMESH PA Last Modified By: Radha Coe RN 10/22/19 14:19:37 [facility] IntraOp Dressing and Packing Audit 10/22/19 14:19:37 Sourcing Engineer: KAI Modifier: LAFAVEHM 1 <*> Wound Dressing Item Steristrip, Occlusive dressing 1 <-> Other Comments coverderm [facility] IntraOp Fire Risk Assessment Entry 1 Fire [...] Modified By: Radha Coe RN 10/22/19 13:08:51 [facility] IntraOp General Case Heavy Coil Winder 1 Case Information OR OR [facility] Case Level 1 Room Verified Yes Wound Class I - Clean Specialty SN Anesthesia Anesthesia Type General ASA Class 3 Diagnosis Preop Diagnosis RIGHT CAROTID STENOSIS Postop Same As Preop No Postop Diagnosis SEE MD POST OP NOTES Last Modified By: Radha Coe RN 10/22/19 13:09:21 [facility] IntraOp Implant Log Entry 1 Type Tissue Implant (Biologic) Implant Log Implant [facility] BIOLOG[facility] Identification [id number] Description Implant Quantity 1 Implant Site RIGHT CAROTID Implant [facility] V[facility] Identification Tool Crib Clerk Name: Implant [id number] Identification Catalog Number Implant Size .8CM X 8CM Implant Expiration 04/01/25 Date Tissue Implant Graft Prep Per Yes Tool Crib Clerk Instructions: Tool Crib Clerk Yes Paperwork Completed Last Modified By: Radha Coe RN 10/22/19 13:21:16 [facility] IntraOp Intraoperative Assessment Entry 1 Valid History / Yes Physical in Chart Preoperative Yes Checklist Reviewed/Evaluated Allergies Reviewed Yes Patient is Latex No Sensitive Isolation Not applicable Precautions Noted Level of WDL Consciousness (WDL = Alert, Oriented to Person, Place, and Time) Skin Assessment No Verified Present Upon IVs Arrival to OR Last Modified By: Radha Coe RN 10/22/19 13:09:33 [facility] IntraOp Intraoperative Equipment Entry 1 Type Monitoring Equipment Equipment Jessica Suction System Intraop Monitoring Antiembolic Devices Antiembolic Devices Sequential compression device, knee high Antiembolic Device Bilateral Location Antiembolic Device [id number] ID Number Antiembolic Device SCD'S ON AND WORKING Setting PRIOR TO INDUCTION Scopes Photo/Video Documentation Last Modified By: Radha Coe RN 10/22/19 13:10:11 [facility] IntraOp Medication Admin Entry 1 Entry 2 Entry 3 Medication/Irrigant [id number] UNITS Marcaine 0.25% w/ lidocaine 1% 50ml vial 1ML/.9%NaCl 100ML epinephrine 1:200,000 - [id number] 30ml vial - [id number] Combo Med List Time Administered Route of [...] 14:07:18 Entry 4 Medication/Irrigant HEMOSTAT SURGICEL SNOW [id number] Combo Med List Time Administered Route of TOPICAL Administration Dose Dose 1 Unit of Measure pkt Volume Administered By BREE AGEE MD Procedure Irrigation Irrigant Volume In Irrigant Volume Out Last Modified By: Radha Coe RN 10/22/19 14:07:18 [facility] IntraOp Medication Admin Audit 10/22/19 14:07:18 Sourcing Engineer: LAFAVEHM Modifier: LAFAVEHM <+> 2 Medication/Irrigant <+> 2 Route of Administration <+> 2 Administered By <+> 2 Dose <+> 2 Unit of Measure <+> 3 Medication/Irrigant <+> 3 Route of Administration <+> 3 Administered By <+> 3 Dose <+> 3 Unit of Measure <+> 4 Medication/Irrigant <+> 4 Route of Administration <+> 4 Administered By <+> 4 Dose <+> 4 Unit of Measure [facility] IntraOp Patient Positioning Entry 1 Procedure Carotid [...] Modified By: Radha Coe RN 10/22/19 13:18:08 [facility] IntraOp Sign In Entry 1 Patient, Site, [...] Modified By: Radha Coe RN 10/22/19 13:18:47 [facility] IntraOp Sign Out Entry 1 RN Confirmation [...] Modified By: Radha Coe RN 10/22/19 14:32:38 [facility] IntraOp Sign Out Audit 10/22/19 14:32:38 Sourcing Engineer: LAFAVEHM Modifier: LAFAVEHM <+> 1 RN Sign Out Signature Date/Time [facility] IntraOp Skin Prep Entry 1 Procedure Carotid Artery Endarterectomy(Right) Prescribed Yes Pre-Surgical Prep Completed Prep Area CHIN THROUGH CHEST INCLUDE RIGHT SHOULDER Intraop Prep Integumentary WDL Assessment WDL Prep Agents Chloraprep Prep by Radha Coe RN Hair Removal Methods No hair removal performed Last Modified By: Radha Coe RN 10/22/19 13:19:30 [facility] IntraOp Surgical Procedures Entry 1 Procedure Carotid Artery Endarterectomy Modifiers Right Additional (RT CAROTID Procedure ENDARTERECTOMY WITH Description INTRA OP ULTRA SOUND Primary Procedure Yes Primary Surgeon BREE AGEE MD Start 10/22/19 13:01:00 Stop 10/22/19 14:19:00 Anesthesia Type General Specialty SN Vascular Wound Class I - Clean Last Modified By: Radha Coe RN 10/22/19 14:20:47 [facility] IntraOp Surgical Procedures Audit 10/22/19 14:20:47 Sourcing Engineer: LAFAVEHM Modifier: LAFAVEHM 1 <*> Procedure Carotid Artery Endarterectomy 1 <+> Stop 10/22/19 13:52:13 Sourcing Engineer: LAFAVEHM Modifier: LAFAVEHM 1 <*> Procedure Carotid Artery Endarterectomy 1 <*> Additional Procedure Description (RT CAROTID ENDARTERECTOMY) [facility] IntraOp Temp Regulation Devices Entry 1 Temp Regulation Temperature Forced Air Warming Regulation Device device Temperature 95014 Regulation Device Serial/Unit Number Temperature Lower body Regulation Site Temperature Device SET AND MONITORED BY Setting ANESTHESIA Temperature SUZANNE RICK Regulation Device FERN QUACH Applied by Last Modified By: Radha Coe RN 10/22/19 13:20:15 [facility] IntraOP Time Out Entry 1 Procedure to [...] Modified By: Radha Coe RN 10/22/19 13:06:08 [facility] IntraOp X-Ray and Images Entry 1 X-Ray/Imaging Type Ultrasound Fluoroscopy Type Other Site OPSITE Therapeutic Recreation Leader Name KORI IQBAL Last Modified By: Radha Coe RN 10/22/19 14:03:06 Case Comments <None> Finalized By: JEFF SNOW Document Signatures Signed By: Radha oCe RN 10/22/19 14:33 JEFF SNOW 10/23/19 11:00 Unfinalized History Date/Time Username Reason for Unfinalizing Freetext Reason for Unfinalizing 10/23/19 10:59 [id number] Correct Billing documented in this encounter Plan of Treatment Not on file documented as of this encounter Visit Diagnoses Not on filedocumented in this encounter
--- OUTSIDE RECORDS SUMMARY | 2025-05-13 05:10 | XMS_ITS | Encounter Summary ---
Author Organization [employer] ([place], [place], [place], [place]) Address [address] [place] [address] Care Team Providers Care Transfer Table Operator Helper Name Role Phone Unavailable Primary Care Provider Unavailabl e Encounter Details Date Type Department Care Team (Late st Contact Info) Description 10/22/2019 Transcribed Document [facility] [place] [facility] [address] ProviderBrianda MD [address] [place] [address] Social History Tobacco Use Types [...] Note - Brianda Hoskins MD - 10/22/2019 1:01 PM SYSTEM DISPATCHER [facility] Main OR PACU Summary Primary Physician: BREE AGEE MD Finalized Date/Time: 10/22/19 16:06:36 Pt. Name: MAHI TINSLEYE /Sex: 1970 Female Med Rec #: [id number] Physician: BREE AGEE MD Financial #: [id number] Pt. Type: I Room/Bed: [facility]/ Admit/Disch: 10/22/19 14:28:00 - Institution: [facility] Main OR PACU I Case Times Entry 1 In PACU I 10/22/19 14:32:00 Ready for PACU 10/22/19 15:05:00 Discharge Discharge from PACU 12/18/19 16:04:00 I Last Modified By: Renu Douglas RN 10/22/19 16:05:11 [facility] Main OR PACU I Case Times Audit 10/22/19 16:05:11 Monument Stonecutter: [id number] Modifier: [id number] <+> 1 Discharge from PACU I [facility] Main OR PACU Acuity Entry 1 Start Time 10/22/19 15:05:00 Stop Time 10/22/19 16:04:00 Acuity Level [facility] PACU Acuity I Last Modified By: Renu Douglas RN 10/22/19 16:06:30 Finalized By: Renu Douglas RN Document Signatures Signed By: Renu Douglas RN 10/22/19 16:06 Electronically signed by [facility] Conversion Regional Tanker Truck Driver Cerner at 02/21/2023 9:29 PM CDT documented in this encounter Plan of Treatment Not on file documented as of this encounter Visit Diagnoses Not on filedocumented in this encounter
--- OUTSIDE RECORDS SUMMARY | 2025-05-13 05:10 | XMS_ITS | Encounter Summary ---
Author Organization [employer] ([place], [place], [place], [place]) Address [address] [place] [address] Care Team Providers Care Co Founder And Chief Strategy Officer Name Role Phone Unavailable Primary Care Provider Unavailabl e Encounter Details Date Type Department Care Team (Late st Contact Info) Description 10/22/[address] 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
--- NOTE | 2025-05-13 05:18 | ECG_ITS ---
APPROVED REPORT Exam: Resting ECG HR:86 bpm ECG Measurements Heart Rate 86 AXES AL 156 P 80 QRSd 81 QRS 57 QT 376 T 66 QTc 420 Conclusion SINUS RHYTHM NORMAL ECG INTERPRETATION BASED ON A DEFAULT AGE OF 40 YEARS Electronically signed by : WALLY RANDLE, 05/13/2025 15:57:58
--- NOTE | 2025-05-13 05:18 | HMH.EDGENADL ---
Discharge Plan Disposition Patient Disposition: Home, Self-Care Condition: Good Prescriptions Prescriptions: No Action losartan 50 mg tablet 50 mg PO DAILY Patient Comments: TAKE 1 TABLET BY MOUTH ONCE DAILY atenolol 25 mg tablet 25 mg PO DAILY Patient Comments: TAKE 1 TABLET BY MOUTH ONCE DAILY Rx Instructions: Patient states she does not take this every day atorvastatin 40 mg Tablet 40 mg PO HS estradiol 0.5 mg tablet 0.5 mg PO DAILY Patient Comments: TAKE 1 TABLET BY MOUTH ONCE DAILY levofloxacin 750 mg tablet 750 mg PO DAILY 9 Days Qty: 9 0RF Referrals Follow up/Referrals: Ange White APRN [Primary Care Provider, Medical] - See instructions Activity Restrictions/Add. Instructions Additional Instructions/Restrictions: You were evaluated in the ER and are believed to be appropriate for discharge at this time. Call your PCP first thing this morning and make an appointment to be seen in the next 1 to 2 days. They should adjust your medications and consider further workup and management. Continue taking your home medications as prescribed, however you have already received atenolol here in the ER so you do not have to take that this morning. Return to the ER with any new, worsening, or otherwise concerning symptoms as discussed. They should include but are not limited to headache, numbness, tingling, weakness (strokelike symptoms), chest pain, difficulty breathing, or changes in urination. Clinical Impressions Clinical Impression: Hypertension Instructions Patient Instructions: DI for High Blood Pressure, High Blood Pressure, High Blood Pressure (Hypertension) (Alternative Therapy) Print Language Print Language: Dutch Discharge ED Provider: Romy Jones Adult HPI General Stated complaint: irregular blood pressure Time Seen by Provider: 05/13/25 05:10 History of Present Illness HPI narrative: 55-year-old female with history of hypertension, hyperlipidemia presents to the ER for blood pressure check. Patient reports she was at work tonight and felt fatigued so she checked her vitals and her blood pressure was 180s over 100s. Someone else at work checked and got a different number that was still elevated so she came to the ER for further evaluation. Patient has no headache, dizziness, numbness, tingling, weakness, no chest pain or difficulty breathing, no leg swelling, she also reports no changes in urination. Patient reports she took her normal losartan before work tonight, and states that she usually takes atenolol in the morning so she has not yet taken that. She states she otherwise feels fine. Review of recent records demonstrates patient was recently admitted to the hospital for sepsis and pyelonephritis. She states she has no dysuria, no hematuria, no back pain, no fevers or chills, no recent symptoms of illness. She states she feels completely recovered from that. She reports her PCP takes care of her blood pressure. No other complaints or concerns. Related Data Home Medications ?Medication ?Instructions ?Recorded ?Confirmed atenolol 25 mg tablet 25 mg PO DAILY Hypertension 03/24/23 04/25/25 losartan 50 mg tablet 50 mg PO DAILY 06/07/23 04/25/25 atorvastatin 40 mg tablet 40 mg PO HS 04/25/25 04/25/25 estradiol 0.5 mg tablet 0.5 mg PO DAILY 04/25/25 04/25/25 Previous Rx's ?Medication ?Instructions ?Recorded levofloxacin 750 mg tablet 750 mg PO DAILY 9 days #9 tabs 04/25/25 Allergies Allergy/AdvReac Type Severity Reaction Status Date / Time sumatriptan (SUMATRIPTAN) Allergy Mild Hives Verified 04/23/25 18:30 codeine (CODEINE) AdvReac Mild Vomiting Verified 04/23/25 18:30 morphine (MORPHINE) AdvReac Mild Chest Pain Verified 04/23/25 18:30 PFSH [facility] Disclaimer: The information contained in this section may have been updated after the patient was seen, as this information can be updated by other users. Medical History (Updated 05/13/25 @ 05:44 by Romy Jones MD) Skin cancer Tobacco use Dyspnea Chest pain Anxiety Migraine History of stroke Hyperlipidemia Hypertension Surgical History (Updated 04/27/25 @ 00:00 by Ruddy Bob) H/O endarterectomy History of hysterectomy History of cholecystectomy Social History Smoking Status: Unknown if ever smoked alcohol intake: never substance use type: denies use current occupational status: employed Travel in the last 8 weeks?: None household members: none housing: house number of children: 3 current occupation: [employer] Other Medical History Have you received the Flu Vaccine for this season: No Have you received the Pneumonia Vaccine: No ROS Obtained: Yes Systems reviewed as appropriate & no additional complaints except as documented Per HPI Physical Exam General General appearance: alert and in no apparent distress Head Head exam: atraumatic and normocephalic Eye Eye exam: Present PERRL and EOMI ENT ENT exam: Present mucous membranes moist Neck Neck exam: Present normal inspection and full ROM Chest Chest inspection: Present symmetric chest wall rise Respiratory Respiratory exam: Present normal lung sounds bilaterally; Absent respiratory distress, wheezes or stridor Cardiovascular Cardiovascular exam: Present regular rate and normal rhythm Abdominal Exam Abdominal exam: Present soft; Absent distention or tenderness Extremities Exam Extremities exam: Present full ROM and normal capillary refill; Absent edema Back Exam Back exam: Absent CVA tenderness (R) or CVA tenderness (L) Neurological Exam Neurological exam: Present alert, oriented X3, CN II-XII intact, normal gait and other (NIH 0); Absent motor sensory deficit Psychiatric Psychiatric exam: Present normal affect and normal mood Skin Skin exam: Present warm and dry Medical Decision Making Medical Records Medical records reviewed: Yes I reviewed the patient's medical records. Screening: Per USPSTF and CDC recommendations, given the prevalence of disease in our region, it is our hospital?s policy to screen for HIV and viral Hepatitis for all patients aged 18 and over and those with ongoing risk factors. Pb Inquiry Pt receiving controlled substance: No Orders (Tests/Meds): ED MEDICATIONS Generic Name Dose Route Start Last Admin Trade Name Freq PRN Reason Stop Dose Admin Atenolol 25 mg 05/13/25 05:17 Atenolol 25mg Tablet PO 05/13/25 05:18 ONCE ONE ORDERS Category Date Time Status BMP [Basic Metabolic Panel] Stat Lab 05/13/25 05:15 Ordered CBC w/Auto Diff [Complete Blood Count Auto Diff] Stat Lab 05/13/25 05:15 Ordered ECG Request Stat Y 05/13/25 05:18 Ordered Medical Decision Narrative: In summary, this 55-year-old female with comorbidities described in the HPI presents to the emergency department today with asymptomatic hypertension. On initial evaluation patient is hypertensive but otherwise hemodynamically stable, afebrile, GCS 15 with no neurologic deficits or abnormalities, physical exam is overall benign. Specifically cardiopulmonary exam is benign, no peripheral edema, no chest pain, abdominal exam benign, no CVA tenderness. Differential diagnosis includes but is not limited to asymptomatic hypertension, patient has no chest pain so I do not have concerns for ACS, PE, or dissection. No shortness of breath so I am not concerned for acute heart failure. I considered medication noncompliance, I had considered the possibility of endorgan damage but have extremely low suspicion for this since patient has no headache or changes in urination but basic labs were ordered to check kidney function. Since she does not have headache or neurologic deficits I do not have concerns for acute intracranial pathology. EKG and basic serum labs were ordered. EKG first interpreted demonstrate sinus rhythm, rate 86, normal axis, normal NC and QTc, no STEMI, no evidence of HCM, no arrhythmia. Patient received home dose atenolol in the ER. Labs reviewed by me demonstrate no leukocytosis or anemia, normal platelets, CMP with normal creatinine, BUN is slightly elevated at 20 but patient is tolerating oral intake so encouraged her to continue good oral intake fluids, IV fluids will not be administered at this time since I do not want to raise her blood pressure. Patient's blood pressure on arrival was 221/127. She has spontaneously improved to 182/111. Her atenolol should take effect shortly as well. She reports she is able to follow closely with her primary care doctor and I encouraged her to call them first thing this morning to make an appointment for close follow-up and recheck of her blood pressure as well as to discuss her current medications and consider additional management. She is agreeable to this. She continues to have no symptoms of her hypertension. Patient was explicitly informed of the medication she received in the ER (her regular atenolol) so that she does not double dose today. She was given instructions on continued symptomatic monitoring and management, close follow-up instructions, and strict return precautions for the ER including but not limited to headache, neurologic symptoms, chest pain, shortness of breath, decreased urination all of which would be indications of hypertensive emergency and endorgan damage. Patient indicated understanding of verbal and written instructions. She was discharged in stable condition. Critical Care Critical Care Time Critical Care Time: No
[2025-05-13 05:23] VITALS: BP 190/100; BP 221/127; PULSE 102; RESP 16; TEMP 37; O2SAT 98; BMI 19.6
[2025-05-13] MEDS: ATENOLOL 25MG TABLET 25 MG PO (05:24)
[2025-05-13 05:27] LABS: Chloride 103 mmol/L (98-107); Sodium 137 mmol/L (136-145)
[2025-05-13 05:28] LABS: Potassium 4.8 mmoL/L (3.5-5.1)
[2025-05-13 05:30] LABS: Blood Urea Nitrogen 20 mg/dl (7-17); Creatinine Clearance Estimated 53 mL/min (50-200); Creatinine,Serum 1.00 mg/dl (0.52-1.04); Estimated Glomerular Filt Rate 57 ml/min (>60); GFR (African American) 69 ML/MIN (>60)
[2025-05-13 05:31] LABS: Anion Gap 10.8 mEq/L (5-15); Calcium 9.9 mg/dl (8.4-10.2); Carbon Dioxide 28 mmol/L (22.0-30.0); Glucose 96 mg/dl (74-100); Hematocrit 41.9 % (37.0-47.0); Hemoglobin 14.5 g/dL (12.2-16.2); Immature Granulocytes % 0.4 %; Mean Corpuscular HGB Conc 34.6 g/dL (31.8-35.4); Mean Corpuscular Hemoglobin 33.8 pg (27.0-31.2); Mean Corpuscular Volume 97.7 fl (81-99); Nucleated Red Blood Cells % 0 %; Platelet Count 319 K/mm3 (142-424); Red Blood Count 4.29 M/mm3 (4.20-5.40); Red Cell Distribution Width-SD 48.2 fL; White Blood Count 10.5 K/mm3 (4.8-10.8)
[2025-05-13 05:54] VITALS: BP 182/102; PULSE 87; RESP 16; TEMP 37; O2SAT 98
== END 2025-05-13 05:55 | disposition home or self-care (01) ==
PROVIDERS: Emergency Provider Emergency Medicine; PCP Nurse Practitioner Family
DX: I10 Essential (primary) hypertension (principal)
CPT/HCPCS: 80048; 85025; 93005; 99283

== ENCOUNTER 2025-09-13 10:14 | Outpatient (CLI) | payer SELFPAY ==
--- OUTSIDE RECORDS SUMMARY | 2024-09-23 04:45 | XMS_ITS ---
Author Organization [facility] Address [address] [facility] [address] [place], [place] [id number] Care Team Providers Care Cork Insulator Name Role Phone Sil Alejandro Primary Care Provider ChristopherMakenzieElena Unavailable [phone] Allergies Allergen (clinical drug ingredient) Drug/Non Drug Allergy documented on EMR Reaction Allergy Type Onset Date Status sumatriptan Imitrex Unknown Drug Allergy Activ e codeine Codeine makes her sick at stomach Drug Allergy Active morphine Morphine chest pain Drug Allergy Active Results Component Value Reference Range Notes CBC Venipuncture (in house) Reviewed date:09/24/2024 07:38:34 AM Interpretation: Performing Lab: Notes/Report: wbc 9.8 3.5 - 10 lymph 34.9 15 - 50 mid 6.3 2 - 15 gran 58.8 35 - 80 rbc 4.46 3.5 - 5.5 hgb 15.3 11.5 - 16.5 hct 45.1 35 - 55 mcv 101.1 75 - 100 mch 34.3 25 - 35 mchc 33.9 31 - 38 platlet 296 100 - 400 Glycohemoglobin A1c (in hous e) Reviewed date:09/25/2024 02:20:07 PM Interpretation:4.9% Performing Lab: Notes/Report: 4.9% glycohemoglobin 4.9% 5 - 6.5 % P-Comprehensive Metabolic Pa hilary (CMP) Reviewed date:09/30/2024 08:59:51 AM Interpretation:K+ 3.2 Performing Lab: Notes/Report: Test performed by [facility], [employer] [address] [place] [address] , [place] [address] Miki Fong MD, Inventory Checker CLIA: [id number] Sodium 143 135-145 mmol/L Potassium 3.2 3.5-5.3 mmol/L Chloride 105 97-108 mmol/L CO2 25 22-32 mmol/L Glucose 74 65-99 mg/dL BUN 12 6-20 mg/dL Creatinine 0.93 0.50-1.00 mg/dL Calcium 9.9 8.6-10.4 mg/dL eGFR by Creatinine 72 >59 mL/min/1.73m2 Protein 7.1 6.0-8.3 g/dL Albumin 4.5 3.5-5.3 g/dL Alkaline Phosphatase 75 35-121 IU/L ALT (SGPT) 14 <5-47 IU/L AST (SGOT) 24 <5-40 IU/L Bilirubin, Total 0.4 <0.2-1.2 mg/dL A/G Ratio 1.7 1.1-2.5 P-Lipid Panel Reviewed date:09/30/2024 08:59:31 AM Interpretation:chol 238, non-hdl 148 Performing Lab: Notes/Report: Test performed by [facility] [address] [place] [address] , [address], [place] [address] Miki Fong MD, Inventory Checker CLIA: [id number] Cholesterol 238 <200 mg/dL Triglycerides 125 <150 mg/dL HDL Cholesterol 90 >39 mg/dL Cholesterol / HDL Ratio 2.64 0.00-4.44 Ratio Non-HDL Cholesterol 148 <130 mg/dL LDL Cholesterol (Calculation) 123 <130 mg/dL LDL Cholesterol Levels* Less than 100 mg/dL Optimal 100 to 129 mg/dL Near Optimal/ Above Optimal 130 to 159 mg/dL Borderline High 160 to 189 mg/dL High 190 mg/dL and above Very High * Categories as recommended by the 2004 ATPIII guidelines LDL/HDL Ratio 1.4 <3.3 Ratio LDL Cholesterol Patient History Test Date: 09/23/2024 LDL Results: 123 Units: mg/dL % Change: - P-TSH Reviewed date:09/30/2024 08:59:12 AM Interpretation:Normal Performing Lab: Notes/Report: Test performed by [facility], [address] , [address], [place] [address] Miki Fong MD, Inventory Checker CLIA: [id number] TSH 1.47 0.43-5.25 mU/L Mammogram Reviewed date:11/04/2024 09:20:58 AM Interpretation:Negative Performing Lab: Notes/Report: Negative REASON FOR VISIT possible bronchitis and refills Medications Medication SIG (Take, Route, Frequency, Duration) Notes Start Date End Date Status Estradiol 0.5 MG 1 tab(s) orally once a day; Duration: 90 Active Atorvastatin Calcium 20 MG 1 tab(s) oral ly once a day; Duration: 90 days Active Plavix 75 MG 1 tab(s) orally once a day; Duration: 90 days Active Migranal 4 MG/ML 1 spray(s) intranasa lly every 15 minutes Active Aspirin 81 MG 1 tab(s) orally once a day; Duration: 30 day(s) Active Atenolol 25 MG 1 tab(s) orally once a day; Duration: 90 days Active Losartan Potassium 50 MG 1 tablet Orally Once a day; Duration: 90 days Active Zithromax Z-Bubba 250 MG 2 pills first day then one daily for 4 days orally as directed; Duration: 5 days 09/23/2024 Active hydroCHLOROthiazide 12.5 MG 1 tablet in the morning Orally Once a day; Duration: 90 days Active Vital Signs Blood pressure systolic 136 mm Hg 09/23/20 24 Blood pressure diastolic 76 mm Hg 024 Heart Rate 86 /min 09/23/2024 Height 64 in 09/23/2024 Weight 114.0 lbs 09/23/2024 BMI 19.57 kg/m2 09/23/2024 Encounters Encounter Location Date Provider Diagnosis [facility] [address] [place] [id number] 09/23/2024 Elena White URI (upper respirato ry infection) J06.9 ; Chronic migraine G43.709 ; Essential (primary) hypertension I10 ; Hot flashes N95.1 ; Mixed hyperlipidemia E78.2 ; History of CVA (cerebrovascular accident) Z86.73 ; Gastroesophageal reflux disease with esophagitis K21.0 ; Diabetes mellitus screening Z13.1 ; Thyroid disorder screen Z13.29 ; Colon cancer screening Z12.11 ; Breast cancer screening Z12.39 ; Tobacco abuse counseling Z71.6 and Tobacco abuse disorder Z72.0 Assessments Encounter Date Diagnosis (ICD Code) Assessment Notes Treatment Notes Treatment Clinical Notes Section Notes 09/23/2024 URI (upper respiratory infection) (ICD-10 - J06.9) fluids, rest, supportive measures for fever/symptom relief; try not to smoke 09/23/2024 Chronic migraine (ICD-10 - G43.709) 09/23/2024 Essential (primary) hypertension (ICD-10 - I10) 09/23/2024 Hot flashes (ICD-10 - N95.1) discussed weaning process and she will try 09/23/2024 Mixed hyperlipidemia (ICD-10 - E78.2) 09/23/2024 History of CVA (cerebrovascular accident) (ICD-10 - Z86.73) 09/23/2024 Gastroesophageal reflux disease with esophagitis (ICD-10 - K21.0) 09/23/2024 Diabetes mellitus screening (ICD-10 - Z13.1) 09/23/2024 Thyroid disorder screen (ICD-10 - Z13.29) 09/23/2024 Colon cancer screening (ICD-10 - Z12.11) 09/23/2024 Breast cancer screening (ICD-10 - Z12.39) 09/23/2024 Tobacco abuse counseling (ICD-10 - Z71.6) discussed smoking cessation 09/23/2024 Tobacco abuse disorder (ICD-10 - Z72.0) Plan Of Treatment Medication Medication Name Sig Start Date Stop Date Notes Estradiol 0.5 MG 1 tab(s) orally once a day; Duration: 90 Atorvastatin Calcium 20 MG 1 tab(s) oral ly once a day; Duration: 90 days Plavix 75 MG 1 tab(s) orally once a day; Duration: 90 days Migranal 4 MG/ML 1 spray(s) intranasa lly every 15 minutes Atenolol 25 MG 1 tab(s) orally once a day; Duration: 90 days Losartan Potassium 50 MG 1 tablet Orally Once a day; Duration: 90 days Zithromax Z-Bubba 250 MG 2 pills first day then one daily for 4 days orally as directed; Duration: 5 days 09/23/2024 hydroCHLOROthiazide 12.5 MG 1 tablet in the morning Orally Once a day; Duration: 90 days Treatment Notes Assessment Notes URI (upper respiratory infection) fluids , rest, supportive measures for fever/symptom relief; try not to smoke Hot flashes discussed weaning pr ocess and she will try Tobacco abuse counseling discussed smoki ng cessation Pending Test Test Name Order Date colonoscopy 09/23/2024 CT SCAN : CHEST, LUNG CANCER SCREENING L OW DOSE 09/23/2024 Next Appt Details Follow Up: will notify of te st results, Reason: Progress Notes * JEAN TINSLEYDOB: [birth year] (55 yo F)Acc No.[id number]:09/23/2024 Progress Notes Patient: JEAN FALK Provider: IVON Martines :1970 A ge:54 Y S ex:Female Date:09/23/2024 Address:[address] [place] [address] Pcp:Sil Alejandro Subjective: * Chief Complaints: * 1 . Possible bronchitis and refills. * HPI: E NT/respiratory: 54 year old female presents with c/o cough P t is here today for possible bronchitis. Pt sts she has had the cough since Sunday and then lost her voice on Sunday. c/o nasal congestion. c/o Fever. c/o post nasal drainage. c/o chest congestion. c/o smoking < PPD. Denies : sore throat. D enies : rhinorrhea. D enies : Chest Pain. D enies : Short of Breath. D enies : body aches. eating and drinking OK. H PI: c/o Patient is here today for r efills on all medications.? * ROS: D ERMATOLOGY: no R mdadi. n o H gaston. G ASTROENTEROLOGY: Nausea y es. n o V omiting. D iarrhea y es.? U ROLOGY: no D ifficulty urinating. n o B lood in urine. * Medical History: M igraine headache, DVT right leg 06/2011, 04/02/[address], CVA, Carotid artery stenosis, Punctate Inner Choroidopathy right eye. * Surgical History: h eart surgery ablation for dysrrhythmias , cholecystectomy 2002, BTL 05/31/2007, tubes tied May,, oophorectomy 05/2008, Hysterectomy 2009, Right Carotid Endarterectomy-Dr Mcnamara Estiven 10/22/19. * Hospitalization/Major Diagno stic Procedure: [facility], [facility] ER- Headache 03/16/2011, [facility] ER- Headache 04/24/2011, [facility] Er--blood clot 06-16-11, [facility] ER-fell down steps 1.1.12, [facility] ER- Headache and numbness 09-15-12, [facility] ER-overdose 12/31/13, [facility] chest pain - to 03-16-14, [facility] ER- spained ankle 05-17-2015, [facility] ER-back pain after cough 05/28/15, [facility] ER - Ear Infection 02/06/16, [facility] ER - Short of breath 10/09/18, [facility] ER - Abdominal Pain 11/11/20. * Family History: F ather: alive, 64 and healthy. M other: alive, had uterine cancer. M aternal Grand Father: , with lung cancer at 67y/o. * Social History: C URRENT TOBACCO USE S moking Status: Patient does smoke, packs per day: 0.5, Smoking preference: cigarettes. C affeine: yes, frequency:2-3 cans mountain dew/day. Exercise: no. Home smoke detector use: yes. Marital Status: . 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 Past smoking status: yes, PPD: 1 , years:17 ,determination:has thought about it. Alcohol: no, Type: , Frequency: ,Years: , Determination:. Sexually active: yes. Travel ouside [place]: no. * Medications: T aking hydroCHLOROthiazide 12.5 MG Tablet 1 tablet in the morning Orally Once a day , Taking Aspirin 81 MG Tablet Delayed Release 1 tab(s) orally once a day , Taking Estradiol 0.5 MG Tablet 1 tab(s) orally once a day , Taking Atorvastatin Calcium 20 MG Tablet 1 tab(s) orally once a day , Taking Plavix 75 MG Tablet 1 tab(s) orally once a day , Taking Migranal 4 MG/ML Solution 1 spray(s) intranasally every 15 minutes , Taking Atenolol 25 MG Tablet 1 tab(s) orally once a day , Taking Losartan Potassium 50 MG Tablet 1 tablet Orally Once a day , Medication List reviewed and reconciled with the patient * Allergies: C odeinvannessa: makes her sick at stomach, Imitrex, Morphine: chest pain. Objective: * Vitals: W t:114.0, Temp:98.2, BP:136/76, HR:86, O2 Sat:100% on RA, Nurse:TRINY, Ht: 64, BMI:19.57. * Examination: G eneral Examination: General Appearance: NAD appears healthy alert pleasant; hoarse. H EENT: sclera and conjunctiva clear, PERRLA, TM's normal, translucent. O ral cavity: mucosa moist and WNL no erythema. N moncho: supple no lymphadenopathy. H eart: RRR. L ungs: CTAB A&P. N eurologic Exam: alert and oriented Intact. E xtremities: no leg edema. Assessment: * Assessment: 1. U RI (upper respiratory infection) - J06.9 (Primary) 2 . C hronic migraine - G43.709 3 . E ssential (primary) hypertension - I10 4 .?Hot flashes - N95.1 5 . M ixed hyperlipidemia - E78.2 6 . H istory of CVA (cerebrovascular accident) - Z86.73 7 . G astroesophageal reflux disease with esophagitis - K21.0 8 . D iabetes mellitus screening - Z13.1 ? 9 . T hyroid disorder screen - Z13.29 1 0. C olon cancer screening - Z12.11 1 1. B reast cancer screening - Z12.39 1 2. T obacco abuse counseling - Z71.6 1 3. T obacco abuse disorder - Z72.0 ? Plan: * Treatment: 2. C hronic migraine Refill Migranal Solution, 4 MG/ML, 1 spray(s), intranasally, every 15 minutes, 1, Refills 2. ? 3. E ssential (primary) hypertension Refill hydroCHLOROthiazide Tablet, 12.5 MG, 1 tablet in the morning, Orally, Once a day, 90 days, 90 Tablet; R efill Atenolol Tablet, 25 MG, 1 tab(s), orally, once a day, 90 days, 90 Tablet, Refills 1; R efill Losartan Potassium Tablet, 50 MG, 1 tablet, Orally, Once a day, 90 days, 90 Tablet, Refills 1. L AB: P-Comprehensive Metabolic Panel (CMP) (Collection Date & Time - 09/23/2024 09:20 AM) K + 3.2 Value Reference Range A /G Ratio 1.7 1.1-2.5 - * A lbumin 4.5 3.5-5.3 - g/dL * A lkaline Phosphatase 75 35-121 - IU/L * A LT (SGPT) 14 <5-47 - IU/L * A ST (SGOT) 24 <5-40 - IU/L * B ilirubin, Total 0.4 <0.2-1.2 - mg/dL * B UN 12 6-20 - mg/dL * C alcium 9.9 8.6-10.4 - mg/dL * C hloride 105 97-108 - mmol/L * C O2 25 22-32 - mmol/L * C reatinine 0.93 0.50-1.00 - mg/dL * G lucose 74 65-99 - mg/dL * P otassium 3.2 L 3.5-5.3 - mmol/L * S odium 143 135-145 - mmol/L * P rotein 7.1 6.0-8.3 - g/dL * e GFR by Creatinine 72 >59 - mL/min/1.73m2 * Elena White 09/30/2024 8:45:07 AM > , See encounter note 4.?Hot flashes? Refill Estradiol Tablet, 0.5 MG, 1 tab(s), orally, once a day, 90, 90, Refills 1.?? Notes: discussed weaning process and she will try??5.?Mixed hyperlipidemia? Refill Atorvastatin Calcium Tablet, 20 MG, 1 tab(s), orally, once a day, 90 days, 90 Tablet, Refills 3.?LAB: P-Lipid Panel (Collection Date & Time - 09/23/2024 09:20 AM)?chol 238, non-hdl 148* Value Reference Range C holesterol / HDL Ratio 2.64 0.00-4.44 - Ratio * C holesterol 238 H <200 - mg/dL * H DL Cholesterol 90 >39 - mg/dL * L DL Cholesterol (Calculation) 123 <130 - mg/d L * L DL/HDL Ratio 1.4 <3.3 - Ratio * N on-HDL Cholesterol 148 H <130 - mg/dL * T riglycerides 125 <150 - mg/dL * Samantha Whiteine 09/30/2024 8:59:21 AM > , See encounter note 6.?History of CVA (cerebrovascular accident)? Refill Plavix Tablet, 75 MG, 1 tab(s), orally, once a day, 90 days, 90 Tablet, Refills 1.? 7.?Gastroesophageal reflux disease with esophagitis?LAB: CBC Venipuncture (in house) (Collection Date & Time - 09/23/2024)* Value Reference Range w bc 9.8 3.5 - 10 * l ymph 34.9 15 - 50 * m id 6.3 2 - 15 * g ran 58.8 35 - 80 * r bc 4.46 3.5 - 5.5 * h gb 15.3 11.5 - 16.5 * h ct 45.1 35 - 55 * m cv 101.1 75 - 100 * m ch 34.3 25 - 35 * m chc 33.9 31 - 38 * p latlet 296 100 - 400 * Celestina Naylor 09/23/2024 10:4 4:17 AM > , Provider reviewed results while patient in office.Samantha Whiteine 09/24/2024 7:38:35 AM > ?LAB: Glycohemoglobin A1c (in house) (Collection Date & Time - 09/23/2024)? 4.9%* Value Reference Range g lycohemoglobin 4.9% 5 - 6.5 % * Celestina Naylor 09/23/2024 10: 43:34 AM > , Provider reviewed results while patient in office.Makenzie Whiteharine 09/25/2024 2:20:09 PM > 8.?Diabetes mellitus screening?LAB: Glycohemoglobin A1c (in house) (Collection Date & Time - 09/23/2024)? 4.9%* Value Reference Range g lycohemoglobin 4.9% 5 - 6.5 % * Celestina Naylor 09/23/2024 10:4 3:34 AM > , Provider reviewed results while patient in office.Makenzie Whiteharine 09/25/2024 2:20:09 PM > 9.?Thyroid disorder screen?LAB: P-Comprehensive Metabolic Panel (CMP) (Collection Date & Time - 09/23/2024 09:20 AM)?K+ 3.2* Value Reference Range A /G Ratio 1.7 1.1-2.5 - * A lbumin 4.5 3.5-5.3 - g/dL * A lkaline Phosphatase 75 35-121 - IU/L * A LT (SGPT) 14 <5-47 - IU/L * A ST (SGOT) 24 <5-40 - IU/L * B ilirubin, Total 0.4 <0.2-1.2 - mg/dL * B UN 12 6-20 - mg/dL * C alcium 9.9 8.6-10.4 - mg/dL * C hloride 105 97-108 - mmol/L * C O2 25 22-32 - mmol/L * C reatinine 0.93 0.50-1.00 - mg/dL * G lucose 74 65-99 - mg/dL * P otassium 3.2 L 3.5-5.3 - mmol/L * S odium 143 135-145 - mmol/L * P rotein 7.1 6.0-8.3 - g/dL * e GFR by Creatinine 72 >59 - mL/min/1.73m2 * WhiteElena 09/30/2024 8:45:07 AM > , See encounter note ?LAB: P-TSH (Collection Date & Time - 09/23/2024 09:20 AM)?Normal* Value Reference Range T SH 1.47 0.43-5.25 - mU/L * ChristopherElena 09/26/2024 12:06:07 PM > no answer when phonedHcarolynmiltonElena 09/29/2024 8:50:12 AM > , See encounter note 10.?Colon cancer screening?Imaging: colonoscopy* Elena White 09/23/2024 10:18:44 AM > last colonoscopy 2009 with polyps; please schedule with Danita Tracy 09/23/2024 10:34:08 AM > printed and sent to Dr. Mendosa officeTaylorDanita 12/26/2024 9:33:39 AM > Dr. Mendosa office has left 3 voicemails for patient and patient will not return call 11.?Breast cancer screening?Imaging: Mammogram (Performed Date - 10/14/2024)?Negative* Elena White 09/23/2024 10:19:51 AM > needs annualDanita Cesar 09/23/2024 10:49:59 AM > faxed to [facility] Elena Miller 10/17/2024 9:00:00 AM > please notify pt of neg Luz Maria Lemus 10/23/2024 2:46:00 PM > mailbox is Luz Maria Sotelo 11/04/2024 9:20:25 AM > Left message informing pt 12.?Tobacco abuse counseling? Notes: discussed smoking cessation??13.?Tobacco abuse disorder?Imaging: CT SCAN : CHEST, LUNG CANCER SCREENING LOW DOSE* Elena White 09/23/2024 10:22:18 AM > HX tobacco usageDanita Cesar 09/23/2024 11:15:14 AM > faxed preauth form to MIYA Prado; awaiting decisionTayldarrionDanita 10/01/2024 9:46:03 AM > will not have decision until 10/08/2024TayldarrionDanita 10/08/2024 8:38:30 AM > faxed addt paperwork to Niru MELANIE with pack historyTaylor,Danita 10/10/2024 10:05:38 AM > auth denied; sent TE to Marci White * Procedure Codes: 9 [address] [place], [address] CBC WITH AUTO DIFF, 78184 VENIPUNCT, ROUTINE*, 90249 CAPILLARY BLOOD DRAW, 51171 GLYCATED HEMOGLOBIN TEST, Modifiers: QW * Follow Up: w ill notify of test results * Images: Billing Information: * Visit Code: 19337 Office Visit, Est Pt., Level 4. * Procedure Codes: [address] [place]. [address] CBC WITH AUTO DIFF. 84088 VENIPUNCT, ROUTINE*. 21581 CAPILLARY BLOOD DRAW. 14495 GLYCATED HEMOGLOBIN TEST. Modifiers: QW * Electronic signature of Rocio White APRN on 09/14/2025 at 10:21 AM EST Sign off status: Pending * Provider: IVON Martines Date: 11/23/2023 Generated for Jacky solares/Marisela/eTcatrachosmitting on: 11/14/2024 10:21 AM EST History and Physical Notes * HPI (History of Present Illness) Category Sub-Category Detail Notes Category Not es ENT/respiratory sore throat eating and d rinking OK Short of Breath Chest Pain cough Pt is here today for possible bronchitis. Pt sts she has had the cough since Sunday and then lost her voice on Sunday Fever post nasal drainage chest congestion rhinorrhea nasal congestion smoking < PPD body aches HPI Patient is here today for refills on all medications Examination Category Sub-Category Detail Notes Category Not es General Examination HEENT: sclera and c onjunctiva clear, PERRLA, TM's normal, translucent Heart: RRR Lungs: CTAB A&P Extremities: no leg edema General Appearance: NAD appears healthy alert pleasant; hoarse Neurologic Exam: alert and oriented I ntact Neck: supple no lymphadeno leo Oral cavity: mucosa moist and WNL no erythema
--- OUTSIDE RECORDS SUMMARY | 2024-12-02 05:45 | XMS_ITS ---
Author Organization [facility] Address [address] [place] [id number] Care Team Providers Care Cell Operation Supervisor Name Role Phone Sil Alejandro Primary Care Provider Elena White Unavailable [phone] Allergies Allergen (clinical drug ingredient) Drug/Non Drug Allergy documented on EMR Reaction Allergy Type Onset Date Status sumatriptan Imitrex Unknown Drug Allergy Activ e codeine Codeine makes her sick at stomach Drug Allergy Active morphine Morphine chest pain Drug Allergy Active Results Component Value Reference Range Notes CBC Fingerstick (in house) Reviewed date:12/02/2024 12:11:53 PM Interpretation: Performing Lab: Notes/Report: wbc 7.1 3.5 - 10 lym 18.2 15 - 50 mid 4.4 2 - 15 gran 77.4 35 - 80 rbc 4.73 3.5 - 5.5 hgb 15.9 11.5 - 16.5 hct 46.0 35 - 55 mcv 97.3 75 - 100 mch 33.6 25 - 35 mchc 34.5 31 - 38 plat 126 100 - 400 REASON FOR VISIT congestion, cough, fever & back pain Medications Medication SIG (Take, Route, Frequency, Duration) Notes Start Date End Date Status hydrOXYzine HCl 25 MG TAKE 1 TABLET BY MOUTH 4 TIMES DAILY NEEDED FOR ANXIETY ATTACKS; Duration: 30 Active Cyclobenzaprine HCl 5 MG 1 tablet at bed time as needed Orally q8h prn 12/02/2024 Active Medrol 4 MG as directed orally daily; Duration: 6 days 12/02/2024 Active Zithromax Z-Bubba 250 MG 2 pills first day then one daily for 4 days orally as directed; Duration: 5 days 12/02/2024 Active Dihydroergotamine Mesylate 4 MG/ML USE 1 SPRAY(S) IN THE NOSE EVERY 15 MINUTES DIRECTED; Duration: 30 Active hydroCHLOROthiazide 12.5 MG 1 tablet in the morning Orally Once a day; Duration: 90 days Active Losartan Potassium 50 MG 1 tablet Orally Once a day; Duration: 90 days Active Atenolol 25 MG 1 tab(s) orally once a day; Duration: 90 days Active Potassium Chloride ER 10 MEQ 1 tablet wi th food Orally Once a day; Duration: 90 day(s) 09/30/2024 Active Plavix 75 MG 1 tab(s) orally once a day; Duration: 90 days Active Aspirin 81 MG 1 tab(s) orally once a day; Duration: 30 day(s) Active Atorvastatin Calcium 20 MG 1 tab(s) oral ly once a day; Duration: 90 days Active Estradiol 0.5 MG 1 tab(s) orally once a day; Duration: 90 Active Benzonatate 200 MG 1 capsule as needed Orally Three times a day prn 12/02/2024 Active Problems Problem Type SNOMED Code ICD Code Onset Dates Problem Status W/U Status Risk Notes Problem Sciatica (05185435) Back pain of lumbar region with sciatica (M54.40) Active confirmed Vital Signs Blood pressure systolic 110 mm Hg 12/02/19 25 Blood pressure diastolic 70 mm Hg 025 Heart Rate 63 /min 12/02/2024 Height 64 in 12/02/2024 Weight 109.4 lbs 12/02/2024 BMI 18.78 kg/m2 12/02/2024 Encounters Encounter Location Date Provider Diagnosis [facility] [address] [facility] [address] [place] [phone] 12/02/2024 Elena White Back pain of lumbar region with sciatica M54.40 ; Back pain, lumbosacral M54.50 and URI (upper respiratory infection) J06.9 Assessments Encounter Date Diagnosis (ICD Code) Assessment Notes Treatment Notes Treatment Clinical Notes Section Notes 12/02/2024 Back pain of lumbar region with sciatica (ICD-10 - M54.40) 12/02/2024 Back pain, lumbosacral (ICD-10 - M54.50) ice/heat application prn; 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 work; 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; 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 lifting/pushing/ pulling 12/02/2024 URI (upper respiratory infection) (ICD-10 - J06.9) fluids, rest, supportive measures for fever/symptom relief, No Smoking Plan Of Treatment Medication Medication Name Sig Start Date Stop Date Notes Cyclobenzaprine HCl 5 MG 1 tablet at bed time as needed Orally q8h prn 12/02/2024 Medrol 4 MG as directed orally d aily; Duration: 6 days 12/02/2024 Zithromax Z-Bubba 250 MG 2 pills first day then one daily for 4 days orally as directed; Duration: 5 days 12/02/2024 Benzonatate 200 MG 1 capsule as needed Orally Three times a day prn 12/02/2024 Treatment Notes Assessment Notes Back pain, lumbosacral ice/heat applicat ion prn; 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 Congestion, cough, fever & back pain. * HPI: L ower back: 54 year old female presents with c/o Low Back Pain. c/o radiation of pain r ight hip. Denies : tingling/ numbness. D enies : bowel or bladder dysfunction. Pt complains on pain in her lower back right above her tail bone in the middle. Pt sts she is off on Fridays and took her trash out and done a few other things. She sts she fell asleep on her couch and woke up and could barely move. Pt sts she feels like it could be her siatic nerve. E NT/respiratory: c/o sore throat. c/o cough. c/o Fever. c/o rhinorrhea. c/o post nasal drainage. c/o chest congestion. c/o body aches. Denies : facial pain/pressure. D enies : headache. smoking 1 ppd. Pt complains of a cough and congestion in her chest. Pt sts her symptoms started Sunday morning. 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 * ROS: D ERMATOLOGY: no R maddi. n o H gaston. G ASTROENTEROLOGY: no N ausea. n o V omiting. n o D iarrhea.? U ROLOGY: no D ifficulty urinating. n [...] ER and had a CT scan 05-07-10, [facility] ER- Headache 03/16/2011, [facility] ER- Headache 04/24/2011, [facility] Er--blood clot 06-16-11, [facility] ER-fell down steps 1.1.12, [facility] ER- Headache and numbness 09-15-12, [facility] ER-overdose 12/31/13, [facility] chest pain - to 03-16-14, [facility] ER- spained ankle 05-17-2015, [facility] ER-back pain after cough 05/28/15, [facility] ER - Ear Infection 02/06/16, [facility] ER - Short of breath 10/09/18, [facility] ER - Abdominal Pain 11/11/20. * [...] ouside US: no. * Medications: T aking Aspirin 81 MG Tablet Delayed Release 1 tab(s) orally once a day , Taking Estradiol 0.5 MG Tablet 1 tab(s) orally once a day , Taking Atorvastatin Calcium 20 MG Tablet 1 tab(s) orally once a day , Taking hydroCHLOROthiazide 12.5 MG Tablet 1 tablet in the morning Orally Once a day , Taking Atenolol 25 MG Tablet 1 tab(s) orally once a day , Taking Losartan Potassium 50 MG Tablet 1 tablet Orally Once a day , Taking Plavix 75 MG Tablet 1 tab(s) orally once a day , Taking Potassium Chloride ER 10 MEQ Tablet Extended Release 1 tablet with food Orally Once a day , Taking Dihydroergotamine Mesylate 4 MG/ML Solution USE 1 SPRAY(S) IN THE NOSE EVERY 15 MINUTES DIRECTED , Taking hydrOXYzine HCl 25 MG Tablet TAKE 1 TABLET BY MOUTH 4 TIMES DAILY NEEDED FOR ANXIETY ATTACKS , Discontinued Zithromax Z-Bubba 250 MG Tablet 2 pills first day then one daily for 4 days orally as directed , Medication List reviewed and reconciled with the patient * Allergies: Selvin odjorge: makes her sick at stomach, Imitrex, Morphine: chest pain. Objective: * Vitals: W t: 109.4, Temp: 97.8, BP: 110/70, HR: 63, O2 Sat: 97% on RA, Nurse: KASEY, Ht: 64, BMI:18.78. * Examination: E NT/Respiratory: General Appearance: NAD, alert; appears not to feel well.?Eyes: sclera and conjunctiva clear. E ars: auditory canals normal bilaterally, tympanic membranes normal bilaterally. N ose : nares patent. S inuses : non tender bilaterally. O ral cavity : no erythema or exudate seen on pharynx. N moncho : supple, no cervical lymphadenopathy. H eart : RRR. L ungs: CTAB A&P. ? L ower back: Inspection: normal curvature of spine, significant muscle spasm. P alpation: paraspinal spasm on the right. G ait: slow and careful. R muriel of motion: minimnal due to discomfort. Assessment: * Assessment: 1. B ack pain of lumbar region with sciatica - M54.40 (Primary) 2 . B ack pain, lumbosacral - M54.50 S pecify :with muscle spasm 3 . U RI (upper respiratory infection) - J06.9 Plan: * Treatment: 2. U RI (upper respiratory infection) Start Benzonatate Capsule, 200 MG, 1 capsule as needed, Orally, Three times a day prn, 30, Refills 1; S tart Zithromax Z-Bubba Tablet, 250 MG, 2 pills first day then one daily for 4 days, orally, as directed, 5 days, 1, Refills 0. Notes: fluids, rest, supportive measures for fever/symptom relief, No Smoking * Labs: * L ab: CBC Fingerstick (in house) (Collection Date & Time - 12/02/2024) Value Reference Range w bc 7.1 3.5 - 10 * l ym 18.2 15 - 50 * m id 4.4 2 - 15 * g ran 77.4 35 - 80 * r bc 4.73 3.5 - 5.5 * h gb 15.9 11.5 - 16.5 * h ct 46.0 35 - 55 * m cv 97.3 75 - 100 * m ch 33.6 25 - 35 * m chc 34.5 31 - 38 * p lat 126 100 - 400 * Luz Maria Peck 12/02/2024 11: 02:03 AM > Provider reviewed results while patient in office.Elena White 12/02/2024 12:11:50 PM > * Procedure Codes: 9 4760 [place], [address] CAPILLARY BLOOD DRAW, 19120 CBC WITH AUTO DIFF * Follow Up: p rn * Images: Billing Information: * Visit Code: 47122 Office Visit, Est Pt., Level 4. * Procedure Codes: [address] [place]. [address] CAPILLARY BLOOD DRAW. 78768 CBC WITH AUTO DIFF. * Electronic signature of Rocio mcconnell Christopher , ENGLISH COMPOSITION TEACHER on 09/14/2025 at 10:22 AM EST Sign off status: Pending * Provider: IVON Martines Date: 0 12/02/2024 Generated for Jacky solares/Marisela/Vicente on: 1 11/14/2024 10:22 AM EST History and Physical Notes * HPI (History of Present Illness) Category Sub-Category Detail Notes Category Not es ENT/respiratory sore throat Pt complains of a cough and congestion in her chest. Pt sts her symptoms started Sunday morning. 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 Pt sts she is off on Fridays and took her trash out and done a few other things. She sts she fell asleep on her couch and woke up and could barely move. Pt sts she feels like it could be her siatic nerve Low Back Pain radiation of pain right hip bowel or bladder dysfunction Examination Category Sub-Category Detail Notes Category Not es ENT/Respiratory Oral cavity : no erythema or exudate s een on pharynx Sinuses : non tender bilateral ly Ears: auditory canals norm al bilaterally, tympanic membranes normal bilaterally Neck : supple, no cervical lymphadenopathy Heart : RRR Lungs: CTAB A&P General Appearance: NAD, alert; appears not to feel well Nose : nares patent Eyes: sclera and conjuncti va clear Lower back Gait: slow and careful Inspection: normal curvature of spine, significant muscle spasm Palpation: paraspinal spasm on the right Range of motion: minimnal due to disc omfort
--- OUTSIDE RECORDS SUMMARY | 2025-06-24 11:00 | XMS_ITS ---
Author Organization [facility] Address [address] [place] [id number] Care Team Providers Care Contact Lens Manufacturer Name Role Phone Sil Alejandro Primary Care Provider Angela Gonzalez Unavailable [phone] Allergies Allergen (clinical drug ingredient) Drug/Non Drug Allergy documented on EMR Reaction Allergy Type Onset Date Status sumatriptan Imitrex Unknown Drug Allergy Activ e codeine Codeine makes her sick at stomach Drug Allergy Active morphine Morphine chest pain Drug Allergy Active REASON FOR VISIT Blood Pressure Elevated Medications Medication SIG (Take, Route, Frequency, Duration) Notes Start Date End Date Status Potassium Chloride ER 10 MEQ 1 tablet wi th food Orally Once a day; Duration: 90 day(s) 09/30/2024 Active Plavix 75 MG 1 tab(s) orally once a day; Duration: 90 days Active Losartan Potassium 50 MG 2 tab Orally On ce a day Active Dihydroergotamine Mesylate 4 MG/ML USE 1 SPRAY(S) IN THE NOSE EVERY 15 MINUTES DIRECTED; Duration: 30 Active Atenolol 25 MG 1 tab(s) orally once a day; Duration: 90 days Active Aspirin 81 MG 1 tab(s) orally once a day; Duration: 30 day(s) Active Atorvastatin Calcium 20 MG 1 tab(s) oral ly once a day; Duration: 90 days Active Estradiol 0.5 MG 1 tab(s) orally once a day; Duration: 90 Active hydroCHLOROthiazide 12.5 MG 1 tablet in the morning Orally Once a day; Duration: 90 days Active Vital Signs Blood pressure systolic 142 mm Hg 06/24/20 25 Blood pressure diastolic 100 mm Hg 025 Heart Rate 69 /min 06/24/2025 Height 64 in 06/24/2025 Weight 110.8 lbs 06/24/2025 BMI 19.02 kg/m2 06/24/2025 Encounters Encounter Location Date Provider Diagnosis [facility] [address] [facility] [address] [place] [id number] 06/24/2025 Angela Gonzalez Essential (primary) hypertension I10 Assessments Encounter Date Diagnosis (ICD Code) Assessment Notes Treatment Notes Treatment Clinical Notes Section Notes 06/24/2025 Essential (primary) hypertension (ICD-10 - I10) Plan Of Treatment Medication Medication Name Sig Start Date Stop Date Notes Losartan Potassium 50 MG 2 tab Orally Once a day Next Appt Details Follow Up: 1 Week, Reason: Progress Notes * JEAN TINSLEYDOB: [birth year] (55 yo F)Acc No.[id number]:06/24/2025 Progress Notes Patient: JEAN FALK Provider: IAM Estrada :1970 A ge:55 Y S ex:Female Date:06/24/2025 Address:[address] [place] [address] Pcp:Sil Alejandro Subjective: * Chief Complaints: * 1 . Blood Pressure Elevated. * HPI: C ardiology: 55 year old female presents with c/o Blood Pressure Elevated?Pt states that she checked her BP around 4pm yesterday and it was 170/123 and today- 06/24 it was 167/111. Pt states she has not felt the best. * ROS: D ERMATOLOGY: no R maddi. [...] ER and had a CT scan 05-07-10, [facility] ER- Headache 03/16/2011, [facility] ER- Headache 04/24/2011, [facility] Er- blood clot 06-16-11, [facility] ER-fell down steps 1.1.12, [facility] ER- Headache and numbness 09-15-12, [facility] ER-overdose 12/31/13, [facility] chest pain 03-15 to 03-16-14, [facility] ER- spained ankle 05-17-2015, [facility] ER-back pain after cough 05/28/15, [facility] ER - Ear Infection 02/06/16, [facility] ER - Short of breath 10/09/18, [facility] ER - Abdominal Pain 11/11/20. * Family History: F ather: alive, 64 and healthy. M other: alive, had uterine cancer. M atelonniel Grand Father: , with lung cancer at [...] THE NOSE EVERY 15 MINUTES DIRECTED , Medication List reviewed and reconciled with the patient * Allergies: Selvin singh: makes her sick at stomach, Imitrex, Morphine: chest pain. Objective: * Vitals: W t: 110.8, Temp: 98.3, BP: 142/100, HR: 69, Nurse: pe, Ht: 64, BMI:19.02. * Examination: G eneral Examination: General Appearance: N AD. C hest: n ormal shape and expansion. H eart: R SR. L ungs: c lear to auscultation. Assessment: * Assessment: 1. E ssential (primary) hypertension - I10 (Primary) Plan: * Treatment: * Follow Up: 1 Week * Images: Billing Information: * Visit Code: 86749 Office Visit, Est Pt., Level 2. * Procedure Codes: * Electronic signature of IAM Villegas on 09/14/2025 at 10:21 AM EST Sign off status: Pending * Provider: IAM Estrada Date: 0 06/24/2025 Generated for Jacky solares/Marisela/eTransmitting on: 11/14/2024 10:21 AM EST History and Physical Notes * HPI (History of Present Illness) Category Sub-Category Detail Notes Category Not es Cardiology Blood Pressure Elevated Pt state s that she checked her BP around 4pm yesterday and it was 170/123 and today- 06/24 it was 167/111. Pt states she has not felt the best Examination Category Sub-Category Detail Notes Category Not es General Examination Heart: RSR Lungs: clear to auscultatio n General Appearance: NAD Chest: normal shape and exp ansion
--- OUTSIDE RECORDS SUMMARY | 2025-07-01 11:15 | XMS_ITS ---
Author Organization [facility] Address [address] [place] [id number] Care Team Providers Care Payroll Master Name Role Phone Sil Alejandro Primary Care Provider Angela Gonzalez Unavailable [phone] Allergies Allergen (clinical drug ingredient) Drug/Non Drug Allergy documented on EMR Reaction Allergy Type Onset Date Status sumatriptan Imitrex Unknown Drug Allergy Activ e codeine Codeine makes her sick at stomach Drug Allergy Active morphine Morphine chest pain Drug Allergy Active REASON FOR VISIT 1 Week Follow Up Medications Medication SIG (Take, Route, Frequency, Duration) Notes Start Date End Date Status Dihydroergotamine Mesylate 4 MG/ML USE 1 SPRAY(S) IN THE NOSE EVERY 15 MINUTES DIRECTED; Duration: 30 Active Losartan Potassium 50 MG 2 tab Orally On ce a day Active Atenolol 25 MG 1 tab(s) orally [...] days Active Vital Signs Blood pressure systolic 140 mm Hg 07/01/20 25 Blood pressure diastolic 90 mm Hg 025 Heart Rate 80 /min 07/01/2025 Height 64 in 07/01/2025 Weight 114.4 lbs 07/01/2025 BMI 19.63 kg/m2 07/01/2025 Encounters Encounter Location Date Provider Diagnosis [facility] [address] [facility] [address] [place] [id number] 07/01/2025 Angela Gonzalez Essential (primary) hypertension I10 Assessments Encounter Date Diagnosis (ICD Code) Assessment Notes Treatment Notes Treatment Clinical Notes Section Notes 07/01/2025 Essential (primary) hypertension (ICD-10 - I10) Readings have improved and BP is normal today. Will continue current dose and she will call with readings in a week. If normal, can send a new rx. Plan Of Treatment Medication Medication Name Sig Start Date Stop Date Notes Losartan Potassium 50 MG 2 tab Orally Once a day Treatment Notes Assessment Notes Essential (primary) hypertension Reading s have improved and BP is normal today. Will continue current dose and she will call with readings in a week. If normal, can send a new rx. Next Appt Details Follow Up: 1 month, Reason: Progress Notes * JEAN TINSLEYDOB: [birth year] (55 yo F)Acc No.[id number]:07/01/2025 Patient: JEAN FALK Provider: IAM Estrada :1970 A ge:55 Y S ex:Female Date:07/01/2025 Address:[address] [place] [address] Pcp:Sil Alejandro Subjective: * Chief Complaints: * 1 . 1 Week Follow Up. * HPI: C ardiology: Blood Pressure Elevated P t here for one week f/u on blood pressure. Pts Losartan is now 100mg last visit. Pt states it's still high. Pt has a paper of her blood pressure readings over the past 7 days. * ROS: D ERMATOLOGY: no R maddi. [...] ER- Headache 04/24/2011, [facility] Er- blood clot 06-16-11, [facility] ER-fell down steps 1.1., [facility] ER- Headache and numbness 09-15-12, [facility] ER-overdose 12/31/13, [facility] chest pain 03-15 to 03-16-14, [facility] ER- spained ankle 05-17-2015, [facility] ER-back pain after cough 05/28/15, [facility] ER - Ear Infection 02/06/16, [facility] ER - Short of breath 10/09/18, [facility] ER - Abdominal Pain 11/11/20. * Family History: F ather: alive, 64 and healthy. M other: alive, had uterine cancer. M ateshashi Grand Father: , with lung cancer at [...] NOSE EVERY 15 MINUTES DIRECTED , Taking Losartan Potassium 50 MG Tablet 2 tab Orally Once a day , Medication List reviewed and reconciled with the patient * Allergies: C odjorge: makes her sick at stomach, Imitrex, Morphine: chest pain. Objective: * Vitals: W t: 114.4, Temp: 98.7, BP: 140/90, HR: 80, Nurse: nii, Ht: 64, Repeat BP: 124/82, BMI:19.63. * Examination: G eneral Examination: General Appearance: N AD. C hest: n ormal shape and expansion. H eart: R SR. L ungs: c lear to auscultation. E xtremities: n o leg edema. Assessment: * Assessment: 1. E ssential (primary) hypertension - I10 (Primary) Plan: * Treatment: * Follow Up: 1 month * Images: Billing Information: * Visit Code: 50120 Office Visit, Est Pt., Level 2. * Procedure Codes: * Electronic signature of IAM Villegas on 09/14/2025 at 10:22 AM EST Sign off status: Pending * Provider: IAM Estrada Date: 0 07/01/2025 Generated for Jacky solares/Marisela/eTcatrachosmitting on: 1 11/14/2024 10:22 AM EST History and Physical Notes * HPI (History of Present Illness) Category Sub-Category Detail Notes Category Not es Cardiology Blood Pressure Elevated Pt here for one week f/u on blood pressure. Pts Losartan is now 100mg last visit. Pt states it's still high. Pt has a paper of her blood pressure readings over the past 7 days Examination Category Sub-Category Detail Notes Category Not es General Examination Heart: RSR Lungs: clear to auscultatio n Extremities: no leg edema General Appearance: NAD Chest: normal shape and exp ansion
[2025-09-13 20:30] LABS: Coronavirus 19, PCR Not Detected (NotDetected); Influenza A, PCR Not Detected (NotDetected); Influenza B, PCR Not Detected (NotDetected)
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
== END 2025-09-13 23:59 ==
LOC: LAB.DROPOF 09-14 10:15
PROVIDERS: PCP Nurse Practitioner Family; Visit Provider Nurse Practitioner
DX: J06.9 Acute upper respiratory infection, unspecified (principal)
CPT/HCPCS: 87631